=== PATIENT | female | born 1965 | race Caucasian/White ===

== ENCOUNTER → 2020-12-18 11:18 | Outpatient (BNVA) | payer BC, SELFPAY | PROVIDERS: PCP Internal Medicine; Visit Provider Internal Medicine Pulmonary Disease ==

== ENCOUNTER 2021-12-16 10:32 | Outpatient (REF) | payer BC, SELFPAY ==
--- NOTE | ~2021-12-16 | CT_ITS ---
EXAMINATION: CT CHEST WITHOUT CONTRAST CLINICAL INFORMATION: Pulmonary nodules COMPARISON: None TECHNIQUE: Multidetector volumetric CT imaging of the chest was done. Axial MIP volume rendering provided. Sagittal and coronal reformatted images were obtained. This CT examination was performed using dose optimization techniques as appropriate, variously including the following: *Automated exposure control *Adjustment of mA and/or kV according to patient size (this includes techniques or standardized protocols for targeted exams where dose is matched to indication/reason for exam; i.e. extremities or head) *Use of iterative reconstruction technique DLP: 197 mGy-cm FINDINGS: LUNGS: There are multiple small bilateral pulmonary nodules. Largest right pulmonary nodule is a heterogeneous or semisolid right middle lobe nodule ax image 214 series 5. Largest left pulmonary nodule is a heterogeneous or semisolid left lower lobe nodule axial image 168 series 5. MEDIASTINUM: The mediastinum is normal. PLEURA: There is no pleural effusion. No pleural mass or thickening. AXILLA: No lymphadenopathy. UPPER ABDOMEN: The gallbladder has been removed. OSSEOUS STRUCTURES: There are degenerative changes of the spine. CT/CT chest wo con IMPRESSION: Multiple small bilateral pulmonary nodules largest measuring 4 to 5 mm. Comparison with old outside exams recommended. Fleischner guidelines were followed.
== END 2021-12-16 10:33 | disposition home or self-care (01) ==
LOC: HO.CT 10:32
PROVIDERS: PCP Internal Medicine; Visit Provider Internal Medicine Pulmonary Disease
DX: R91.8 Other nonspecific abnormal finding of lung field (principal)
CPT/HCPCS: 71250

== ENCOUNTER → 2021-12-30 14:47 | Outpatient (BNVA) | payer BC, SELFPAY | PROVIDERS: PCP Internal Medicine; Visit Provider Internal Medicine Pulmonary Disease | DX: Z13.89 Encounter for screening for other disorder (principal) ==

== ENCOUNTER 2024-07-02 09:11 | Outpatient (REF) | payer OTHER, SELFPAY ==
[2024-07-02 14:40] LABS: Influenza A PCR NEGATIVE (Negative); Influenza B PCR NEGATIVE (Negative); Resp Syncy Virus RNA Qual PCR NEGATIVE (Negative); SARS COV2 PCR INHOUSE NEGATIVE (Negative)
== END 2024-07-02 09:12 | disposition home or self-care (01) ==
LOC: HO.LAB 09:11
PROVIDERS: Physician Assistant; PCP Internal Medicine
DX: J06.9 Acute upper respiratory infection, unspecified (principal); R05.9 Cough, unspecified; R06.2 Wheezing
CPT/HCPCS: 0241U; 99202

== ENCOUNTER 2024-07-02 09:11 | Outpatient (AMB) | payer OTHER, SELFPAY ==
[2024-07-02 09:34] VITALS: BP 132/86; PULSE 74; TEMP 36.7; O2SAT 98; BMI 41.8
--- NOTE | 2024-07-02 09:34 | AM.OFFWIN_ITS ---
Intake Vital Signs 07/02/24 09:34 Height 5 ft 6 in Weight 259 lb BMI 41.8 BP 132/86 Blood Pressure Location Lt brachial Position Sitting Pulse 74 Pulse Source Pulse Oximeter Temp 98.1 F Temp Source Oral Pulse Oximetry (%) 98 Oxygen Delivery Method Room Air Intake Visit Reasons: EP Cough, wheezing Intake Note: pt c/o cough and wheezing. Started 2 days ago Patient Tobacco Use Status: Never used Tobacco Allergies amoxicillin Allergy (Unknown, Verified 07/02/24 09:40) Unknown doxycycline Allergy (Unknown, Verified 07/02/24 09:40) Unknown clarithromycin [From Biaxin] Allergy (Verified 07/02/24 09:40) Unknown Do you need a note to return to daycare/school/sports/work: No HPI HPI Comments History of Present Illness Details Patient is a 59-year-old female complaining of 2 days of a dry cough and wheezing. She states that she can hear a squeaking noise when she breathes, she is not quite sure where it is coming from. She also states she has some shortness of breath but she is not sure if it is worse than her baseline shortness of breath. She states she feels short of breath at baseline because she is overweight. She denies any fevers, ear pain, sinus pain, headaches or chest pain. 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 She states she had an ablation and she has been fine for the last year and has not been into AFib but she states she got COVID last year and that is what started the AFib. She states she does take an allergy pill daily. She has not tried taking any decongestants yet because she is afraid is going to affect her blood pressure. [facility] Social History (Updated 12/18/20 @ 11:23 by Jennifer Hoff MA) Patient Tobacco Use Status: Never used Tobacco Review of Systems Const All systems reviewed & are unremarkable except as noted in HPI and below Physical Exam Vital Signs: Last Vital Signs Temp 98.1 F 07/02/24 09:34 Pulse 74 07/02/24 09:34 BP 132/86 07/02/24 09:34 Pulse Ox 98 07/02/24 09:34 Oxygen Delivery Method Room Air 07/02/24 09:34 BMI result Body Mass Index 41.8 Const General: cooperative, healthy appearing, comfortable and no acute distress Orientation/consciousness: patient oriented x3 Limitations: no limitations HEENT Head: Yes normal to inspection Ears: hearing grossly normal bilaterally, external ears normal and TM's normal bilaterally General nose exam: Normal external nose present, Normal nares present and No nasal discharge present Face and sinus: Yes normal facial exam and Yes sinuses nontender Mouth: Normal oral and palatal mucosa present and moist mucous membranes Throat: Yes tonsils normal, Yes uvula midline and Yes posterior oropharynx abnormal (Erythema) Eyes General: appearance normal, both eyes and all related structures Neck Neck: Yes normal visual inspection Resp Effort & Inspection: normal respiratory effort, able to speak in complete sentences, Actively coughing, no respiratory distress, not tachypneic, no tripod positioning and no use of accessory muscles Auscultation: clear to auscultation bilaterally Cardio Rate: regular rate Rhythm: regular rhythm Heart sounds: normal S1 and S2 Skin General skin exam: no rashes or lesions noted Neuro General: patient oriented x3 Extrem General: Yes normal to inspection and Yes no clubbing, cyanosis or edema Assessment & Plan Assessment & Plan (1) URI (upper respiratory infection): Code(s): J06.9 - Acute upper respiratory infection, unspecified Qualifiers: URI type: unspecified URI Qualified Code(s): J06.9 - Acute upper respiratory infection, unspecified Plan: Vital signs are stable, patient is well-appearing, physical exam was unremarkable besides some erythema in her posterior oropharynx. We did send a flu COVID and RSV test, recommended oidq-sjl-sodslft medications for symptomatic management. Recommended she check with the pharmacist to find a decongestant that will not affect her blood pressure negatively. Plan See above Coding Level of Care Code New Pt Level 3 (86568) Diagnoses Upper respiratory tract infection, unspecified type J06.9 URI type: unspecified URI
== END 2024-07-02 10:21 | disposition home or self-care (01) ==
PROVIDERS: PCP Internal Medicine; Visit Provider Physician Assistant
DX: J06.9 Acute upper respiratory infection, unspecified (principal)

== ENCOUNTER 2024-07-13 09:48 | Outpatient (AMB) | payer OTHER, SELFPAY ==
[2024-07-13 11:25] VITALS: BP 126/90; PULSE 68; TEMP 36.6; O2SAT 96; BMI 42.0
--- NOTE | 2024-07-13 11:25 | MHC.OFFWIV ---
Intake Vital Signs 07/13/24 11:25 Height 5 ft 6 in Weight 260 lb BMI 42.0 BP 126/90 H Blood Pressure Location Lt brachial Position Sitting Pulse 68 Pulse Source Pulse Oximeter Temp 97.8 F Temp Source Oral Pulse Oximetry (%) 96 Oxygen Delivery Method Room Air Intake Visit Reasons: EP Cough, wheezing Intake Note: Pt is here today c/o cough and wheezing Patient Tobacco Use Status: Never used Tobacco Allergies amoxicillin Allergy (Unknown, Verified 07/13/24 11:26) Unknown doxycycline Allergy (Unknown, Verified 07/13/24 11:26) Unknown clarithromycin [From Biaxin] Allergy (Verified 07/13/24 11:26) Unknown HPI EP Cough, wheezing HPI Details Patient is a 59-year-old female with history of atrial fibrillation, hypertension, pulmonary nodules and mild obstructive sleep apnea who comes to the walk-in clinic complaining of persistent cough that sometimes is becoming coughing fits at night, nonproductive in nature, and she hears audible wheezing only when she is supine. 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 She came to the walk-in about a week ago when symptoms began and tested negative for known viruses. She does not have any chest pressure or shortness of breath, fever or chills, malaise or myalgias, nausea vomiting or diarrhea, weakness or dizziness, headache, or other significant associated symptoms. [facility] Social History Patient Tobacco Use Status: Never used Tobacco Review of Systems Const All systems reviewed & are unremarkable except as noted in HPI and below Physical Exam Vital Signs: Last Vital Signs Temp 97.8 F 07/13/24 11:25 Pulse 68 07/13/24 11:25 BP 126/90 H 07/13/24 11:25 Pulse Ox 96 07/13/24 11:25 Oxygen Delivery Method Room Air 07/13/24 11:25 BMI result Body Mass Index 42.0 Const General: cooperative, healthy appearing, comfortable, no acute distress, alert, awake, Physically active and well groomed; No anxious, diaphoretic, ill appearing, intoxicated appearing, poor hygiene or tired appearing Orientation/consciousness: oriented to person Limitations: no limitations HEENT Head: Yes normal to inspection, Yes normocephalic and Yes atraumatic Ears: hearing grossly normal bilaterally, external ears normal, TM's normal bilaterally and EAC's normal General nose exam: Normal external nose present, Normal nares present, Normal nasal mucous membranes and turbinates present, Normal septum present and No nasal discharge present Face and sinus: Yes normal facial exam, Yes sinuses nontender and Yes face symmetric Mouth: Normal oral and palatal mucosa present, lip normal and tongue normal Throat: Yes posterior oropharynx normal, No peritonsillar mass, No postnasal drainage, No uvular edema and No cobblestoning Eyes General: appearance normal, both eyes and all related structures Neck Neck: Yes normal visual inspection, Yes no lymphadenopathy, Yes trachea midline, Yes supple and No anterior neck swelling Resp Effort & Inspection: normal respiratory effort, able to speak in complete sentences, no audible wheezes, no grunting, not labored, no nasal flaring, no retractions and symmetric chest movement Auscultation: clear to auscultation bilaterally, no crackles, no rales, no rhonchi, no wheezes, lung sounds not diminished and No rub present Cardio Rate: regular rate Rhythm: regular rhythm Skin Other: Good color, warm and dry Neuro General: oriented to person Psych Appearance: grossly normal Mental Status: mental status grossly normal Speech and movement: Normal speech and movement present Affect: normal affect Attitude: cooperative Thought process: Normal thought process present Insight: Good insight present (Psych) Judgement: Good judgement present (Psych) Results Reviewed Results Reviewed: Plain film x-rays show no obvious acute disease per my read, although she does have pulmonary nodules which are known to her. Pending radiologist read to confirm Assessment & Plan Assessment & Plan (1) URI (upper respiratory infection): Code(s): J06.9 - Acute upper respiratory infection, unspecified Qualifiers: URI type: unspecified URI Qualified Code(s): J06.9 - Acute upper respiratory infection, unspecified Plan Patient is a 59-year-old female comes to the walk-in clinic a week after being treated here for similar symptoms, and reports that she hears wheezing in her ears when she lies supine, and worries that it might be pertussis. She does not have any chest pressure or shortness of breath, however she does report persistent coughing fits at night, that are nonproductive in nature. We discussed how her exam is unremarkable except for an occasional cough and being mildly hypertensive, and she has no wheezing on exam, with only a mild occasional cough. Chest x-ray was done today and is consistent with prior exams, no acute findings on my read. Pending radiologist read to confirm. I reassured her that it is likely that this is upper airway involvement as it is only audible to her while lying supine, in that it might be related to her mild obstructive sleep apnea. We discussed that she should use an extra pillow or 2 while sleeping to keep her elevated. Due to her history, I think she should trial benzonatate capsules before considering anything that would increase her blood pressure such as an oral steroid. I did order labs to evaluate her white blood cell count also, and this is pending. She is very worried about possibly having pertussis, although her exam currently does not support this, with no typical cough. I did offer to order labs to test this. She is allergic to 1st and second-line treatment for pertussis however, and even to penicillins and doxycycline, so we discussed that she might have to trial Levaquin if she were to develop a lower respiratory infection. She should monitor symptoms and they persist or worsen. She knows to go to the emergency department with worrisome symptoms. I did discuss that she should consider doing a repeat sleep study when symptoms are resolved, as she reports that she had a prior study done when she was diagnosed with atrial fibrillation, and apparently she was told that she had mild sleep apnea at the time, which did not need to be treated. She reports that she does not have excessive daytime sleepiness or fatigue while driving. She was reminded not to drive if she does experience any of this. Orders: Orders Complete Blood Count Auto Diff 07/13/24 R05.9 - Cough, unspecified XR chest 2V 07/13/24 R05.9 - Cough, unspecified B.pertussisB.parapertussis PCR 07/13/24 R05.9 - Cough, unspecified Medications: New benzonatate 100 mg PO BID-TID PRN 30 caps 0RF cough Coding Level of Care Code Est Pt Level 4 (32087) Diagnoses Upper respiratory tract infection, unspecified type J06.9 URI type: unspecified URI
== END 2024-07-13 14:11 | disposition home or self-care (01) ==
PROVIDERS: PCP Internal Medicine; Visit Provider Physician Assistant Medical
DX: J06.9 Acute upper respiratory infection, unspecified (principal)

== ENCOUNTER → 2024-07-13 09:48 | Outpatient (BNVA) | payer OTHER, SELFPAY | PROVIDERS: PCP Internal Medicine ==

== ENCOUNTER 2024-07-13 11:56 | Outpatient (REF) | payer OTHER, SELFPAY ==
--- NOTE | ~2024-07-13 | XR_ITS ---
EXAMINATION: XR CHEST CLINICAL INFORMATION: Cough. COMPARISON: CT chest 12/16/2021. TECHNIQUE: 2 views of the chest were obtained. FINDINGS: No focal consolidation, pleural effusion or pneumothorax. Normal appearance of the cardiomediastinal silhouette. Subcentimeter pulmonary nodules are better visualized on prior CT chest, too small to characterize by radiograph. No acute osseous findings. Visualized upper abdomen is within normal limits. XR/XR chest 2V IMPRESSION: 1. No acute cardiopulmonary findings. 2. Subcentimeter pulmonary nodules are better visualized on prior CT chest, too small to characterize by radiograph. Electronically signed by: Kylee Schafer MD 07/13/2024 03:23 PM EDT
[2024-07-13 15:06] LABS: MANUAL DIFF FLAG NO
[2024-07-13 15:09] LABS: Basophils Percent Auto 0.6 % (0-2); Eosinophils Absolute Auto 0.1 X10*3/uL (0.0-0.4); Eosinophils Percent Auto 1.4 % (0-4); Hematocrit 42.1 % (37.0-47.0); Hemoglobin 14.3 g/dl (12.0-16.0); Imm Gran Abs Auto 0.03 X10*3/uL (0.00-0.03); Imm Gran Pct Auto 0.4 % (0.0-0.4); Lymphocytes Absolute Auto 1.3 X10*3/uL (1.2-4.9); Lymphocytes Percent Auto 18.7 % (20-40); Mean Corpuscular Hemoglobin 32.1 pg (27.0-33.0); Mean Corpuscular Volume 94.6 fL (80.0-98.0); Monocytes Absolute Auto 0.3 X10*3/uL (0.1-1.2); Monocytes Percent Auto 4.6 % (2-11); Neutrophils Absolute Auto 5.3 x10*3/uL (2.0-8.3); Neutrophils Percent Auto 74.3 % (45-73); Platelet Count 285 X10*3/uL (160-400); Red Blood Count 4.45 X10*6/uL (4.20-5.50); Red Cell Distribution Width 13.8 % (11.0-16.0); White Blood Count 7.1 X10*3/uL (4.8-10.8)
== END 2024-07-13 11:57 | disposition home or self-care (01) ==
LOC: HO.HMGCX 11:56
PROVIDERS: Visit Provider Physician Assistant Medical
DX: R05.9 Cough, unspecified (principal)
CPT/HCPCS: 36415; 71046; 85025; 99212

== ENCOUNTER 2024-09-20 09:09 | Outpatient (AMB) | payer OTHER, SELFPAY ==
--- NOTE | 2024-09-20 09:24 | AM.OFFWIN_ITS ---
Intake Vital Signs 09/20/24 09:28 Height 5 ft 6 in Weight 262 lb BMI 42.3 BP 130/82 Blood Pressure Location Lt brachial Position Sitting Pulse 82 Pulse Source Pulse Oximeter Pulse Oximetry (%) 98 Oxygen Delivery Method Room Air Intake Visit Reasons: EP-chest pain, cough Intake Note: Patient here for rib pain, cough and occasional chest tightness when taking deep breathes that has been present for a few days. Patient Tobacco Use Status: Never used Tobacco Allergies amoxicillin Allergy (Unknown, Verified 09/20/24 09:32) Unknown doxycycline Allergy (Unknown, Verified 09/20/24 09:32) Unknown clarithromycin [From Biaxin] Allergy (Verified 09/20/24 09:32) Unknown Do you need a note to return to daycare/school/sports/work: No HPI HPI Comments History of Present Illness Details - The patient is a 59-year-old female pr esenting with follow-up concerns after recent hospitalization due to atrial fibrillation. - The atrial fibrillation episode was se vivienne enough to consider admission; however, the condition was stabilized and controlled with medication, leading to discharge within 24 hours. - Current symptoms include a sensation o f chest tightness described as if someone is squeezing it, located centrally around the sternum and radiating to the back. She had these symptoms since prior to admission to [facility] on 09/05/24 and had negative troponins, normal echocardiagram as well as normal BNP, TSH, CBC and chem panel - A persistent cough has been present fo r a couple of weeks, with no productive sputum, fevers, shortness of breath, or wheezing. No other upper respiratory symptoms. - The chest tightness does not exhibit s harp pains and is more reproducible with movement, suggesting costochondritis. - There is a history of ribcage cartilag e issues, tempering the suspicion of osteochondritis. - No recent smoking or similar irritants are reported as contributing factors to respiratory symptoms. Physical Exam General: Cooperative, healthy appearing, comfortable and no acute distress Orientation/consciousness: Patient oriented x3 Limitations: No limitations Head: Normal to inspection Ears: Hearing grossly normal bilaterally, external ears normal Nose: Normal external nose present Throat: Yes tonsils normal, Yes uvula midline. Posterior oropharynx normal Eyes: Appearance normal, both eyes and all related structures Neck: Normal visual inspection Respiratory: Clear to auscultation bilaterally. Normal respiratory effort, able to speak in complete sentences, no respiratory distress, not tachypneic, no tripod positioning and no use of accessory muscles Cardiovascular: Regular rate and rhythm. Normal S1 and S2 Skin: No rashes or lesions noted Neuro: Patient oriented x3 Extremities: Normal to inspection and Yes no clubbing, cyanosis or edema [facility] Social History Patient Tobacco Use Status: Never used Tobacco Review of Systems Const All systems reviewed & are unremarkable except as noted in HPI and below Physical Exam Vital Signs: Last Vital Signs Pulse 82 09/20/24 09:28 BP 130/82 09/20/24 09:28 Pulse Ox 98 09/20/24 09:28 Oxygen Delivery Method Room Air 09/20/24 09:28 BMI result Body Mass Index 42.3 Assessment & Plan Assessment & Plan (1) Cough: Code(s): R05.9 - Cough, unspecified Qualifiers: Cough type: subacute Qualified Code(s): R05.2 - Subacute cough Plan: Difficult to determine cause of cough and chest tightness, costochondritis vs GERD vs evolving pulmonary nodules. - Costochondritis: Recommend non-steroidal anti-inflammatory drugs NSAIDs for symptomatic relief. - Gastroesophageal Reflux Disease GERD: Initiate a trial of itkq-daf-qufyssg om eprazole for one week to address potential silent reflux contributing to cough. Monitor for symptom resolution. - Cough: will get CXR today. - Ensure appropriate follow-up with the new primary care provider and back filler operator for ongoing management of chronic conditions after transition in health insurance. Recommended she obtain the visit note from her Cards appt next week and bring it to this office so Dr Johnson may review and move her new pt appt up sooner, if appropriate. Otherwise, she will attend her new pt appt in December with Dr Johnson. Patient was informed and verbally consented to the use of an ambient scribe for clinic note documentation during this visit Orders: Orders XR chest 2V Today R05.9 - Cough, unspecified Coding Level of Care Code Est Pt Level 4 (93577) Diagnoses Subacute cough R05.2 Cough type: subacute
[2024-09-20 09:28] VITALS: BP 130/82; PULSE 82; O2SAT 98; BMI 42.3
--- OUTSIDE RECORDS SUMMARY | 2024-09-25 06:49 | XMS_ITS | Patient Health Record ---
[facility] Address [address] [place] [address] Care Team Providers Care Green Hide Inspector Name Role Phone Elly VANEGAS, Santana Primary Care Provider Rubi Colin Unavailable [phone] Allergies Allergen (clinical drug ingredient) Drug/Non Drug Allergy documented on EMR Reaction Allergy Type Onset Date Status amoxicillin Amoxicillin Unknown Drug Allergy Act lino Biaxin nausea Drug Allergy Active erythromycin Erythromycin nausea Drug Allergy A ctive doxycycline Doxycycline Unknown Drug Allergy Act lino Adhesive rash Allergy Active Reason For Referral No Information Medications Medication SIG (Take, Route, Frequency, Duration) Notes Start Date End Date Status Eliquis 5 MG 1 tablet Orally Twic e a day Not-Taking Norvasc Not-Taking ZyrTEC Allergy 10 MG 1 tablet Orally Onc e a day Active Evening [place] Oil 1000 MG as directed Orally Active Viorele 0.15-0.02/0.01 MG (05/03) 1 tablet Orally Once a day Not-Taking Entresto 49-51 MG 1 tablet Orally Twic e a day Active Feldene 20 MG 1 capsule with food Orally Once a day for 30 day(s) 07/19/2011 Not-Taking Digoxin 125 MCG 1 tablet Orally Not-Taking Metoprolol Succinate ER 50 MG 1 tablet Orally Once a day Not-Taking Multivitamin Active Vitamin C Active Biotin 5000 MCG 1 capsule Orally Onc e a day Active Work Note . . . Due to painful foot condition patient to be off of work until 01/03/18 12/20/2017 Not-Taking Vitamin D3 50 MCG (1999 UT) 1 capsule Orally Once a day Active Physical Therapy 3-4x per week for 3- 4 weeks 06/12/2017 Not-Taking vitamin Not-Taking Aleve Not-Taking Metoprolol Succinate ER 200 MG 1 tablet Orally Once a day Active Gabapentin 300 MG 1 capsule before bedtime Orally Once a day for 30 day(s) 12/20/2017 Not-Taking Vitamin D Not-Taking Baby Aspirin Not-Madi ing Walking Boot/Pneumatic As directed Wear Daily for Until further notice 12/20/2017 Not-Taking Carvedilol 25 MG 1 tablet with food Orally Twice a day Active Betamethasone Dipropionate Aug Not-Taking Amiodarone HCl Activ e Physical Therapy . . . 2-3x/week for 3- 4 weeks 01/02/2018 Not-Taking Work Note . . . Out of work unti l 01/30/18 01/09/2018 Not-Taking amLODIPine Besylate 10 MG 1 tablet Orall y Once a day Active Tylenol daily Not-Taking Metoprolol Succinate ER 100 MG Orally Once a day Not-Taking Social History Tobacco Use: Social History Observation Description Date Details (start date - stop date) Former Smoker NA - NA Tobacco Use/Smoking Question Answer Notes Are you a: former smoker Additional Findings: Tobacco Non-User Current no n-smoker Alcohol Screen Question Answer Notes Did you have a drink contain ing alcohol in the past year? Yes How often did you have a dri nk containing alcohol in the past year? Monthly or less (1 point) Points 1 Interpretation Negative Tobacco use other than smoking: Question Answer Notes Are you an other tobacco user? No Vital Signs Height 5ft6in in 04/05/2024 Weight 255 lbs 04/05/2024 BMI 41.15 kg/m2 04/05/2024 Encounters Encounter Location Date Provider Diagnosis [facility] [address] 10/11/2023 Rubi Perica Plantar fasciitis of right foot M72.2 ; Pain of right heel M79.671 and Calcaneal spur of right foot M77.31 [facility] [address] 04/05/2024 Rubi Perica Plantar fasciitis of right foot M72.2 ; Pain of right heel M79.671 and Calcaneal spur of right foot M77.31 Assessments Encounter Date Diagnosis (ICD Code) Assessment Notes Treatment Notes Treatment Clinical Notes Section Notes 10/11/2023 Pain of right heel (ICD-10 - M79.671) 10/11/2023 Plantar fasciitis of right foot (ICD-10 - M72.2) 04/05/2024 Pain of right heel (ICD-10 - M79.671) 04/05/2024 Plantar fasciitis of right foot (ICD-10 - M72.2) 04/05/2024 Calcaneal spur of right foot (ICD-10 - M77.31) 10/11/2023 Calcaneal spur of right foot (ICD-10 - M77.31) Plan Of Treatment Pending Test Test Name Order Date X ray : Foot, left 2V 06/12/2017 X ray : Foot, right 2V 07/19/2011 X ray : Foot, left 3V 05/23/2018 X ray : Foot, left 3V 06/13/2018 X ray : Foot, right 3V 04/24/2023 X ray : Foot, right 3V 01/12/2012 [id number] Destruction, -14 03/25/2015 [id number] Destruction, -04/29/2015 [id number] Destruction, -05/25/2015 [id number] TENDON SHEATH/LIGAMENT 0 01/29/2018 Insurance Providers Payer Name Payer Address Payer Phone Subscriber Number Group Number Insured Name Patient Relationship to Insured Coverage Start Date Coverage End Date [facility] [employer] [address] [place] [address] [id number] Jermaine Garg Spouse - patient is the spouse of the insured Medical (General) History Medical History History ICD Code sinus conditions keloids hypertension headaches/migraines gall bladder problems chicken pox back, hip, knee pain measles psoriasis/eczema A fib Surgical History Surgery Date(Month/Year) cholecystectomy 1996 tubal ligation foot surgery-topaz wisdom teeth extraction 1984 Hospitalization History Reason Date(Month/Year) MM cardiac ablation 09/07/2023
--- OUTSIDE RECORDS SUMMARY | 2024-09-25 06:49 | XMS_ITS | Continuity of Care Document ---
Author Organization [facility] ter Address [address] [place] [id number]- Care Team Providers Care Senior Oracle Pl Sql Developer Name Role Phone Not on Staff, PCP Primary Care Physician Unavail able [place] [facility] [place]): [place] - 09/05/[address] [address]- Discharge Disposition: A-D/C Home Attending Physician: Kei Locke MD Admitting Physician: Umang Mack MD Referring Physician: Not on Staff, Referring MD Encounter Type: Disch Obv Allergies, Adverse Reactions, Alerts Substance Criticality Severity Reaction Reaction Severity Status doxycycline unknown Active amoxicillin unknown Active penicillins unknown Active Biaxin hives Active Levaquin vomiting, diarr hea, upset stomach Active Medications biotin 5000 mcg oral capsule 0 Refills, Maintenance, 12/28/21 5:57:00 AM EDT, Partial fill upon patient request if the prescription is for a schedule II opioid drug. Start Date: 12/28/21 Status: Ordered Repeat number: 1 D3 By Mouth, Daily, 0 Refills, Maintenance, 01/18/23 4:10:00 AM EDT, Partial fill upon patient request if the prescription is for a schedule II opioid drug. Start Date: 01/18/23 Status: Ordered Repeat number: 1 Entresto 97 mg-103 mg oral tablet 1 tablet, By Mouth, 2 times a day, # 60 tablet, 0 Refills, Maintenance, 09/05/24 10:42:00 AM EST, Tablet, Partial fill upon patient request if the prescription is for a schedule II opioid drug. Start Date: 09/05/24 Status: Ordered Quantity: 60.0 Unit: tablet Repeat number: 1 Multaq 400 mg oral tablet 1 tablet = 400 mg, By Mouth, 2 times a day, # 60 tablet, 1 Refills, Maintenance, 09/05/24 11:26:00 AM EST, Tablet, [id number], Partial fill upon patient request if the prescription is for a schedule II opioid drug., 168, cm, 07/21/23 21:11:00 EDT, Height, 108, kg, 07/21/23 21:11:00 EDT, DryWeight Start Date: 09/05/24 Status: Ordered Quantity: 60.0 Unit: tablet Repeat number: 2 spironolactone 25 mg oral tablet 25 mg, 1, tablet, By Mouth, Daily, # 30 tablet, Refills 0, Maintenance, 09/05/24 10:43:00 AM EST, Partial fill upon patient request if the prescription is for a schedule II opioid drug. Start Date: 09/05/24 Status: Ordered Quantity: 30.0 Unit: tablet Repeat number: 1 ZyrTEC 10 mg oral tablet 1 tablet = 10 mg, By Mouth, Daily, 0 Refills, Maintenance, 02/11/16 9:26:42 AM EDT Start Date: 02/11/16 Status: Ordered Repeat number: 1 Problem List Condition Confirmation Course Effective Dates Status Health St atus Informant Obese class II Confirmed Active Results Radiology Reports * Exam Date Time Procedure Performing Provider Status 09/05/24 2:48 AM Chest Portable Khadijah Isabel (Verified) Notes: (Chest Portable) Reason For Exam: Shortness of Breath RESULT: Chest Portable Examination: Portable chest performed on 09/05/2024. History: Palpitations. Findings: A frontal view of the chest is compared to a prior study dated 08/07/2023. The cardiac and mediastinal silhouettes are within normal limits. The lungs are clear. The osseous and soft tissue structures are unremarkable. IMPRESSION: There is no acute cardiopulmonary disease. WSN: [id number] Ordering Physician: Hollie Rico Dictated By: Malina Kerr MD Dictated Date/Time: 09/05/24 7:45 am Reviewed By: Malina Kerr MD Signed By: Malina Kerr MD Signed Date/Time: 09/05/24 7:45 am Transcribed By: ETHAN Transcribed Date/Time: 09/05/24 7:44 am Vital Signs Most recent to oldest [Reference Range]: 1 2 3 Oxygen Saturation [94-100 %] 100 % (09/05/24 7:54 AM) 100 % (09/05/24 6:07 AM) 100 % (09/05/24 5:15 AM) Pulse Rate [55-90 bpm] 72 bpm (09/05/24 7:54 AM) 101 bpm *H* (09/05/24 6:07 AM) 104 bpm *H* (09/05/24 5:15 AM) Blood Pressure [90-138/55-84 mm Hg] 137/87mm Hg (09/05/24 7:54 AM) 132/92mm Hg (09/05/24 6:07 AM) 103/67mm Hg (09/05/24 5:15 AM) Respiratory Rate [16-30 br/min] 20 br/min (09/05/24 7:54 AM) 19 br/min (09/05/24 6:07 AM) 16 br/min (09/05/24 5:15 AM) Temperature [96.8-100.4 DegF] 97.4 DegF (09/05/24 1:18 AM) Mode of Delivery (Oxygen) Room air (09/05/24 7:54 AM) Room air (09/05/24 6:07 AM) Room air (09/05/24 5:15 AM) Blood pressure sites Arm, left (09/05/24 1:18 AM) Arm, left (09/05/24 1:16 AM) Social History Social History Type Response Smoking Status Never (less than 100 in lifetime) entered on: 12/28/21 Sex Sex Representation Female (finding) Admission evaluation note * Yahir VANEGAS, Uchechukwu: PERFORM, MODIFY, MODIFY Event Display: Admission Note Authored Date: Patient: ??YONIS GARG ? Age:??59 Years?Sex:??Female?:??1965?? History of Present Illness Yonis Garg is a 59-year-old female??with limited PMH on CIS but per non- general medicine documentation from 2016 which I confirmed with her today, she has a past medical history of hypertension,obesity, sleep apnea-not on CPAP[teletype or varitype keyboard operator reportedly told her she didn't need it], allergic rhinitis, depression, eczema, rosacea, lumbar disc degenerative disease??and patient reported hx of Afib s/p ablation in 2022.?? She presented to ED following sudden onset palpitations and was found to be in A-fib with RVR. ?? HPI: Admitted in ED where she reported: Sudden onset palpitations while in bed watching TV at about 10-11pm last night. ??This was reportedly associated with??mild??lightheadedness??and significant fatigue??that lasted until her ED presentation.?Notably, her apple watch told her that her HR was in the 160s. Reportedly, has not experienced palpitations since her ablation??with [facility]ology in 2022 at [facility]. Reports symptoms resolved with??the administration of diltiazem in ED and she is back to her baseline health now. ?? Relevant positives:??Had 32 ounces of decaf green tea at 10am yesterday??and decaf kath glasgow at 7:30pm??approximately yesterday. Over the course of the day yesterday,??she had 35oz of water[outside of her decaf teas]. This is her usual baseline fluid intake.? Relevant negatives: She denied having any chest pain, dizziness,??SOB, fever, chills, nausea,??vomiting,??headache, arm or jaw pain, cough,??sputum production,??constipation or diarrhea in the last week,??during her episode yesterday or at time of my review.??Denied any intake of alcohol,??fizzy or energy drinks yesterday. ?? quality assurance monitor final in ED at time of my review: sinus in the 70s. ?? Investigations thus far: Was initially hypotensive with systolics at 81 on ED arrival.?? Was also tachycardic to the 140s inthe very early hours of the morning.?? Now improved with last recorded blood pressure of 127/87 andheart rate of 72. Afebrile since ED arrival and saturating in the high 90s to 100 on RA. ?? CBC is benign.?? Mild metabolic acidosis with a bicarb of 16 and anion gap of 18.?? Creatinine is abit of baseline with a value of 1.14 [creatinine baseline is around 0.9-1.0].?? BNP is within normal limits and troponin is 14.?? TSH: 5.06 a normal free T4 of 0.92. Chest x-ray: Nil acute. ?? EKG on arrival: A-fib with RVR at a rate of 131 bpm. ?? Interventions thus far: Received a dose of diltiazem 120 mg in ED. Review of Systems Constitutional: No fever, chills or rigors?? Cardiac: Positive as in HPI above. No Chest pain, No??subjective leg swelling,??orthopnea or PND Respiratory: no shortness of breath Gastrointestinal: No diarrhea or constipation, no nausea or abdominal pain?? Genitourinary: No Urinary frequency, urgency or dysuria?? Musculoskeletal: No muscle or bone pain?? Neurological: No headache, blurred vision, tingling or numbness or any weakness?? Extremities: no weakness, swelling or pain?? Skin: Chronic rash from eczema??the bilateral shins.??no itching, bumps, hair and/or nail changes, de/pigmentation?? Objective ? Vital Signs?? Temperature: 97.4 DegF (09/05/24 01:18:00) Pulse Rate: 72 bpm (09/05/24 07:54:00) Respiratory Rate: 20 br/min (09/05/24 07:54:00) Systolic Blood Pressure: 137 mm Hg (09/05/24 07:54:00) Diastolic Blood Pressure:??87 mm Hg??High (09/05/24 07:54:00) Blood pressure sites: Arm, left (09/05/24 01:18:00) Mean Arterial Pressure: 64 mm Hg (09/05/24 01:18:00) Pulse Pressure: 50 mm Hg (09/05/24 07:54:00) Oxygen Saturation: 100 % (09/05/24 07:54:00) Mode of Delivery (Oxygen): Room air (09/05/24 07:54:00) Early Warning Score: 2 (09/05/24 07:55:44) ? Pain Scores?? No qualifying data available. ? Physical Exam Respiratory: Good air entry bilaterally, no wheeze, no crackles. Cardiac: HS1+2 [regular]??with no added sounds. Strong cardiac impulse.??No JVD. Extremities: No pedal edema bilaterally. Overall volume status: Appears euvolemic. Gastrointestinal: Abdomen is non-distended, soft, and nontender. ??No guarding, rigidity or reboundtenderness.??Bowel sounds present. Skin: Faded eczema rash noted in bilateral shins.?? No other lesions. Neuro: Alert and orientated x3. Moves all extremities spontaneously. No significant neuro deficit. ??No asterixis. Psych: Normal affect. No exam signs of anxiety. MSK: No cuts or bruises. Assessment/Plan Diagnoses Atrial fibrillation with RVR ??(I48.91) Hx of essential hypertension ??(Z86.79) Hypotension ??(I95.9) ?? Assessment:??Yonis Garg is a 59-year-old female??with limited PMH on CIS but per non- general medicine documentation from 2016 which I confirmed with her today, she has a past medical history of hypertension, obesity, sleep apnea-not on CPAP[teletype or varitype keyboard operator reportedly told her she didn't need it], allergic rhinitis, depression, eczema, rosacea, lumbar disc degenerative disease??and patient reported hx of Afib s/p ablation in 2022.??She presented to ED following sudden onset palpitations and was found to be in A-fib with RVR. ?? Atrial fibrillation with RVR (I48.91) ?Associated with??Hx of essential hypertension (Z86.79),??Hypotension (I95.9) ? Presented with sudden onset palpitations??and mild??headedness. EKG on arrival: A-fib with RVR at a rate of 131 bpm. Was back in sinus rhythm on ED case monitor at time of my review. Patient hypertensive with systolics at 81. Resolved with diltiazem. TSH: 5.06 a normal free T4 of 0.92. BNP is within normal limits and troponin is 14. She reported having done a recent echo with [facility]. Pre admission home regimen: Carvedilol 25 twice daily, Entresto 97/103 twice daily, spironolactone 25 daily. Plan: [facility]??cardiology consulted, appreciate recs. PCP FU of TFTs and chronic disease management. ?? Corazon Sinclair MD Internal Medicine PGY1 Pager: [phone] ?? Patient seen and management discussed with attending physician,??Dr Locke. ?? Histories Allergies Allergies ?(Active and Proposed Allergies Only) doxycycline? (Severity: Unknown severity, Onset: Unknown) ?Reactions: unknown Levaquin? (Severity: Unknown severity, Onset: Unknown) ?Reactions: vomiting, diarrhea, upset stomach penicillins? (Severity: Unknown severity, Onset: Unknown) ?Reactions: unknown amoxicillin? (Severity: Unknown severity, Onset: Unknown) ?Reactions: unknown Biaxin? (Severity: Unknown severity, Onset: Unknown) ?Reactions: hives ? Past Medical History/Problem List Active Problems(1) Obese class II ? Past Surgical History No surgery history documented. ? Social History Alcohol Details:??Use: Current. ??Frequency: 1-2 times per month. Substance Abuse Details:??Use: Never. Tobacco Details:??Use: Never (less than 100 in lifetime). Details:??Former smoker, Other: as teenager ocassionally. ? Family History No Family History documented. ? Medications Home Medications Cetirizine (ZyrTEC 10 mg oral tablet)?1?tab(s)?10?Milligram?By Mouth?Daily Cholecalciferol (D3)?By Mouth?Daily dronedarone (Multaq 400 mg oral tablet)?1?tab(s)?400?Milligram?By Mouth?2 times aday sacubitril-valsartan (Entresto 97 mg-103 mg oral tablet)?1?tab(s)?By Mouth?2 times a day Spironolactone (spironolactone 25 mg oral tablet)?25?Milligram?1?tablet?By Mouth?Daily ? Inpatient Medications Medications (11) Active SCHEDULED: (3) NaCl 0.9% Flush 3ml (NaCL 0.9% Flush) ??3 mL, IV Push, Every 8 hours Sacubitril-Valsartan 97 mg-103 mg Tablet (Entresto 97 mg-103 mg oral tablet) ??1 tablet, By Mouth, 2 times a day Spironolactone 25 mg Tablet (spironolactone 25 mg oral tablet) ??25 mg, By Mouth, Daily CONTINUOUS: (0) PRN: (8) Acetaminophen 325 mg Tablet (Acetaminophen Tablet) ??650 mg, By Mouth, Every 4 hours Dextromethorphan-Guaifenesin 20 mg-200 mg/10 mL Liqu UD (Robitussin DM Liquid) ??10 mL, By Mouth, Every 4 hours Docusate Sodium 100 mg Capsule (Docusate Sodium Capsule) ??100 mg 1 capsule, By Mouth, 2 times a day Melatonin 3 mg Tablet (Melatonin Tablet) ??3 mg, By Mouth, Daily at bedtime NaCl 0.9% Flush 3ml (NaCL 0.9% Flush) ??3 mL, IV Push, Every 8 hours Polyethylene Glycol 17 Gm Powder (MiraLax Powder) ??17 Gm 1 pack/packet, By Mouth, Daily Senna Tablet ??8.6 mg 1 tablet, By Mouth, 2 times a day Simethicone 80 mg Chewable Tablet (Simethicone Tablet) ??80 mg, Chew, 3 times a day ? Results Recent Labs BLOOD COUNT & DIFF WBC 7.5 k/mm3 ()?? 09/05/2024 01:44 RBC 4.68 m/mm3 ()?? 09/05/2024 01:44 Hgb 14.7 Gm/dL ()?? 09/05/2024 01:44 Hct 44.3 % ()?? 09/05/2024 01:44 MCV 94.7 femtoliters ()?? 09/05/2024 01:44 MCH 31.4 pg ()?? 09/05/2024 01:44 MCHC 33.2 Gm/dL ()?? 09/05/2024 01:44 Platelet Count 300 k/mm3 ()?? 09/05/2024 01:44 RDW-SD 48.2 femtoliters (High)?? 09/05/2024 01:44 MPV 10.6 femtoliters ()?? 09/05/2024 01:44 Nucleated RBC (Automated) 0.0 #/100 WBC'S ()?? 09/05/2024 01:44 Abs. NRBC 0.0 k/mm3 ()?? 09/05/2024 01:44 Abs. Neut 4.5 k/mm3 ()?? 09/05/2024 01:44 Abs. Lymph 2.1 k/mm3 ()?? 09/05/2024 01:44 Abs. Marin 0.7 k/mm3 ()?? 09/05/2024 01:44 Abs. Eo 0.2 k/mm3 ()?? 09/05/2024 01:44 Abs. Baso 0.0 k/mm3 ()?? 09/05/2024 01:44 Neut % 59.8 % ()?? 09/05/2024 01:44 Lymph % 28.3 % ()?? 09/05/2024 01:44 Marin % 8.8 % ()?? 09/05/2024 01:44 Eos % 2.4 % ()?? 09/05/2024 01:44 Baso % 0.4 % ()?? 09/05/2024 01:44 Imm Gran 0.3 % ()?? 09/05/2024 01:44 Abs. Imm Gran 0.0 k/mm3 ()?? 09/05/2024 01:44 ?? CARDIAC Nt-Probnp 93 pg/mL ()?? 09/05/2024 01:44 High Sensitivity Troponin (HSTnT) 14 ng/L (High)?? 09/05/2024 04:55 ?? CHEM GENERAL Sodium 141 mmol/L ()?? 09/05/2024 01:44 Potassium HEMOLYZED mmol/L ()?? 09/05/2024 01:44 Chloride 107 mmol/L ()?? 09/05/2024 01:44 Bicarbonate Level 16 mmol/L (Low)?? 09/05/2024 01:44 Anion Gap 18 (High)?? 09/05/2024 01:44 Glucose Level 122 mg/dL (High)?? 09/05/2024 01:44 Glucose, POC 106 mg/dL (High)?? 09/05/2024 01:25 BUN 16 mg/dL ()?? 09/05/2024 01:44 Creatinine-Blood 1.14 mg/dL (High)?? 09/05/2024 01:44 Estimated GFR Creatinine 55 ML/MIN/1.73 M2 ()?? 09/05/2024 01:44 Calcium 9.8 mg/dL ()?? 09/05/2024 01:44 Magnesium 2.0 mg/dL ()?? 09/05/2024 01:44 ?? ENDOCRINE/TUMOR MARKER TSH 5.06 uIU/mL (High)?? 09/05/2024 01:44 Free T4 0.92 ng/dL ()?? 09/05/2024 01:44 ?? HEME OTHER Hold Blue Top SPECIMEN DISCARDED AFTER 4 HOURS. ()?? 09/05/2024 01:44 ?? VIROLOGY COVID-19 by RT-PCR NEGATIVE ()?? 09/05/2024 01:44 ? EKG study * Event Display: ECG 12-Lead Authored Date: Please click on pdf link to open report * Event Display: ECG 12-Lead Authored Date: Ventricular Rate: 131 BPM QRS Duration: 100 ms Q-T Interval: 290 ms QTC Calculation(Bazett): 428 ms R [place]: 39 degrees T [place]: -36 degrees Atrial fibrillation with rapid ventricular response [place]: Temo Broderick Consult note * Arcelia Vega MD: PERFORM Event Display: Consultation Note Authored Date: Patient: ??YONIS GARG ? Age:??59 Years?Sex:??Female?:??1965?? History of Present Illness/Interval History 59-year-old female with past medical history significant for atrial fibrillation status post ablation by Dr. 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 We were consulted toevaluate this patient for A-fib with RVR. ?? As I see her today, she is converted back to normal sinus rhythm.?? Her recent echocardiogram at our office on 08/09/2024 indicated left ventricular ejection fraction 55 to 60%, mildly dilated left atrium, normal right ventricular size and function, no significant valvular abnormality.?? Ascending aorta is 4.2 cm. ?? I talked with Dr. Fox as patient sees him for atrial fibrillation status post ablation.?? We discussed today regarding antiarrhythmic management for paroxysmal atrial fibrillation at this time.??So we decided to start her on Multaq 400 mg p.o. twice daily and arrange outpatient [facility] with Dr. Fox. ? Review of system: ? Constitutional:?? No appetite Loss, chills, dizziness, fever, night Sweats Eyes:?? Denies blurred vision, discharge, eye irritation, spots in vision, vision loss Head and Neck:?? Denies any headache, neck pain Ears, Nose, Mouth, Throat: No issues Cardiovascular:?? Denies chest pain/pressure, claudication, irregular heart beat, orthopnea, palpitations, syncope Respiratory:?? Denies cough, hemoptysis, SOB, sputum production, wheezing Gastrointestinal:?? Denies any abdominal distention, pain, black stools, diarrhea, dysphagia, vomiting Genitourinary:?? Denies dysuria, flank pain Musculoskeletal:?? Denies any joint pain or swelling other than mention in HPI Integumentary:?? Denie any skin rash or ulcer, pruritus Neurological:?? Denies any abnormal gait or focal weakness, headache, numbness, seizures, slurred speech Psychiatric:?? Denies any delusions, emotional problems, homicidalideation, suicidal ideation Hematologic:?? Denies any bleeding tendency, hemorrhage ?? Physical Exam: ?? Appearance:?? No Acute Distress, Alert Head Exam:?? Normocephalic and Atraumatic Eyes:?? Mild Palor, Sclera Anicteric, PERRL, EOMI Neck:?? Supple, Non-tender, No carotid bruit, thyromegaly or lymphadenopathy Pulmonary:?? No Accessory Muscle Use, clear to auscultate bilaterally Cardiovascular: JVD/Rhythm/Heart Sound/Added sound???S1 and S2 regular rate and rhythm, no murmur, no gallop or rub Abdominal Inspection:?? Normal, Soft, Non-tender, Bowel Sounds Present, No Hepatosplenomegaly Rectal Exam:?? Deferred Extremity: Peripheral Pulses are palpable and symmetrical, no leg edema Musculoskeletal: No obvious joint pain, swelling or deformity Skin:?? Skin Color Normal, No rash or visible ulcer on limited examination Hematological: No lymphadenopathy or mass Psychiatry: anxiety +, no delusion Physical Exam Vitals & Measurements T:??97.4?F?? HR:??72??(Peripheral)?? RR:??20?? BP:??137/87?? SpO2:??100%?? Assessment/Plan Atrial fibrillation with RVR Hx of essential hypertension Hypotension Orders: apixaban, 5 mg, Tablet, By Mouth, 2 times a day, Routine, 09/05/24 13:27:00 EST ? 59-year-old female with past medical history significant for atrial fibrillation status post ablation by Dr. 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 We were consulted toevaluate this patient for A-fib with RVR. ?? The patient is currently in sinus rhythm.?? The recent echocardiogram indicated recovery of the heart function. [id number] Score 3 considering hypertension, female and history of cardiomyopathy. ?? Issues: 1.?? Paroxysmal atrial fibrillation with rapid ventricular rate, history of ablation in the past 2.?? Hypertension 3.?? 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 Recommendation: 1.?? Discontinue Coreg and start Multaq 400 mg p.o. twice daily 2.?? [id number] Score is 3 considering hypertension, being female and history of cardiomyopathy, will start Eliquis 5 mg p.o. twice daily 3.?? Follow-up with Dr. Fox at [facility] in 3 to 4 weeks. 4.?? Continue GDMT???Entresto spironolactone for heart failure with reduced ejection fraction. ?? Thank you for referring this patient to our service. Allergies Biaxin??(hives) Levaquin??(vomiting, diarrhea, upset stomach) amoxicillin??(unknown) doxycycline??(unknown) penicillins??(unknown) Home Medications Biotin Cetirizine: 10 mg = 1 tablet, By Mouth, Daily Cholecalciferol: By Mouth, Daily dronedarone: 400 mg = 1 tablet, By Mouth, 2 times a day sacubitril-valsartan: 1 tablet, By Mouth, 2 times a day Spironolactone: 25 mg = 1 tablet, By Mouth, Daily Hospital Medications Medications (12) Active SCHEDULED: (4) Apixaban 5 mg Tablet (Apixaban Tablet) ??5 mg, By Mouth, 2 times a day NaCl 0.9% Flush 3ml (NaCL 0.9% Flush) ??3 mL, IV Push, Every 8 hours Sacubitril-Valsartan 97 mg-103 mg Tablet (Entresto 97 mg-103 mg oral tablet) ??1 tablet, By Mouth, 2 times a day Spironolactone 25 mg Tablet (spironolactone 25 mg oral tablet) ??25 mg, By Mouth, Daily CONTINUOUS: (0) PRN: (8) Acetaminophen 325 mg Tablet (Acetaminophen Tablet) ??650 mg, By Mouth, Every 4 hours Dextromethorphan-Guaifenesin 20 mg-200 mg/10 mL Liqu UD (Robitussin DM Liquid) ??10 mL, By Mouth, Every 4 hours Docusate Sodium 100 mg Capsule (Docusate Sodium Capsule) ??100 mg 1 capsule, By Mouth, 2 times a day Melatonin 3 mg Tablet (Melatonin Tablet) ??3 mg, By Mouth, Daily at bedtime NaCl 0.9% Flush 3ml (NaCL 0.9% Flush) ??3 mL, IV Push, Every 8 hours Polyethylene Glycol 17 Gm Powder (MiraLax Powder) ??17 Gm 1 pack/packet, By Mouth, Daily Senna Tablet ??8.6 mg 1 tablet, By Mouth, 2 times a day Simethicone 80 mg Chewable Tablet (Simethicone Tablet) ??80 mg, Chew, 3 times a day Lab Results Cardiology Labs WBC: 7.5 k/mm3 (09/05/24) RBC: 4.68 m/mm3 (09/05/24) Hgb: 14.7 Gm/dL (09/05/24) Hct: 44.3 % (09/05/24) MCV: 94.7 femtoliters (09/05/24) MCH: 31.4 pg (09/05/24) MCHC: 33.2 Gm/dL (09/05/24) Platelet Count: 300 k/mm3 (09/05/24) RDW-SD:??48.2 femtoliters??High (09/05/24) Nucleated RBC (Automated): 0 #/100 WBC'S (09/05/24) Abs. Neut: 4.5 k/mm3 (09/05/24) Abs. Lymph: 2.1 k/mm3 (09/05/24) Abs. Marin: 0.7 k/mm3 (09/05/24) Abs. Eo: 0.2 k/mm3 (09/05/24) Abs. Baso: 0 k/mm3 (09/05/24) Neut %: 59.8 % (09/05/24) Marin %: 8.8 % (09/05/24) Eos %: 2.4 % (09/05/24) Baso %: 0.4 % (09/05/24) Imm Gran: 0.3 % (09/05/24) Abs. Imm Gran: 0 k/mm3 (09/05/24) Sodium: 141 mmol/L (09/05/24) Potassium: HEMOLYZED (09/05/24) Chloride: 107 mmol/L (09/05/24) Bicarbonate Level:??16 mmol/L??Low (09/05/24) Glucose Level:??122 mg/dL??High (09/05/24) BUN: 16 mg/dL (09/05/24) Creatinine-Blood:??1.14 mg/dL??High (09/05/24) Calcium: 9.8 mg/dL (09/05/24) Protein, Total: 7.4 Gm/dL (10/04/23) Albumin: 3.8 Gm/dL (10/04/23) Alkaline Phosphatase:??105 units/L??High (10/04/23) AST (SGOT):??33 units/L??High (10/04/23) ALT (SGPT): 31 units/L (10/04/23) Bilirubin, Total: 0.3 mg/dL (10/04/23) Nt-Probnp: 93 pg/mL (09/05/24) TSH:??5.06 uIU/mL??High (09/05/24) Free T4: 0.92 ng/dL (09/05/24) Diagnostic Impression MRI MRI Cardiac W+W/O Contrast ?? 10:49:49 IMPRESSION: 1. Moderately diminished global LV function, ejection fraction 31%. This may represent a slight underestimate due to evidence of some heart rate variability/arrhythmia on the cine sequences. 2. Mild thickening of the interventricular septum 13 mm with otherwise normal to top normal wall thickness. 3. No late gadolinium enhancement abnormality in the myocardium to suggest infiltrative disease, infarct, or myocarditis. 4. Mildly diminished global RV function, RV ejection fraction 32%. Similarly, this may represent a slight underestimate. 5. Biatrial enlargement. ? I have personally reviewed the images and I agree with this report. WSN: [id number] ? Ordering Physician: Betsey Rey ?? Signed By: Long Mcwilliams MD ECG ECG 12-Lead * Preliminary * ?? 01:13:53 Please click on pdf link to open report ?? ECG 12-Lead * Preliminary * ?? 01:13:53 Ventricular Rate: 131 BPM QRS Duration: 100 ms Q-T Interval: 290 ms QTC Calculation(Bazett): 428 ms R [place]: 39 degrees T [place]: -36 degrees Atrial fibrillation with rapid ventricular response ?? [place]: , Problem List/Past Medical History Ongoing Obese class II Procedure/Surgical History No qualifying data available. Patient Education Titles WebMD Ignite Patient Education - Understanding Atrial Fibrillation (AFib)?? [employer] Patient Education - Dronedarone?? Follow-Up Appointments Added Follow Up ?Time Frame ?Comments Prescriptions has been sent to your pharmacy?Please call cardiology office immediately if any issues in getting new medicatiosn filled Please follow-up with your primary care doctor within 1 to 2 weeks?for the follow upmildly elevated TSHBMP Bhavin Fox?2 to 3 weeks PCP Not on Staff Social History Alcohol Use: Current. Frequency: 1-2 times per month. Substance Abuse Use: Never. Tobacco Use: Never (less than 100 in lifetime). Family History No family history recorded. Note * Kei Locke MD: PERFORM Event Display: Discharge/Transfer Note Hospital Authored Date: [id number] Patient: ??YONIS GARG ? Age:??59 Years?Sex:??Female?:??1965?? Patient Information Discharge Location: [facility] Primary Care Physician: Not on Staff, PCP Admit Date/Time: 09/05/2024 01:08 Discharge Disposition Discharge Disposition: ?? Discharge Diagnosis Palpitations ([id number]) Atrial fibrillation with RVR (I48.91) _ Discharge Medications Cetirizine (ZyrTEC 10 mg oral tablet)?1?tab(s)?10?Milligram?By Mouth?Daily Cholecalciferol (D3)?By Mouth?Daily dronedarone (Multaq 400 mg oral tablet)?1?tab(s)?400?Milligram?By Mouth?2 times aday sacubitril-valsartan (Entresto 97 mg-103 mg oral tablet)?1?tab(s)?By Mouth?2 times a day Spironolactone (spironolactone 25 mg oral tablet)?25?Milligram?1?tablet?By Mouth?Daily ? Medications Started Multaq Medications Discontinued coreg Doses Changed none Allergies Allergies ?(Active and Proposed Allergies Only) doxycycline? (Severity: Unknown severity, Onset: Unknown) ?Reactions: unknown Levaquin? (Severity: Unknown severity, Onset: Unknown) ?Reactions: vomiting, diarrhea, upset stomach penicillins? (Severity: Unknown severity, Onset: Unknown) ?Reactions: unknown amoxicillin? (Severity: Unknown severity, Onset: Unknown) ?Reactions: unknown Biaxin? (Severity: Unknown severity, Onset: Unknown) ?Reactions: hives ? PCP Follow-Up/Heads-Up elevated TSH BMP/BP Hospital Course 59-year-old female??with limited PMH of A fib, CHF, HTN, OSAm allergic rhinitis, depression, eczema, rosacea, lumbar disc degenerative disease?? presented to ED following sudden onset palpitations and was found to be in A-fib with RVR. ?? Atrial fibrillation with RVR (I48.91) ?Associated with??Hx of essential hypertension (Z86.79),??Hypotension (I95.9) ? Presented with sudden onset palpitations??and mild??headedness. EKG on arrival: A-fib with RVR at a rate of 131 bpm. Was back in sinus rhythm Patient initially hypotensive Resolved with diltiazem. TSH: 5.06 a normal free T4 of 0.92. BNP is within normal limits and troponin is 14. She reported having done a recent echo with [facility]. Pre admission home regimen: Carvedilol 25 twice daily, Entresto 97/103 twice daily, spironolactone 25 daily. seen by cardiology who suggested as pt back to NSR and VSS--patient can be discharged home with recommendation to discontinue carvedilol and start patient on??Multaq.?? Patient was advised??about cardiology recommendation and was advised to call cardiology office immediately??if any problem feelingof??with prescription of multaq--pt agreed PCP f/u for BP/BMP check, and also for mildly elevated TSH with normal FT4? Now feels fine with no complaint. Having stable vitals. CTA BL, S1, S2 no GMR.Abd SOft, NT, BS+ve, AAO3. no pedal edema RN at bed side when recs were d/w pt ?? Objective . Physical Exam Pending Results No Pending Results Patient Education Titles [employer] Patient Education - Understanding Atrial Fibrillation (AFib)?? [employer] Patient Education - Dronedarone?? Follow-Up Appointments Added Follow Up ?Time Frame ?Comments Prescriptions has been sent to your pharmacy?Please call cardiology office immediately if any issues in getting new medicatiosn filled Please follow-up with your primary care doctor within 1 to 2 weeks?for the follow upmildly elevated TSHBMP Bhavin Fox?2 to 3 weeks PCP Not on Staff Post Discharge Care Discharge ?09/05/24 11:27:00 EST ?Order Comment:?? Discharge Prescriptions ?ePrescribed, 09/05/24 11:27:00 EST ?Order Comment:?? Home Health Face to Face ^HomeHealthFTF 25??minutes spent on discharge * Kei Locke MD: PERFORM, SIGN, VERIFY Event Display: Patient Education Handout Authored Date: [id number] * Kei Locke MD: PERFORM Event Display: Patient Education Leaflets Authored Date: [id number] Understanding Atrial Fibrillation (AFib) ?? 60739 Understanding Atrial Fibrillation (AFib) Atrial fibrillation (AFib) is the most common type of arrhythmia. An arrhythmia is any problem withthe speed or pattern of the heartbeat.??AFib causes fast, chaotic electrical signals in the atria. This makes it hard for the heart to work as it should. It affects how much blood your heart can pumpout to the body. AFib may occur once in a while and go away on its own. This is called paroxysmal. Or it may continue for longer periods. This is called persistent. AFib can lead to serious problems, such as stroke. Your healthcare provider will need to watch and manage your condition. What happens during atrial fibrillation??? The heart has an electrical system. This sends signals to control the heartbeat. As the signals move through the heart, they tell the heart???s upper chambers (atria) and lower chambers (ventricles) when to squeeze (contract) and relax. This lets blood move through the heart and out to the body andlungs. With AFib, the atria get abnormal signals. This causes them to contract in a fast and irregular way. They are out of sync with the ventricles. The atria have a harder time moving blood into the ventricles. Blood may then pool in the atria. This increases the risk for blood clots and stroke. The ventricles may contract too quickly and irregularly. They may not pump blood to the body and lungs as well as they should. This can weaken the heart muscle over time. This can lead to heart failure. Heart failure means the heart muscle can???t pump blood well. ?? What causes atrial fibrillation? AFib is more common in older adults. It has many possible causes: ??? Older age ??? Coronary artery disease ??? Heart valve disease ??? Heart attack ??? Heart surgery ??? High blood pressure ??? Thyroid disease ??? Diabetes ??? Lung disease ??? Sleep apnea ??? Heavy alcohol use In some cases of AFib, healthcare providers don't know the cause. ?? What are the symptoms of atrial fibrillation? AFib may not cause symptoms. If symptoms do occur, they may include: ??? A fast, pounding, irregular heartbeat ??? Shortness of breath ??? Tiredness ??? Dizziness or fainting ??? Chest pain ?? How is atrial fibrillation treated? Treatments for AFib can include any of the below. ??? Medicines. You may be prescribed: o Heart rate medicines to help slow down the heartbeat o Heart rhythm medicines to help the heart beat more regularly o Blood thinners or anti- clotting medicines to help reduce the risk for blood clots and stroke ??? Left atrial appendage closure. Your healthcare provider may advise this to prevent stroke. Youmay need it if you are at high risk for stroke but have problems taking blood-thinner (anticoagulant) medicines. This is a procedure done through a catheter in the groin.??A device is placed in the part of the heart. This is where most clots form. This area is called the left atrial appendage (MIKE). It's a pouch-like structure in the muscle wall of the left atrium. The device closes off the MIKE. This prevents clots moving from the heart to the brain and causing a stroke. ??? Electrical cardioversion. Your healthcare provider uses special pads or paddles to send 1 or more brief electrical shocks to the heart. This can help reset the heartbeat to normal. ??? Ablation. Long, thin tubes (catheters) are threaded through a blood vessel to the heart. In the heart, the catheters send out hot or cold energy to the places that cause the abnormal signals. This destroys the problem tissue or cells.This improves the chances that your heart will stay in normal rhythm without using medicines. If your heart rate and rhythm can???t be controlled, you may need an AV node ablation and a pacemaker. These will help control the heart rate and regularity of the heartbeat. ??? Surgery. Your healthcare provider may use a method to create scar tissue in the parts of the heart causing the abnormal signals. The scar tissue disrupts the abnormal signals. This may stop AFib from occurring. Most often, theleft atrial appendage is closed off as well. ??? Hybrid surgical-catheter ablation for AFib. This is used for people with AFib that continues or is hard to treat. It combines surgery with a catheter ablation. First, the surgeon makes small cuts (incisions) between the ribs in the chest or in the abdomen near the sternum. The surgeon puts a scope through the incisions. This is done to get to the ba ckside and other areas of the heart. Energy is sent to the surface of the atria. This disrupts the abnormal electrical signals. Then a catheter is put into a vein in the groin. The catheter is guidedinto the heart. Using the catheter, radiofrequency ablation is done. This destroys any other tissueinside the heart that is causing the AFib. It's also done to assess the success of the surgery. This hybrid treatment may work better to block the abnormal electrical signals. It may be a more permanent fix for persistent AFib. ?? What are possible complications of atrial fibrillation? Complications can include: ??? Blood clots ??? Stroke ??? Dementia ??? Heart failure ?? When should I call my healthcare provider? Call your healthcare provider right away if you have any of these: ??? Symptoms that don???t get better with treatment, or get worse ??? New symptoms ?? Last Reviewed Date: 2021 ?? 6211-2081 [employer]. All rights reserved. This information is not intended as a substitute for professional medical care. Always follow your healthcare professional's instructions. ?? * Kei Locke MD: PERFORM Event Display: Patient Education Leaflets Authored Date: Dronedarone ?? [id number] Dronedarone Brand Name(s): Giselle? IMPORTANT WARNING: You should not take dronedarone if you have severe heart failure. Dronedarone may increase the riskof in people who have severe heart failure. Tell your doctor if you have heart failure that is severe enough to cause shortness of breath while you are at rest, after a small amount of exercise, or after any physical activity. Also tell your doctor if you have been hospitalized for heart failure during the past month even if you are feeling better. Your doctor will not prescribe dronedaronefor you. You should not take dronedarone if you have atrial fibrillation (a heart rhythm disorder that may cause the heartbeat to be fast and irregular) that will not or cannot be converted back to a normal heart rhythm. Dronedarone may increase the risk of , stroke, and the need to be hospitalized in people with permanent atrial fibrillation. Your doctor will check your heart rhythm at least every 3 months while you are taking dronedarone. Call your doctor immediately if your heartbeat becomes fast or irregular while you are taking dronedarone. Your doctor or pharmacist will give you the match maker's patient information sheet (Medication Guide) when you begin treatment with dronedarone and each time you refill your prescription. Read the information carefully and ask your doctor or pharmacist if you have any questions. You can also visit the Food and Drug Administration (FDA) website (https://www.fda.gov/Drugs/DrugSafety/jqa518002.htm) or the match maker's website to obtain the Medication Guide. WHY is this medicine prescribed? Dronedarone is used to treat people who currently have normal heart rhythm, but have had atrial fibrillation in the past. Dronedarone decreases the risk that people who have this condition will need to be hospitalized to treat atrial fibrillation. Dronedarone is in a class of medications called antiarrhythmics. It works by helping the heart to beat normally. HOW should this medicine be used? Dronedarone comes as a tablet to take by mouth. It is usually taken twice a day, with the morning meal and the evening meal. Take dronedarone at around the same times every day. Follow the directionson your prescription label carefully, and ask your doctor or pharmacist to explain any part you do not understand. Take dronedarone exactly as directed. Do not take more or less of it or take it more often than prescribed by your doctor. Your doctor may prescribe certain medications to decrease the risk of stroke while you are taking dronedarone. Take this medication exactly as directed during your treatment. Dronedarone will help control your heartbeat only as long as you continue to take it. Continue to take dronedarone even if you feel well and have felt well for a long time. Do not stop taking dronedarone without talking to your doctor. Are there OTHER USES for this medicine? This medication may be prescribed for other uses; ask your doctor or pharmacist for more information. What SPECIAL PRECAUTIONS should I follow? Before taking dronedarone, ??? tell your doctor and pharmacist if you are allergic to dronedarone, any other medications, or any of the ingredients in dronedarone tablets. Ask your pharmacist or check the Medication Guide for a list of the ingredients. ??? some medications should not be taken with dronedarone. Other medications may cause dosing changes or extra monitoring when taken with dronedarone. Make sure you have discussed any medications you are currently taking or plan to take before starting dronedarone with your doctor and pharmacist. Before starting, stopping, or changing any medications while taking dronedarone, please get the advice of your doctor or pharmacist. ??? the following herbal product may interact with dronedarone: Auberry's wort. Be sure to let your doctor and pharmacist know that you are taking this medication before you start taking dronedarone. Do not start this medication while takingdronedarone without discussing with your healthcare provider. ??? tell your doctor if you have any other heart problems such as a fast or slow heartbeat, a long QT interval (a heart problem that may c ause irregular heartbeat, fainting, or sudden ), liver disease, or if you have had liver or lung problems that developed after taking amiodarone (Pacerone). Your doctor may tell you not to take dronedarone. ??? tell your doctor if you have or have ever had any other medical conditions. ??? tell your doctor if you are or plan to become . You must use effective control during your treatment with dronedarone. Talk to your doctor about control methods that will work for you. If you become while taking dronedarone, call your doctor immediately. Dronedarone may harm the fetus. ??? you should not breast-feed during your treatment with dronedarone. ??? talk to your doctor about the risks and benefits of taking dronedarone if you are 65 years of age or older. Some older adults should not take dronedarone because it is not as safe or effective as other medications that can be used to treat the same condition. What SPECIAL DIETARY instructions should I follow? Do not eat grapefruit or drink grapefruit juice while taking this medication. Unless your doctor tells you otherwise, continue your normal diet. What should I do IF I FORGET to take a dose? Skip the missed dose and continue your regular dosing schedule. Do not try to make up for a missed dose or take a double dose to make up for a missed one. What SIDE EFFECTS can this medicine cause? Dronedarone may cause side effects. Tell your doctor if any of these symptoms are severe or do not go away: ??? diarrhea ??? heartburn ??? weakness ??? rash ??? redness Some side effects can be serious. If you experience any of these symptoms, or those listed in the IMPORTANT WARNING section, stop taking dronedarone and call your doctor immediately or get emergency medical treatment: ??? shortness of breath ??? difficulty swallowing or breathing ??? wheezing ??? chest tightness ???dry cough ??? coughing up frothy mucus ??? difficulty sleeping due to breathing problems ??? need to prop yourself up with extra pillows in order to breathe at night ??? weight gain (of 5 or more pounds) in a short period of time ??? swelling of the eyes, face, lips, throat, hands, feet or legs ???slowed heartbeat ??? fainting ??? fever ??? flu-like symptoms ??? yellowing of the skin or eyes ???itching ??? unusual bruising or bleeding ??? nausea ??? vomiting ??? loss of appetite ??? pain in the upper right part of the stomach ??? tiredness or lack of energy ??? unusual darkening of the urine ??? light colored stools ??? sudden severe headache ??? sudden complete or partial loss of vision ??? weakness or numbness of an arm or leg ??? difficulty thinking clearly, remembering, or learning new things Dronedarone may cause other side effects. Call your doctor if you have any unusual problems while taking this medication. If you experience a serious side effect, you or your doctor may send a report to the Food and Drug Administration's (FDA) MedWatch Adverse Event Reporting program online (https://www.fda.gov/Safety/MedWatch) or by phone ( ). What should I know about STORAGE and DISPOSAL of this medication? Keep this medication in the container it came in, tightly closed, and out of reach of children. Store it at room temperature and away from excess heat and moisture (not in the bathroom). It is important to keep all medication out of sight and reach of children as many containers (such as weekly pill minders and those for eye drops, creams, patches, and inhalers) are not child-resistant and young children can open them easily. To protect young children from poisoning, always lock safety caps and immediately place the medication in a safe location ??? one that is up and away and out of their sight and reach. https://www.upandaway.org Unneeded medications should be disposed of in special ways to ensure that pets, children, and otherpeople cannot consume them. However, you should not flush this medication down the toilet. Instead,the best way to dispose of your medication is through a medicine take-back program. Talk to your pharmacist or contact your local garbage/recycling department to learn about take-back programs in your community. See the FDA's Safe Disposal of Medicines website (https://goo.gl/c4Rm4p) for more information if you do not have access to a take-back program. What should I do in case of OVERDOSE? In case of overdose, call the poison control helpline at . Information is also available online at https://www.poisonhelp.org/help. If the victim has collapsed, had a seizure, has trouble breathing, or can't be awakened, immediately call emergency services at 911. What OTHER INFORMATION should I know? Keep all appointments with your doctor and the laboratory. Your doctor may order certain lab tests to check your body's response to dronedarone. Do not let anyone else take your medication. Ask your pharmacist any questions you have about refilling your prescription. It is important for you to keep a written list of all of the prescription and nonprescription (wkxv-rse-qiihrbb) medicines you are taking, as well as any products such as vitamins, minerals, or otherdietary supplements. You should bring this list with you each time you visit a doctor or if you areadmitted to a hospital. It is also important information to carry with you in case of emergencies. This report on medications is for your information only, and is not considered individual patient advice. Because of the changing nature of drug information, please consult your physician or pharmacist about specific clinical use. The [place] [employer] represents that the information provided hereunder was formulated with a reasonable standard of care, and in conformity with professional standards in the field. The [employer] makes no representations or warranties, express or implied, including, but not limited to, any implied warranty of merchantability and/or fitness for a particular purpose, with respect to such information and specifically disclaims all such warranties. Users are advised that decisions regarding drug therapy are complex medical decisions requiring the independent, informed decision of an appropriate health career advisor, and the information is provided for informational purposes only. The entire monograph for a drug should be reviewed for a thorough understanding of the drug's actions, uses and side effects. The [employer] does not endorse or recommend the use of any drug.The information is not a substitute for medical care. AHFS?? Patient Medication Information???. ?? Copyright, 2023. The [employer]??, [address], [address], [place], [place]. All Rights Reserved. Duplication for commercial use must be authorized by [facility]. Selected Revisions: May 30, 2018. AHFS?? Patient Medication Information???. ?? Copyright, 2023 ?? Patient Care team information Care Team Personnel Name: Not on Staff, PCP Position: [facility] Physician (General Medicine) Member Role: PCP Care Team Related Persons Name: POORNIMAROSEMARIE Insurance Providers Guarantor name: YONIS STEWARTSAUMYA Health Plan Information #: 1 Payer: [employer] Member Number: [id number] Policy Number: NA Group Number: [id number] Health Plan Information #: 2 Payer: [facility] [employer] Member Number: [id number] Policy Number: NA Group Number: [id number]
--- OUTSIDE RECORDS SUMMARY | 2024-09-25 06:49 | XMS_ITS ---
Author Organization [facility] Address [address] [place] [id number] Care Team Providers Care Eye Care Professional Name Role Phone Elly VANEGAS, Santana Primary Care Provider Rubi Colin Unavailable [phone] Aleman Encounters Encounter Location Date Provider Diagnosis [address] [address] 09/01/2023 Rubi Cantor Plan Of Treatment No Information Progress Notes * Mary GARGOB:1965 (59 yo F)Acc No.[id number]:09/01/2023 Progress Note Patient:Joselin MONTES Provider:?Rubi Cantor DPM :1965???Age:58 Y???Sex:Female D ate:09/01/2023 Address:[address] [place], [place] [id number] Pcp:Santana Sanabria MD Subjective: * Chief Complaints: * ???1. Dr Aleman. * Medical History:? Objective: * Vitals:? Assessment: Plan: * Treatment: * Images: * The named appointment provid er may or may not be the originator of this progress note, and it is not deemed complete until electronically signed by the appointment provider. Sign off status: Pending * Provider:?Rubi Cantor DPM Date:? Generated for Printi ng/Faxing/eTransmitting on:?09/25/2024 06:49 AM EST
--- OUTSIDE RECORDS SUMMARY | 2024-09-25 06:49 | XMS_ITS ---
[facility] Address [address] [place] [address] Care Team Providers Care Respiratory Therapy Technician Name Role Phone Santana Sanabria MD Primary Care Provider Rubi Colin Unavailable [phone] Allergies Allergen (clinical drug ingredient) Drug/Non Drug Allergy documented on EMR Reaction Allergy Type Onset Date Status amoxicillin Amoxicillin Unknown Drug Allergy Act lino Biaxin nausea Drug Allergy Active erythromycin Erythromycin nausea Drug Allergy A ctive doxycycline Doxycycline Unknown Drug Allergy Act lino Adhesive rash Allergy Active REASON FOR VISIT Pcp-10/07, Heel pain Medications Medication SIG (Take, Route, Frequency, Duration) Notes Start Date End Date Status Norvasc Not-Taking Viorele 0.15-0.02/0.01 MG (05/03) 1 tablet Orally Once a day Not-Taking Feldene 20 MG 1 capsule with food Orally Once a day for 30 day(s) 07/19/2011 Not-Taking Work Note . . . Due to painful foot condition patient to be off of work until 01/03/18 12/20/2017 Not-Taking Physical Therapy 3-4x per week for 3- 4 weeks 06/12/2017 Not-Taking Betamethasone Dipropionate Aug Not-Taking Physical Therapy . . . 2-3x/week for 3- 4 weeks 01/02/2018 Not-Taking Work Note . . . Out of work unti l 01/30/18 01/09/2018 Not-Taking vitamin Not-Taking Aleve Not-Taking Gabapentin 300 MG 1 capsule before bedtime Orally Once a day for 30 day(s) 12/20/2017 Not-Taking Vitamin D Not-Taking Baby Aspirin Not-Madi ing Walking Boot/Pneumatic As directed Wear Daily for Until further notice 12/20/2017 Not-Taking Tylenol daily Not-Taking Digoxin 125 MCG 1 tablet Orally Not-Taking Metoprolol Succinate ER 50 MG 1 tablet Orally Once a day Not-Taking Vitamin C Active amLODIPine Besylate 10 MG 1 tablet Orall y Once a day Active Metoprolol Succinate ER 100 MG Orally Once a day Not-Taking Eliquis 5 MG 1 tablet Orally Twic e a day Not-Taking ZyrTEC Allergy 10 MG 1 tablet Orally Onc e a day Active Evening [place] Oil 1000 MG as directed Orally Active Entresto 49-51 MG 1 tablet Orally Twic e a day Active Multivitamin Active Carvedilol 25 MG 1 tablet with food Orally Twice a day Active Amiodarone HCl Activ e Metoprolol Succinate ER 200 MG 1 tablet Orally Once a day Active Biotin 5000 MCG 1 capsule Orally Onc e a day Active Vitamin D3 50 MCG (2000 UT) 1 capsule Orally Once a day Active Social History Tobacco Use: Social History Observation [...] 04/05/2024 Encounters Encounter Location Date Provider Diagnosis [facility] [address] [place] [address] 04/05/2024 Rubi Cantor Plantar fasciitis of right foot M72.2 ; Pain of right heel M79.671 and Calcaneal spur of right foot M77.31 Assessments Encounter Date Diagnosis (ICD Code) Assessment Notes Treatment Notes Treatment Clinical Notes Section Notes 04/05/2024 Plantar fasciitis of right foot (ICD-10 - M72.2) 04/05/2024 Pain of right heel (ICD-10 - M79.671) 04/05/2024 Calcaneal spur of right foot (ICD-10 - M77.31) Plan Of Treatment Next Appt Details Follow Up: prn, Reason: Procedure Notes * Category Sub-Category Detail Notes Injection Tendon Sheath or Fascia 35008, J 0702 Injection - #3 Right Plantar Fascia w/ mixture of Celestone Soluspan 3mg and 1cc 1 percent Xylocaine Plain anes. utilizing aseptic technique. The patient tolerated the procedure well. A dry sterile dressing was applied. Post injection instructions were dispensed, verbally discussed, and confirmed understood by the patient. I explained that a steroid and local anesthetic injections are administered to relieve pain and inflammation and thereby meant to improve function. I explained the possible complications including but not limited to signs/symptoms of steroid flare, infection, bruising, atrophy, discoloration of skin, change/deviation in toe position, and that additional injections may be necessary, Patient relates post-procedural pain assessment improved at ( 0-1) out of 10 Progress Notes * Mary GARGOB:1965 (58 yo F)Acc No.[id number]:04/05/2024 Progress Note Patient:?Forest Joselin Provider:?Rubi Cantor DPM :1965???Age:58 Y???Sex:Female D ate:04/05/2024 Address:[address] [place], [place] [id number] Pcp:Santana Sanabria MD Subjective: * Chief Complaints: * ???Pcp-10/07Heel pain * HPI: ???Heel pain:?Nature:?sharp pain , tenderness , throbbing.?Location:?Proximal plantar aspect of Heel, RIGHT.?Duration:?several weeks.?Onset/Cause:?gradual.?Course:?recurrent.?Aggrevated:?standing, walking, walking first thing in the morning/after rest.?Treatments:?rest , custom orthoses , change in shoes , stretching , AFO-nightsplint, costisone injection x 2.? * ROS:?General/Constitutional:?Nausea?denies, denies, denies, denies, denies.?Vomiting?denies, denies, denies, denies, denies.?Hunger Thirst?denies, denies, denies, denies, denies.?Loss appetite?denies, denies, denies, denies, denies.?Chills?denies, denies, denies, denies, denies.?Fatigue?denies, denies, denies, denies, denies.?Fever?denies, denies, denies, denies, denies.?Night Sweats?denies, denies, denies, denies, denies.?Unexplained weight loss?denies, denies, denies, denies, denies.?Unexplained weight gain?denies, denies, denies.?Ophthalmologic:?Blurred vision?denies, denies.?Red eye?denies, denies.?HEENTM:?Dentures?denies, denies, denies, denies, denies.?Dizziness?denies, denies, denies, denies, denies.?Glasses/contacts?admits, denies, admits, admits, admits.?Retinopathy?denies, denies, denies, denies, denies.?Blurred/double vision?denies, denies, denies, denies, denies.?TMJ?denies, denies, denies, denies, denies.?Discharge/drainage?denies, denies, denies, denies, denies.?Implants?denies, denies, denies, denies, denies.?Sore throat?denies, denies, denies.?Dental implants denies, denies, denies.?Hard of hearing ?denies, denies, denies, denies, denies.?Difficulty chewing/swallowing/speaking?denies, denies, denies, denies, denies.?Nose bleeds?denies, denies, denies, denies, denies.?Sore mouth?denies, denies, denies, denies, denies.?Swollen glands?denies, denies.?Respiratory:?On Oxygen?denies, denies, denies, denies, denies.?Pneumonia/pleurisy?denies, denies, denies, denies, denies.?Bronchitis?denies, denies, denies, denies, denies.?Emphysema?denies, denies, denies, denies, denies.?Coughing?denies, denies, denies, denies, denies.?Cough blood?denies, denies, denies, denies, denies.?Shortness of breath?denies, denies, admits, admits, admits.?Wheezing?denies, denies, denies, denies, denies.?Cardiovascular:?Pacemaker?denies, denies, denies, denies, denies.?MVP?denies, denies, denies, denies, denies.?WPW?denies, denies, denies, denies, denies.?CHF?denies, denies, denies, denies, denies.?Heart attack?denies, denies, denies, denies, denies.?Septal defect?denies, denies, denies, denies, denies.?Rapid beat?denies, denies, denies, denies, denies.?Chest pain ?denies, denies, denies, denies, denies.?Atrial Fib.?denies, denies, admits, admits, admits.?Murmur/Palpitations?denies, denies, denies, denies, denies.?Gastrointestinal:?Hemorrhoids?denies, denies, admits, admits, admits.?Stomach/Abdominal pain?denies, denies, denies, denies, denies.?Dark blood stool?denies, denies, denies, denies, denies.?Irritable bowel ?denies, denies, denies, denies, denies. Constipation?denies, denies, denies, denies, denies.?Diarrhea?denies, denies, denies, denies, denies.?Vomiting?denies, denies.?Hematology:?Swelling?denies, denies, denies, denies, denies.?Clots?denies, denies, denies.?Varicose Veins?denies, denies, denies.?Bruising?denies, denies, denies, denies, denies.?Bleeding problem?denies, denies, denies, denies, denies.?Genitourinary:?Blood urine?denies, denies, denies, denies, denies.?Frequent/Painfu/urination/bladder control?denies, denies, denies, denies, denies.?Kidney stones?denies, denies, denies, denies, denies.?Infection (UTI)?denies, denies, denies, denies, denies.?Nephropathy?denies, denies, denies, denies, denies.?sex trans dis (STD)?denies, denies, denies.?Prostate?denies, denies, denies.?Musculoskeletal:?Hammertoes?denies, denies, denies, denies, denies.?Bunions?denies, denies, denies, denies, denies.?Scoliosis/kyphosis?denies, denies.?Back Pain?admits, admits, admits.?Muscle Cramps/ Resting?denies, denies, denies. Muscle cramps / walking?denies, denies, denies, denies, denies.?Generalized aches and pains?denies, denies, admits, admits, admits.?Weakness?denies, denies, denies, denies, denies.?Integ.:?Mena?denies, denies, denies, denies, denies.?Scars?denies, denies, admits, admits, admits.?Corns/calluses?denies, denies, denies, denies, denies.?Ingrown nails?denies, denies, denies, denies, denies.?Painful nails?denies, denies, denies, denies, denies.?Open Sores?denies, denies, denies.?Rashes?denies, denies, denies, denies, denies.?Neurologic:?Difficulty sleeping?denies, denies, denies, denies, denies.?Bipolar?denies, denies.?Brain disorder?denies, denies, denies, denies, denies.?Numbness?denies, denies, denies.?Balance trouble?denies, denies, denies, denies, denies.?Confusion?denies, denies, denies, denies, denies.?Fainting/blackouts?denies, denies, denies, denies, denies.?Headache?denies, denies.?Tingling?denies, denies, denies.?Tremors?denies, denies, denies, denies, denies.? * Medical History:? * Surgical History:?cholecyste ctomy 1997tubal ligation foot surgery-topaz wisdom teeth extraction 1984 * Hospitalization/Major Diagno stic Procedure:?[facility] cardiac ablation 09/07/2023 * Family History:?Mother: dece ased, foot problems, diagnosed with Family history of arthritis, Other malignant neoplasm of unspecified site.?Father: , foot problems, poor circulation, diagnosed with Diabetic - NIDDM, Unspecified essential hypertension, Unspecified heart disease.?Paternal Grand Mother: stroke.?Maternal Grand Mother: stroke.?Siblings: diabetes, diagnosed with Unspecified essential hypertension, Unspecified cerebral artery occlusion with cerebral infarction, Other malignant neoplasm of unspecified site.? * Social History:?Tobacco Use:?Tobacco Use/Smoking?Are you a:?former smoker ?Additional Findings: Tobacco Non-User?Current non-smoker ?Tobacco use other than smoking?Are you an other tobacco user??No ???Drugs/Alcohol:?Drugs?Have you used drugs other than those for medical reasons in the past 12 months??No ?Alcohol Screen?Did you have a drink containing alcohol in the past year??Yes ?How often did you have a drink containing alcohol in the past year??Monthly or less (1 point) ?Points?1 ?Interpretation?Negative ???Miscellaneous:?Caffeine: yes, Decaf Tea, Chocolate. ?Children: yes, 1. ?no Exercise. ?Marital status: . 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 * Medications:?TakingCarvedilo l 25 MG Tablet 1 tablet with food Orally Twice a dayAmiodarone HCl Metoprolol Succinate ER 200 MG Tablet Extended Release 24 Hour 1 tablet Orally Once a dayBiotin 5000 MCG Capsule 1 capsule Orally Once a dayVitamin D3 50 MCG (1999) Capsule 1 capsule Orally Once a dayEvening [place] Oil 1000 MG Capsule as directed Orally Entresto 49-51 MG Tablet 1 tablet Orally Twice a dayZyrTEC Allergy 10 MG Tablet 1 tablet Orally Once a dayMultivitamin Vitamin C amLODIPine Besylate 10 MG Tablet 1 tablet Orally Once a dayTaking Carvedilol 25 MG Tablet 1 tablet with food Orally Twice a dayTaking Amiodarone HCl Taking Metoprolol Succinate ER 200 MG Tablet Extended Release 24 Hour 1 tablet Orally Once a dayTaking Biotin 5000 MCG Capsule 1 capsule Orally Once a dayTaking Vitamin D3 50 MCG (1999) Capsule 1 capsule Orally Once a dayTaking Evening [place] Oil 1000 MG Capsule as directed Orally Taking Entresto 49-51 MG Tablet 1 tablet Orally Twice a dayTaking ZyrTEC Allergy 10 MG Tablet 1 tablet Orally Once a dayTaking Multivitamin Taking Vitamin C Taking amLODIPine Besylate 10 MG Tablet 1 tablet Orally Once a dayNot-Taking/PRNEliquis 5 MG Tablet 1 tablet Orally Twice a dayDigoxin 125 MCG Tablet 1 tablet Orally Metoprolol Succinate ER 50 MG Tablet Extended Release 24 Hour 1 tablet Orally Once a dayMetoprolol Succinate ER 100 MG Tablet Extended Release 24 Hour Orally Once a dayTylenol , Notes: dailyBaby Aspirin Walking Boot/Pneumatic As directed Wear DailyGabapentin 300 MG Capsule 1 capsule before bedtime Orally Once a dayVitamin D Physical Therapy . . . . 2-3x/weekWork Note . . . . Out of work until 01/30/18Betamethasone Dipropionate Aug vitamin Aleve Work Note . . . . Due to painful foot condition patient to be off of work until 01/03/18Physical Therapy 3-4x per week for 3-4 weeks Viorele 0.15-0.02/0.01 MG (05/03) Tablet 1 tablet Orally Once a dayFeldene 20 MG Capsule 1 capsule with food Orally Once a dayNorvasc Medication List reviewed and reconciled with the patientNot-Taking/PRN Eliquis 5 MG Tablet 1 tablet Orally Twice a dayNot-Taking/PRN Digoxin 125 MCG Tablet 1 tablet Orally Not-Taking/PRN Metoprolol Succinate ER 50 MG Tablet Extended Release 24 Hour 1 tablet Orally Once a dayNot-Taking/PRN Metoprolol Succinate ER 100 MG Tablet Extended Release 24 Hour Orally Once a dayNot-Taking/PRN Tylenol , Notes: dailyNot- Taking/PRN Baby Aspirin Not-Taking/PRN Walking Boot/Pneumatic As directed Wear DailyNot-Taking/PRN Gabapentin 300 MG Capsule 1 capsule before bedtime Orally Once a dayNot-Taking/PRN Vitamin D Not-Taking/PRN Physical Therapy . . . . 2-3x/weekNot-Taking/PRN Work Note . . . . Out of work until 01/30/18Not- Taking/PRN Betamethasone Dipropionate Aug Not-Taking/PRN vitamin Not-Taking/PRN Aleve Not-Taking/PRN Work Note . . . . Due to painful foot condition patient to be off of work until 01/03/18Not-Taking/PRN Physical Therapy 3-4x per week for 3-4 weeks Not-Taking/PRN Viorele 0.15-0.02/0.01 MG (21/5) Tablet 1 tablet Orally Once a dayNot-Taking/PRN Feldene 20 MG Capsule 1 capsule with food Orally Once a dayNot-Taking/PRN Norvasc Medication List reviewed and reconciled with the patient * Allergies:?Amoxicillin: Karan rgyErythromycin: nausea - AllergyBiaxin: nausea - AllergyDoxycyclineAdhesive: rashyes[Allergies Verified] Objective: * Vitals:?Ht: 5ft6in, Wt:255, BMI:41.15, Shoe size: 10, Ht-cm: 167.64 cm, Wt-k.67 kg. * Examination: ???General Examination: ?GENERAL APPEARANCE:?Reveals a pleasant, alert, well-nourished, well- developed, well hydrated individual, who demonstrates proper attention to hygiene/body habitus, and is in no acute distress, Pt serves as own?historian for office visit today.?ORIENTED:?person, place, and time.?Neurological: ?SENSORY:?Neurological exam reveals intact sensorium, pain sensation normal, vibration sensation intact, pinprick sensation is normal in the lower extremities, Pt denies, anesthesia, burning, paresthesia, tingling, B/L.?TINEL'S COMPRESSION:?Negative tarsal tunnel, aliyah pedis, and medial calcaneal nerves.?DEEP TENDON REFLEXES:?Achilles, 2/4, B/L.?Vascular: ?DP PULSES:?3/4, B/L.?PT PULSES:?3/4, B/L.?CAPILLARY FILL TIME:?immediate, all digits, B/L.?SKIN TEMPERTURE GRADIENT OF THE LOWER EXTERMITIES:?warm to cool, proximal to distal, B/L.?HAIR GROWTH/TEXTURE/ELASTICITY/TURGOR:?normal, B/L.?PIGMENTATION:?normal, B/L.?EDEMA:?absent, B/L.?Dermatologic: ?SKIN FINDINGS:?Skin exam reveals normal texture, elasticity, and turgor. There are no masses. The interspaces are clear.?Orthopedic: ?MUSCLE STRENGTH:?5/5 all groups in a symmetrical fashion , B/L.?FOOT MORPHOLOGY:? Pes Planus structure, Decreased Ankle joint dorsiflexion ROM, knee extended.?Heel Pain: ?INSPECTION:? Pain on Palpation to Plantar Fascia med. and central bands, intrinsic musc., infracalcaneal bursa, and med calc tubercle , RIGHT foot, No pain: posterior/superior heel, achilles bursa/tendon, sinus tarsi, peroneals, or with lateral heel compression; no limited STJ ROM, calor, or ecchymosis.? Assessment: * Assessment: 1.?Pain of right heel - M79. 671?2.?Plantar fasciitis of right foot - M72.2 (Primary), Acute problem, Complicated w/ Multiple Tx Options(4)?3.?Calcaneal spur of right foot - M77.31? Plan: * Treatment: * Procedures:?Injection:?Tendon Sheath or Fascia?81098, J0702 Injection - #3 Right Plantar Fascia w/ mixture of Celestone Soluspan 3mg and 1cc 1 percent Xylocaine Plain anes. utilizing aseptic technique. The patient tolerated the procedure well. A dry sterile dressing was applied. Post injection instructions were dispensed, verbally discussed, and confirmed understood by the patient. I explained that a steroid and local anesthetic injections are administered to relieve pain and inflammation and thereby meant to improve function. I explained the possible complications including but not limited to signs/symptoms of steroid flare, infection, bruising, atrophy, discoloration of skin, change/deviation in toe position, and that additional injections may be necessary, Patient relates post-procedural pain assessment improved at ( 0-1) out of 10 .? * Procedure Codes:?49429 INJ T ENDON SHEATH/LIGAMENT, Modifiers: XS J0702 INJ BETAMETHSN ACTAT&SOD PHOSPH-3MG * Preventive Medicine:? ??Counseling:?Discussion:?-13: Office or other outpatient visit for the evaluation and management of an established patient, which required a medically appropriate history and/or examination and LOW level of DECISION MAKING for: 1 STABLE ACUTE UNCOMPLICATED PROBLEM, 2 OR MORE MINOR PROBLEMS, OR 1 STABLE CHRONIC PROBLEM, THAT POSE(S) A LOW RISK FOR MORBIDITY/MORTALITY. The visit on the day of the encounter encompassed interpreting the data and educating the patient as to the nature of their condition, treatment options available according to their individual PMH, meds, allergies, and overall health/living conditions, as well as any potential risks or complications that may occur from a failure to adhere to, and participate in, the recommended course of therapy. The discussion included a complete verbal, and/or written explanation of the examination results, any x-rays taken, the proposed diagnosis, and outline of the treatment plan. A schedule for future care needs was also explained. The patient verbalized an understanding of the instructions at this time and agreed to be an active participant in their treatment. If the patient should think of any questions or concerns after the visit, I have encouraged the patient to call the office.?Heel pain:?Discussed other tx options for the patients condition, Given recent successful results to treatment, the patient wishes to continue with the present plan for their condition.? * Follow Up:?prn * Images: * Sign off status: Completed true * Provider:?Rubi Cantor DPM Date:? Generated for Reid marina/Jimy/Miky on:?09/25/2024 06:48 AM EST History and Physical Notes * HPI (History of Present Illness) Category Sub-Category Detail Notes Category Not es Heel pain Duration: several weeks Nature: sharp pain , tendern ess , throbbing Location: Proximal plantar asp ect of Heel, RIGHT Onset/Cause: gradual Aggravated: standing, walking, w alking first thing in the morning/after rest Course: recurrent Treatments: rest , custom orthos es , change in shoes , stretching , AFO- nightsplint, costisone injection x 2 Examination Category Sub-Category Detail Notes Category Not es Neurological SENSORY: Neurological exa m reveals intact sensorium, pain sensation normal, vibration sensation intact, pinprick sensation is normal in the lower extremities, Pt denies, anesthesia, burning, paresthesia, tingling, B/L TINEL'S COMPRESSION: Negative tarsal inocencio margot, aliyah pedis, and medial calcaneal nerves DEEP TENDON REFLEXES: Achilles, 2/4, B/L Dermatologic SKIN FINDINGS: Skin exam reveal s normal texture, elasticity, and turgor. There are no masses. The interspaces are clear Orthopedic FOOT MORPHOLOGY: Pes Planus stru cture, Decreased Ankle joint dorsiflexion ROM, knee extended MUSCLE STRENGTH: 5/5 all groups in a symmetrical fashion , B/L General Examination GENERAL APPEARANCE: Reveals a pleasant, alert, well- nourished, well-developed, well hydrated individual, who demonstrates proper attention to hygiene/body habitus, and is in no acute distress, Pt serves as own historian for office visit today ORIENTED: person, place, and t char Vascular DP PULSES(B): 3/4, B/L PT PULSES(B): 3/4, B/L CAPILLARY FILL TIME: immediate, all digi ts, B/L TEMPERTURE GRADIENT(C): warm to cool, pr oximal to distal, B/L TROPHIC CONDITION-TEXTURE/ELASTICITY/TURGOR/HAIR GROWTH(B): normal, B/L EDEMA(C): absent, B/L PIGMENTATION: normal, B/L Heel Pain INSPECTION: Pain on Palpatio n to Plantar Fascia med. and central bands, intrinsic musc., infracalcaneal bursa, and med calc tubercle , RIGHT foot, No pain: posterior/superior heel, achilles bursa/tendon, sinus tarsi, peroneals, or with lateral heel compression; no limited STJ ROM, calor, or ecchymosis
--- OUTSIDE RECORDS SUMMARY | 2024-09-25 06:49 | XMS_ITS ---
[facility] Address [address] [place] [address] Care Team Providers Care [place] Name Role Phone Santana Sanabria MD Primary Care Provider Rubi Colin Unavailable [phone] Allergies Allergen (clinical drug ingredient) Drug/Non Drug Allergy documented on EMR Reaction Allergy Type Onset Date Status amoxicillin Amoxicillin Unknown Drug Allergy Act lino Biaxin nausea Drug Allergy Active erythromycin Erythromycin nausea Drug Allergy A ctive doxycycline Doxycycline Unknown Drug Allergy Act lino Adhesive rash Allergy Active REASON FOR VISIT Heel pain Medications Medication SIG (Take, Route, Frequency, Duration) Notes Start Date End Date Status Feldene 20 MG 1 capsule with food Orally Once a day for 30 day(s) 07/19/2011 Not-Taking Norvasc Not-Taking Physical Therapy 3-4x per week for 3- 4 weeks 06/12/2017 Not-Taking Viorele 0.15-0.02/0.01 MG (05/03) 1 tablet Orally Once a day Not-Taking Amiodarone HCl Activ e Work Note . . . Out of work unti l 01/30/18 01/09/2018 Not-Taking Aleve Not-Taking Work Note . . . Due to painful foot condition patient to be off of work until 01/03/18 12/20/2017 Not-Taking Betamethasone Dipropionate Aug Not-Taking vitamin Not-Taking Baby Aspirin Not-Madi ing Walking Boot/Pneumatic As directed Wear Daily for Until further notice 12/20/2017 Not-Taking Physical Therapy . . . 2-3x/week for 3- 4 weeks 01/02/2018 Not-Taking Gabapentin 300 MG 1 capsule before bedtime Orally Once a day for 30 day(s) 12/20/2017 Not-Taking Vitamin D Not-Taking Tylenol daily Not-Taking Metoprolol Succinate ER 100 MG Orally Once a day Not-Taking amLODIPine Besylate 10 MG 1 tablet Orall y Once a day Not-Taking Vitamin C Active Metoprolol Succinate ER 50 MG 1 tablet Orally Once a day Not-Taking Evening [place] Oil 1000 MG as directed Orally Active ZyrTEC Allergy 10 MG 1 tablet Orally Onc e a day Active Multivitamin Active Entresto 49-51 MG 1 tablet Orally Twic e a day Active Eliquis 5 MG 1 tablet Orally Twic e a day Active Biotin 5000 MCG 1 capsule Orally Onc e a day Active Vitamin D3 50 MCG (1999 [place]) 1 capsule Orally Once a day Active Digoxin 125 MCG 1 tablet Orally Not-Taking Metoprolol Succinate ER 200 MG 1 tablet Orally Once a day Active Social History [...] other tobacco user? No Vital Signs Height 5ft 6in in 10/11/2023 Weight 228 lbs 10/11/2023 BMI 36.80 kg/m2 10/11/2023 Encounters Encounter Location Date Provider Diagnosis [facility] [address] [place] [address] 10/11/2023 Rubi Cantor Plantar fasciitis of right foot M72.2 ; Pain of right heel M79.671 and Calcaneal spur of right foot M77.31 Assessments Encounter Date Diagnosis (ICD Code) Assessment Notes Treatment Notes Treatment Clinical Notes Section Notes 10/11/2023 Plantar fasciitis of right foot (ICD-10 - M72.2) 10/11/2023 Pain of right heel (ICD-10 - M79.671) 10/11/2023 Calcaneal spur of right foot (ICD-10 - M77.31) Plan Of Treatment Next Appt Details Follow Up: prn, Reason: Progress Notes * Mary GARGOB:1965 (58 yo F)Acc No.[id number]:10/11/2023 Progress Note Patient:Joselin Godinez Provider:?Rubi Cantor DPM :1965???Age:58 Y???Sex:Female D ate:10/11/2023 Address:[address] [place], [place] [id number] Pcp:Santana Sanabria MD Subjective: * Chief Complaints: * ???Heel pain * HPI: ???Heel pain:?Nature:?sharp pain , tenderness , throbbing.?Location:?Proximal plantar aspect of Heel, RIGHT.?Duration:?several months.?Onset/Cause:?gradual.?Course:?unresolved.?Aggrevated:?standing, walking, walking first thing in the morning/after rest.?Treatments:?rest , custom orthoses , change in shoes , stretching , AFO-nightsplint, costisone injection x 2.? * ROS:?General/Constitutional:?Nausea?denies, denies, denies.?Vomiting?denies, denies, denies.?Hunger Thirst?denies, denies, denies.?Loss appetite?denies, denies, denies.?Chills?denies, denies, denies.?Fatigue?denies, denies, denies.?Fever?denies, denies, denies.?Night Sweats?denies, denies, denies.?Unexplained weight loss?denies, denies, denies.?Unexplained weight gain?denies, denies, denies.?HEENTM:?Dentures?denies, denies, denies.?Dizziness?denies, denies, denies.?Glasses/contacts?admits, admits, admits.?Retinopathy?denies, denies, denies.?Blurred/double vision?denies, denies, denies.?TMJ?denies, denies, denies.?Discharge/drainage?denies, denies, denies.?Implants?denies, denies, denies.?Sore throat?denies, denies, denies.?Dental implants?denies, denies, denies.?Hard of hearing ?denies, denies, denies.?Difficulty chewing/swallowing/speaking denies, denies, denies.?Nose bleeds?denies, denies, denies.?Sore mouth?denies, denies, denies.?Respiratory:?On Oxygen?denies, denies, denies.?Pneumonia/pleurisy?denies, denies, denies.?Bronchitis?denies, denies, denies.?Emphysema?denies, denies, denies.?Coughing?denies, denies, denies.?Cough blood?denies, denies, denies.?Shortness of breath?admits, admits, admits.?Wheezing?denies, denies, denies.?Cardiovascular:?Pacemaker?denies, denies, denies.?MVP?denies, denies, denies.?WPW?denies, denies, denies.?CHF?denies, denies, denies.?Heart attack?denies, denies, denies.?Septal defect?denies, denies, denies.?Rapid beat denies, denies, denies.?Chest pain ?denies, denies, denies.?Atrial Fib.?admits, admits, admits.?Murmur/Palpitations?denies, denies, denies.?Gastrointestinal:?Hemorrhoids?admits, admits, admits.?Stomach/Abdominal pain?denies, denies, denies.?Dark blood stool?denies, denies, denies.?Irritable bowel ?denies, denies, denies.?Constipation?denies, denies, denies.?Diarrhea?denies, denies, denies.?Hematology:?Swelling?denies, denies, denies.?Clots?denies, denies, denies.?Varicose Veins?denies, denies, denies.?Bruising?denies, denies, denies.?Bleeding problem?denies, denies, denies.?Genitourinary:?Blood urine?denies, denies, denies.?Frequent/Painfu/urination/bladder control?denies, denies, denies.?Kidney stones?denies, denies, denies.?Infection (UTI)?denies, denies, denies.?Nephropathy?denies, denies, denies. sex trans dis (STD)?denies, denies, denies.?Prostate?denies, denies, denies.?Musculoskeletal:?Hammertoes?denies, denies, denies.?Bunions?denies, denies, denies.?Back Pain?admits, admits, admits.?Muscle Cramps/ Resting?denies, denies, denies.?Muscle cramps / walking?denies, denies, denies.?Generalized aches and pains?admits, admits, admits.?Weakness?denies, denies, denies.?Integ.:?Mena?denies, denies, denies.?Scars?admits, admits, admits.?Corns/calluses?denies, denies, denies.?Ingrown nails?denies, denies, denies.?Painful nails?denies, denies, denies.?Open Sores?denies, denies, denies.?Rashes?denies, denies, denies.?Neurologic:?Difficulty sleeping?denies, denies, denies.?Brain disorder?denies, denies, denies.?Numbness?denies, denies, denies.?Balance trouble?denies, denies, denies.?Confusion?denies, denies, denies.?Fainting/blackouts?denies, denies, denies.?Tingling?denies, denies, denies.?Tremors?denies, denies, denies.? * Medical History:? * Surgical [...] 1. ?no Exercise. ?Marital status: . ?Occupation: [employer]. * Medications:?TakingAmiodaron e HCl Metoprolol Succinate ER 200 MG Tablet Extended Release 24 Hour 1 tablet Orally Once a dayBiotin 5000 MCG Capsule 1 capsule Orally Once a dayVitamin D3 50 MCG (1999) Capsule 1 capsule Orally Once a dayEvening [place] Oil 1000 MG Capsule as directed Orally Entresto 49-51 MG Tablet 1 tablet Orally Twice a dayEliquis 5 MG Tablet 1 tablet Orally Twice a dayZyrTEC Allergy 10 MG Tablet 1 tablet Orally Once a dayMultivitamin Vitamin C Taking Amiodarone HCl Taking Metoprolol Succinate ER 200 MG Tablet Extended Release 24 Hour 1 tablet Orally Once a dayTaking Biotin 5000 MCG Capsule 1 capsule Orally Once a dayTaking Vitamin D3 50 MCG (1999) Capsule 1 capsule Orally Once a dayTaking Evening [place] Oil 1000 MG Capsule as directed Orally Taking Entresto 49-51 MG Tablet 1 tablet Orally Twice a dayTaking Eliquis 5 MG Tablet 1 tablet Orally Twice a dayTaking ZyrTEC Allergy 10 MG Tablet 1 tablet Orally Once a dayTaking Multivitamin Taking Vitamin C Not-Taking/PRNDigoxin 125 MCG Tablet 1 tablet Orally Metoprolol Succinate ER 50 MG Tablet Extended Release 24 Hour 1 tablet Orally Once a dayMetoprolol Succinate ER 100 MG Tablet Extended Release 24 Hour Orally Once a dayamLODIPine Besylate 10 MG Tablet 1 tablet Orally Once a dayTylenol , Notes: dailyBaby [...] List reviewed and reconciled with the patientNot-Taking/PRN Digoxin 125 MCG Tablet 1 tablet Orally Not-Taking/PRN Metoprolol Succinate ER 50 MG Tablet Extended Release 24 Hour 1 tablet Orally Once a dayNot-Taking/PRN Metoprolol Succinate ER 100 MG Tablet Extended Release 24 Hour Orally Once a dayNot-Taking/PRN amLODIPine Besylate 10 MG Tablet 1 tablet Orally Once a dayNot-Taking/PRN Tylenol , Notes: [...] for 3-4 weeks Not-Taking/PRN Viorele 0.15-0.02/0.01 MG (05/03) Tablet 1 tablet Orally Once a dayNot-Taking/PRN Feldene 20 MG Capsule 1 capsule with food Orally Once a dayNot-Taking/PRN Norvasc Medication List reviewed and reconciled with the patient * Allergies:?Amoxicillin: Karan rgyErythromycin: nausea - AllergyBiaxin: nausea - AllergyDoxycyclineAdhesive: rashyes[Allergies Verified] Objective: * Vitals:?Ht: 5ft 6in, Wt: 228 , BMI:36.80, Shoe size: 10. * Examination: ???General Examination: ?GENERAL APPEARANCE:?Reveals a [...] all groups in a symmetrical fashion , B/L.?GAIT ABNORMALITY:?antalgic.?FOOT MORPHOLOGY:? Pes Planus structure, Decreased Ankle joint [...] foot - M77.31? Plan: * Treatment: * Procedure Codes:? * Preventive Medicine:? ??Counseling:?Discussion:?-13: Office or other [...] continue with the present plan for their condition.?Orthotic Dispensing:?The patient presents today for fitting and dispensing of orthotics. The inserts were checked against the prescription and found to be accurate. They were properly fitted to the patient's feet in both weight-bearing and non-weight bearing attitudes. The patient was instructed to gradually increase the amount of time they are wearing the orthoses, starting with one hour the first day and thereon progressively increasing the amount of time used until they are comfortable to be worn all day and with all activities. They were asked to call the office if any signs of skin irritation were noted including redness, blistering or callous formation. The patient verbally indicated a full understanding of all the above information, Handout reviewed and dispensed, The patient signed confirmation form indicating receipt of DME device.? * Follow Up:?prn * Images: * Sign off status: Completed true * Provider:Romulo Cantor DPM Date:? Generated for Reid marina/Jimy/Miky on:?09/25/2024 06:49 AM EST History and Physical Notes * HPI (History of Present Illness) Category Sub-Category Detail Notes Category Not es Heel pain Duration: several months Nature: sharp pain , tendern ess , throbbing Location: Proximal plantar asp ect of Heel, RIGHT Onset/Cause: gradual Aggravated: standing, walking, w alking first thing in the morning/after rest Course: unresolved Treatments: rest , custom orthos es , [...] no masses. The interspaces are clear Orthopedic GAIT ABNORMALITY: antalgic FOOT MORPHOLOGY: Pes Planus structure , Decreased Ankle joint dorsiflexion ROM, knee extended [...]
== END 2024-09-20 10:31 | disposition home or self-care (01) ==
PROVIDERS: PCP Internal Medicine; Visit Provider Physician Assistant
DX: R05.2 Subacute cough (principal)

== ENCOUNTER 2024-09-20 09:09 | Outpatient (REF) | payer OTHER, SELFPAY ==
--- NOTE | ~2024-09-20 | XR_ITS ---
EXAMINATION: XR CHEST CLINICAL INFORMATION: R05.9 - Cough, unspecified COMPARISON: CXR on 07/13/24 TECHNIQUE: 2 views of the chest were obtained. FINDINGS: No significant abnormality is noted involving the heart, lungs, mediastinum, bony thorax or soft tissues. XR/XR chest 2V IMPRESSION: Unremarkable examination. Electronically signed by: Lexie Sanchez MD 09/20/2024 10:34 AM [facility]
== END 2024-09-20 09:10 | disposition home or self-care (01) ==
LOC: HO.HMGCX 09:09
PROVIDERS: PCP Internal Medicine; Visit Provider Physician Assistant
DX: R05.2 Subacute cough (principal)
CPT/HCPCS: 71046; 99212

== ENCOUNTER 2024-10-31 10:02 | Outpatient (REF) | payer OTHER, SELFPAY ==
[2024-10-31 13:52] LABS: Influenza A PCR NEGATIVE (Negative); Influenza B PCR NEGATIVE (Negative); Resp Syncy Virus RNA Qual PCR NEGATIVE (Negative); SARS COV2 PCR INHOUSE NEGATIVE (Negative)
== END 2024-10-31 10:03 | disposition home or self-care (01) ==
LOC: HO.LAB 10:02
PROVIDERS: Nurse Practitioner Family; PCP Internal Medicine
DX: J06.9 Acute upper respiratory infection, unspecified (principal); R09.89 Other specified symptoms and signs involving the circulatory and respiratory systems
CPT/HCPCS: 0241U; 99212

== ENCOUNTER 2024-10-31 10:02 | Outpatient (AMB) | payer OTHER, SELFPAY ==
--- NOTE | 2024-10-31 11:19 | AM.OFFWIN_ITS ---
Intake Vital Signs 10/31/24 11:23 Weight 265 lb BP 130/90 H Blood Pressure Location Lt brachial Position Sitting Pulse 76 Pulse Source Pulse Oximeter Temp 98.0 F Temp Source Oral Pulse Oximetry (%) 95 Oxygen Delivery Method Room Air Intake Visit Reasons: EP-?sinus infection Intake Note: Patient here for face/sinus pressure, tinkle in throat which started yesterday. Patient Tobacco Use Status: Never used Tobacco Allergies amoxicillin Allergy (Unknown, Verified 10/31/24 11:24) Unknown doxycycline Allergy (Unknown, Verified 10/31/24 11:24) Unknown clarithromycin [From Biaxin] Allergy (Verified 10/31/24 11:24) Unknown Do you need a note to return to daycare/school/sports/work: No HPI HPI Comments History of Present Illness Details 59 y/o female patient who presents to [facility] walk [facility] with c/o Sinus pressure since yesterday. PFS Social History Patient Tobacco Use Status: Never used Tobacco Review of Systems Const All systems reviewed & are unremarkable except as noted in HPI and below Physical Exam Vital Signs: Last Vital Signs Temp 98.0 F 10/31/24 11:23 Pulse 76 10/31/24 11:23 BP 130/90 H 10/31/24 11:23 Pulse Ox 95 10/31/24 11:23 Oxygen Delivery Method Room Air 10/31/24 11:23 Const General: cooperative and no acute distress Nutritional Appearance: obese Orientation/consciousness: patient oriented x3 Resp Effort & Inspection: normal respiratory effort and able to speak in complete sentences Auscultation: clear to auscultation bilaterally, no crackles, no rales, no rhonchi and no wheezes Cardio Heart sounds: S1 normal heart sound present and S2 normal heart sound present Neuro General: patient oriented x3, gait normal and moves all extremities Psych Speech and movement: Normal speech and movement present Assessment & Plan Assessment & Plan (1) URI (upper respiratory infection): Code(s): J06.9 - Acute upper respiratory infection, unspecified Qualifiers: URI type: unspecified URI Qualified Code(s): J06.9 - Acute upper respiratory infection, unspecified Plan: Rest and hydrate well OTC sinus remedies Orders: Orders SARS-CoV2/FLU/RSV Today J06.9 - Acute upper respiratory infection, unspecified, R09.89 - Other specified symptoms and signs involving the circulatory and respiratory systems Coding Level of Care Code Est Pt Level 3 (26595) Diagnoses Upper respiratory tract infection, unspecified type J06.9 URI type: unspecified URI Time Spent (min) 15
[2024-10-31 11:23] VITALS: BP 130/90; PULSE 76; TEMP 36.7; O2SAT 95
== END 2024-10-31 13:11 | disposition home or self-care (01) ==
PROVIDERS: PCP Internal Medicine; Visit Provider Nurse Practitioner Family
DX: J06.9 Acute upper respiratory infection, unspecified (principal)

== ENCOUNTER 2024-12-19 13:05 | Outpatient (AMB) | payer OTHER, SELFPAY ==
--- NOTE | 2024-12-19 13:07 | AM.OFFWIN_ITS ---
Intake Vital Signs 12/19/24 13:08 Height 5 ft 6 in Weight 265 lb BMI 42.8 BP 140/90 H Blood Pressure Location Lt brachial Position Sitting Pulse 82 Pulse Source Pulse Oximeter Temp 98.0 F Temp Source Oral Pulse Oximetry (%) 97 Oxygen Delivery Method Room Air Intake Visit Reasons: EP BP High 167/100, not feeling right Patient Tobacco Use Status: Never used Tobacco Allergies amoxicillin Allergy (Unknown, Verified 12/19/24 13:08) Unknown doxycycline Allergy (Unknown, Verified 12/19/24 13:08) Unknown clarithromycin [From Biaxin] Allergy (Verified 12/19/24 13:08) Unknown Do you need a note to return to daycare/school/sports/work: No HPI HPI Comments History of Present Illness Details - The patient is a 59-year-old female he re with her presenting with follow-up concerns after recent hospitalization (Sep 2024, see notes from [facility]) due to atrial fibrillation with rvr, started on Multaq 400 twice daily. - records show patient has a history of paroxysmal AFib, which likely led to her heart failure with a reduced ejection fraction as low as 31% but most recently her echo shows a recovery of LVEF to 55-60%, she is on Entresto and spironolactone. She had a cardiac MRI in July of 2023 which did not reveal any evidence of infiltrative disease. She had a PET stress test which not did not reveal any evidence of ischemia or coronary artery calcification. She sees [facility]. - The patient reports a history of both high and low blood pressure (likely with the afib with rvr) in the past. - she has a diagnosis of hypertension an d has been taking her hypertension medications as prescribed. She tells me her potassium was too high so they cut her spironolactone to a half a 25 mg tablet recently. - she tells me she does feel short of br eath with exertion. She has never smoked however she was raised and a household with to smokers. She did have a CT chest which showed some stable nodules, she is due for follow-up CT scan this month, the recommendation was 36 month follow-up. - No recent smoking or similar irritants are reported as contributing factors to respiratory symptoms. - The patient is awaiting consultation w ith a new primary care physician and salesperson [employer] due to a change in insurance coverage. - she tells me she has random episodes t hat come and go with no intervention where she feels not right , she is unable to describe it further. She denies headaches beyond her baseline headaches, she denies dizziness, chest pain, nausea, episodes of sweating, left arm pain, neck pain, or upper abdominal pain that radiates to her back. 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 She does have a watch that tells her when she goes into AFib but she is not sure how to check her heart rate manually. General: Cooperative, healthy appearing, comfortable and no acute distress Orientation/consciousness: Patient oriented x3 Limitations: No limitations Head: Normal to inspection Ears: Hearing grossly normal bilaterally Nose: Normal external nose present Face and sinus: Normal facial exam Eyes: Appearance normal, both eyes and all related structures Neck: Normal visual inspection Respiratory: Normal respiratory effort, able to speak in complete sentences, Actively coughing, no respiratory distress, not tachypneic, no tripod positioning and no use of accessory muscles Cardiovascular: Regular rate and rhythm. Normal S1 and S2 Skin: No rashes or lesions noted Neuro: Patient oriented x3 Extremities: Normal to inspection and Yes no clubbing, cyanosis or edema [facility] Social History Patient Tobacco Use Status: Never used Tobacco Review of Systems Const All systems reviewed & are unremarkable except as noted in HPI and below Physical Exam Vital Signs: Last Vital Signs Temp 98.0 F 12/19/24 13:08 Pulse 82 12/19/24 13:08 BP 140/90 H 12/19/24 13:08 Pulse Ox 97 12/19/24 13:08 Oxygen Delivery Method Room Air 12/19/24 13:08 BMI result Body Mass Index 42.8 Assessment & Plan Assessment & Plan (1) Hypertension: Code(s): I10 - Essential (primary) hypertension Qualifiers: Hypertension type: primary hypertension Qualified Code(s): I10 - Essential (primary) hypertension Plan: VSS, pt well appearing, HR regular, patient properly taking all of her medications for hypertension and atrial fibrillation. I recommended that when she has these episodes of ?not feeling right? that she check her heart rate and make sure that it is regular and I taught her how to do so manually. Also she should check her blood pressure during these episodes. And then document this on a log. She should also check her blood pressure every morning 2 hours after taking her HTN meds and keep a log. She can bring this log to her salesperson [employer] furnish[employer] appointment and her PCP appointment. She has a PCP appointment on January 13 to establish care with Dr. Johnson. She has a follow up salesperson [employer] appointment in January. Recommended if her symptoms increase or she has consistently elevated blood pressures that she tried to see her salesperson men[employer] furnishings sooner. Gave her red flag warning signs and when to go to the emergency department or call 911. Episodes of sweating with nausea, chest pain, left arm pain, arm numbness or tingling, chest pain or upper abdominal pain that radiates to her back, shortness of breath or dizziness or headaches. Ensure appropriate follow-up with the new primary care provider and salesperson [employer] for ongoing management of chronic conditions after transition in health insurance. Patient was informed and verbally consented to the use of an ambient scribe for clinic note documentation during this visit (2) Paroxysmal A-fib: Code(s): I48.0 - Paroxysmal atrial fibrillation Plan: as above Coding Level of Care Code New Pt Level 4 (97109) Diagnoses Primary hypertension I10 Hypertension type: primary hypertension Paroxysmal A-fib I48.0
[2024-12-19 13:08] VITALS: BP 140/90; PULSE 82; TEMP 36.7; O2SAT 97; BMI 42.8
--- OUTSIDE RECORDS SUMMARY | 2024-12-19 15:52 | XMS_ITS | Patient Health Record ---
Author Organization [facility] Address [address] [place] [address] Care Team Providers Care Director Of Midwifery/Staff Midwife Name Role Phone Elly VANEGAS, Santana Primary Care Provider Rubi Colin Unavailable [phone] Allergies Allergen (clinical drug ingredient) Drug/Non Drug [...] Orally Onc e a day Active Evening [place] Oil 1000 MG as directed Orally Active [...] 04/05/2024 Encounters Encounter Location Date Provider Diagnosis [facility] [place] [address] [place] [address] 04/05/2024 Rubi Cantor Plantar fasciitis of right foot M72.2 ; Pain of right heel M79.671 and Calcaneal spur of right foot M77.31 Assessments Encounter Date Diagnosis (ICD Code) Assessment Notes Treatment Notes Treatment Clinical Notes Section Notes 04/05/2024 Pain of right heel (ICD-10 - [...] X ray : Foot, right 3V 01/12/2012 [id number] Destruction, 10-2903/25/2015 [id number] Destruction, 10-2904/29/2015 [id number] Destruction, 10-2905/25/2015 [id number] TENDON SHEATH/LIGAMENT 0 01/29/2018 Insurance Providers Payer Name Payer Address Payer Phone Subscriber Number Group Number Insured Name Patient Relationship to Insured Coverage Start Date Coverage End Date [facility] All Others [address] [place] [address] [phone] [id number] Jermaine Garg Spouse - patient is [...]
--- OUTSIDE RECORDS SUMMARY | 2024-12-19 15:52 | XMS_ITS | Clinical Summary ---
Author Organization [facility] Address [address] [place] [address] Phone Care Team Providers Care Pot Pusher Name Role Phone Santana Sanabria DO Primary Care Provider [phone] Allergies Active Allergy Reactions Criticality Noted Date Comments Adhesive Tape-Silicones 10/18/2023 Other Reaction(s): Rash/Dermatitis Amoxicillin Itching 04/03/2018 Clarithromycin Nausea And Vomiting 04/03/2018 Doxycycline Nausea And Vomiting 04/03/2018 Levofloxacin Nausea And Vomiting 02/19/2019 Penicillins Itching 02/19/2019 Medications cetirizine (ZyrTEC) 10 mg capsule Take 1 Capsule by mouth daily. Active cholecalciferol (VITAMIN D-3) 50 mcg (2,000 unit) capsule Take by mouth daily. Active sacubitriL-vals krystal (Entresto) 97-103 mg per tablet TAKE 1 TABLET BY MOUTH TWICE DAILY 05/10/2024 Active spironolactone (ALDACTONE) 25 mg tablet Take 0.5 tablets (12.5 mg total) by mouth 1 (one) time each day. 12/05/2024 Active B complex-vitamin C-folic acid (ARAM-MADDIE) 1-60-300 mg-mg-mcg tablet Take 5,000 tablets by mouth 1 (one) time each day with breakfast. Active omeprazole OTC (PriLOSEC OTC) 20 mg EC tablet Take 1 tablet (20 mg total) by mouth 1 (one) time each day. Do not crush, chew, or split. Active dronedarone (Multaq) 400 mg tablet Take 1 tablet (400 mg total) by mouth 2 (two) times a day. 180 tablet 2 10/02/2024 Active apixaban (ELIQUIS) 5 mg tablet Take 1 tablet (5 mg total) by mouth 2 (two) times a day. 180 tablet 2 10/02/2024 Active Active Problems Problem Noted Date Diagnosed Date HFrEF (heart failure with reduced ejection fract ion) 02/06/2023 Assessment & Plan (10/02/2024 8:59 AM EST): Patient has history of HFrEF with an EF as low as 31% in the past. This improved once that she establish normal sinus rhythm and her most recent echocardiogram showed a recovery of her LVEF to 55 to 60%. She remains on appropriate GDMT with Entresto and spironolactone. Carvedilol was recently discontinued when she started Multaq. Patient did have a cardiac MRI completed 07/2023 which did not reveal any evidence of infiltrative disease. She previously had a PET stress test which did not reveal any evidence of ischemia or coronary artery calcification. It was suspected that her HFrEF was secondary to tachycardia from the atrial fibrillation and once sinus rhythm was reestablished her condition improved. If BP remains elevated we may add back carvedilol. Atrial fibrillation 01/20/2023 Overview (10/02/2024): Assessment & Plan (10/02/2024 9:00 AM EST): Patient has history of paroxysmal atrial fibrillation which became persistent. She underwent cardioversion which was successful for some period of time but then unfortunately she reverted back to atrial fibrillation. She subsequently was placed on amiodarone and then underwent cryoballoon ablation of the pulmonary veins 08/2023 which was successful in treating her atrial fibrillation. Amiodarone was then eventually stopped. Anticoagulation was stopped. Unfortunately she was recently seen in the emergency room with recurrent palpitations and found to have atrial fibrillation with RVR. She did convert back to normal sinus rhythm and was ultimately started on Multaq 400 mg twice daily. Her carvedilol was discontinued. She will be started back on Eliquis for anticoagulation [id number] VASc score of 3 representing a 3.2% risk for thromboembolism. She will continue her regimen of Multaq 400 mg twice daily. Eliquis 5 mg twice daily will be reintroduced to mitigate her stroke risk. A follow up with Dr. Fox will be arranged in approximately 3 months to reassess her treatment plan. She has been advised to discontinue all vitamin supplements, except for vitamin D3 and biotin, due to their potential interference with Multaq. If she experiences a recurrence of symptoms, she is to contact the office immediately. 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 We will continue to monitor this. 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 Overview (09/10/2024): 12/2015 DDD (degenerative disc disease), lumbar 02/20/20 19 Depression 02/19/2019 Nummular eczematous dermatitis 02/19/2019 Pulmonary nodules 02/19/2019 Rosacea 02/19/2019 Tubular adenoma of colon 02/19/2019 Overview (09/10/2024): Dr Adam 05/2018, repeat 1 year 05/2019 Snoring 04/19/2018 Overview (09/10/2024): 04/12/2018 Home Sleep Study did not reveal sleep apnea. HTN (hypertension) 04/03/2018 Assessment & Plan (10/02/2024 9:01 AM EST): Her blood pressure was elevated at 144/102 mmHg during the visit. She has been advised to monitor her blood pressure at home, specifically 2 hours post- medication, to ensure it remains within the normal range. If her blood pressure readings remain high, a low dose of carvedilol may be reintroduced. Morbid obesity with BMI of 40.0-44.9, adult 03/16 Resolved Problems Problem Noted Date Diagnosed Date Resolved Date SOB (shortness of breath) 04/13/2023 Overview (09/10/2024): Last Assessment & Plan: Patient continues to report shortness of breath with more than usual activity such as climbing stairs. She does not exercise and she has increased exercise because of developing shortness of breath with activity. She became quite tearful to the office visit today due to her family history of coronary artery disease. Her father in his 90s from an [place]. We will arrange for a stress echocardiogram to evaluate her hemodynamic response to exercise and to assess for any evidence of ischemia. We discussed that her symptoms could be related to deconditioning which may improve with regular exercise. Nonetheless we will complete the stress echocardiogram to assess for any cardiac rhythm abnormalities with exercise and or ischemic etiology to her symptoms. Encounters Date Type Department Care Team Description 12/18/[address] [facility] [address] [facility] [address] [place] [address] Betsey Rey NP Letter for School/Work (DOT Physical ) 12/09/[address] [facility] [address] [facility] [address] [place] [address] Betsey Rey NP Medication (Eliquis ) 12/05/2024 Telephone [facility] Cardiology [facility] [address] [place] [phone] Janna Mueller, staff counselor Results 11/29/[address] [facility] [address] [facility] [address] [place] [address] Betsey Rey NP rountine blood work 10/02/2024 8:10 AM EST Office Visit [facility] [address] [place] [address] Betsey Rey, JOSE Atrial fibrillation, unspecified type (CMS/HCC) (Primary Dx); HFrEF (heart failure with reduced ejection fraction) (CMS/HCC); Ascending aorta dilation (CMS/HCC); Primary hypertension from Last 3 Months Surgical History Surgery Date Site/Laterality Comments COLONOSCOPY 05/2018 PROCEDURE: HISTORICAL COLONOSCOPY; COMMENT: Dr Adam, tubular adenoma, repeat one year SECTION PROCEDURE: HISTORICAL DELIVERY TUBAL LIGATION PROCEDURE: HISTORICAL TUBAL LIGATION CHOLECYSTECTOMY PROCEDURE: HISTORICAL CHOLECYSTECTOMY Medical History Medical History Date Comments Abnormal ultrasound of ovary 02/19/2019 DX: Abnormal ultrasound of ovary; COMMENT: Advised to see CYTOTECHNOLOGIST SUPERVISOR, no further information in transferred notes Allergic rhinitis 02/19/2019 DX:Allergic rh initis Ascending aorta dilation (CMS/HCC) 02/19/2019 DX:Ascending aorta dilation (HCC); COMMENT: Chronic 3.9 cm aneurysmal dilation of ascending thoracic aorta, stable on CTA 12/10/2018 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 DX:Be nign neoplasm of sternum; COMMENT: 12/2015 DDD (degenerative disc disea se), lumbar 02/19/2019 DX:DDD (degenerative disc di sease), lumbar Depression 02/19/2019 DX:Depression HTN (hypertension) 04/03/2018 DX:HTN (hyper tension) Morbid obesity with BMI of 4 0.0-44.9, adult (CMS/HCC) 04/03/2018 DX:Morbid obesity with BMI o f 40.0-44.9, adult ([facility]) Nummular eczematous dermatitis 02/19/2019 D X:Nummular eczematous dermatitis Pulmonary nodules 02/19/2019 DX:Pulmonary n odules Rosacea 02/19/2019 DX:Rosacea Snoring 04/19/2018 DX:Snoring; COMM ENT: 04/12/2018 Home Sleep Study did not reveal sleep apnea. Tubular adenoma of colon 02/19/2019 DX:Tubu lar adenoma of colon; COMMENT: Dr Adam 05/2018, repeat 1 year 05/2019 Family History Medical History Relation Name Comments CABG Father Coronary artery disease Father Diabetes Father Hypertension Father COPD Mother Hypertension Mother Lung cancer Mother Other: atrial fibrillation Mother Relation Name Status Comments Father Mother Social History Tobacco Use Types Packs/Day Years Used Date Smoking Tobacco: Never Smokeless Tobacco: Never Alcohol Use Standard Drinks/Week Comments Yes 0 (1 standard drink = 0.6 oz pur e alcohol) Comments Unknown Sex and Gender Information Value Date Recorded Sex Assigned at Not on file Legal Sex Female 10:06 PM EST Gender Identity Not on file Sexual Orientation Not on file Obstetrics History Last Filed Vital Signs Vital Sign Reading Time Taken Comments Blood Pressure 144/102 10/02/2024 8:00 AM EST Pulse 95 10/02/2024 8:00 AM EST Temperature - - Respiratory Rate - - Oxygen Saturation 94% 10/02/2024 8:00 AM EST Inhaled Oxygen Concentration - - Weight 119 kg (263 lb) 10/02/2024 8:00 AM EST Height 167.6 cm (5' 6 ) 10/02/2024 8:00 AM EST Body Mass Index 42.45 10/02/2024 8:00 AM EST Plan of Treatment Upcoming Encounters Date Type Department Care Team (Late st Contact Info) Description 01/21/2025 2:30 PM EDT Office Visit [facility] [address] [facility] [address] [place] [address] Bhavin Fox MD [address] [place] [address] Health Maintenance Due Date Last Done Comments Breast Cancer Screening 1965 DTaP,Tdap,and Td Vaccines (1 - Tdap) 1982 Cervical Cancer Screening: Pap Smear 1984 Pneumococcal Vaccine: 50+ Years (1 of 1 - PCV) 2013 Zoster Vaccines (1 of 2) 2013 Cholesterol Screening (Lipid Panel) 09/17/2022 Colorectal Cancer Screening: Colonoscopy 09/17/2022 05/16/2018 Depression Screening 09/17/2022 HIV Screening 09/17/2022 Hepatitis C Screening 09/17/2022 Social Influencers of Health Screening 09/17/2022 RSV Immunization Patients 60+ Years Old (1 - Risk 60-74 years 1-dose series) 2023 COVID-19 Vaccine ( season) 2024 08/01/2022, 10/23/2021, 01/31/2021, Additional history exists Influenza Vaccine (#1) 2024 07/19/2022 Hypertension/CHF/CAD Annual BMP Blood Test 12/16/2025 12/16/2024, 12/04/2024 HIB Vaccines Aged Out No longer eligi ble based on patient's age to complete this topic HPV Vaccines Aged Out No longer eligi ble based on patient's age to complete this topic Hepatitis A Vaccines Aged Out No long er eligible based on patient's age to complete this topic Hepatitis B Vaccines Aged Out No long er eligible based on patient's age to complete this topic IPV Vaccines Aged Out No longer eligi ble based on patient's age to complete this topic MMR Vaccines Aged Out No longer eligi ble based on patient's age to complete this topic Meningococcal ACWY Vaccine Aged Out N o longer eligible based on patient's age to complete this topic Meningococcal B Vacine Aged Out No lo nger eligible based on patient's age to complete this topic Pneumococcal Vaccine: Pediatrics (0 to 5 Years) and At-Risk Patients (6 to 64 Years) Aged Out No longer eligible based on patient's age to complete this topic RSV Immunization Patients Under 20 months Aged Out No longer eligible based on patient's age to complete this topic Varicella Vaccines Aged Out No longer eligible based on patient's age to complete this topic Procedures Procedure Name Priority Date/Time Associated Diagnosis Comments BASIC METABOLIC PANEL Routine 12/16/2024 9:51 AM EST Elevated serum creatinine BASIC METABOLIC PANEL Routine 12/04/2024 9:58 AM EST HFrEF (heart failure with reduced ejection fraction) (CMS/HCC) ECG 12-LEAD Routine 10/02/2024 9:02 AM EST Atrial fibrillation, unspecified type (CMS/HCC) HM COLONOSCOPY Routine 05/16/2018 from Last 3 Months or Most Recently Relevant to Health Maintenance Results * (ABNORMAL) Basic metabolic panel (12/16/2024 9:51 AM EST) Only the most recent of2 resultswithin the time period is included. Glucose 90 70 - 99 mg/dL [facility] Blood Urea Nitrogen (BUN) 17 8 - 27 mg/dL [facility] Creatinine 1.33(H) 0.57 - 1.00 mg/dL [facility] 1 eGFR 46(L) >59 mL/min/1.7 3 [facility] 1 BUN/Creatinine Ratio 13 12 - 28 [facility] 1 Sodium 142 134 - 144 mmol/L [facility] 1 Potassium 4.2 3.5 - 5.2 mmol/L [facility] 1 Chloride 107(H) 96 - 106 mmol/L [facility] 1 Carbon Dioxide 20 20 - 29 mmol/L [facility] 1 Calcium 9.5 8.7 - 10.3 mg/dL [facility] 1 Blood Venous blood specimen / Unknown 12/16/2024 9:51 AM EST 12/16/2024 Narrative [facility] 1 - 12/17/2024 1:06 AM EST Performed at: ??01 - [facility] ??[id number] Water Taxi Driver: Bhakti House MD, Phone: ??[phone] us Betsey Rey NP LAB BLOOD ORDERABLES Final R esult [facility] * ECG 12 lead (10/02/2024 9:02 AM EST) Ventricular Rate ECG 86 BPM GEMUSE Atrial Rate 86 BPM GEMUSE P-R Interval 202 ms GEMUSE QRS Duration 100 ms GEMUSE Q-T Interval 406 ms GEMUSE QTc 485 ms GEMUSE P Wave [place] 29 degrees GEMUSE R [place] 70 degrees GEMUSE T [place] -14 degrees GEMUSE ECG Interpretation Normal sinus rhythm Nonspecific T wave abnormality Abnormal ECG When compared with ECG of ??05/12/23: T wave abnormality now noted in the inferior leads Confirmed by BLAYNE BARBOSA ([id number]) on 10/02/2024 9:46:38 AM GEMUSE 10/02/2024 8:18 AM EST 10/02/2024 9:46 AM EST Betsey Rey SIGNS AND DISPLAYS SALESPERSON ECG ORDERABLES Edited Resul t - Final GEMUSE * Colonoscopy (05/16/2018) Colonoscopy No Interpretation , Abstracted Anatomical Region Laterality Modality Other us Historical Provider MD HEALTH MAINTENANCE Final Result from Last 3 Months or Most Recently Relevant to Health Maintenance Insurance [place] [address] PLAN Care Teams Pot Pusher Relationship Specialty Start Date End Date Santana Sanabria DO [address] [place] [phone] PCP - General Internal Medicine 06/28/14
--- OUTSIDE RECORDS SUMMARY | 2024-12-19 15:52 | XMS_ITS | Encounter Summary ---
Author Organization [facility] Address [address] [place] [address] Care Team Providers Care Tank Stave Assembler Name Role Phone Santana Sanabria DO Primary Care Provider Reason for Visit * Reason Onset Date Comments Lab Results 12/05/2024 Encounter Details Date Type Department Care Team (Late st Contact Info) Description 12/05/2024 Telephone [facility] [address] [facility] [address] [place] [phone] Janna Mueller RN Lab Results Social History Tobacco Use Types Packs/Day Years Used Date Smoking Tobacco: Never Smokeless Tobacco: Never Alcohol Use Standard Drinks/Week Comments Yes 0 (1 standard drink = 0.6 oz pur e alcohol) Comments Unknown Sex and Gender Information Value Date Recorded Sex Assigned at Not on file Legal Sex Female 10:06 PM EST Gender Identity Not on file Sexual Orientation Not on file documented as of this encounter Progress Notes * Janna Mueller RN - 12/05/2024 3:25 PM EST Spoke to Joselin. She is aware to take reduced dose of Spironolactone 12.5 mg daily and repeat labs next week. BMP order placed to [facility] per pt preference. * N'Nataly Mock - 12/05/2024 3:13 PM EST Patient is returning the nurse call. She can be reached at [phone] * Janna Mueller RN - 12/05/2024 2:55 PM EST I left a detailed message on pt's personal voicemail informing her of the below message from Randi Rey. I asked her to call back to confirm she got the message and confirm her lab of choice for repeat blood work. I will follow up tomorrow morning. * Janna Mueller RN - 12/05/2024 2:52 PM EST ----- Message from Matt Rey NP sent at 12/05/2024 7:33 AM EST ----- Please have patient reduce spironolactone to 12.5mg daily and repeat lab in one week. documented in this encounter Plan of Treatment Upcoming Encounters Date Type Department Care Team (Late st Contact Info) Description 01/21/2025 2:30 PM EDT Office Visit [facility] [address] [facility] [address] [place] [address] Bhavin Fox MD [address] [facility] [address] [place] [address] documented as of this encounter Procedures Procedure Name Priority Date/Time Associated Diagnosis Comments BASIC METABOLIC PANEL Routine 12/16/2024 9:51 AM EST Elevated serum creatinine documented in this encounter Results * (ABNORMAL) Basic metabolic panel (12/16/2024 9:51 AM EST) Glucose 90 70 - 99 mg/dL [facility] [...] 1:06 AM EST Performed at: ??01 - [facility] [address] ??[id number] Photo Lab Technician: Bhakti House MD, Phone: ??[phone] us Betsey Rey ELECTRICAL INTEGRATOR LAB BLOOD ORDERABLES Final R esult [facility] 1 documented in this encounter Visit Diagnoses Diagnosis Elevated serum creatinine- Primary Other nonspecific findings on examination of blood documented in this encounter Care Teams Tank Stave Assembler Relationship Specialty Start Date End Date Santana Sanabria DO [address] [place] [phone] PCP - General Internal Medicine 06/28/14 documented as of this encounter
--- OUTSIDE RECORDS SUMMARY | 2024-12-19 15:52 | XMS_ITS | Encounter Summary ---
Author Organization [facility] Address [address] [place] [address] Care Team Providers Care Chair Finisher Name Role Phone Santana Sanabria DO Primary Care Provider [phone] Reason for Visit * Reason Onset Date Comments Medication 12/09/2024 Eliquis Encounter Details Date Type Department Care Team ([facility] Contact Info) Description 12/09/2024 Telephone [facility] [address] [place] [address] Betsey Rey NP [address] [place] [address] [address] [place] [address] Medication (Eliquis ) Social History Tobacco Use Types Packs/Day Years [...] Progress Notes * Janna Mueller RN - 12/09/2024 10:58 AM EST I spoke to Joselin. She missed yesterday morning's dose of Eliquis. She took yesterday evening's dose and this morning's as well. Pt advised to continue Eliquis as prescribed and be extra careful not tomiss additional doses. Educated on stroke s/s so she is aware. Pt voiced understanding. * Janna Mueller RN - 12/09/2024 10:40 AM EST I left a message on machine for call back. * Terra Mora - 12/09/2024 10:06 AM EST The patient called she missed a dose of her Eliquis. She would like to know if this will be an issue or if there is anything she needs to do. Please call her back at [phone]. documented in this encounter Plan of Treatment Upcoming Encounters Date Type Department Care Team (Late st Contact Info) Description 01/21/2025 2:30 PM EDT Office Visit [facility] - [facility] [address] [facility] [address] [place] [address] Bhavin Fox MD [address] [facility] [address] [place] [address] documented as of this encounter Visit Diagnoses Not on filedocumented in this encounter Care Teams Chair Finisher Relationship Specialty Start Date End Date Santana Sanabria DO [address] [place] [phone] PCP - General Internal Medicine 06/28/14 documented as of this encounter
--- OUTSIDE RECORDS SUMMARY | 2024-12-19 15:52 | XMS_ITS ---
Author Organization [facility] Address [address] [place] [address] Care Team Providers Care Car Cooper Name Role Phone Santana Sanabria MD Primary Care Provider Rubi Colin Unavailable [phone] Allergies Allergen (clinical drug ingredient) Drug/Non Drug [...] tablet Orally Once a day Not-Taking Evening Eugene Oil 1000 MG as directed Orally Active [...] 10/11/2023 Encounters Encounter Location Date Provider Diagnosis [facility] [place] [address] [place] [address] 10/11/2023 Rubi Cantor Plantar fasciitis of right [...] Notes * Mary GARGOB:1965 (58 yo F)Acc No.[id number]:10/11/2023 Progress Note Patient:Joselin Godinez Provider:?Rubi Cantor DPM :1965???Age:58 Y???Sex:Female D ate:10/11/2023 Address:[address] [place], [place] [phone] Pcp:Santana Sanabria MD Subjective: * Chief Complaints: [...] 1. ?no Exercise. ?Marital status: . 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 * Medications:?TakingAmiodaron e HCl Metoprolol Succinate ER 200 MG Tablet Extended Release 24 Hour 1 tablet Orally Once a dayBiotin 5000 MCG Capsule 1 capsule Orally Once a dayVitamin D3 50 MCG (1999) Capsule 1 capsule Orally Once a dayEvening Eugene Oil 1000 MG Capsule as directed Orally [...] 1 capsule Orally Once a dayTaking Evening Eugene Oil 1000 MG Capsule as directed Orally [...] Cantor DPM Date:? Generated for Reid marina/Jimy/Miky on:?12/19/2024 03:52 PM EST History and Physical Notes * HPI [...] person, place, and t char Vascular DP PULSES (B): 3/4, B/L PT PULSES (B): 3/4, B/L CAPILLARY FILL TIME: immediate, all digi ts, B/L TEMPERTURE GRADIENT (C): warm to cool, p roximal to distal, B/L TROPHIC CONDITION-TEXTURE/ELASTICITY/TURGOR/HAIR GROWTH (B): normal, B/L EDEMA (C): absent, B/L PIGMENTATION: normal, B/L Heel Pain INSPECTION: Pain on Palpatio n to Plantar Fascia med. and central bands, intrinsic musc., infracalcaneal bursa, and med calc tubercle , RIGHT foot, No pain: posterior/superior heel, achilles bursa/tendon, sinus tarsi, peroneals, or with lateral heel compression; no limited STJ ROM, calor, or ecchymosis
--- OUTSIDE RECORDS SUMMARY | 2024-12-19 15:52 | XMS_ITS ---
Author Organization [facility] Address [address] [place] [phone] Care Team Providers Care State Auditor Name Role Phone Elly VANEGAS, Santana Primary Care Provider Rubi Colin Unavailable [phone] Aleman Encounters Encounter Location Date Provider Diagnosis [address] [address] 09/01/2023 Rubi Cantor Plan Of Treatment No Information Progress Notes * Mary GARGOB:1965 (59 yo F)Acc No.[id number]:09/01/2023 Progress Note Patient:Joselin MONTES Provider:?Rubi Cantor DPM :1965???Age:58 Y???Sex:Female D ate:09/01/2023 Address:[address] [place], [place] [phone] Pcp:Santana Sanabria MD Subjective: * Chief Complaints: [...] Cantor DPM Date:? Generated for Printi ng/Faxing/eTransmitting on:?12/19/2024 03:51 PM EST
--- OUTSIDE RECORDS SUMMARY | 2024-12-19 15:52 | XMS_ITS | Clinical Summary ---
Author Organization [employer] Address [address] [facility] [address] [place] [address] Care Team Providers Care Shellfish Weigher Name Role Phone Unavailable Primary Care Provider Unavailabl e Encounters Date Type Department Care Team Description 11/13/2024 Telephone [facility] [address] [place] [address] Brian Phillips MD from Last 3 Months Social History Tobacco Use Types Packs/Day Years Used Date Smoking Tobacco: Never Assessed Comments Unknown Sex and Gender Information Value Date Recorded Sex Assigned at Female 05/09/2024 10:32 AM EDT Legal Sex Female 10:32 AM EDT Gender Identity Female 05/09/2024 10:32 AM EDT Sexual Orientation Not on file Plan of Treatment Health Maintenance Due Date Last Done Comments CT Colonography 1963 Colonoscopy 1963 Colorectal Cancer Screening 1963 Depression Screening 1963 FIT DNA/Cologuard 1963 FIT 1963 FOBT 1963 HIV Screening 1963 Lipid Panel 1963 SDOH Screening 1963 Sigmoidoscopy 1963 Alcohol/Substance Use Screening 1975 Tobacco Screening 1975 Hepatitis C Screening 1981 DTaP/Tdap/Td Vaccines (1 - Tdap) 1982 Pap Smear 1984 Cervical Cancer Screening 1993 HPV/Cotest 1993 Mammogram 2003 Pneumococcal Vaccine: 50+ Ye ars (1 of 1 - PCV) 2013 Zoster Vaccines (1 of 2) 2013 RSV Patients and Pa tients Aged 60 years or older (1 - Risk 60-74 years 1-dose series) 2023 COVID-19 Vaccine ( - 2023-2 5 season) 2024 Influenza Vaccine (#1) 2024 HIB Vaccines Aged Out No longer eligi [...] patient's age to complete this topic Meningococcal Vaccine Aged Out No dion charlee eligible based on patient's age to complete this topic RSV under 20 months Aged Out No longe r eligible based on patient's age to complete this topic Rotavirus Vaccines Aged Out No longer eligible based on patient's age to complete this topic Insurance [facility]
--- OUTSIDE RECORDS SUMMARY | 2024-12-19 15:52 | XMS_ITS ---
[facility] Address [address] [place] [address] Care Team Providers Care Agile Java Developer Name Role Phone Santana Sanabria MD Primary Care Provider Rubi Colin Unavailable [phone] Allergies Allergen (clinical drug ingredient) Drug/Non Drug [...] Orally Onc e a day Active Evening Chandler Oil 1000 MG as directed Orally Active [...] 04/05/2024 Encounters Encounter Location Date Provider Diagnosis [facility] [place] [address] [place] [address] 04/05/2024 Rubi Cantor Plantar fasciitis of right [...] Detail Notes Injection Tendon Sheath or Fascia 02887, J 0702 Injection - #3 Right Plantar [...] Notes * Mary GARGOB:1965 (58 yo F)Acc No.[id number]:04/05/2024 Progress Note Patient:?Forest Joselin Provider:?Rubi Cantor DPM :1965???Age:58 Y???Sex:Female D ate:04/05/2024 Address:[address] [place], [place] [id number] Pcp:Santana Sanabria MD Subjective: * Chief Complaints: [...] 1. ?no Exercise. ?Marital status: . 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 * Medications:?TakingCarvedilo l 25 MG Tablet 1 tablet with food Orally Twice a dayAmiodarone HCl Metoprolol Succinate ER 200 MG Tablet Extended Release 24 Hour 1 tablet Orally Once a dayBiotin 5000 MCG Capsule 1 capsule Orally Once a dayVitamin D3 50 MCG (1999) Capsule 1 capsule Orally Once a dayEvening Chandler Oil 1000 MG Capsule as directed Orally [...] 1 capsule Orally Once a dayTaking Evening Chandler Oil 1000 MG Capsule as directed Orally [...] Plan: * Treatment: * Procedures:?Injection:?Tendon Sheath or Fascia?38372, J0702 Injection - #3 Right Plantar Fascia [...] 0-1) out of 10 .? * Procedure Codes:?34718 INJ T ENDON SHEATH/LIGAMENT, Modifiers: XS J0702 [...] DPM Date:? Generated for Reid marina/Jimy/Miky on:?12/19/2024 03:51 PM EST History and Physical Notes * [...]
--- OUTSIDE RECORDS SUMMARY | 2024-12-19 15:52 | XMS_ITS | Encounter Summary ---
Author Organization [facility] Address [address] [place] [address] Care Team Providers Care Account Retention Representative Name Role Phone Santana Sanabria DO Primary Care Provider [phone] Reason for Visit * Reason Onset Date Comments Letter for School/Work 12/18/2024 DOT Physi rajan Encounter Details Date Type Department Care Team ([facility] Contact Info) Description 12/18/2024 Telephone [facility] [address] [place] [phone] Betsey Rey NP [address] [place] [address] [address] [place], [place] [phone] Letter for School/Work (DOT Physical ) Social History Tobacco Use Types Packs/Day [...] as of this encounter Progress Notes * Terra Mora - 12/18/2024 10:19 AM EST The patient called, she had her DOT physical earlier today and they are requesting a letter from cardiology stating that it is ok for her to drive. Please call her back once the letter is completed. She can be reached at [phone]. documented in this encounter Plan of Treatment Upcoming Encounters Date Type Department Care Team (Late st Contact Info) Description 01/21/2025 2:30 PM EDT Office Visit [facility] - [address] [facility] [address] [place] [address] Bhavin Fox MD [address] [place] [address] documented as of this encounter Visit Diagnoses Not on filedocumented in this encounter Care Teams Account Retention Representative Relationship Specialty Start Date End Date Santana Sanabria DO [address] [place] [phone] PCP - General Internal Medicine 06/28/14 documented as of this encounter
--- OUTSIDE RECORDS SUMMARY | 2024-12-19 15:52 | XMS_ITS | Encounter Summary ---
Author Organization [facility] Address [address] [place] [address] Care Team Providers Care Pit Manager Name Role Phone Santana Sanabria DO Primary Care Provider [phone] Reason for Visit * Reason Onset Date Comments rountine blood work 11/29/2024 Encounter Details Date Type Department Care Team ([facility] Contact Info) Description 11/29/2024 Telephone [facility] [address] [place] [address] Betsey Rey NP [address] [place] [address] [address] [place] [address] rountine blood work Social History Tobacco Use Types Packs/Day Years [...] as of this encounter Progress Notes * Betsey Rey NP - 12/05/2024 7:33 AM EST Please have patient reduce spironolactone to 12.5mg daily and repeat lab in one week. * Janna Mueller RN - 11/29/2024 1:10 PM EST Spoke to pt. BMP ordered to [facility] per pt preference * Betsey Rey NP - 11/29/2024 12:42 PM EST Ok to update BMP. Thanks, Betsey * Janna Mueller RN - 11/29/2024 9:31 AM EST Joselin was last seen in office 10/02/24. Pending a visit with Dr. Fox on 01/21/25. BMP drawn through [facility] on 06/15/24 showed a mildly elevated creatinine of 1.02. She takes Eliquis, Multaq, Entresto, and Spironolactone. Hospitalization at [facility] 08/2024. Pt questioned if we can order routine blood work? * Terra Mora - 11/29/2024 9:27 AM EST The patient called she currently does not have a primary care and will not be able to see her new one until May. She is asking if we would be able to order her routine blood work for her medications. Please call her back at [phone]. documented in this encounter Plan of Treatment Upcoming Encounters Date Type Department Care Team (Late st Contact Info) Description 01/21/2025 2:30 PM EDT Office Visit [facility] - [address] [place] [address] Bhavin Fox MD [address] [place] [address] documented as of this encounter Procedures Procedure Name Priority Date/Time Associated Diagnosis Comments BASIC METABOLIC PANEL Routine 12/04/2024 9:58 AM EST HFrEF (heart failure with reduced ejection fraction) ([facility]) documented in this encounter Results * (ABNORMAL) Basic metabolic panel (12/04/2024 9:58 AM EST) Glucose 91 70 - 99 mg/dL [facility] Blood Urea Nitrogen (BUN) 15 8 - 27 mg/dL [facility] Creatinine 1.33(H) 0.57 - 1.00 mg/dL [facility] 1 eGFR 46(L) >59 mL/min/1.7 3 [facility] 1 BUN/Creatinine Ratio 11(L) 12 - 28 [facility] 1 Sodium 141 134 - 144 mmol/L [facility] 1 Potassium 4.6 3.5 - 5.2 mmol/L [facility] 1 Chloride 106 96 - 106 mmol/L [facility] 1 Carbon Dioxide 18(L) 20 - 29 mmol/L [facility] 1 Calcium 9.7 8.7 - 10.3 mg/dL [facility] 1 Blood Venous blood specimen / Unknown 12/04/2024 9:58 AM EST 12/04/2024 Narrative [facility] 1 - 12/04/2024 11:06 PM EST Performed at: ??01 - [facility] [address] ??[id number] Remotely Piloted Vehicle Controller: Bhakti House MD, Phone: ??[phone] us Betsey Rey INTERNET RETAILER LAB BLOOD ORDERABLES Final R esult [facility] 1 documented in this encounter Visit Diagnoses Diagnosis HFrEF (heart failure with reduced ejection fraction) ([facility])- Primary documented in this encounter Care Teams Pit Manager Relationship Specialty Start Date End Date Santana Sanabria DO [address] [place] [phone] PCP - General Internal Medicine 06/28/14 documented as of this encounter
== END 2024-12-19 13:59 | disposition home or self-care (01) ==
PROVIDERS: PCP Internal Medicine; Visit Provider Physician Assistant
DX: I10 Essential (primary) hypertension (principal); I48.0 Paroxysmal atrial fibrillation

== ENCOUNTER → 2024-12-19 13:05 | Outpatient (BNVA) | payer OTHER, SELFPAY | PROVIDERS: PCP Internal Medicine; Visit Provider Physician Assistant | DX: I10 Essential (primary) hypertension (principal); I48.0 Paroxysmal atrial fibrillation | CPT/HCPCS: 99212 ==

== ENCOUNTER 2025-01-13 09:30 | Outpatient (AMB) | payer OTHER, SELFPAY ==
--- NOTE | 2025-01-13 09:59 | A.OFFPC_ITS ---
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 Intake Note: Pt is here today as a New Patient to est care/ PE Allergies amoxicillin Allergy (Unknown, Verified 01/13/25 10:24) Unknown doxycycline Allergy (Unknown, Verified 01/13/25 10:24) Unknown clarithromycin [From Biaxin] Allergy (Verified 01/13/25 10:24) Unknown Medication List - Last Reconciled 01/13/25 by Maty Johnson MD apixaban (Eliquis) mg PO B complex-vitamin C-folic acid 400 mcg tabs PO biotin mcg PO cetirizine (All Day Allergy (cetirizine)) 10 mg PO DAILY PRN dronedarone (Multaq) 400 mg PO BID omeprazole magnesium 20 mg PO DAILY sacubitril-valsartan 97-103 mg (Entresto) 1 tab PO BID spironolactone 12.5 mg PO DAILY Tobacco use date assessed: 01/13/25 Dental Screening Dental Screen Date: 01/13/25 Did you have a dental visit in the last 12 months?: Yes Did you have a dental problem in the last 6 months where you did not have access to dental care?: No Was dental information given to patient?: Patient has dentist 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 She has history of hypertension, paroxysmal atrial fibrillation currently on Eliquis for anticoagulation with a HFrEF-EF 45-50%. She had an echocardiogram done 04/2020 which showed normal left ventricular chamber size and systolic function with an LVEF of 65%. There was mild mitral regurgitation and trace to mild tricuspid regurgitation, and ascending aorta measuring at 4.1 cm. A repeat echocardiogram done 01/25/2023 showed normal LV chamber size, mild LVH, mildly reduced ventricular systolic function, mild global hypokinesis and LVEF of 45-50%, with moderate dilation of the left atrium and ascending aorta dilated at 4.2 cm. She was found to be in atrial fibrillation on Holter monitor. Underwent cardioversion at [facility] on 05/12/2023 with return to normal sinus rhythm. She had a cardiac PET stress test done 05/25/2023 which showed no areas of ischemia or infarction, no coronary artery calcification, LVEF calculated at 32% at rest and 41% with stress. She had a cardiac MRI done 08/11/2023 which showed moderately diminished global left ventricular function with an EF of 31% with mild thickening of the interventricular septum mildly diminished global right ventricular function with right ventricular ejection fraction at 32% and biatrial enlargement was noted. She was then placed on amiodarone and underwent successful cryo balloon ablation of the pulmonary veins 08/2023, and amiodarone was then stopped. 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 Latest echocardiogram completed 08/2024 showed normal LV chamber size, wall thickness and systolic function with an LVEF of 55-60%, normal right ventricular chamber size. She however was recently seen at the ER with recurrent palpitations found to be again in AFib with RVR for which did convert back to normal sinus rhythm, she was then started on Multaq 400 mg twice a day daily carvedilol was discontinued as started back on Eliquis for anticoagulation with a [id number] score of 3 0.2% visit for thromboembolism. She was then continued on Multaq 400 mg twice a day daily, Eliquis 5 mg twice daily and a follow-up was scheduled for her to see Dr. Fox to reassess treatment plan. She has been advised to discontinue all vitamin supplements except for vitamin-D 3 and Biotene, due to their potential interference with Multaq. For her history of heart failure with reduced ejection fraction as low as 31% in the past which improved after she went back to normal sinus rhythm with most recent echo showing LVEF to 55-60%. She was maintained on Entresto and spironolactone. It was suspected that her reduced ejection fraction was secondary to tachycardia from the AFib on sinus rhythm was reestablished her condition improved. It has been advised that if blood pressure remains elevated, may add back carvedilol.. She takes cetirizine as needed for environmental allergies. She currently takes omeprazole as needed for heartburn symptoms. She had a screening colonoscopy done 09/04/[address] Parish at [facility] with , due f sigmoid diverticulosis and internal hemorrhoids noted, and to have a repeat colonoscopy again done after 5 years due to history of colon polyps in the past. She has been having problems with losing weight, BMI now is at 43.3. Has tried several diets in the past and has tried exercising but not on a regular basis, unable to lose weight, interested in trying 1 of the weight loss medications available at present. [facility] Medical History (Updated 01/15/25 @ 00:38 by Maty Johnson MD) History of heart failure Morbid obesity Surgical History (Updated 01/15/25 @ 00:38 by Maty Johnson MD) S/P cryoablation of arrhythmia No pertinent past surgical history Social History Housing: House Patient Tobacco Use Status: Never used Tobacco e-Cigarette/Vaping Use: Never Used service: No Current occupational status: employed Cognitive needs: No Hearing needs: No Vision needs: Yes Questionnaire PHQ-9 Over the last 2 weeks, how often have you been bothered by any of the following problems? 1. Little interest or pleasure in doing things: not at all 2. Feeling down, depressed, or hopeless: not at all 3. Trouble falling or staying asleep, or sleeping too much: several days 4. Feeling tired or having little energy: several days 5. Poor appetite or overeating: not at all 6. Feeling bad about yourself - or that you are a failure or have let yourself or your family down: not at all 7. Trouble concentrating on things, such as reading the newspaper or watching television: not at all 8. Moving or speaking so slowly that other people could have noticed. Or the opposite - being so fidgety or restless that you have been moving around a lot more than usual: not at all 9. Thoughts that you would be better off or of hurting yourself in some way: not at all Total score: 2 Depression Screening Interpretation: Negative Depression Screening Done: Yes 21675 - PHQ-9 Billing: Yes Source: Developed by Drs. Misbah Arevalo, Patricia Becerra, Lalito Strickland and colleagues, with an educational feroz from [employer]. Thrive Questionnaire Date Thrive assessed: 01/13/25 I am a: Patient What is your living situation today?: I have a steady place to live Within the past 12 months, did the food you bought not last and you didn't have the money to get more?: I choose not to answer this question Within the past 12 months, did you worry whether your food would run out before you got money to buy more?: I choose not to answer this question Do you have trouble paying for medicines?: Yes Do you have trouble getting transportation to medical appointments?: No Do you have trouble paying your heating and electricity bill?: I choose not to answer this question Do you have trouble taking care of your child, family member or friend?: No Do you have trouble with day-to-day activities such as bathing, preparing meals, shopping, managing finances, etc.?: No Are you currently unemployed and looking for a job?: No Are you interested in more education?: No Please select the resources that you would like help with: Paying for medicine and Utilities Currently or been in a relationship where the following occur: No concerns reported THRIVE Score: 0 AUDIT C Alcohol Use Questionnaire (AUDIT-C) 1. How often do you have a drink containing alcohol?: Monthly or less 2. How many drinks containing alcohol do you have on a typical day when you are drinking?: 1 or 2 3. How often do you have six or more drinks on one occasion?: Never Total Score: 1 Score Reviewed/Action Taken: Yes DAVID-7 AMB Questionnaire DAVID-7 Date DAVID - 7 assessed: 01/13/25 Feeling nervous, anxious, or on edge: 0 = Not at all Not being able to stop or control worryin = Several days Worrying too much about different things: 1 = Several days Trouble relaxin = Not at all Being so restless that it is hard to sit still: 0 = Not at all Becoming easily annoyed or irritable: 0 = Not at all Feeling afraid as if something awful might happen: 1 = Several days Total DAVID-7 score (0-4 normal; 5-9 mild; 10-14 moderate; 15-21 severe): 3 Source: Developed by Drs. Misbah Arevalo, Patricia Becerra, Lalito Strickland and colleagues, with an educational feroz from [employer]. DAVID-7 Assessment Billing DAVID-7 Assessment Tool: DAVID-7 Assessment 10454 Review of Systems Const Denies daytime sleepiness, Denies excessive sweating, Denies fatigue, Denies fever(s), Denies lethargy, Denies night sweats, Denies snoring and Denies weight loss Eyes Details: Positive myopia, goes to [facility], up-to-date ENT Details: Dental prophylaxis every 6 months Denies nasal congestion, Denies post nasal drip and Denies sinus pain Card Denies chest pain, Denies pedal edema, Denies dyspnea and Denies orthopnea Resp Denies cough, Denies hemoptysis, Denies excessive phlegm production, Denies dyspnea, Denies snoring and Denies wheezing GI Reports no additional complaints Reports no additional complaints Musc Denies myalgias, Denies arthralgias and Denies joint swelling Skin/Breast Denies rash Neuro Reports no additional complaints Psych Denies abnormal sleep pattern and Denies anxiety Endo Denies excessive sweating, Denies fatigue and Denies heat intolerance Felix/Lymph Denies easy bruising Aller/Immun Denies seasonal rhinorrhea and Denies wheezing Physical exam (Primary Care) Vital Signs: Last Vital Signs Temp 97.8 F 01/13/25 10:15 Pulse 88 01/13/25 10:15 Resp 16 01/13/25 10:15 BP 136/92 H 01/13/25 10:15 Pulse Ox 96 01/13/25 10:15 Oxygen Delivery Method Room Air 01/13/25 10:15 BMI result Body Mass Index 43.3 Tobacco/Smoking Status: Tobacco use Status Tobacco use date assessed 01/13/25 01/13/25 10:20 Patient Tobacco Use Status Never used Tobacco 01/13/25 10:00 e-Cigarette/Vaping Use Never Used 01/13/25 10:20 PHQ-9: PHQ-9 Score PHQ-9: Total score 2 01/14/25 08:12 Depression Screening Interpretation: Negative Thrive Assessment: Date of Thrive Assessment Date Thrive assessed 01/13/25 01/13/25 10:20 Currently or been in a relationship where the following occur: No concerns reported Advance Care Planning discussion: Completed/Scanned Date of discussion: 01/13/25 Who was present: patient Forms completed: Health Care Proxy Time spent: 16-45 minutes Actual minutes spent: 2 Const General: no acute distress and alert Orientation/consciousness: patient oriented x3 HENMT Head: Yes normocephalic Ears: external ears normal, TM's normal bilaterally and EAC's normal General nose exam: Normal external nose present Face and sinus: Yes face symmetric Mouth: lip normal, tongue normal, oropharynx normal and moist mucous membranes Eyes General: appearance normal, both eyes and all related structures Eyelids: Yes eyelids normal Pupils: Equal, round and reactive pupils present EOM: EOMs intact bilaterally Neck Neck: Yes full ROM, Yes no lymphadenopathy and Yes supple Thyroid: Thyroid normal Chest Breast/axilla palpation: normal palpation of the breasts Resp Effort & Inspection: normal respiratory effort and able to speak in complete sentences Auscultation: clear to auscultation bilaterally Cardio Rate: regular rate Rhythm: regular rhythm Heart sounds: S1 normal heart sound present and S2 normal heart sound present GI Palpation (GI): Soft to palpation, nontender, no guarding and no masses Auscultation: normal bowel sounds General: Yes no CVA tenderness Back/Spine/Pelvis Back: no CVA tenderness and No back tenderness Skin General skin exam: no rashes or lesions noted Neuro General: patient oriented x3, gait normal, moves all extremities, Normal light touch and pain sensation, no focal motor deficits and CN's II-XI intact bilaterally Cranial nerves: Yes Equal, round and reactive pupils present Cognition (Neuro): normal cognition Gait exam (Neuro): Normal gait present Motor exam (neuro): 5/5 motor strength present throughout Extrem General: Yes normal to inspection, Yes full ROM, Yes no joint enlargement, Yes no pedal edema and Yes normal gait Psych Appearance: grossly normal and well kempt Mental Status: mental status grossly normal Speech and movement: Normal speech and movement present Affect: normal affect Attitude: cooperative Thought process: Normal thought process present Thought content: Normal thought content present Coding Level of Care Code New Pt Prev Care 40-64y(86296) Diagnoses Paroxysmal A-fib I48.0 Advanced directives, counseling/discussion Z71.89 Annual visit for general adult medical examination with abnormal findings Z00.01 Morbid obesity E66.01 History of heart failure Z86.79 Pulmonary nodules R91.8 Additional Codes DAVID-7 Assessment Billing - DAVID-7 Assessment Tool: DAVID-7 Assessment 58593 ([id number]) PHQ-9 - 30746 - PHQ-9 Billing: Yes ([id number]) Vital Signs *Quality* - Advance Care Planning discussion: Completed/Scanned ([id number]) Vital Signs *Quality* - Time spent: 16-45 minutes ([id number]) Assessment & Plan Assessment & Plan (1) Paroxysmal A-fib: Code(s): I48.0 - Paroxysmal atrial fibrillation Category: Medical Plan: Followed by cardiology, sees Dr. Fox, on chronic anticoagulation with Eliquis 5 mg twice a day and Multaq 400 mg b.i.d. (2) Advanced directives, counseling/discussion: Code(s): Z71.89 - Other specified counseling Plan: Initiated the conversation about Advanced Directives. Advanced Directives help patients prepare for current and future decisions about their medical treatment and place of care. Discussed with patient that it is a process where a patients current condition and prognosis are reviewed, their wishes for information regarding their illness are elicited, and likely medical dilemmas are presented and options discussed. Healthcare proxy form completed today. The form can be amended as needed, reviewed yearly and make changes as needed (3) Annual visit for general adult medical examination with abnormal findings: Code(s): Z00.01 - Encounter for general adult medical examination with abnormal findings Plan: Will check appropriate labs. Recommended dental visit every 6 months and regular eye exams, at least every 2 years. Take adequate calcium in diet and vi tamin-D 3 at 2000 IU per cap once a day, in addition to weight-bearing exercises to help maintain good muscle tone and weight control. Instructed to do self- breast exam, and recommended to get yearly mammogram, starting at age 40. Immunization information provided: Yearly flu vaccine, shingles vaccine starting at age 50, at age 65 to start getting Prevnar 13 followed 1 year later by Pneumovax 23. Colonoscopy (4) Morbid obesity: Code(s): E66.01 - Morbid (severe) obesity due to excess calories Category: Medical Plan: Has tried unsuccessfully losing weight 3 and several diet plans, but has not been exercising regularly. Interested in trying to see if can take GLP 1 agonist to help with weight loss. Patient advised to call her insurance and find out if any of these medicines her covered under her plan and to let me know. (5) History of heart failure: Code(s): Z86.79 - Personal history of other diseases of the circulatory system Category: Medical Plan: Currently on Entresto and spironolactone, last echocardiogram showed normal LV ejection fraction (6) Pulmonary nodules: Code(s): R91.8 - Other nonspecific abnormal finding of lung field Category: Medical Plan: Seen by Dr. Whitman in 2021, who was following patient and found to have stable bilateral pulmonary nodules under 5 mm on a follow-up of approximately 36 months. No further imaging follow-up is required at that time. Orders: Orders Alanine Aminotransferase Today E66.01 - Morbid (severe) obesity due to excess calories, I10 - Essential (primary) hypertension, I48.0 - Paroxysmal atrial fibrillation, Z78.0 - Asymptomatic menopausal state, Z86.79 - Personal history of other diseases of the circulatory system Aspartate Amino Transferase Today E66.01 - Morbid (severe) obesity due to excess calories, I10 - Essential (primary) hypertension, I48.0 - Paroxysmal atrial fibrillation, Z78.0 - Asymptomatic menopausal state, Z86.79 - Personal history of other diseases of the circulatory system Basic Metabolic Panel Fasting Today E66.01 - Morbid (severe) obesity due to excess calories, I10 - Essential (primary) hypertension, I48.0 - Paroxysmal atrial fibrillation, Z78.0 - Asymptomatic menopausal state, Z86.79 - Personal history of other diseases of the circulatory system Lipid Panel Today E66.01 - Morbid (severe) obesity due to excess calories, I10 - Essential (primary) hypertension, I48.0 - Paroxysmal atrial fibrillation, Z78.0 - Asymptomatic menopausal state, Z86.79 - Personal history of other diseases of the circulatory system Vitamin D 25-OH Total Today E66.01 - Morbid (severe) obesity due to excess calories, I10 - Essential (primary) hypertension, I48.0 - Paroxysmal atrial fibrillation, Z78.0 - Asymptomatic menopausal state, Z86.79 - Personal history of other diseases of the circulatory system Complete Blood Count Auto Diff Today E66.01 - Morbid (severe) obesity due to excess calories, I10 - Essential (primary) hypertension, I48.0 - Paroxysmal atrial fibrillation, Z78.0 - Asymptomatic menopausal state, Z86.79 - Personal history of other diseases of the circulatory system Vitamin B12 and Folate Today E66.01 - Morbid (severe) obesity due to excess calories, I10 - Essential (primary) hypertension, I48.0 - Paroxysmal atrial fibrillation, Z78.0 - Asymptomatic menopausal state, Z86.79 - Personal history of other diseases of the circulatory system TSH reflex Free T4 Today E66.01 - Morbid (severe) obesity due to excess calories, I10 - Essential (primary) hypertension, I48.0 - Paroxysmal atrial fibrillation, Z78.0 - Asymptomatic menopausal state, Z86.79 - Personal history of other diseases of the circulatory system Referrals Pulmonology Referral R91.8 - Other nonspecific abnormal finding of lung field
[2025-01-13 10:15] VITALS: BP 136/92; PULSE 88; RESP 16; TEMP 36.6; O2SAT 96; BMI 43.3
== END 2025-01-13 11:09 | disposition home or self-care (01) ==
LOC: HO.HMCC 09:31
PROVIDERS: PCP Internal Medicine; Visit Provider Internal Medicine
DX: Z00.00 Encounter for general adult medical examination without abnormal findings (principal); I48.0 Paroxysmal atrial fibrillation; E66.01 Morbid (severe) obesity due to excess calories; Z68.41 Body mass index [BMI] 40.0-44.9, adult; Z71.89 Other specified counseling; Z86.79 Personal history of other diseases of the circulatory system; R91.8 Other nonspecific abnormal finding of lung field

== ENCOUNTER → 2025-01-13 09:30 | Outpatient (BNVA) | payer OTHER, SELFPAY | PROVIDERS: PCP Internal Medicine; Visit Provider Internal Medicine | DX: Z00.01 Encounter for general adult medical examination with abnormal findings (principal); I10 Essential (primary) hypertension; I48.0 Paroxysmal atrial fibrillation; E66.01 Morbid (severe) obesity due to excess calories; R91.8 Other nonspecific abnormal finding of lung field; Z79.01 Long term (current) use of anticoagulants; Z71.89 Other specified counseling; Z86.79 Personal history of other diseases of the circulatory system; Z68.41 Body mass index [BMI] 40.0-44.9, adult | CPT/HCPCS: 96127; 99386 ==

== ENCOUNTER 2025-01-18 09:41 | Outpatient (REF) | payer OTHER, SELFPAY ==
--- OUTSIDE RECORDS SUMMARY | 2025-01-18 09:44 | XMS_ITS | Encounter Summary ---
Author Organization [facility] Address [address] [place] [address] Care Team Providers Care Can Doffer Name Role Phone Santana Sanabria MD Primary Care Provider Adam Geiger MD Unavailable Unavailable Betsey Rey MEDICAL TRANSCRIPTION SUPERVISOR Unavailable [phone] Bhavin Fox MD Unavailable [phone] Christina Vargas MEDICAL TRANSCRIPTION SUPERVISOR Unavailable [phone] Reason for Visit * Reason Onset Date Comments Medication 07/21/2023 Side effects Encounter Details Date Type Department Care Team Description 07/21/2023 Telephone Cardio PVC POC [address] [facility] [address] [place] [address] Bhavin Fox MD [address] [place] [address] [id number] Medication (Side effects ) Social History Tobacco Use Types Packs/Day Years Used Date Smoking Tobacco: Never Smokeless Tobacco: Never Alcohol Use Standard Drinks/Week Comments Yes 0 (1 standard drink = 0.6 oz pur e alcohol) Occ Sex Assigned at Date Recorded Not on file Job Start Date Occupation Industry Not on file Not on file Not on file COVID-19 Exposure Response Date Recorded In the last 10 days, have yo u been in contact with someone who was confirmed or suspected to have Coronavirus/COVID-19? No / Unsure 07/17/2023 8:30 AM EDT documented as of this encounter Miscellaneous Notes * Telephone Encounter - Ingrid Capone RN - 07/24/2023 9:56 AM EDT Called pt back this AM. Made aware of Josemanuel Duffy recommendations. Is aware to change dose to 200mg daily. Is aware this will take longer to load but will be effective eventually. Is aware Amiodarone isvery unlikely cause her chest pain- twinges. * Telephone Encounter - Ingrid Capone RN - 07/24/2023 9:36 AM EDT Called pt this AM. States she had gone to [facility] ER on 07/21/23, records scanned into [employer] for review. Was having some increased chest discomfort. States she feels better now. Thinks she could be developing a cold and chest congestion. HR yest was 75-90. BP yest was 130/80-90s. Has been still taking reduced dose of Amio 100mg (1/2 tab) BID as advised per Niles Burns on 07/21, see below. * Telephone Encounter - Ingrid Capone RN - 07/21/2023 1:18 PM EDT Called pt back this PM. Made aware of recommendations per Niles Burns. Is aware to call 911 for CP lasting longer than 15 min and/or elevated HR that is sustained at a higher rate and not fluctuating. Made aware per recommendation could try a reduction in Amiodarone 1/2 tab BID (100mg BID) over the weekend to see if this helps with possible side effects of medication. Is aware I will be forwarding the task to Dr. Fox and Josemanuel Duffy and she should f/u on Monday to let us know how she is doing on the reduced dose. Is thankful for the call back. * Telephone Encounter - Shona Burns NP - 07/21/2023 12:19 PM EDT I have appreciated the documentation on the patient. First and foremost if she thinks she is havingany chest pain she needs to seek emergency attention. As well if she thinks her heart rates are significantly elevated. She could be experiencing some side effects of amiodarone. Realizing amiodaronetakes a prolonged period of time to reach therapeutic levels, but if intolerant, she could try to reduce the amiodarone to 1/2 tablet twice daily and see if she tolerates it better. She should touch base with Dr. Fox on Monday for additional corrections counselor. Hopefully with some time she will tolerate the amiodarone better which you can also share with her for reassurance. * Telephone Encounter - Ingrid Capone RN - 07/21/2023 10:17 AM EDT Called pt this AM. Just had a OV on 07/[address] Fox. Had elevated BP and HR in 100s/AFIB. Wason amiodarone to improve chances of maintaining sinus rhythm. Is going to have an ablation at some point. Started taking Amio 200mg BID on 07/18. States she has been having joint pain, fatigue, slightly winded with activity,and has a dull ache/twinge intermittently in the area of her left breast between her shoulder and nipple area. States the dull ache/twinge in her left breast she has had before in the past when she is in AFIB. Episodes last about 10-15 seconds. Has been taking all her other meds listed in med module with no missed doses. 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 Is not able to send tracing at this time. Does not have subhash on her watch. HR has been 75-102. She is not sure if her rate increases with activity. Currently she has allergies and has nasal congestion. I will call back in 1/2 hour to get BP. States she has been up walking around before the phone call. BP update: 162/91 HR 51. * Telephone Encounter - Myra Pearl - 07/21/2023 9:48 AM EDT Joselin was started on Amiodarone by Dr. Fox on 07/17/2023 . She wakes up in the middle of the night , all her joints ache and a twinge on the left side of her breast in the shoulder area KarenM documented in this encounter Plan of Treatment Not on file documented as of this encounter Visit Diagnoses Not on filedocumented in this encounter Care Teams Can Doffer Relationship Specialty Start Date End Date Santana Sanabria MD PCP - General Internal Medicine 02/23/18 Adam Keller MD Specialist Cardiovascular Disease 04/25/23 10/17/23 Betsey Rey NP Nurse Practitioner Cardiology 04/25/23 Bhavin Fox MD Specialist Cardiology 06/01/23 Christina Vargas NP [address] [place] [phone] Cardiology 09/02/23 documented as of this encounter
--- OUTSIDE RECORDS SUMMARY | 2025-01-18 09:44 | XMS_ITS | Encounter Summary ---
Author Organization [facility] [facility] Address [address] [place] [address] Care Team Providers Care Asbestos Coverer Name Role Phone Santana Sanabria MD Primary Care Provider Adam Geiger MD Unavailable Unavailable Betsey Rey NP Unavailable [phone] Bhavin Fox MD Unavailable [phone] Christina Vargas NP Unavailable [phone] Encounter Details Date Type Department Care Team Description 05/15/2023 SCAN Medical Records [address] [place] [id number] Florentin eRn Social History Tobacco Use Types Packs/Day Years [...] Recorded In the last 10 days, have camelia castillo been in contact with someone who was confirmed or suspected to have Coronavirus/COVID-19? No / Unsure 05/04/2023 7:10 AM EDT documented as of this encounter Plan of Treatment Not on file documented as of this encounter Visit Diagnoses Not on filedocumented in this encounter Care Teams Asbestos Coverer Relationship Specialty Start Date End Date Santana Sanabria MD PCP - General Internal Medicine 02/23/18 Adam Keller MD Specialist Cardiovascular Disease 04/25/23 10/17/23 Betsey Rey NP Nurse Practitioner Cardiology 04/25/23 Bhavin Fox MD Specialist Cardiology 06/01/23 Christina Vargas NP [address] [place] [phone] Cardiology 09/02/23 documented as of this encounter
--- OUTSIDE RECORDS SUMMARY | 2025-01-18 09:44 | XMS_ITS | Encounter Summary ---
Author Organization [facility] Address [address] [place] [address] Care Team Providers Care Route Rider Name Role Phone Santana Sanabria MD Primary Care Provider Adam Geiger MD Unavailable Unavailable Betsey Rey MEAT PACKER Unavailable [phone] Bhavin Fox MD Unavailable [phone] Christina Vargas MEAT PACKER Unavailable [phone] Encounter Details Date Type Department Care Team Description 05/04/2023 Telephone Cardio PVCA Diag Testing 101 [address] [facility] [address] [place] [address] Jen Quintanilla PA-C [address] [place] [address] [phone] Social History Tobacco Use Types Packs/Day Years [...] encounter Miscellaneous Notes * Telephone Encounter - Jen Quintanilla PA-C - 05/04/2023 3:59 PM EDT Spoke to Dr. Keller. Since she has been in what appears to be in persistent afib this could be a tachymyopathy since January and has not missed any doses of Eliquis (I just confirmed with patient on phone) we will attempt cardioversion and then PET stress after attempt at hoahaoism of NSR to ruleout ischemia. Patient is agreeable to both. Orders placed. * Telephone Encounter - Jen Quintanilla PA-C - 05/04/2023 7:54 AM EDT Stress echo canceled today. Patient presenting in atrial fibrillation with heart rates 100s to 130sat rest. Her metoprolol succinate was recently increased after Holter monitor showing A-fib with elevated heart rates, to 150 mg daily. Her last dose was yesterday morning which she normally takes mid-morning and was planning on taking it after the test this morning. I have increased her metoprololsuccinate to 200 mg daily. I will discuss with her care team further recommendations at this point.? PET stress (cardiomyopathy, RESENDIZ). She tells me she is leaving for a trip to [place] next month. documented in this encounter Plan of Treatment Scheduled Orders Name Type Priority Associated Diagnoses Orde r Schedule NM CARDIOVERSION ELECTIVE ARRHYTHMIA EXTERNAL Cardiology Routine Persistent atrial fibrillation (HCC) Ordered: 05/04/2023 documented as of this encounter Visit Diagnoses Diagnosis Paroxysmal atrial fibrillation (HCC)- Primary Atrial fibrillation Persistent atrial fibrillation (HCC) Atrial fibrillation HFrEF (heart failure with reduced ejection fraction) (HCC) Dyspnea on exertion Other dyspnea and respiratory abnormality documented in this encounter Care Teams Route Rider Relationship Specialty Start Date End Date Santana Sanabria MD PCP - General Internal Medicine 02/23/18 Adam Keller MD Specialist Cardiovascular Disease 04/25/23 10/17/23 Betsey Rey NP Nurse Practitioner Cardiology 04/25/23 Bhavin Fox MD Specialist Cardiology 06/01/23 Christina Vargas NP [address] [phone] Cardiology 09/02/23 documented as of this encounter
--- OUTSIDE RECORDS SUMMARY | 2025-01-18 09:44 | XMS_ITS | Encounter Summary ---
Author Organization [facility] Address [address] [place] [address] Care Team Providers Care Patient Relations Director Name Role Phone Santana Sanabria MD Primary Care Provider Adam Geiger MD Unavailable Unavailable Betsey Rey WELDER HELPER Unavailable [phone] Bhavin Fox MD Unavailable [phone] Christina Vargas WELDER HELPER Unavailable [phone] Reason for Visit * Reason Onset Date Comments Holter Monitor 03/27/2023 Return of monito r Encounter Details Date Type Department Care Team Description 03/27/2023 Telephone Cardio [facility] [address] [place] [phone] Adam Keller MD Holter Monitor (Return of monitor) Social History Tobacco Use Types Packs/Day Years [...] In the last 10 days, have yo anna been in contact with someone who was confirmed or suspected to have Coronavirus/COVID-19? No / Unsure 03/24/2023 9:09 AM EDT documented as of this encounter Miscellaneous Notes * Telephone Encounter - Suri Campa - 03/27/2023 2:37 PM EDT Patient called to inform that she needed to be at a mandatory meeting today and wasn't going to be able to return the Holter monitor before 5:00 PM today as scheduled. She will be returning it tomorrow. documented in this encounter Plan of Treatment Not on file documented as of this encounter Visit Diagnoses Not on filedocumented in this encounter Care Teams Patient Relations Director Relationship Specialty Start Date End Date Santana Sanabria MD PCP - General Internal Medicine 02/23/18 Adam Keller MD Specialist Cardiovascular Disease 04/25/23 10/17/23 Betsey Rey NP Nurse Practitioner Cardiology 04/25/23 Bhavin Fox MD Specialist Cardiology 06/01/23 Christina Vargas NP [address] [phone] Cardiology 09/02/23 documented as of this encounter
--- OUTSIDE RECORDS SUMMARY | 2025-01-18 09:44 | XMS_ITS | Encounter Summary ---
Author Organization [facility] Address [address] [place] [address] Care Team Providers Care Paper Rewinder Name Role Phone Santana Sanabria MD Primary Care Provider Adam Geiger MD Unavailable Unavailable Betsey Rey PRICING ANALYST Unavailable [phone] Bhavin Fox MD Unavailable Christina Vargas PRICING ANALYST Unavailable [phone] Encounter Details Date Type Department Care Team Description 05/15/2023 SCAN Medical Records [address] [place] [address] Florentin Ren Social History Tobacco Use Types Packs/Day Years [...] In the last 10 days, have camelia u been in contact with someone who was confirmed or suspected to have Coronavirus/COVID-19? No / Unsure 05/04/2023 7:10 AM EDT documented as of this encounter Plan of Treatment Not on file documented as of this encounter Procedures Procedure Name Priority Date/Time Associated Diagnosis Comments OUTSIDE PLAIN FILM Routine 05/15/2023 documented in this encounter Results * OUTSIDE PLAIN FILM (05/15/2023) Provider Abstract RADIOLOGY documented in this encounter Visit Diagnoses Not on filedocumented in this encounter Care Teams Paper Rewinder Relationship Specialty Start Date End Date Santana Sanabria MD PCP - General Internal Medicine 02/23/18 Adam Keller MD Specialist Cardiovascular Disease 04/25/23 10/17/23 Betsey Rey NP Nurse Practitioner Cardiology 04/25/23 Bhavin Fox MD Specialist Cardiology 06/01/23 Christina Vargas NP [address] [place] [phone] Cardiology 09/02/23 documented as of this encounter
--- OUTSIDE RECORDS SUMMARY | 2025-01-18 09:44 | XMS_ITS | Encounter Summary ---
Author Organization [employer] [facility] Address [address] [place] [address] Care Team Providers Care Cleaner Carpet And Upholstery Name Role Phone Santana Sanabria MD Primary Care Provider Adam Geiger MD Unavailable Unavailable Betsey Rey CAMPAIGN ASSOCIATE Unavailable [phone] Bhavin Fox MD Unavailable [phone] Christina Vargas CAMPAIGN ASSOCIATE Unavailable [phone] Encounter Details Date Type Department Care Team Description 05/25/2023 SCAN Cardio [facility] [address] [place] [phone] Adam Keller MD Social History Tobacco Use Types Packs/Day Years [...] Name Priority Date/Time Associated Diagnosis Comments OUTSIDE PET Routine 05/25/2023 documented in this encounter Results * OUTSIDE PET (05/25/2023) Provider Default RADIOLOGY documented in this encounter Visit Diagnoses Not on filedocumented in this encounter Care Teams Cleaner Carpet And Upholstery Relationship Specialty Start Date End Date Santana Sanabria MD PCP - General Internal Medicine 02/23/18 Adam Keller MD Specialist Cardiovascular Disease 04/25/23 10/17/23 Betsey Rey NP Nurse Practitioner Cardiology 04/25/23 Bhavin Fox MD Specialist Cardiology 06/01/23 Christina Vargas NP [address] [phone] Cardiology 09/02/23 documented as of this encounter
--- OUTSIDE RECORDS SUMMARY | 2025-01-18 09:44 | XMS_ITS | Clinical Summary ---
Author Organization [employer] Address [address] [facility] [address] [place] [address] Care Team Providers Care Asset Protection Associate Name Role Phone Unavailable Primary Care Provider Unavailabl e Encounters Date Type Department Care Team Description 11/13/2024 Telephone [facility] [address] [place] [address] Brian Phillips MD from Last 3 Months [...] patient's age to complete this topic Insurance [facility]
--- OUTSIDE RECORDS SUMMARY | 2025-01-18 09:44 | XMS_ITS | Encounter Summary ---
Author Organization [employer] [facility] Address [address] [place] [address] Care Team Providers Care Vice President Underwriting Name Role Phone Santana Sanabria MD Primary Care Provider Adam Geiger MD Unavailable Unavailable Betsey Rey COTTRELL BLOWER Unavailable [phone] Bhavin Fox MD Unavailable Christina Vargas COTTRELL BLOWER Unavailable [phone] Reason for Visit * Reason Onset Date Comments hospital follow up 05/08/2023 Encounter Details Date Type Department Care Team Description 05/08/2023 Telephone Cardio [facility] [address] [place] [address] Adam Keller MD hospital follow up Social History Tobacco Use Types Packs/Day Years [...] encounter Miscellaneous Notes * Telephone Encounter - Minerva Armijo - 05/08/2023 8:42 AM EDT Patient calling in states she was admitted to [facility] on 05/08/23 for A-FIB and trouble regulating BP. Patient was discharged and will need a hospital follow up. documented in this encounter Plan of Treatment Not on file documented as of this encounter Visit Diagnoses Not on filedocumented in this encounter Care Teams Vice President Underwriting Relationship Specialty Start Date End Date Santana Sanabria MD PCP - General Internal Medicine 02/23/18 Adam Keller MD Specialist Cardiovascular Disease 04/25/23 10/17/23 Betsey Rey NP Nurse Practitioner Cardiology 04/25/23 Bhavin Fox MD Specialist Cardiology 06/01/23 Christina Vargas NP [address] [phone] Cardiology 09/02/23 documented as of this encounter
--- OUTSIDE RECORDS SUMMARY | 2025-01-18 09:44 | XMS_ITS ---
Author Organization [facility] Address [address] [place] [address] Care Team Providers Care Stove Mounter Name Role Phone Santana Sanabria MD Primary Care Provider Rubi Colin Unavailable [phone] Allergies Allergen (clinical drug ingredient) Drug/Non Drug [...] Orally Onc e a day Active Evening [place] Oil 1000 MG as directed Orally Active [...] 04/05/2024 Encounters Encounter Location Date Provider Diagnosis [facility] [address] [place] [address] 04/05/2024 Rbui Cantor Plantar fasciitis of right foot M72.2 [...] Detail Notes Injection Tendon Sheath or Fascia 07293, J 0702 Injection - #3 Right Plantar [...] Notes * Mary GARGOB:1965 (58 yo F)Acc No.[id number]:04/05/2024 Progress Note Patient:?Forest Joselin Provider:?Rubi Cantor DPM :1965???Age:58 Y???Sex:Female D ate:04/05/2024 Address:[address] [place], [place] [id number] Pcp:Santana Sanabria MD Subjective: * Chief Complaints: [...] 1. ?no Exercise. ?Marital status: . 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 * Medications:?TakingCarvedilo l 25 MG Tablet 1 tablet with food Orally Twice a dayAmiodarone HCl Metoprolol Succinate ER 200 MG Tablet Extended Release 24 Hour 1 tablet Orally Once a dayBiotin 5000 MCG Capsule 1 capsule Orally Once a dayVitamin D3 50 MCG (1999) Capsule 1 capsule Orally Once a dayEvening [place] Oil 1000 MG Capsule as directed Orally [...] 1 capsule Orally Once a dayTaking Evening [place] Oil 1000 MG Capsule as directed Orally [...] Plan: * Treatment: * Procedures:?Injection:?Tendon Sheath or Fascia?26167, J0702 Injection - #3 Right Plantar Fascia [...] 0-1) out of 10 .? * Procedure Codes:?72783 INJ T ENDON SHEATH/LIGAMENT, Modifiers: XS J0702 [...] Cantor DPM Date:? Generated for Reid marina/Jimy/Miky on:?01/18/2025 09:44 AM EDT History and Physical Notes * HPI (History [...]
--- OUTSIDE RECORDS SUMMARY | 2025-01-18 09:44 | XMS_ITS | Encounter Summary ---
Author Organization [facility] Address [address] [place] [address] Care Team Providers Care Campground Caretaker Name Role Phone Santana Sanabria MD Primary Care Provider Adam Geiger MD Unavailable Unavailable Betsey Rey CLINICAL LABORATORY SCIENCE PROFESSOR Unavailable Bhavin Fox MD Unavailable [phone] Christina Vargas CLINICAL LABORATORY SCIENCE PROFESSOR Unavailable [phone] Reason for Visit * Reason Onset Date Comments Hospital Procedure 05/09/2023 Cardioversion 05.12.23 Encounter Details Date Type Department Care Team Description 05/09/2023 Telephone Cardio PVC POC 154 300 [facility] [address] [place] [address] Jen Quintanilla PA-C [address] [place], [place] [phone] Hospital Procedure (Cardioversion 05.12.23) Social History Tobacco Use Types Packs/Day Years [...] encounter Miscellaneous Notes * Telephone Encounter - Byron Corado C.M.A. - 05/09/2023 1:31 PM EDT Spoke with patient about procedure. Scheduled on 05.12.[address] Hogan at [facility] at 1:30pm Arrival time 12:30pm Medication instructions are to: continue all medications You can take all other medications with some water These instructions are given verbal and written and understood Patient aware of importance of NOT missing any anticoagulation for 4 weeks. Patient aware if they do NOT follow these instructions or show up to procedure they will have to berescheduled to next available which could take up to 6 to 10 weeks. Patient will have to be fasting from midnight night before procedure. Patient made aware that they will need to make arrangements for someone to drive to and from the hospital for the procedure Patient is to report to [facility] to the 3rd floor Patient agreed to all inst and date, time and location above via phone while booking procedure. Booking confirmation is [id number] via phone by Krystal documented in this encounter Plan of Treatment Not on file documented as of this encounter Visit Diagnoses Not on filedocumented in this encounter Care Teams Campground Caretaker Relationship Specialty Start Date End Date Santana Sanabria MD PCP - General Internal Medicine 02/23/18 Adam Keller MD Specialist Cardiovascular Disease 04/25/23 10/17/23 Betsey Rey NP Nurse Practitioner Cardiology 04/25/23 Bhavin Fox MD Specialist Cardiology 06/01/23 Christina Vargas NP [address] [phone] Cardiology 09/02/23 documented as of this encounter
--- OUTSIDE RECORDS SUMMARY | 2025-01-18 09:44 | XMS_ITS | Encounter Summary ---
Author Organization [facility] Address [address] [place] [address] Care Team Providers Care Trommel Tender Name Role Phone Santana Sanabria MD Primary Care Provider Adam Geiger MD Unavailable Unavailable Betsey Rey NUTRITION INTERNSHIP Unavailable [phone] Bhavin Fox MD Unavailable [phone] Christina Vargas NUTRITION INTERNSHIP Unavailable [phone] Encounter Details Date Type Department Care Team Description 06/08/2023 SCAN Medical Records [address] [place] [address] [facility] Social History Tobacco Use Types Packs/Day Years [...] suspected to have Coronavirus/COVID-19? No / Unsure 06/01/2023 8:03 AM EDT documented as of this encounter Plan of Treatment Not on file documented as of this encounter Procedures Procedure Name Priority Date/Time Associated Diagnosis Comments OUTSIDE LAB Routine 06/08/2023 documented in this encounter Results * OUTSIDE LAB (06/08/2023) Provider Abstract LAB documented in this encounter Visit Diagnoses Not on filedocumented in this encounter Care Teams Trommel Tender Relationship Specialty Start Date End Date Santana Sanabria MD PCP - General Internal Medicine 02/23/18 Adam Keller MD Specialist Cardiovascular Disease 04/25/23 10/17/23 Betsey Rey NP Nurse Practitioner Cardiology 04/25/23 Bhavin Fox MD Specialist Cardiology 06/01/23 Christina Vargas NP [address] [place] [phone] Cardiology 09/02/23 documented as of this encounter
--- OUTSIDE RECORDS SUMMARY | 2025-01-18 09:44 | XMS_ITS | Encounter Summary ---
Author Organization [employer] [facility] Address [address] [place] [address] Care Team Providers Care Sales Service Executive Name Role Phone Santana Sanabria MD Primary Care Provider Adam Geiger MD Unavailable Unavailable Betsey Rey LINOTYPIST Unavailable Bhavin Fox MD Unavailable Christina Vargas LINOTYPIST Unavailable [phone] Encounter Details Date Type Department Care Team Description 05/12/2023 Hospital Cardio [facility] [address] [place] [address] [address] [place] [phone] Mohamud Hogan MD [address] [place] [address] [place], [place] [phone] Social History Tobacco Use Types Packs/Day Years [...] Name Priority Date/Time Associated Diagnosis Comments OUTSIDE EKG Routine 05/12/2023 documented in this encounter Results * OUTSIDE EKG (05/12/2023) Provider Abstract CARDIOLOGY documented in this encounter Visit Diagnoses Not on filedocumented in this encounter Care Teams Sales Service Executive Relationship Specialty Start Date End Date Santana Sanabria MD PCP - General Internal Medicine 02/23/18 Adam Keller MD Specialist Cardiovascular Disease 04/25/23 10/17/23 Betsey Rey NP Nurse Practitioner Cardiology 04/25/23 Bhavin Fox MD Specialist Cardiology 06/01/23 Christina Vargas NP [address] [place] [phone] Cardiology 09/02/23 documented as of this encounter
--- OUTSIDE RECORDS SUMMARY | 2025-01-18 09:44 | XMS_ITS | Encounter Summary ---
Author Organization [facility] Address [address] [place] [address] Care Team Providers Care Education Professional Name Role Phone Santana Sanabria MD Primary Care Provider Adam Geiger MD Unavailable Unavailable Betsey Rey SOFTWARE SUPPORT ENGINEER Unavailable [phone] Bhavin Fox MD Unavailable [phone] Christina Vargas SOFTWARE SUPPORT ENGINEER Unavailable [phone] Encounter Details Date Type Department Care Team Description 06/26/2023 SCAN Medical Records [address] [place] [address] Abstract, Provider Social History Tobacco Use Types Packs/Day Years [...] Date/Time Associated Diagnosis Comments OUTSIDE LAB Routine 06/26/2023 documented in this encounter Results * OUTSIDE LAB (06/26/2023) Provider Default LAB documented in this encounter Visit Diagnoses Not on filedocumented in this encounter Care Teams Education Professional Relationship Specialty Start Date End Date Santana Sanabria MD PCP - General Internal Medicine 02/23/18 Adam Keller MD Specialist Cardiovascular Disease 04/25/23 10/17/23 Betsey Rey NP Nurse Practitioner Cardiology 04/25/23 Bhavin Fox MD Specialist Cardiology 06/01/23 Christina Vargas NP [address] [place] [phone] Cardiology 09/02/23 documented as of this encounter
--- OUTSIDE RECORDS SUMMARY | 2025-01-18 09:44 | XMS_ITS | Encounter Summary ---
Author Organization [facility] Address [address] [place] [address] Care Team Providers Care Biology Adjunct Instructor Name Role Phone Santana Sanabria MD Primary Care Provider Betsey Claire NP Unavailable Bhavin Fox MD Unavailable [phone] Christina Vargas NP Unavailable [phone] Reason for Visit * Reason Onset Date Comments Medication 06/20/2024 Encounter Details Date Type Department Care Team Description 06/20/2024 Telephone Cardio [facility] [address] [place] [address] Christina Vargas NP [address] [place] [address] Medication Social History Tobacco Use Types Packs/Day Years Used Date Smoking Tobacco: Never Smokeless Tobacco: Never Alcohol Use Standard Drinks/Week Comments Yes 0 (1 standard drink = 0.6 oz pur e alcohol) Occ Sex Assigned at Date Recorded Not on file Job Start Date Occupation Industry Not on file Not on file Not on file documented as of this encounter Miscellaneous Notes * Telephone Encounter - Ingrid Capone RN - 06/20/2024 11:22 AM EDT Please see below. Called pt this am. States her weight has been slowly creeping up over several weeks. Current weight is 258. Denies BERENICE, worsening SOB, PND, abd distention, cough, dizziness, CP. States she baseline has RESENDIZ but contributes this to her being overweight and it has not worsened recently. Na+ she is keeping her intake as close to 2,000mg as possible, does read food labels and does make informed decisions based on salt content of foods. Has been drinking mostly green tea and water - 80oz/day. U/O is good, no changes noted. Has been taking all meds as listed in med module including Aldactone 25mg daily. States she does not know if this matters, if you are able to temporarily prescribe weight loss med,she had her gallbladder out 28 years ago. * Telephone Encounter - Candice Solano M.A. - 06/20/2024 10:46 AM EDT Patient is calling in regards to medication Wegovy. She states that she discussed with Christina Vargas about her weight and that Christina recommended that she speak to her PCP about possibly being prescribed a weight loss injection. Patients insurance has changed to [facility] on 05/16/24 and she had to find a new PCP and will not be able to be seen for her first appointment until December 2024. She is concerned because she has gained 5 lbs, her current weight is 258 lbs. She is asking if Christina would be ableto prescribe a weight loss injection. documented in this encounter Plan of Treatment Not on file documented as of this encounter Visit Diagnoses Not on filedocumented in this encounter Care Teams Biology Adjunct Instructor Relationship Specialty Start Date End Date Santana Sanabria MD PCP - General Internal Medicine 02/23/18 Betsey Rey NP Nurse Practitioner Cardiology 04/25/23 Bhavin Fox MD Specialist Cardiology 06/01/23 Christina Vargas NP [address] [phone] Cardiology 09/02/23 documented as of this encounter
--- OUTSIDE RECORDS SUMMARY | 2025-01-18 09:45 | XMS_ITS | Encounter Summary ---
Author Organization [facility] Address [address] [place] [address] Care Team Providers Care Video Game Producer Name Role Phone Santana Sanabria MD Primary Care Provider Betsey Claire BLADE GRINDER Unavailable [phone] Bhavin Fox MD Unavailable [phone] Christina Vargas NP Unavailable [phone] Encounter Details Date Type Department Care Team Description 06/18/2024 Orders Only Cardio [facility] [address] [place] [id number] Default, Provider Social History Tobacco Use Types Packs/Day Years Used Date Smoking Tobacco: Never Smokeless Tobacco: Never Alcohol Use Standard Drinks/Week Comments Yes 0 (1 standard drink = 0.6 oz pur e alcohol) Occ Sex Assigned at Date Recorded Not on file Job Start Date Occupation Industry Not on file Not on file Not on file documented as of this encounter Plan of Treatment Not on file documented as of this encounter Procedures Procedure Name Priority Date/Time Associated Diagnosis Comments OUTSIDE LAB Routine 06/15/2024 documented in this encounter Results * OUTSIDE LAB (06/15/2024) Provider Default LAB documented in this encounter Visit Diagnoses Not on filedocumented in this encounter Care Teams Video Game Producer Relationship Specialty Start Date End Date Santana Sanabria MD PCP - General Internal Medicine 02/23/18 Betsey Rey NP Nurse Practitioner Cardiology 04/25/23 Bhavin Fox MD Specialist Cardiology 06/01/23 Christina Vargas NP [address] [address] Cardiology 09/02/23 documented as of this encounter
--- OUTSIDE RECORDS SUMMARY | 2025-01-18 09:45 | XMS_ITS | Encounter Summary ---
Author Organization [facility] Address [address] [place] [address] Care Team Providers Care Transliterator Name Role Phone Santana Sanabria MD Primary Care Provider Adam Geiger MD Unavailable Unavailable Betsey Rey PACK MULE WORKER Unavailable [phone] Bhavin Fox MD Unavailable [phone] Christina Vargas PACK MULE WORKER Unavailable [phone] Encounter Details Date Type Department Care Team Description 07/21/2023 Hospital Medical Records [address] [place] [address] Social History Tobacco Use Types Packs/Day Years [...] Date/Time Associated Diagnosis Comments OUTSIDE EKG Routine 07/22/2023 documented in this encounter Results * OUTSIDE EKG (07/22/2023) Provider Default CARDIOLOGY documented in this encounter Visit Diagnoses Not on filedocumented in this encounter Care Teams Transliterator Relationship Specialty Start Date End Date Santana Sanabria MD PCP - General Internal Medicine 02/23/18 Adam Keller MD Specialist Cardiovascular Disease 04/25/23 10/17/23 Betsey Rey NP Nurse Practitioner Cardiology 04/25/23 Bhavin Fox MD Specialist Cardiology 06/01/23 Christina Vargas NP [address] [address] Cardiology 09/02/23 documented as of this encounter
--- OUTSIDE RECORDS SUMMARY | 2025-01-18 09:45 | XMS_ITS | Encounter Summary ---
Author Organization [facility] Address [address] [place] [address] Care Team Providers Care Windows Application Administrator Name Role Phone Santana Sanabria MD Primary Care Provider Betsey Claire NP Unavailable [phone] Bhavin Fox MD Unavailable Christina Vargas NP Unavailable [phone] Encounter Details Date Type Department Care Team Description 10/30/2023 Telephone Cardio [facility] [address] [place] [id number] Jack Miller NP [address] [place] [id number] Social History Tobacco Use Types Packs/Day Years [...] encounter Miscellaneous Notes * Telephone Encounter - Sandra Montiel - 10/31/2023 2:54 PM EST Patient called the office and appointment was booked. * Telephone Encounter - Jack Miller NP - 10/30/2023 4:32 PM EST Patient contacted configuration management advisor service. Blood pressurs have been in 170s and 160s systolically. Overall she feels well, but had been having occasionally bubbling sensation in her chest and headaches. Instructed patient to restart Amlodipine 5mg daily. Heart rates still low so presumably still in SR given when in AF had difficult to control HRs. Instructed to go to ER with worsening symptoms. Scheduling - please set up triage appointment. LISSET Vasquez. documented in this encounter Plan of Treatment Not on file documented as of this encounter Visit Diagnoses Diagnosis Primary hypertension- Primary Unspecified essential hypertension documented in this encounter Care Teams Windows Application Administrator Relationship Specialty Start Date End Date Santana Sanabria MD PCP - General Internal Medicine 02/23/18 Betsey Rey NP Nurse Practitioner Cardiology 04/25/23 Bhavin Fox MD Specialist Cardiology 06/01/23 Christina Vargas NP [address] [place] [address] Cardiology 09/02/23 documented as of this encounter
--- OUTSIDE RECORDS SUMMARY | 2025-01-18 09:45 | XMS_ITS | Encounter Summary ---
Author Organization [facility] Address [address] [place] [address] Care Team Providers Care Marine Structural Designer Name Role Phone Santana Sanabria MD Primary Care Provider Betsey Claire NP Unavailable [phone] Bhavin Fox MD Unavailable [phone] Christina Vargas NP Unavailable [phone] Encounter Details Date Type Department Care Team Description 11/07/2023 Telephone Cardio PVCA Diag Testing [address] [facility] [address] [place] [address] Christina Vargas NP [address] [place] [address] Social History Tobacco Use Types Packs/Day Years [...] encounter Miscellaneous Notes * Telephone Encounter - Christina Vargas NP - 11/07/2023 5:03 PM EST Spoke with Joselin, she has done a remarkable job addressing the amount of sodium in her diet, she is currently taking 100 metoprolol succinate and 25 of carvedilol twice a day, systolics have been primarily in the 140s and 150s, over the 80s, so some improvement. She will continue the metoprolol succinate to the end of this week, and then we will plan for discontinuation and she will increase the carvedilol to 37-1/2 mg twice daily. Continue amlodipine at 5 mg for now. She has noted some mild peripheral edema, we could either titrate or she might benefit from introduction of diuretic. Will be interesting to see how she does with continued attention to exercise and diet. She was commended for her significant effort. documented in this encounter Plan of Treatment Not on file documented as of this encounter Visit Diagnoses Not on filedocumented in this encounter Care Teams Marine Structural Designer Relationship Specialty Start Date End Date Santana Sanabria MD PCP - General Internal Medicine 02/23/18 Betsey Rey NP Nurse Practitioner Cardiology 04/25/23 Bhavin Fox MD Specialist Cardiology 06/01/23 Christina Vargas NP [address] [address] Cardiology 09/02/23 documented as of this encounter
--- OUTSIDE RECORDS SUMMARY | 2025-01-18 09:45 | XMS_ITS | Encounter Summary ---
Author Organization [facility] Address [address] [place] [address] Care Team Providers Care Injection Specialist Name Role Phone Santana Sanabria MD Primary Care Provider Adam Geiger MD Unavailable Unavailable Betsey Rey NP Unavailable [phone] Bhavin Fox MD Unavailable [phone] Christina Vargas NP Unavailable [phone] Encounter Details Date Type Department Care Team Description 10/04/2023 [facility] Medical Records [address] [place] [address] Abstract, Provider Social History Tobacco Use Types [...] Date/Time Associated Diagnosis Comments OUTSIDE LAB Routine 10/04/2023 documented in this encounter Results * OUTSIDE LAB (10/04/2023) Provider Default LAB documented in this encounter Visit Diagnoses Not on filedocumented in this encounter Care Teams Injection Specialist Relationship Specialty Start Date End Date Santana Sanabria MD PCP - General Internal Medicine 02/23/18 Adam Keller MD Specialist Cardiovascular Disease 04/25/23 10/17/23 Betsey Rey NP Nurse Practitioner Cardiology 04/25/23 Bhavin Fox MD Specialist Cardiology 06/01/23 Christina Vargas NP [address] [address] Cardiology 09/02/23 documented as of this encounter
--- OUTSIDE RECORDS SUMMARY | 2025-01-18 09:45 | XMS_ITS ---
Author Organization [facility] Address [address] [place] [address] Care Team Providers Care Teacher Vocal Name Role Phone Santana Sanabria MD Primary Care Provider Rubi Colin Unavailable [phone] Allergies Allergen (clinical drug ingredient) Drug/Non Drug [...] tablet Orally Once a day Not-Taking Evening Saunemin Oil 1000 MG as directed Orally Active [...] 10/11/2023 Encounters Encounter Location Date Provider Diagnosis [facility] [place] [address] [place] [address] 10/11/2023 Rubi Cantor Plantar fasciitis of right [...] Notes * Mary GARGOB:1965 (58 yo F)Acc No.[id number]:10/11/2023 Progress Note Patient:Joselin Godinez Provider:?Rubi Cantor DPM :1965???Age:58 Y???Sex:Female D ate:10/11/2023 Address:[address] [place], [place] [id number] Pcp:Santana Sanabria MD Subjective: * Chief Complaints: [...] 1. ?no Exercise. ?Marital status: . ?Occupation: [employer]. * Medications:?TakingAmiodaron e HCl Metoprolol Succinate ER 200 MG Tablet Extended Release 24 Hour 1 tablet Orally Once a dayBiotin 5000 MCG Capsule 1 capsule Orally Once a dayVitamin D3 50 MCG (1999) Capsule 1 capsule Orally Once a dayEvening Saunemin Oil 1000 MG Capsule as directed Orally [...] 1 capsule Orally Once a dayTaking Evening Saunemin Oil 1000 MG Capsule as directed Orally [...] DPM Date:? Generated for Reid marina/Jimy/Miky on:?01/18/2025 09:45 AM EDT History and Physical Notes * [...]
--- OUTSIDE RECORDS SUMMARY | 2025-01-18 09:45 | XMS_ITS | Encounter Summary ---
Author Organization [facility] Address [address] [place] [address] Care Team Providers Care Software Reverse Engineer Name Role Phone Santana Sanabria MD Primary Care Provider Adam Geiger MD Unavailable Unavailable Betsey Rey FILTERER Unavailable [phone] Bhavin Fox MD Unavailable [phone] Christina Vargas FILTERER Unavailable [phone] Encounter Details Date Type Department Care Team Description 07/22/2023 SCAN Medical Records [address] [place] [address] Abstract, Provider Social History Tobacco Use Types [...] Date/Time Associated Diagnosis Comments OUTSIDE LAB Routine 07/22/2023 documented in this encounter Results * OUTSIDE LAB (07/22/2023) Provider Default LAB documented in this encounter Visit Diagnoses Not on filedocumented in this encounter Care Teams Software Reverse Engineer Relationship Specialty Start Date End Date Santana Sanabria MD PCP - General Internal Medicine 02/23/18 Adam Keller MD Specialist Cardiovascular Disease 04/25/23 10/17/23 Betsey Rey NP Nurse Practitioner Cardiology 04/25/23 Bhavin Fox MD Specialist Cardiology 06/01/23 Christina Vargas NP [address] [place] [address] Cardiology 09/02/23 documented as of this encounter
--- OUTSIDE RECORDS SUMMARY | 2025-01-18 09:45 | XMS_ITS | Patient Health Record ---
Author Organization [facility] Address [address] [place] [address] Care Team Providers Care Change Agent Name Role Phone Elly VANEGAS, Santana Primary Care Provider Rubi Colin Unavailable [phone] Allergies Allergen (clinical drug ingredient) Drug/Non Drug [...] Orally Onc e a day Active Evening Val[place]e Oil 1000 MG as directed Orally Active [...] 04/05/2024 Encounters Encounter Location Date Provider Diagnosis [facility] [address] [place] [address] 04/05/2024 Rubi Cantor Plantar fasciitis of right [...] X ray : Foot, right 3V 01/12/2012 [id number]-Choi Destruction, 10-2903/25/2015 13354-Frad Destruction, 10-2904/29/2015 84740-Aycy Destruction, 10-2905/25/2015 [id number]-MYN TENDON SHEATH/LIGAMENT 0 01/29/2018 Insurance Providers Payer Name Payer Address Payer Phone Subscriber Number Group Number Insured Name Patient Relationship to Insured Coverage Start Date Coverage End Date [facility] [address] [place] [address] [phone] [id number] Jermaine Garg Spouse - patient is [...]
--- OUTSIDE RECORDS SUMMARY | 2025-01-18 09:45 | XMS_ITS | Clinical Summary ---
Author Organization [facility] Address [address] [place] [address] Care Team Providers Care Operations Research Engineer Name Role Phone Santana Sanabria MD Primary Care Provider Betsey Claire HEALTH SCIENCES MANAGER Unavailable [phone] Bhavin Fox MD Unavailable [phone] Christina Vargas NP Unavailable [phone] Allergies Active Allergy Reactions Severity Noted Date Comments Amoxicillin Itching/Pruritus 04/03/2018 Clarithromycin Nausea and Vomiting 04/03/2018 Doxycycline Nausea and Vomiting 04/03/2018 Levofloxacin Nausea and Vomiting 02/19/2019 Penicillins Itching/Pruritus 02/19/2019 Tape Rash/Dermatitis 10/18/2023 Medications Medication Sig Dispensed Refills Start Date End Date Status Multiple Vitamins-Minerals (MULTIVITAMIN OR) Take by mouth daily. 0 Active Cetirizine HCl 10 MG Cap Take 1 Capsule by mouth daily. 0 Active Cholecalciferol (VITAMIN D3) 2000 UNITS Cap Take by mouth daily. 0 Active Ascorbic Acid (VITAMIN C) 1000 MG tablet Take 2 Tablets by mouth daily. 0 Active Biotin 1000 MCG Tab Take 1 Tablet by mouth daily. 0 Active spironolactone (ALDACTONE) 25 MG tablet Take 1 Tablet by mouth daily. 90 Tablet 3 04/17/2024 Active carvedilol (COREG) 25 MG tablet TAKE 1 AND 1/2 TABLETS BY MOUTH TWICE DAILY WITH MEALS 270 Tablet 3 05/10/2024 Active Entresto 97-103 MG Tab TAKE 1 TABLET BY MOUTH TWICE DAILY 180 Tablet 3 05/10/2024 Active Active Problems Problem Noted Date History of cardiac radiofrequency ablati on 10/05/2023 Overview: Done on 09/06/2023 at [facility] w JPM indications:Symptomatic drug refractory fibrillation History of cardioversion 05/29/2023 Overview: Done on 05/12/2023 at [facility] w AOP indications:Atrial Fibrillation SOB (shortness of breath) 04/13/2023 Last Assessment & Plan: Patient continues to report shortness of breath with more than usual activity such as climbing stairs. She does not exercise and she has increased exercise because of developing shortness of breath with activity. She became quite tearful to the office visit today due to her family history of coronary artery disease. Her father in his 90s from an [place]. We will arrange for a stress echocardiogram to evaluate her hemodynamic response to exercise and to assess for any evidence of ischemia. We discussed that her symptoms could be related to deconditioning which may improve with regular exercise. Nonetheless we will complete the stress echocardiogram to assess for any cardiac rhythm abnormalities with exercise and or ischemic etiology to her symptoms. HFrEF (heart failure with reduced ejecti on fraction) 02/06/2023 Last Assessment & Plan: Patient has HFrEF with an EF of 45 to 50% on most recent echocardiogram. Previously she had an LVEF of 65%. She denies any clinical symptoms of heart failure she appears euvolemic on physical examination. Previously PET stress test did not reveal any evidence of ischemia. There is no coronary artery calcification. She had a cardiac MRI completed 07/2023 which did not reveal any evidence of infiltrative disease. She has been doing well on Entresto and carvedilol. Today I will further optimize her medical therapies by starting her on spironolactone and discontinuing the amlodipine. I suspect that her worsening cardiac function was secondary to tachycardia from the atrial fibrillation. I am optimistic that this will improve over the coming months since she is now in a normal sinus rhythm. Will plan to update an echocardiogram in about 6 months. She will let me know if she develops any symptoms. Patient advised to seek emergency medical attention by calling 911 if they were to develop severe dyspnea, chest pain that did not resolve with rest or nitroglycerin, or if they were to faint. I've asked the patient to call if they develop worsening symptoms of heart failure such as increased shortness of breath, new or worsening cough, increased swelling in the legs or ankles, or weight gain of more than 2 pounds in one day or 4 pounds in one week. Atrial fibrillation 01/20/2023 Last Assessment & Plan: Patient has history of paroxysmal atrial fibrillation which became persistent. She underwent cardioversion which was successful for some period of time but then unfortunately she reverted back to atrial fibrillation. She subsequently was placed on amiodarone and then underwent cryoballoon ablation of the pulmonary veins 08/2023 which was successful in treating her atrial fibrillation. Amiodarone was then eventually stopped. Anticoagulation was stopped. Presently she is doing well and denies any recurrence of her atrial fibrillation. She monitors her heart rate with her Apple Watch. She continues to make efforts towards weight loss which has been encouraged. 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 We will continue to monitor this. 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 HTN (hypertension) 04/03/2018 Last Assessment & Plan: Patient's blood pressure is acceptable with a reading today of 130/78. Will continue to monitor this. Morbid obesity with BMI of 40.0-44.9, ad ult 04/03/2018 Last Assessment & Plan: Patient is overweight. Approaches towards weight loss are discussed, including burning more calories than one takes in by portion control and regular exercise with an emphasis on duration rather than intensity . Resolved Problems Problem Noted Date Resolved Date Palpitation 07/13/2023 04/17/2024 Hypercoagulability due to atrial fibrillation 04/17/2024 Last Assessment & Plan: Patient's [id number] score is 2 representing a 2.2% risk of thromboembolism. She is on Eliquis 5 mg twice daily. She denies any bleeding or excessive bruising. We will keep her on anticoagulation as prescribed. Family History Medical History Relation Name Comments CABG Father CAD Father Diabetes Father Hypertension Father COPD Mother Cancer of the Lung Mother Hypertension Mother atrial fibrillation Mother Relation Name Status Comments Father Mother Social History Tobacco Use Types Packs/Day Years Used Date Smoking Tobacco: Never Smokeless Tobacco: Never Tobacco Cessation:Counseling Given: Not Answered Alcohol Use Standard Drinks/Week Comments Yes 0 (1 standard drink = 0.6 oz pur e alcohol) Occ Sex Assigned at Date Recorded Not on file Job Start Date Occupation Industry Not on file Not on file Not on file Last Filed Vital Signs Vital Sign Reading Time Taken Comments Blood Pressure 110/80 08/09/2024 2:04 PM EDT Pulse 70 04/17/2024 11:07 AM EDT Temperature - - Respiratory Rate 16 12/19/2018 9:47 AM EST Oxygen Saturation 94% 04/17/2024 11:07 AM EDT Inhaled Oxygen Concentration - - Weight 118.8 kg (262 lb) 08/09/2024 2:04 PM EDT Height 167.6 cm (5' 6 ) 08/09/2024 2:04 PM EDT Body Mass Index 42.29 08/09/2024 2:04 PM EDT Plan of Treatment Health Maintenance Due Date Last Done Comments Covid-19 Vaccine (#1) 1965 HEPATITIS C SCREENING 1981 DTAP/TDAP/TD (1 - Tdap) 1982 CHOLESTEROL SCREENING 1983 CERVICAL CANCER SCREENING 1984 BASELINE HEALTH EXAM 40-64 2003 MAMMOGRAM 2003 SHINGLES VACCINE (1 of 2) 2013 COLON CANCER SCREENING 05/16/2019 8 (External Completion) BMI CHECK/ADVISE 10/16/2024 INFLUENZA (Season Ended) 2025 PNEUMOCOCCAL VACCINE FOR HIG H RISK PATIENTS (#1) 2028 Care Teams Operations Research Engineer Relationship Specialty Start Date End Date Santana Sanabria MD PCP - General Internal Medicine 02/23/18 Betsey Rey NP Nurse Practitioner Cardiology 04/25/23 Bhavin Fox MD Specialist Cardiology 06/01/23 Christina Vargas NP [address] [address] Cardiology 09/02/23
--- OUTSIDE RECORDS SUMMARY | 2025-01-18 09:45 | XMS_ITS | Encounter Summary ---
Author Organization [facility] Address [address] [place] [address] Care Team Providers Care Auto Service Dispatcher Name Role Phone Santana Sanabria MD Primary Care Provider Adam Geiger MD Unavailable Unavailable Betsey Rey ELECTRICIAN SHIP Unavailable [phone] Bhavin Fox MD Unavailable [phone] Christina Vargas NP Unavailable [phone] Encounter Details Date Type Department Care Team Description 08/07/2023 Hospital Medical Records [address] [place] [address] Social History Tobacco Use Types Packs/Day Years [...] Date/Time Associated Diagnosis Comments OUTSIDE EKG Routine 08/07/2023 OUTSIDE PLAIN FILM Routine 08/07/2023 OUTSIDE LAB Routine 08/07/2023 documented in this encounter Results * OUTSIDE PLAIN FILM (08/07/2023) Provider Default RADIOLOGY * OUTSIDE LAB (08/07/2023) Provider Default LAB * OUTSIDE EKG (08/07/2023) Provider Default CARDIOLOGY documented in this encounter Visit Diagnoses Not on filedocumented in this encounter Care Teams Auto Service Dispatcher Relationship Specialty Start Date End Date Santana Sanabria MD PCP - General Internal Medicine 02/23/18 Adam Keller MD Specialist Cardiovascular Disease 04/25/23 10/17/23 Betsey Rey NP Nurse Practitioner Cardiology 04/25/23 Bhavin Fox MD Specialist Cardiology 06/01/23 Christina Vargas NP [address] [address] Cardiology 09/02/23 documented as of this encounter
--- OUTSIDE RECORDS SUMMARY | 2025-01-18 09:45 | XMS_ITS ---
Author Organization [facility] Address [address] [place] [address] Care Team Providers Care Lard Renderer Name Role Phone Elly VANEGAS, Santana Primary Care Provider Rubi Colin Unavailable [phone] Aleman Encounters Encounter Location Date Provider Diagnosis [address] [address] 09/01/2023 Rubi Cantor Plan Of Treatment No Information Progress Notes * Mary GARGOB:1965 (59 yo F)Acc No.[id number]:09/01/2023 Progress Note Patient:Joselin MONTES Provider:?Rubi Cantor DPM :1965???Age:58 Y???Sex:Female D ate:09/01/2023 Address:[address] [place], [place] [address] Pcp:Santana Sanabria MD Subjective: * Chief Complaints: [...] Cantor DPM Date:? Generated for Printi ng/Faxing/eTransmitting on:?01/18/2025 09:45 AM EDT
--- OUTSIDE RECORDS SUMMARY | 2025-01-18 09:45 | XMS_ITS | Encounter Summary ---
Author Organization [facility] Address [address] [place] [address] Care Team Providers Care Steel Rigger Name Role Phone Santana Sanabria MD Primary Care Provider Betsey Calire HUMAN PERFORMANCE TECHNOLOGIST Unavailable [phone] Bhavin Fox MD Unavailable [phone] Christina Vargas NP Unavailable Encounter Details Date Type Department Care Team Description 04/10/2024 SCAN Medical Records [address] [place] [address] Aurelia Bowers PA Social History Tobacco Use Types Packs/Day Years [...] Date/Time Associated Diagnosis Comments OUTSIDE LAB Routine 04/10/2024 OUTSIDE LAB Routine 04/10/2024 documented in this encounter Results * OUTSIDE LAB (04/10/2024) Provider Default LAB * OUTSIDE LAB (04/10/2024) Provider Default LAB documented in this encounter Visit Diagnoses Not on filedocumented in this encounter Care Teams Steel Rigger Relationship Specialty Start Date End Date Santana Sanabria MD PCP - General Internal Medicine 02/23/18 Betsey Rey NP Nurse Practitioner Cardiology 04/25/23 Bhavin Fox MD Specialist Cardiology 06/01/23 Christina Vargas NP [address] [phone] Cardiology 09/02/23 documented as of this encounter
--- OUTSIDE RECORDS SUMMARY | 2025-01-18 09:45 | XMS_ITS | Encounter Summary ---
Author Organization [facility] Address [address] [place] [address] Care Team Providers Care Jockey Agent Name Role Phone Santana Sanabria MD Primary Care Provider Adam Geiger MD Unavailable Unavailable Betsey Rey NP Unavailable [phone] Bhavin Fox MD Unavailable [phone] Christina Vargas NP Unavailable [phone] Encounter Details Date Type Department Care Team Description 09/01/2023 SCAN Medical Records [address] [place] [id number] [place] [address] Social History Tobacco Use Types Packs/Day Years [...] suspected to have Coronavirus/COVID-19? No / Unsure 09/01/2023 2:41 PM EST documented as of this encounter Plan of Treatment Not on file documented as of this encounter Visit Diagnoses Not on filedocumented in this encounter Care Teams Jockey Agent Relationship Specialty Start Date End Date Santana Sanabria MD PCP - General Internal Medicine 02/23/18 Adam Keller MD Specialist Cardiovascular Disease 04/25/23 10/17/23 Betsey Rey NP Nurse Practitioner Cardiology 04/25/23 Bhavin Fox MD Specialist Cardiology 06/01/23 Christina Vargas NP [address] [place] [phone] Cardiology 09/02/23 documented as of this encounter
--- OUTSIDE RECORDS SUMMARY | 2025-01-18 09:45 | XMS_ITS | Encounter Summary ---
Author Organization [facility] Address [address] [place] [address] Care Team Providers Care Manager Green Name Role Phone Santana Sanabria MD Primary Care Provider Adam Geiger MD Unavailable Unavailable Betsey Rey NP Unavailable [phone] Bhavin Fox MD Unavailable [phone] Christina Vargas NP Unavailable [phone] Encounter Details Date Type Department Care Team Description 09/06/2023 Hospital Medical Records [address] [place], [place] [id number] [place] [address] Social History Tobacco Use Types Packs/Day Years [...] on filedocumented in this encounter Care Teams Manager Green Relationship Specialty Start Date End Date Santana Sanabria MD PCP - General Internal Medicine 02/23/18 Adam Keller MD Specialist Cardiovascular Disease 04/25/23 10/17/23 Betsey Rey NP Nurse Practitioner Cardiology 04/25/23 Bhavin Fox MD Specialist Cardiology 06/01/23 Christina Vargas NP [address] [place] [phone] Cardiology 09/02/23 documented as of this encounter
--- OUTSIDE RECORDS SUMMARY | 2025-01-18 09:45 | XMS_ITS | Encounter Summary ---
Author Organization [facility] Address [address] [place] [address] Care Team Providers Care Silk Top Hat Body Maker Name Role Phone Santana Sanabria MD Primary Care Provider Adam Geiger MD Unavailable Unavailable Betsey Rey PIANO STRINGER Unavailable [phone] Bhavin Fox MD Unavailable [phone] Christina Vargas PIANO STRINGER Unavailable [phone] Encounter Details Date Type Department Care Team Description 08/11/2023 SCAN Medical Records [address] [place] [address] Abstract, Provider Social History Tobacco Use Types [...] Name Priority Date/Time Associated Diagnosis Comments OUTSIDE MRI/MRA Routine 08/11/2023 documented in this encounter Results * OUTSIDE MRI/MRA (08/11/2023) Provider Default RADIOLOGY documented in this encounter Visit Diagnoses Not on filedocumented in this encounter Care Teams Silk Top Hat Body Maker Relationship Specialty Start Date End Date Santana Sanabria MD PCP - General Internal Medicine 02/23/18 Adam Keller MD Specialist Cardiovascular Disease 04/25/23 10/17/23 Betsey Rey NP Nurse Practitioner Cardiology 04/25/23 Bhavin Fox MD Specialist Cardiology 06/01/23 Christina Vargas NP [address] [place] [phone] Cardiology 09/02/23 documented as of this encounter
--- OUTSIDE RECORDS SUMMARY | 2025-01-18 09:45 | XMS_ITS | Encounter Summary ---
Author Organization [facility] Address [address] [place] [address] Care Team Providers Care Pepper Cutter Name Role Phone Santana Sanabria MD Primary Care Provider Adam Geiger MD Unavailable Unavailable Betsey Rey FINDING FASTENER Unavailable [phone] Bhavin Fox MD Unavailable [phone] Christina Vargas FINDING FASTENER Unavailable [phone] Encounter Details Date Type Department Care Team Description 02/22/2023 SCAN Medical Records [address] [place] [address] Abstract, Provider Social History Tobacco Use Types [...] suspected to have Coronavirus/COVID-19? No / Unsure 02/06/2023 11:22 AM EDT documented as of this encounter Plan of Treatment Not on file documented as of this encounter Procedures Procedure Name Priority Date/Time Associated Diagnosis Comments OUTSIDE LAB Routine 02/22/2023 documented in this encounter Results * OUTSIDE LAB (02/22/2023) Provider Abstract LAB documented in this encounter Visit Diagnoses Not on filedocumented in this encounter Care Teams Pepper Cutter Relationship Specialty Start Date End Date Santana Sanabria MD PCP - General Internal Medicine 02/23/18 Adam Keller MD Specialist Cardiovascular Disease 04/25/23 10/17/23 Betsey Rey NP Nurse Practitioner Cardiology 04/25/23 Bhavin Fox MD Specialist Cardiology 06/01/23 Christina Vargas NP [address] [place] [phone] Cardiology 09/02/23 documented as of this encounter
--- OUTSIDE RECORDS SUMMARY | 2025-01-18 09:45 | XMS_ITS | Encounter Summary ---
Author Organization [facility] Address [address] [place] [address] Care Team Providers Care Apple Peeler Operator Name Role Phone Santana Sanabria MD Primary Care Provider Adam Geiger MD Unavailable Unavailable Betsey Rey CERTIFIED RESIDENTIAL MEDICATION AIDE Unavailable [phone] Bhavin Fox MD Unavailable Christina Vargas CERTIFIED RESIDENTIAL MEDICATION AIDE Unavailable [phone] Encounter Details Date Type Department Care Team Description 12/28/2021 Hospital Medical Records [address] [place] [address] Social History Tobacco Use Types Packs/Day Years [...] Date/Time Associated Diagnosis Comments OUTSIDE EKG Routine 12/28/2021 OUTSIDE PLAIN FILM Routine 12/28/2021 documented in this encounter Results * OUTSIDE PLAIN FILM (12/28/2021) Provider Abstract RADIOLOGY * OUTSIDE EKG (12/28/2021) Provider Abstract CARDIOLOGY documented in this encounter Visit Diagnoses Not on filedocumented in this encounter Care Teams Apple Peeler Operator Relationship Specialty Start Date End Date Santana Sanabria MD PCP - General Internal Medicine 02/23/18 Adam Keller MD Specialist Cardiovascular Disease 04/25/23 10/17/23 Betsey Rey NP Nurse Practitioner Cardiology 04/25/23 Bhavin Fox MD Specialist Cardiology 06/01/23 Christina Vargas NP [address] [place] [phone] Cardiology 09/02/23 documented as of this encounter
--- OUTSIDE RECORDS SUMMARY | 2025-01-18 09:45 | XMS_ITS | Clinical Summary ---
Author Organization [facility] Address [address] [place] [address] Phone Care Team Providers Care Soft Work Wrapper Examiner Name Role Phone Santana Sanabria DO Primary Care Provider [phone] Allergies Active Allergy Reactions Criticality Noted Date [...] be started back on Eliquis for anticoagulation [id number]- VASc score of 3 representing a 3.2% [...] ovary 02/19/2019 Overview (09/10/2024): Advised to see INSTRUMENT ADJUSTER, no further information in transferred notes Allergic [...] Her father in his 90s from an DC. We will arrange for a stress echocardiogram [...] Type Department Care Team Description 12/18/2024 Telephone [facility] [address] [place] [address] [place] [address] Betsey Rey NP Letter for School/Work (DOT Physical ) 12/09/2024 Telephone [facility] [address] [place] [address] Betsey Rey NP Medication (Eliquis ) 12/05/2024 Telephone [facility] Cardiology [facility] [address] [place] [phone] Janna Mueller, pairing machine operator Results 11/29/2024 Telephone [facility] [address] [place] [address] Betsey Rey NP rountine blood work from Last 3 Months Surgical History Surgery Date Site/Laterality Comments COLONOSCOPY 05/2018 PROCEDURE: HISTORICAL COLONOSCOPY; COMMENT: Dr Adam, tubular adenoma, repeat one year SECTION PROCEDURE: HISTORICAL DELIVERY TUBAL LIGATION PROCEDURE: HISTORICAL TUBAL LIGATION CHOLECYSTECTOMY PROCEDURE: HISTORICAL CHOLECYSTECTOMY Medical History Medical History Date Comments Abnormal ultrasound of ovary 02/19/2019 DX: Abnormal ultrasound of ovary; COMMENT: Advised to see INSTRUMENT ADJUSTER, no further information in transferred notes Allergic [...] BMI o f 40.0-44.9, adult ([facility]) Nummular eczematous dermatitis 02/19/2019 D X:Nummular [...] Description 01/21/2025 2:30 PM EDT Office Visit [facility] [address] [facility] [address] [place] [address] Bhavin Fox MD [address] [place] [address] Health Maintenance Due Date Last Done Comments [...] Influencers of Health Screening 09/17/2022 RSV Immunization Adult Patients (1 - Risk 60-74 years 1-dose series) 2023 COVID-19 Vaccine ( season) 2024 08/01/2022, 10/23/2021, 01/31/2021, Additional history exists Influenza Vaccine (Season Ended) 2025 07/19/2022 Hypertension/CHF/CAD Annual BMP Blood Test 12/16/2025 [...] HFrEF (heart failure with reduced ejection fraction) ([facility]) HM COLONOSCOPY Routine 05/16/2018 from Last 3 [...] AM EST Performed at: ??01 - [facility] [address] ??[id number] Software Development Intern: Bhakti House MD, Phone: ??[phone] us Betsey Rey EAR MOLD LABORATORY TECHNICIAN LAB BLOOD ORDERABLES Final R esult [facility] 1 * Colonoscopy (05/16/2018) HM Colonoscopy No Interpretation , Abstracted Anatomical Region Laterality Modality Other us Historical Provider HEALTH MAINTENANCE Final Result from Last 3 Months or Most Recently Relevant to Health Maintenance [place] [address] [place] [address] PLAN Care Teams Soft Work Wrapper Examiner Relationship Specialty Start Date End Date Santana Sanabria DO [address] [place] [phone] PCP - General Internal Medicine 06/28/14
--- OUTSIDE RECORDS SUMMARY | 2025-01-18 09:45 | XMS_ITS | Encounter Summary ---
Author [facility] Address [address] [place] [address] Care Team Providers Care Supervisor Pigment Making Name Role Phone Santana Sanabria MD Primary Care Provider Betsey Claire NP Unavailable [phone] Bhavin Fox MD Unavailable [phone] Christina Vargas NP Unavailable [phone] Reason for Visit * Reason Onset Date Comments Holter Monitor 02/13/2024 Monitor Roct Enrollment 02/13/2024 Enrolling munir ibrahim for 14 day ROCT Encounter Details Date Type Department Care Team Description 02/13/2024 Telephone Cardio PVC POC [address] [facility] [address] [place] [address] Christina Vargas NP [address] [place] [address] Holter Monitor (Monitor ); Roct Enrollment (Enrolling patient for 14 day ROCT) Social History Tobacco Use Types Packs/Day Years [...] encounter Miscellaneous Notes * Telephone Encounter - Yris Becerra RN - 02/16/2024 8:23 AM EDT I called patient and left a message on voice mail with update from yesterday 4;53pm task response. I stated no need to call back unless she has questions. I stated just wanted to update her. * Telephone Encounter - Yris Becerra RN - 02/15/2024 4:43 PM EDT See string. Still awaiting ROCT booking/approval. I rescheduled 02/21/24. Appt with SLrescheduled to 03/19/24 7:40am * Telephone Encounter - Yris Becerra RN - 02/15/2024 2:55 PM EDT Called patient to update her that I am waiting to hear back from ROCT group/referrals and eligibility. I am trying to reschedule her 02/21/24 appt with SL to after 14 day ROCT. Patient req I c/b after 4:30pm when she is home. I will c/b. * Telephone Encounter - Yris Becerra RN - 02/15/2024 2:10 PM EDT Please see below . Any news on 14 day ROCT? Thanks for your help. * Telephone Encounter - Tonie Mahmood - 02/15/2024 9:21 AM EDT Christina Vargas NP ordered 14 day ROCT for patient on 10/18/23 to be done in the month of January 2024 with f/u after ROCT in February of 2024. Patient had OV appointment on 11/23/23 with Christina Vargas NP. The OV note restated plan for patient to have the monitor in January 2024 with f/u to be done in February after the patient had completed the 14 day monitoring period. Prior Authorization Department: Please process PA for 14 day ROCT ordered on 10/18/2023. As Triage requested below please update patient with status of PA. Thank you. * Telephone Encounter - Yris Becerra RN - 02/15/2024 9:03 AM EDT Spoke with patient. She has not heard back about her 14 day ROCT that was ordered in January Please advise if this has been ordered. Per SL appt with SL needs to be rescheduled to after 14 day monitor.Please advise any updates. Patient wants a c/b today . Home # may leave message on machine and may speak with spouse as well. Please attach [facility] triage to response as well as I told patient I would also follow up on this. Thank you. SL appt 02/20 needs to be rescheduled to after ROCT. * Telephone Encounter - Yris Becerra RN - 02/14/2024 2:53 PM EDT Is there any update as to when patient will be getting her ROCT? Please respond back to [facility] triage so we can reschedule her 02/20/appt with SL to a later date after hrr ROCT is completed. Thank you! * Telephone Encounter - Christina Vargas NP - 02/14/2024 2:50 PM EDT Please reschedule appointment until after monitoring period has been completed * Telephone Encounter - Minerva Armijo - 02/14/2024 2:22 PM EDT Patient calling for an update. I did speak to the eligibility department, who stated they will reach out to the patient for an update on her ROCT monitor. Patient is requesting a call from Christina Vargas to discuss her upcoming appointment on 02/21/24. She's unsure if this should be kept or not. Please advise. * Telephone Encounter - Myra Dae - 02/13/2024 10:12 AM EDT Joselin called to ask about the Plan for 14-day ROCT that was spoken about in November 2023 . She has not heard anything yet Myram documented in this encounter Plan of Treatment Not on file documented as of this encounter Visit Diagnoses Not on filedocumented in this encounter Care Teams Supervisor Pigment Making Relationship Specialty Start Date End Date Santana Sanabria MD PCP - General Internal Medicine 02/23/18 Betsey Rey NP Nurse Practitioner Cardiology 04/25/23 Bhavin Fox MD Specialist Cardiology 06/01/23 Christina Vargas NP [address] [place] [phone] Cardiology 09/02/23 documented as of this encounter
--- OUTSIDE RECORDS SUMMARY | 2025-01-18 09:45 | XMS_ITS | Encounter Summary ---
Author Organization [facility] Address [address] [place] [address] Care Team Providers Care Machine Set Up Operator Paper Goods Name Role Phone Santana Sanabria MD Primary Care Provider Adam Geiger MD Unavailable Unavailable Betsey Rey ONION TIER Unavailable [phone] Bhavin Fox MD Unavailable [phone] Christina Vargas ONION TIER Unavailable [phone] Encounter Details Date Type Department Care Team Description 08/14/2023 SCAN Medical Records [address] [place] [address] Abstract, Provider Social History Tobacco Use Types [...] Date/Time Associated Diagnosis Comments OUTSIDE LAB Routine 08/14/2023 documented in this encounter Results * OUTSIDE LAB (08/14/2023) Provider Default LAB documented in this encounter Visit Diagnoses Not on filedocumented in this encounter Care Teams Machine Set Up Operator Paper Goods Relationship Specialty Start Date End Date Santana Sanabria MD PCP - General Internal Medicine 02/23/18 Adam Keller MD Specialist Cardiovascular Disease 04/25/23 10/17/23 Betsey Rey NP Nurse Practitioner Cardiology 04/25/23 Bhavin Fox MD Specialist Cardiology 06/01/23 Christina Vargas NP [address] [place] [phone] Cardiology 09/02/23 documented as of this encounter
--- OUTSIDE RECORDS SUMMARY | 2025-01-18 09:45 | XMS_ITS | Encounter Summary ---
[facility] Address [address] [place] [address] Care Team Providers Care Requirements Manager Name Role Phone Santana Sanabria MD Primary Care Provider Betsey Claire CARE PROVIDER Unavailable [phone] Bhavin Fox MD Unavailable [phone] Christina Vargas NP Unavailable [phone] Encounter Details Date Type Department Care Team Description 10/30/2023 SCAN Medical Records [address] [place] [address] Abstract, Provider Social History Tobacco Use Types [...] Date/Time Associated Diagnosis Comments OUTSIDE EKG Routine 10/30/2023 documented in this encounter Results * OUTSIDE EKG (10/30/2023) Provider Default CARDIOLOGY documented in this encounter Visit Diagnoses Not on filedocumented in this encounter Care Teams Requirements Manager Relationship Specialty Start Date End Date Santana Sanabria MD PCP - General Internal Medicine 02/23/18 Betsey Rey NP Nurse Practitioner Cardiology 04/25/23 Bhavin Fox MD Specialist Cardiology 06/01/23 Christina Vargas NP [address] [address] Cardiology 09/02/23 documented as of this encounter
--- OUTSIDE RECORDS SUMMARY | 2025-01-18 09:45 | XMS_ITS | Encounter Summary ---
Author Organization [facility] Address [address] [place] [address] Care Team Providers Care Stock Chaser Name Role Phone Santana Sanabria MD Primary Care Provider Adam Geiger MD Unavailable Unavailable Betsey Rey HAM CURER Unavailable [phone] Bhavin Fox MD Unavailable [phone] Christina Vargas HAM CURER Unavailable [phone] Encounter Details Date Type Department Care Team Description 09/04/2023 SCAN Medical Records [address] [place] [address] Abstract, Provider Social History Tobacco Use Types [...] Name Priority Date/Time Associated Diagnosis Comments OUTSIDE CT Routine 09/04/2023 documented in this encounter Results * OUTSIDE CT (09/04/2023) Provider Default RADIOLOGY documented in this encounter Visit Diagnoses Not on filedocumented in this encounter Care Teams Stock Chaser Relationship Specialty Start Date End Date Santana Sanabria MD PCP - General Internal Medicine 02/23/18 Adam Keller MD Specialist Cardiovascular Disease 04/25/23 10/17/23 Betsey Rey NP Nurse Practitioner Cardiology 04/25/23 Bhavin Fox MD Specialist Cardiology 06/01/23 Christina Vargas NP [address] [phone] Cardiology 09/02/23 documented as of this encounter
--- OUTSIDE RECORDS SUMMARY | 2025-01-18 09:45 | XMS_ITS | Encounter Summary ---
Author Organization [facility] Address [address] [place] [address] Care Team Providers Care Sustainability Engineer Name Role Phone Santana Sanabria MD Primary Care Provider Adam Geiger MD Unavailable Unavailable Betsey Rey NP Unavailable [phone] Bhavin Fox MD Unavailable [phone] Christina Vargas NP Unavailable [phone] Encounter Details Date Type Department Care Team Description 04/28/2020 SCAN Medical Records [address] [place] [id number] Adam Keller MD Social History Tobacco Use Types Packs/Day Years Used Date Smoking Tobacco: Never Smokeless Tobacco: Never Sex Assigned at Date Recorded Not on file Job Start Date Occupation Industry Not on file Not on file Not on file documented as of this encounter Plan of Treatment Not on file documented as of this encounter Procedures Procedure Name Priority Date/Time Associated Diagnosis Comments OUTSIDE ECHO Routine 04/28/2020 documented in this encounter Results * OUTSIDE ECHO (04/28/2020) Provider Default CARDIOLOGY documented in this encounter Visit Diagnoses Not on filedocumented in this encounter Care Teams Sustainability Engineer Relationship Specialty Start Date End Date Santana Sanabria MD PCP - General Internal Medicine 02/23/18 Adam Keller MD Specialist Cardiovascular Disease 04/25/23 10/17/23 Betsey Rey NP Nurse Practitioner Cardiology 04/25/23 Bhavin Fox MD Specialist Cardiology 06/01/23 Christina Vargas NP [address] [phone] Cardiology 09/02/23 documented as of this encounter
[2025-01-18 11:42] LABS: MANUAL DIFF FLAG NO
[2025-01-18 12:05] LABS: Basophils Percent Auto 0.8 % (0-2); Eosinophils Absolute Auto 0.1 X10*3/uL (0.0-0.4); Eosinophils Percent Auto 2.4 % (0-4); Hematocrit 40.8 % (37.0-47.0); Imm Gran Abs Auto 0.01 X10*3/uL (0.00-0.03); Imm Gran Pct Auto 0.2 % (0.0-0.4); Lymphocytes Absolute Auto 1.3 X10*3/uL (1.2-4.9); Lymphocytes Percent Auto 26.3 % (20-40); Mean Corpuscular HGB Conc 34.3 g/dl (31.0-35.0); Mean Corpuscular Hemoglobin 31.5 pg (27.0-33.0); Mean Corpuscular Volume 91.7 fL (80.0-98.0); Mean Platelet Volume 10.4 fL (9.4-12.3); Monocytes Absolute Auto 0.4 X10*3/uL (0.1-1.2); Monocytes Percent Auto 8.5 % (2-11); Neutrophils Absolute Auto 3.1 x10*3/uL (2.0-8.3); Neutrophils Percent Auto 61.8 % (45-73); Platelet Count 340 X10*3/uL (160-400); Red Blood Count 4.45 X10*6/uL (4.20-5.50); Red Cell Distribution Width 13.1 % (11.0-16.0)
[2025-01-18 12:22] LABS: Alanine Aminotransferase 16 U/L (0-31); Anion Gap 11 (12-20); Aspartate Amino Transferase 28 U/L (5-31); Blood Urea Nitrogen 16 mg/dL (9-16); Calcium 9.1 mg/dL (8.4-10.2); Carbon Dioxide 22 mmol/L (22-29); Chloride 112 mmol/L (96-108); Cholesterol 170 mg/dL (<200); Estimated Glomerular Filt Rate 44; Glucose Fasting 95 mg/dL (60-99); HDL Cholesterol 46 mg/dL (>40); LDL Cholesterol Calculated 108 mg/dL (<100); Sodium 141 mmol/L (135-145); Triglycerides 83 mg/dL (<150)
[2025-01-18 12:24] LABS: TSH reflex Free T4 1.46 uIU/mL (0.32-4.0); Vitamin D 25-OH Total 69.3 ng/mL (>30)
[2025-01-18 12:54] LABS: Folate 7.8 ng/mL (> or = 4.0); Vitamin B12 710 pg/mL (200-900)
== END 2025-01-18 09:42 | disposition home or self-care (01) ==
LOC: HO.HMGCLDS 09:41
PROVIDERS: PCP Internal Medicine; Visit Provider Internal Medicine
DX: E66.01 Morbid (severe) obesity due to excess calories (principal); I48.0 Paroxysmal atrial fibrillation; I10 Essential (primary) hypertension; Z78.0 Asymptomatic menopausal state; Z86.79 Personal history of other diseases of the circulatory system
CPT/HCPCS: 36415; 80048; 80061; 82306; 82607; 82746; 84443; 84450; 84460; 85025

== ENCOUNTER → 2025-02-25 10:20 | Outpatient (BNVA) | payer OTHER, SELFPAY | PROVIDERS: PCP Internal Medicine; Visit Provider Internal Medicine ==

== ENCOUNTER 2025-03-04 13:46 | Outpatient (REF) | payer OTHER, SELFPAY ==
[2025-03-04 15:13] LABS: MANUAL DIFF FLAG NO
[2025-03-04 15:51] LABS: Basophils Percent Auto 0.5 % (0-2); Eosinophils Absolute Auto 0.1 X10*3/uL (0.0-0.4); Hematocrit 43.7 % (37.0-47.0); Hemoglobin 14.5 g/dl (12.0-16.0); Imm Gran Abs Auto 0.01 X10*3/uL (0.00-0.03); Imm Gran Pct Auto 0.2 % (0.0-0.4); Lymphocytes Absolute Auto 1.5 X10*3/uL (1.2-4.9); Lymphocytes Percent Auto 26.9 % (20-40); Mean Corpuscular HGB Conc 33.2 g/dl (31.0-35.0); Mean Corpuscular Volume 93.4 fL (80.0-98.0); Mean Platelet Volume 10.2 fL (9.4-12.3); Monocytes Absolute Auto 0.3 X10*3/uL (0.1-1.2); Neutrophils Absolute Auto 3.6 x10*3/uL (2.0-8.3); Neutrophils Percent Auto 64.4 % (45-73); Platelet Count 283 X10*3/uL (160-400); Red Blood Count 4.68 X10*6/uL (4.20-5.50); Red Cell Distribution Width 13.4 % (11.0-16.0); White Blood Count 5.5 X10*3/uL (4.8-10.8)
--- OUTSIDE RECORDS SUMMARY | 2025-03-04 16:08 | XMS_ITS | Encounter Summary ---
Author Organization [facility] Address [address] [place] [address] Care Team Providers Care Sales And Marketing Analyst Name Role Phone Santana Sanabria MD Primary Care Provider Adam Geiger MD Unavailable Unavailable Betsey Rey TELECOMMUNICATION TOWER TECHNICIAN Unavailable [phone] Bhavin Fox MD Unavailable [phone] Christina Vargas TELECOMMUNICATION TOWER TECHNICIAN Unavailable [phone] Reason for Visit * Reason Onset Date Comments Prior Authorization 06/01/2023 Cardiac [place]- [id number] Encounter Details Date Type Department Care Team Description 06/01/2023 Telephone [facility] [address] [place] [address] Daniel Mclean MD [address] [facility] [address] [place], [place] [phone] Prior Authorization (Cardiac MRI-[id number]) Social History Tobacco Use Types Packs/Day Years [...] encounter Miscellaneous Notes * Telephone Encounter - Chyna Luna - 06/01/2023 9:12 AM EDT Per Myra Alvarez at [facility] [place] is required for the MRI. documented in this encounter Plan of Treatment Not on file documented as of this encounter Visit Diagnoses Not on filedocumented in this encounter Care Teams Sales And Marketing Analyst Relationship Specialty Start Date End Date Santana Sanabria MD PCP - General Internal Medicine 02/23/18 Adam Keller MD Specialist Cardiovascular Disease 04/25/23 10/17/23 Betsey Rey NP Nurse Practitioner Cardiology 04/25/23 Bhavin Fox MD Specialist Cardiology 06/01/23 Christina Vargas NP [address] [place] [phone] Cardiology 09/02/23 documented as of this encounter
--- OUTSIDE RECORDS SUMMARY | 2025-03-04 16:08 | XMS_ITS | Encounter Summary ---
Author Organization [facility] Address [address] [place] [address] Care Team Providers Care Rand Tacker Name Role Phone Santana Sanabria MD Primary Care Provider Betsey Claire NP Unavailable [phone] Bhavin Fox MD Unavailable [phone] Chrsitina Vargas NP Unavailable [phone] Encounter Details Date Type Department Care Team Description 11/07/2023 Telephone Cardio [facility] Diag Testing 101 [address] [facility] [address] [place] [address] Christina Vargas NP [address] [place] [address] Social History Tobacco Use Types [...] on filedocumented in this encounter Care Teams Rand Tacker Relationship Specialty Start Date End Date Santana Sanabria MD PCP - General Internal Medicine 02/23/18 Betsey Rey NP Nurse Practitioner Cardiology 04/25/23 Bhavin Fox MD Specialist Cardiology 06/01/23 Christina Vargas NP [address] [address] Cardiology 09/02/23 documented as of this encounter
--- OUTSIDE RECORDS SUMMARY | 2025-03-04 16:08 | XMS_ITS | Encounter Summary ---
Author Organization [facility] Address [address] [place] [address] Care Team Providers Care Jack Setter Name Role Phone Santana Sanabria MD Primary Care Provider Adam Geiger MD Unavailable Unavailable Betsey Rey NATURAL FABRICATOR Unavailable [phone] Bhavin Fox MD Unavailable [phone] Christina Vargas NATURAL FABRICATOR Unavailable [phone] Reason for Visit * Reason Onset Date Comments hospital follow up 05/08/2023 Encounter Details Date Type Department Care Team Description 05/08/2023 Telephone [facility] [address] [place] [address] Adam Keller MD hospital follow [...] calling in states she was admitted to [facility] on 05/08/23 for A-FIB and trouble regulating BP. Patient was discharged and will need a hospital follow up. documented in this encounter Plan of Treatment Not on file documented as of this encounter Visit Diagnoses Not on filedocumented in this encounter Care Teams Jack Setter Relationship Specialty Start Date End Date Santana Sanabria MD PCP - General Internal Medicine 02/23/18 Adam Keller MD Specialist Cardiovascular Disease 04/25/23 10/17/23 Betsey Rey NP Nurse Practitioner Cardiology 04/25/23 Bhavin Fox MD Specialist Cardiology 06/01/23 Christina Vargas NP [address] [address] Cardiology 09/02/23 documented as of this encounter
--- OUTSIDE RECORDS SUMMARY | 2025-03-04 16:08 | XMS_ITS | Encounter Summary ---
Author Organization [facility] Address [address] [place] [address] Care Team Providers Care Food And Nutrition Services Supervisor Name Role Phone Santana Sanabria MD Primary Care Provider Adam Geiger MD Unavailable Unavailable Betsey Rey UNDERGROUND PRODUCTION FOREPERSON Unavailable Bhavin Fox MD Unavailable [phone] Christina Vargas UNDERGROUND PRODUCTION FOREPERSON Unavailable [phone] Encounter Details Date Type Department Care Team Description 08/14/2023 SCAN Medical Records [address] [place] [address] Abstract, Provider Social History Tobacco Use Types [...] on filedocumented in this encounter Care Teams Food And Nutrition Services Supervisor Relationship Specialty Start Date End Date Santana Sanabria MD PCP - General Internal Medicine 02/23/18 Adam Keller MD Specialist Cardiovascular Disease 04/25/23 10/17/23 Betsey Rey NP Nurse Practitioner Cardiology 04/25/23 Bhavin Fox MD Specialist Cardiology 06/01/23 Christina Vargas NP [address] [place] [phone] Cardiology 09/02/23 documented as of this encounter
--- OUTSIDE RECORDS SUMMARY | 2025-03-04 16:08 | XMS_ITS | Encounter Summary ---
Author Organization [facility] Address [address] [place] [address] Care Team Providers Care Mold Checker Name Role Phone Santana Sanabria MD Primary Care Provider Adam Geiger MD Unavailable Unavailable Betsey Rey NP Unavailable [phone] Bhavin Fox MD Unavailable [phone] Christina Vargas NP Unavailable [phone] Encounter Details Date Type Department Care Team Description 04/28/2020 SCAN Medical Records [address] [place] [address] Adam Keller MD Social History Tobacco Use [...] on filedocumented in this encounter Care Teams Mold Checker Relationship Specialty Start Date End Date Santana Sanabria MD PCP - General Internal Medicine 02/23/18 Adam Keller MD Specialist Cardiovascular Disease 04/25/23 10/17/23 Betsey Rey NP Nurse Practitioner Cardiology 04/25/23 Bhavin Fox MD Specialist Cardiology 06/01/23 Christina Vargas NP [address] [address] Cardiology 09/02/23 documented as of this encounter
--- OUTSIDE RECORDS SUMMARY | 2025-03-04 16:08 | XMS_ITS | Encounter Summary ---
Author Organization [facility] Address [address] [place] [address] Care Team Providers Care Senior Underwriter Name Role Phone Santana Sanabria MD Primary Care Provider Betsey Claire RN CARE TRANSITION Unavailable Bhavin Fox MD Unavailable [phone] Christina Vargas NP Unavailable [phone] Encounter Details Date Type Department Care Team Description 03/23/2024 Telephone Cardio PVCA Diag Testing 101 300 [facility] [address] [place] [phone] Jen Quintanilla PA-C [address] [place] [address] [phone] Social History Tobacco Use Types Packs/Day Years [...] on filedocumented in this encounter Care Teams Senior Underwriter Relationship Specialty Start Date End Date Santana Sanabria MD PCP - General Internal Medicine 02/23/18 Betsey Rey NP Nurse Practitioner Cardiology 04/25/23 Bhavin Fox MD Specialist Cardiology 06/01/23 Christina Vargas NP [address] [address] Cardiology 09/02/23 documented as of this encounter
--- OUTSIDE RECORDS SUMMARY | 2025-03-04 16:08 | XMS_ITS | Encounter Summary ---
Author Organization [facility] Address [address] [place] [address] Care Team Providers Care Plant Maintenance Engineer Name Role Phone Santana Sanabria MD Primary Care Provider Adam Geiger MD Unavailable Unavailable Betsey Rey NP Unavailable [phone] Bhavin Fox MD Unavailable [phone] Christina Vargas NP Unavailable [phone] Encounter Details Date Type Department Care Team Description 04/05/2018 Release of Information Medical Records [address] [place] [address] Abstract, Provider Social History Tobacco Use Types [...] on filedocumented in this encounter Care Teams Plant Maintenance Engineer Relationship Specialty Start Date End Date Santana Sanabria MD PCP - General Internal Medicine 02/23/18 Adam Keller MD Specialist Cardiovascular Disease 04/25/23 10/17/23 Betsey Rey NP Nurse Practitioner Cardiology 04/25/23 Bhavin Fox MD Specialist Cardiology 06/01/23 Christina Vargas NP [address] [address] Cardiology 09/02/23 documented as of this encounter
--- OUTSIDE RECORDS SUMMARY | 2025-03-04 16:08 | XMS_ITS | Encounter Summary ---
Author Organization [facility] Address [address] [place] [address] Care Team Providers Care Senior Boiler Operator Name Role Phone Santana Sanabria MD Primary Care Provider Adam Geiger MD Unavailable Unavailable Betsey Rey CORN PICKER Unavailable [phone] Bhavin Fox MD Unavailable [phone] Christina Vargas CORN PICKER Unavailable [phone] Encounter Details Date Type Department Care Team Description 08/09/2023 SCAN Medical Records [address] [place] [address] Abstract, Provider Social History Tobacco Use Types [...] filedocumented in this encounter Care Teams Senior Boiler Operator Relationship Specialty Start Date End Date Santana Sanabria MD PCP - General Internal Medicine 02/23/18 Adam Keller MD Specialist Cardiovascular Disease 04/25/23 10/17/23 Betsey Rey NP Nurse Practitioner Cardiology 04/25/23 Bhavin Fox MD Specialist Cardiology 06/01/23 Christina Vargas NP [address] [place] [phone] Cardiology 09/02/23 documented as of this encounter
--- OUTSIDE RECORDS SUMMARY | 2025-03-04 16:08 | XMS_ITS | Encounter Summary ---
Author Organization [facility] Address [address] [place] [address] Care Team Providers Care School Speech Language Pathologist Name Role Phone Santana Sanabria MD Primary Care Provider Adam Geiger MD Unavailable Unavailable Betsey Rey NP Unavailable [phone] Bhavin Fox MD Unavailable [phone] Christina Vargas NP Unavailable [phone] Encounter Details Date Type Department Care Team Description 10/04/2023 SCAN Medical Records [address] [place] [address] Abstract, Provider Social History Tobacco Use Types [...] on filedocumented in this encounter Care Teams School Speech Language Pathologist Relationship Specialty Start Date End Date Santana Sanabria MD PCP - General Internal Medicine 02/23/18 Adam Keller MD Specialist Cardiovascular Disease 04/25/23 10/17/23 Betsey Rey NP Nurse Practitioner Cardiology 04/25/23 Bhavin Fox MD Specialist Cardiology 06/01/23 Christina Vargas NP [address] [place] [phone] Cardiology 09/02/23 documented as of this encounter
--- OUTSIDE RECORDS SUMMARY | 2025-03-04 16:08 | XMS_ITS | Encounter Summary ---
Author Organization [employer] [facility] Address [address] [place] [address] Care Team Providers Care Manual Writer Name Role Phone Santana Sanabria MD Primary Care Provider Adam Geiger MD Unavailable Unavailable Betsey Rey DEFENCE INTELLIGENCE ANALYST Unavailable [phone] Bhavin Fox MD Unavailable [phone] Christina Vargas DEFENCE INTELLIGENCE ANALYST Unavailable [phone] Encounter Details Date Type Department Care Team Description 05/12/2023 Hospital [facility]io [facility] [address] [place] [address] [address] [place] [phone] Mohamud Hogan MD [address] [place] [address] [place], [place] [phone] Social History Tobacco Use Types Packs/Day Years [...] on filedocumented in this encounter Care Teams Manual Writer Relationship Specialty Start Date End Date Santana Sanabria MD PCP - General Internal Medicine 02/23/18 Adam Keller MD Specialist Cardiovascular Disease 04/25/23 10/17/23 Betsey Rey NP Nurse Practitioner Cardiology 04/25/23 Bhavin Fox MD Specialist Cardiology 06/01/23 Christina Vargas NP [address] [place] [phone] Cardiology 09/02/23 documented as of this encounter
--- OUTSIDE RECORDS SUMMARY | 2025-03-04 16:08 | XMS_ITS | Encounter Summary ---
Author Organization [facility] Address [address] [place] [address] Care Team Providers Care Aeronautical Design Engineer Name Role Phone Santana Sanabria MD Primary Care Provider Betsey Claire NP Unavailable Bhavin Fox MD Unavailable Christina Vargas NP Unavailable [phone] Encounter Details Date Type Department Care Team Description 10/30/2023 Telephone Cardio [facility] [address] [place] [address] Jack Miller NP [address] [place] [address] [phone] Social History Tobacco Use Types Packs/Day Years [...] - 10/30/2023 4:32 PM EST Patient contacted coroner service. Blood pressurs have been in 170s [...] hypertension documented in this encounter Care Teams Aeronautical Design Engineer Relationship Specialty Start Date End Date Santana Sanabria MD PCP - General Internal Medicine 02/23/18 Betsey Rey NP Nurse Practitioner Cardiology 04/25/23 Bhavin Fox MD Specialist Cardiology 06/01/23 Christina Vargas NP [address] [place] [phone] Cardiology 09/02/23 documented as of this encounter
--- OUTSIDE RECORDS SUMMARY | 2025-03-04 16:08 | XMS_ITS | Encounter Summary ---
Author Organization [facility] Address [address] [place] [address] Care Team Providers Care Treasury Director Name Role Phone Santana Sanabria MD Primary Care Provider Betsey Claire TOOL DISPATCHER Unavailable [phone] Bhavin Fox MD Unavailable [phone] Christina Vargas NP Unavailable [phone] Encounter Details Date Type Department Care Team Description 04/10/2024 SCAN Medical Records [address] [place] [address] Aurelia Bowers PA Social History Tobacco Use [...] on filedocumented in this encounter Care Teams Treasury Director Relationship Specialty Start Date End Date Santana Sanabria MD PCP - General Internal Medicine 02/23/18 Betsey Rey NP Nurse Practitioner Cardiology 04/25/23 Bhavin Fox MD Specialist Cardiology 06/01/23 Christina Vargas NP [address] [address] Cardiology 09/02/23 documented as of this encounter
--- OUTSIDE RECORDS SUMMARY | 2025-03-04 16:08 | XMS_ITS | Encounter Summary ---
Author Organization [facility] Address [address] [place] [address] Care Team Providers Care Roof Bolter Name Role Phone Santana Sanabria MD Primary Care Provider Adam Geiger MD Unavailable Unavailable Betsey Rey NP Unavailable [phone] Bhavin Fox MD Unavailable [phone] Christina Vargas NP Unavailable [phone] Encounter Details Date Type Department Care Team Description 05/12/2023 Hospital Medical Records [address] [place], [place] [id number] [place] [address] Social History Tobacco Use Types Packs/Day Years [...] on filedocumented in this encounter Care Teams Roof Bolter Relationship Specialty Start Date End Date Santana Sanabria MD PCP - General Internal Medicine 02/23/18 Adam Keller MD Specialist Cardiovascular Disease 04/25/23 10/17/23 Betsey Rey NP Nurse Practitioner Cardiology 04/25/23 Bhavin Fox MD Specialist Cardiology 06/01/23 Christina Vargas NP [address] [place] [phone] Cardiology 09/02/23 documented as of this encounter
--- OUTSIDE RECORDS SUMMARY | 2025-03-04 16:08 | XMS_ITS | Encounter Summary ---
Author Organization [facility] Address [address] [place] [address] Care Team Providers Care Ad Terminal Makeup Operator Name Role Phone Santana Sanabria MD Primary Care Provider Adam Geiger MD Unavailable Unavailable Betsey Rey FARO DEALER Unavailable [phone] Bhavin Fox MD Unavailable [phone] Christina Vargas FARO DEALER Unavailable [phone] Encounter Details Date Type Department Care Team Description 06/08/2023 SCAN Medical Records [address] [place] [address] [facility] Social History Tobacco Use Types Packs/Day Years [...] on filedocumented in this encounter Care Teams Ad Terminal Makeup Operator Relationship Specialty Start Date End Date Santana Sanabria MD PCP - General Internal Medicine 02/23/18 Adam Keller MD Specialist Cardiovascular Disease 04/25/23 10/17/23 Betsey Rey NP Nurse Practitioner Cardiology 04/25/23 Bhavin Fox MD Specialist Cardiology 06/01/23 Christina Vargas NP [address] [place] [phone] Cardiology 09/02/23 documented as of this encounter
--- OUTSIDE RECORDS SUMMARY | 2025-03-04 16:08 | XMS_ITS | Encounter Summary ---
Author Organization [facility] Address [address] [place] [address] Care Team Providers Care Mattress Weaver Name Role Phone Santana Sanabria MD Primary Care Provider Adam Geiger MD Unavailable Unavailable Betsey Rey BALLOON ARTIST Unavailable [phone] Bhavin Fox MD Unavailable [phone] Christina Vargas BALLOON ARTIST Unavailable [phone] Encounter Details Date Type Department Care Team Description 12/28/2021 Hospital Medical Records [address] [place] [address] Social History Tobacco Use Types Packs/Day Years [...] on filedocumented in this encounter Care Teams Mattress Weaver Relationship Specialty Start Date End Date Santana Sanabria MD PCP - General Internal Medicine 02/23/18 Adam Keller MD Specialist Cardiovascular Disease 04/25/23 10/17/23 Betsey Rey NP Nurse Practitioner Cardiology 04/25/23 Bhavin Fox MD Specialist Cardiology 06/01/23 Christina Vargas NP [address] [place] [phone] Cardiology 09/02/23 documented as of this encounter
--- OUTSIDE RECORDS SUMMARY | 2025-03-04 16:08 | XMS_ITS | Encounter Summary ---
Author Organization [facility] Address [address] [place] [address] Care Team Providers Care Combination Operator Name Role Phone Santana Sanabria MD Primary Care Provider Adam Geiger MD Unavailable Unavailable Betsey Rey SENIOR IT SECURITY ANALYST Unavailable [phone] Bhavin Fox MD Unavailable [phone] Christina Vargas SENIOR IT SECURITY ANALYST Unavailable [phone] Reason for Visit * Reason Onset Date Comments Atrial Fibrillation 03/03/2023 Encounter Details Date Type Department Care Team Description 03/03/2023 Telephone Cardio PVC [facility] [address] [place] [address] Adam Keller MD Atrial Fibrillation Social History Tobacco Use Types Packs/Day Years [...] encounter Miscellaneous Notes * Telephone Encounter - Suyapa Mendez R.N. - 03/03/2023 3:09 PM EDT Pt called back this afternoon. Relayed message from Dr Keller. Again confirmed with pt that she has been taking both metoprolol and eliquis as prescribed and has not missed any doses. Pt stated understanding concerning Holter monitor. Can we please help her get scheduled to receive monitor equipment? Once testing is complete, would it be possible to let scheduling know so we can have pt be seen earlier than her upcoming appt on 04/13/2023. Thank you! * Telephone Encounter - Adam Keller MD - 03/03/2023 2:37 PM EDT She needs to check her blood pressure and heart rate more routinely so we can see if this is the issue. Please confirm when she was started on the metoprolol or if those doses were changed as this could be part of her issue. She may be having a beta-michael effect. She should have a 24-hour Holter monitor done as well. She should have a follow-up appointment with myself as I have not seen her forseveral years so we can determine what neck steps need to be done including whether we need to do acardioversion. She should have her Holter monitor done first. I have ordered this. Please verify that she is taking her Eliquis twice daily. * Telephone Encounter - Suyapa Mendez R.N. - 03/03/2023 12:05 PM EDT Pt called this morning. Pt states she has been experiencing shortness of breath and fatigue with exertion for the past couple of weeks. Pt mainly feels the SOB when climbing her home stairs of 12-13 steps. Pt also has been experiencing random intermittent chest pressure with fluttering- but does not occur with SOB. She denies any lightheadedness and dizziness. Also pt states she has had a cough/dry throat since COVID dx in 11/2022. Pt has not been taking her BP at home recently, but has stated with f/u visits she was told it has been better than usual. She did measure BP and HR during conversation (after climbing stairs): 147/101 and 46 respectively. Pt has been taking all medications as prescribed. * Telephone Encounter - Fahad Brizuela - 03/03/2023 11:50 AM EDT Patient is calling stating since she has been diagnosed with atrial fibrillation she is experiencing being very tired, super winded, weird sensation in chest, when taking deep breathe. Please call. documented in this encounter Plan of Treatment Not on file documented as of this encounter Results * CT XTRNL ECG & 48 HR RECORD SCAN STOR W/R&I (03/29/2023) Adam Keller MD CARDIOLOGY [facility] documented in this encounter Visit Diagnoses Diagnosis Paroxysmal atrial fibrillation (HCC)- Primary Atrial fibrillation documented in this encounter Care Teams Combination Operator Relationship Specialty Start Date End Date Santana Sanabria MD PCP - General Internal Medicine 02/23/18 Adam Keller MD Specialist Cardiovascular Disease 04/25/23 10/17/23 Betsey Rey NP Nurse Practitioner Cardiology 04/25/23 Bhavni Fox MD Specialist Cardiology 06/01/23 Christina Vargas NP [address] [phone] Cardiology 09/02/23 documented as of this encounter
--- OUTSIDE RECORDS SUMMARY | 2025-03-04 16:08 | XMS_ITS | Encounter Summary ---
[facility] Address [address] [place] [address] Care Team Providers Care Seater Grinder Name Role Phone Santana Sanabria MD Primary Care Provider Betsey Claire NP Unavailable [phone] Bhavin Fox MD Unavailable [phone] Christina Vargas NP Unavailable Encounter Details Date Type Department Care Team Description 06/15/2024 SCAN Medical Records [address] [place] [address] Abstract, Provider Social History Tobacco Use Types [...] on filedocumented in this encounter Care Teams Seater Grinder Relationship Specialty Start Date End Date Santana Sanabria MD PCP - General Internal Medicine 02/23/18 Betsey Rey NP Nurse Practitioner Cardiology 04/25/23 Bhavin Fox MD Specialist Cardiology 06/01/23 Christina Vargas NP [address] [place] [phone] Cardiology 09/02/23 documented as of this encounter
--- OUTSIDE RECORDS SUMMARY | 2025-03-04 16:08 | XMS_ITS | Encounter Summary ---
[facility] Address [address] [place] [address] Care Team Providers Care Scale Expert Name Role Phone Santana Sanabria MD Primary Care Provider Adam Geiger MD Unavailable Unavailable Betsey Rey INTERIOR DECORATOR PAINTING Unavailable [phone] Bhavin Fox MD Unavailable [phone] Christina Vargas INTERIOR DECORATOR PAINTING Unavailable [phone] Encounter Details Date Type Department Care Team Description 05/04/2023 Telephone Cardio [facility] Diag Testing [address] [facility] [address] [place] [address] Jen Quintanilla PA-C [address] [place] [address] [phone] Social History Tobacco Use Types Packs/Day Years [...] and then PET stress after attempt at nondenominational of NSR to ruleout ischemia. Patient is [...] she is leaving for a trip to [place] next month. documented in this encounter Plan of Treatment Scheduled Orders Name Type Priority Associated Diagnoses Orde r Schedule [place] CARDIOVERSION ELECTIVE ARRHYTHMIA EXTERNAL Cardiology Routine Persistent atrial fibrillation (HCC) Ordered: 05/04/2023 documented as of this encounter Visit Diagnoses Diagnosis Paroxysmal atrial fibrillation (HCC)- Primary Atrial fibrillation Persistent atrial fibrillation (HCC) Atrial fibrillation HFrEF (heart failure with reduced ejection fraction) (HCC) Dyspnea on exertion Other dyspnea and respiratory abnormality documented in this encounter Care Teams Scale Expert Relationship Specialty Start Date End Date Santana Sanabria MD PCP - General Internal Medicine 02/23/18 Adam Keller MD Specialist Cardiovascular Disease 04/25/23 10/17/23 Betsey Rey NP Nurse Practitioner Cardiology 04/25/23 Bhavin Fox MD Specialist Cardiology 06/01/23 Christina Vargas NP [address] [phone] Cardiology 09/02/23 documented as of this encounter
--- OUTSIDE RECORDS SUMMARY | 2025-03-04 16:08 | XMS_ITS | Clinical Summary ---
[facility] Address [address] [place] [address] Care Team Providers Care Acoustical Tile Drill Press Operator Name Role Phone Santana Sanabria MD Primary Care Provider Betsey Claire WOOD BOATBUILDER APPRENTICE Unavailable [phone] Bhavin Fox MD Unavailable [phone] Christina Vargas NP Unavailable [phone] Allergies Active Allergy Reactions Severity Noted Date [...] on 10/05/2023 Overview: Done on 09/06/2023 at [facility] w JPM indications:Symptomatic drug refractory fibrillation History of cardioversion 05/29/2023 Overview: Done on 05/12/2023 at [facility] w AOP indications:Atrial Fibrillation SOB (shortness of [...] Her father in his 90s from an [place]. We will arrange for a stress echocardiogram [...] by CT 02/19/2019 Overview: Advised to see UPHOLSTERY MECHANIC, no further information in transferred notes Benign [...] fibrillation 04/17/2024 Last Assessment & Plan: Patient's [id number] score is 2 representing a 2.2% risk [...] H RISK PATIENTS (#1) 2028 Care Teams Acoustical Tile Drill Press Operator Relationship Specialty Start Date End Date Santana Sanabria MD PCP - General Internal Medicine 02/23/18 Betsey Rey NP Nurse Practitioner Cardiology 04/25/23 Bhavin Fox MD Specialist Cardiology 06/01/23 Christina Vargas NP [address] [phone] Cardiology 09/02/23
--- OUTSIDE RECORDS SUMMARY | 2025-03-04 16:08 | XMS_ITS | Encounter Summary ---
[facility] Address [address] [place] [address] Care Team Providers Care Web Editor Name Role Phone Santana Sanabria MD Primary Care Provider Adam Geiger MD Unavailable Unavailable Betsey Rey NP Unavailable [phone] Bhavin Fox MD Unavailable [phone] Christina Vargas NP Unavailable [phone] Encounter Details Date Type Department Care Team Description 12/24/2019 Release of Information Medical Records [address] [place] [address] Abstract, Provider Social History Tobacco Use Types [...] on filedocumented in this encounter Care Teams Web Editor Relationship Specialty Start Date End Date Santana Sanabria MD PCP - General Internal Medicine 02/23/18 Adam Keller MD Specialist Cardiovascular Disease 04/25/23 10/17/23 Betsey Rey NP Nurse Practitioner Cardiology 04/25/23 Bhavin Fox MD Specialist Cardiology 06/01/23 Christina Vargas NP [address] [phone] Cardiology 09/02/23 documented as of this encounter
--- OUTSIDE RECORDS SUMMARY | 2025-03-04 16:08 | XMS_ITS | Encounter Summary ---
Author Organization [facility] Address [address] [place] [address] Care Team Providers Care Semiconductor Wafers Tester Name Role Phone Santana Sanabria MD Primary Care Provider Adam Geiger MD Unavailable Unavailable Betsey Rey NP Unavailable [phone] Bhavin Fox MD Unavailable [phone] Christina Vargas NP Unavailable [phone] Encounter Details Date Type Department Care Team Description 04/19/2018 Orders Only Medical Records [address] [place] [address] Armani Whitman MD Social History Tobacco Use Types Packs/Day Years Used Date Smoking Tobacco: Never Smokeless Tobacco: Never Sex Assigned at Date Recorded Not on file Job Start Date Occupation Industry Not on file Not on file Not on file documented as of this encounter Plan of Treatment Not on file documented as of this encounter Procedures Procedure Name Priority Date/Time Associated Diagnosis Comments OUTSIDE SLEEP STUDY Routine 04/12/2018 documented in this encounter Results * OUTSIDE SLEEP STUDY (04/12/2018) Armani Whitman MD PULMONOLOGY documented in this encounter Visit Diagnoses Not on filedocumented in this encounter Care Teams Semiconductor Wafers Tester Relationship Specialty Start Date End Date Santana Sanabria MD PCP - General Internal Medicine 02/23/18 Adam Keller MD Specialist Cardiovascular Disease 04/25/23 10/17/23 Betsey Rey NP Nurse Practitioner Cardiology 04/25/23 Bhavin Fox MD Specialist Cardiology 06/01/23 Christina Vargas NP [address] [place] [phone] Cardiology 09/02/23 documented as of this encounter
--- OUTSIDE RECORDS SUMMARY | 2025-03-04 16:08 | XMS_ITS | Encounter Summary ---
Author Organization [facility] Address [address] [place] [address] Care Team Providers Care Sas Architect Name Role Phone Santana Sanabria MD Primary Care Provider Adam Geiger MD Unavailable Unavailable Betsey Rey NP Unavailable [phone] Bhavin Fox MD Unavailable [phone] Christina Vargas NP Unavailable [phone] Encounter Details Date Type Department Care Team Description 09/06/2023 Hospital Medical Records [address] [place], [place] [id number] [place] [address] Social History Tobacco Use Types Packs/Day Years [...] on filedocumented in this encounter Care Teams Sas Architect Relationship Specialty Start Date End Date Santana Sanabria MD PCP - General Internal Medicine 02/23/18 Adam Keller MD Specialist Cardiovascular Disease 04/25/23 10/17/23 Betsey Rey NP Nurse Practitioner Cardiology 04/25/23 Bhavin Fox MD Specialist Cardiology 06/01/23 Christina Vargas NP [address] [place] [phone] Cardiology 09/02/23 documented as of this encounter
--- OUTSIDE RECORDS SUMMARY | 2025-03-04 16:08 | XMS_ITS | Clinical Summary ---
Author Organization [employer] Address [address] [facility] [address] [place] [address] Care Team Providers Care Dry House Attendant Name Role Phone Unavailable Primary Care Provider [...] patient's age to complete this topic [place] [address] [place] [address]
--- OUTSIDE RECORDS SUMMARY | 2025-03-04 16:08 | XMS_ITS | Encounter Summary ---
Author Organization [facility] Address [address] [place] [address] Care Team Providers Care Paper Reclaiming Machine Operator Name Role Phone Santana Sanabria MD Primary Care Provider Adam Geiger MD Unavailable Unavailable Betsey Rey ELECTRIC MILKERS INSTALLER Unavailable [phone] Bhavin Fox MD Unavailable [phone] Christina Vargas ELECTRIC MILKERS INSTALLER Unavailable [phone] Reason for Visit * Reason Onset Date Comments Medication 07/21/2023 Side effects Encounter Details Date Type Department Care Team Description 07/21/2023 Telephone Cardio PVC POC [address] [facility] [address] [place] [address] Bhavin Fox MD [address] [place] [address] [phone] Medication (Side effects ) Social History Tobacco [...] this AM. States she had gone to [facility] on 07/21/23, records scanned into [email or web address] for review. Was having some increased chest [...] with Dr. Fox on Monday for additional skilled nursing facility counselor. Hopefully with some time she will [...] Apple watch but it is on the pop singer right now. Is not able to send [...] filedocumented in this encounter Care Teams Paper Reclaiming Machine Operator Relationship Specialty Start Date End Date Santana Sanabria MD PCP - General Internal Medicine 02/23/18 Adam Keller MD Specialist Cardiovascular Disease 04/25/23 10/17/23 Betsey Rey NP Nurse Practitioner Cardiology 04/25/23 Bhavin Fox MD Specialist Cardiology 06/01/23 Christina Vargas NP [address] [place] [phone] Cardiology 09/02/23 documented as of this encounter
--- OUTSIDE RECORDS SUMMARY | 2025-03-04 16:08 | XMS_ITS | Encounter Summary ---
Author Organization [employer] [facility] Address [address] [place] [address] Care Team Providers Care Processing Talc And Borate Supervisor Name Role Phone Santana Sanabria MD Primary Care Provider Adam Geiger MD Unavailable Unavailable Betsey Rey NP Unavailable [phone] Bhavin Fox MD Unavailable [phone] Christina Vargas NP Unavailable [phone] Encounter Details Date Type Department Care Team Description 09/08/2023 SCAN Medical Records [address] [place] [address] Abstract, Provider Social History Tobacco Use Types [...] on filedocumented in this encounter Care Teams Processing Talc And Borate Supervisor Relationship Specialty Start Date End Date Santana Sanabria MD PCP - General Internal Medicine 02/23/18 Adam Keller MD Specialist Cardiovascular Disease 04/25/23 10/17/23 Betsey Rey NP Nurse Practitioner Cardiology 04/25/23 Bhavin Fox MD Specialist Cardiology 06/01/23 Christina Vargas NP [address] [place] [phone] Cardiology 09/02/23 documented as of this encounter
--- OUTSIDE RECORDS SUMMARY | 2025-03-04 16:08 | XMS_ITS | Encounter Summary ---
Author Organization [email or web address] [facility] Address [address] [place] [address] Care Team Providers Care Chemical Plant Manager Name Role Phone Santana Sanabria MD Primary Care Provider Adam Geiger MD Unavailable Unavailable Betsey Rey MENDER KNIT GOODS Unavailable [phone] Bhavin Fox MD Unavailable [phone] Christina Vargas NP Unavailable [phone] Encounter Details Date Type Department Care Team Description 08/07/2023 Hospital Medical Records [address] [place] [address] Social History Tobacco Use Types Packs/Day Years [...] on filedocumented in this encounter Care Teams Chemical Plant Manager Relationship Specialty Start Date End Date Santana Sanabria MD PCP - General Internal Medicine 02/23/18 Adam Keller MD Specialist Cardiovascular Disease 04/25/23 10/17/23 Betsey Rey NP Nurse Practitioner Cardiology 04/25/23 Bhavin Fox MD Specialist Cardiology 06/01/23 Christina Vargas NP [address] [phone] Cardiology 09/02/23 documented as of this encounter
--- OUTSIDE RECORDS SUMMARY | 2025-03-04 16:08 | XMS_ITS | Encounter Summary ---
Author Organization [facility] Address [address] [place] [address] Care Team Providers Care Music Minister Name Role Phone Santana Sanabria MD Primary Care Provider Adam Geiger MD Unavailable Unavailable Betsey Rey FRUIT II FARMWORKER Unavailable [phone] Bhavin Fox MD Unavailable [phone] Christina Vargas FRUIT II FARMWORKER Unavailable [phone] Reason for Visit * Reason Onset Date Comments Testing 12/19/2018 cat scan of ches t CPT-09013 Encounter Details Date Type Department Care Team Description 12/19/2018 Telephone Pulmonology - [address] [place] [phone] Armani Whitman MD Testing (cat scan of chest CPT-11712) Social History Tobacco Use Types Packs/Day Years [...] BC No auth required 12/19/18 - 12/20/19 CPT-32610 Order faxed to [facility] scheduling Notiifaction letter sent to patient. documented in this encounter Plan of Treatment Not on file documented as of this encounter Visit Diagnoses Not on filedocumented in this encounter Care Teams Music Minister Relationship Specialty Start Date End Date Santana Sanabria MD PCP - General Internal Medicine 02/23/18 Adam Keller MD Specialist Cardiovascular Disease 04/25/23 10/17/23 Betsey Rey NP Nurse Practitioner Cardiology 04/25/23 Bhavin Fox MD Specialist Cardiology 06/01/23 Christina Vargas NP [address] [place] [phone] Cardiology 09/02/23 documented as of this encounter
--- OUTSIDE RECORDS SUMMARY | 2025-03-04 16:08 | XMS_ITS | Encounter Summary ---
Author Organization [employer] [facility] Address [address] [place] [address] Care Team Providers Care Press Operator Carbon Products Name Role Phone Santana Sanabria MD Primary Care Provider Adam Geiger MD Unavailable Unavailable Betsey Rey NP Unavailable [phone] Bhavin Fox MD Unavailable [phone] Christina Vargas NP Unavailable [phone] Encounter Details Date Type Department Care Team Description 10/04/2023 SCAN Medical Records [address] [place] [address] Abstract, Provider Social History Tobacco Use Types [...] on filedocumented in this encounter Care Teams Press Operator Carbon Products Relationship Specialty Start Date End Date Santana Sanabria MD PCP - General Internal Medicine 02/23/18 Adam Keller MD Specialist Cardiovascular Disease 04/25/23 10/17/23 Betsey Rey NP Nurse Practitioner Cardiology 04/25/23 Bhavin Fox MD Specialist Cardiology 06/01/23 Christina Vargas NP [address] [phone] Cardiology 09/02/23 documented as of this encounter
--- OUTSIDE RECORDS SUMMARY | 2025-03-04 16:08 | XMS_ITS | Encounter Summary ---
Author Organization [employer] [facility] Address [address] [place] [address] Care Team Providers Care Rotary Engine Assembler Name Role Phone Santana Sanabria MD Primary Care Provider Adam Geiger MD Unavailable Unavailable Betsey Rey BAND SAWYER Unavailable [phone] Bhavin Fox MD Unavailable [phone] Christina Vargas NP Unavailable [phone] Encounter Details Date Type Department Care Team Description 01/18/2023 Hospital Medical Records [address] [place] [address] Social History Tobacco Use Types Packs/Day Years [...] Associated Diagnosis Comments OUTSIDE PLAIN FILM Routine 01/18/2023 OUTSIDE LAB Routine 01/18/2023 documented in this encounter Results * OUTSIDE PLAIN FILM (01/18/2023) Provider Abstract RADIOLOGY * OUTSIDE LAB (01/18/2023) Provider Abstract LAB documented in this encounter Visit Diagnoses Not on filedocumented in this encounter Care Teams Rotary Engine Assembler Relationship Specialty Start Date End Date Santana Sanabria MD PCP - General Internal Medicine 02/23/18 Adam Keller MD Specialist Cardiovascular Disease 04/25/23 10/17/23 Betsey Rey NP Nurse Practitioner Cardiology 04/25/23 Bhavin Fox MD Specialist Cardiology 06/01/23 Christina Vargas NP [address] [phone] Cardiology 09/02/23 documented as of this encounter
--- OUTSIDE RECORDS SUMMARY | 2025-03-04 16:08 | XMS_ITS | Encounter Summary ---
Author Organization [facility] [facility] Address [address] [place] [address] Care Team Providers Care Upholstery Auto Trimmer Name Role Phone Santana Sanabria MD Primary Care Provider Adam Geiger MD Unavailable Unavailable Betsey Rey CONSTRUCTION PERSON Unavailable [phone] Bhavin Fox MD Unavailable [phone] Christina Vargas CONSTRUCTION PERSON Unavailable [phone] Encounter Details Date Type Department Care Team Description 07/21/2023 Hospital Medical Records [address] [place] [address] Social History Tobacco Use Types Packs/Day Years [...] on filedocumented in this encounter Care Teams Upholstery Auto Trimmer Relationship Specialty Start Date End Date Santana Sanabria MD PCP - General Internal Medicine 02/23/18 Adam Keller MD Specialist Cardiovascular Disease 04/25/23 10/17/23 Betsey Rey NP Nurse Practitioner Cardiology 04/25/23 Bhavin Fox MD Specialist Cardiology 06/01/23 Christina Vargas NP [address] [address] Cardiology 09/02/23 documented as of this encounter
--- OUTSIDE RECORDS SUMMARY | 2025-03-04 16:08 | XMS_ITS | Encounter Summary ---
Author Organization [facility] Address [address] [place] [address] Care Team Providers Care Radio Officer Name Role Phone Santana Sanabria MD Primary Care Provider Betsey Claire VOICE INSTRUCTOR Unavailable [phone] Bhavin Fox MD Unavailable [phone] Christina Vargas NP Unavailable [phone] Encounter Details Date Type Department Care Team Description 06/18/2024 Orders Only Cardio PVC [facility] [address] [place] [id number] Default, Provider Social History Tobacco Use Types [...] on filedocumented in this encounter Care Teams Radio Officer Relationship Specialty Start Date End Date Santana Sanabria MD PCP - General Internal Medicine 02/23/18 Betsey Rey NP Nurse Practitioner Cardiology 04/25/23 Bhavin Fox MD Specialist Cardiology 06/01/23 Christina Vargas NP [address] [address] Cardiology 09/02/23 documented as of this encounter
--- OUTSIDE RECORDS SUMMARY | 2025-03-04 16:08 | XMS_ITS | Encounter Summary ---
Author Organization [facility] Address [address] [place] [address] Care Team Providers Care Geologic Technician Name Role Phone Santana Sanabria MD Primary Care Provider Adam Geiger MD Unavailable Unavailable Betsey Rey TERADATA SOLUTION ARCHITECT Unavailable [phone] Bhavin Fox MD Unavailable [phone] Christina Vargas TERADATA SOLUTION ARCHITECT Unavailable [phone] Encounter Details Date Type Department Care Team Description 10/05/2023 SCAN Medical Records [address] [place] [address] Aurelia Bowers PA Social History Tobacco Use [...] Date/Time Associated Diagnosis Comments OUTSIDE LAB Routine 10/05/2023 OUTSIDE LAB Routine 10/05/2023 documented in this encounter Results * OUTSIDE LAB (10/05/2023) Provider Abstract LAB * OUTSIDE LAB (10/05/2023) Provider Abstract LAB documented in this encounter Visit Diagnoses Not on filedocumented in this encounter Care Teams Geologic Technician Relationship Specialty Start Date End Date Santana Sanabria MD PCP - General Internal Medicine 02/23/18 Adam Keller MD Specialist Cardiovascular Disease 04/25/23 10/17/23 Betsey Rey NP Nurse Practitioner Cardiology 04/25/23 Bhavin Fox MD Specialist Cardiology 06/01/23 Christina Vargas NP [address] [place] [address] Cardiology 09/02/23 documented as of this encounter
--- OUTSIDE RECORDS SUMMARY | 2025-03-04 16:08 | XMS_ITS | Clinical Summary ---
Author Organization [facility] [employer] Address [address] [facility] [place] [address] Phone Care Team Providers Care Theatre Manager Name Role Phone Maty Johnson MD Primary [...] (heart failure with re duced ejection fraction) (CMS/[facility] V24, CMS/[facility] V28) 02/06/2023 Assessment & Plan (10/02/2024 [...] add back carvedilol. Atrial fibrillation (CMS/HCC V24, CMS/[facility] V28) 0 01/20/2023 Overview (01/21/2025): Paroxysmal atrial fibrillation with an associated cardiomyopathy detected in 2019. She was on amiodarone briefly and ultimately had an ablation with cryoballoon ablation in August 2023. Recurrent atrial fibrillation in the fall 2023 with self termination and she was started on Multaq. Echo showed normalization of LVEF on Entresto and Multaq. Anticoagulated with Eliquis. [id number] score of 2 for age and female [...] stroke risk is fairly modest with her [id number] score of 2 but she prefers not [...] be started back on Eliquis for anticoagulation OBO2AM2- VASc score of 3 representing a 3.2% [...] ovary 02/19/2019 Overview (09/10/2024): Advised to see GAS METER READER, no further information in transferred notes Allergic [...] Her father in his 90s from an [place]. We will arrange for a stress echocardiogram [...] Type Department Care Team Description 01/24/2025 Telephone [facility] Cardiology [facility] [address] [facility] [address] [place] [address] Maty Johnson MD Medical Records 01/24/2025 Telephone [facility] [address] [facility] [address] [place] [address] Betsey Rey NP Medical Records 01/21/2025 1:00 PM EDT Office Visit [facility] [address] [place] [address] Bhavin Fox MD Atrial fibrillation, unspecified type (CMS/HCC V24, CMS/HCC V28) (Primary Dx); Ascending aorta dilation (CMS/HCC V24) 01/21/2025 Telephone [facility] [address] [place] [address] Bhavin Fox MD called pt to change time of her 01/21/[address] Fox 01/13/2025 Telephone [facility] [address] [facility] [address] [place] [address] Maty Johnson MD Medical Records 12/18/2024 Telephone [facility] Cardiology [facility] [address] [place] [address] Betsey Rey, JOSE Letter for School/Work (DOT Physical ) 12/09/2024 Telephone [facility] [address] [place] [address] Betsey Rey NP Medication (Eliquis ) 12/05/2024 Telephone [facility] [address] [place] [address] Janna Mueller RN Lab Results [...] ultrasound of ovary; COMMENT: Advised to see GAS METER READER, no further information in transferred notes Allergic [...] ms GEMUSE QTc 472 ms GEMUSE R [place] 33 degrees GEMUSE T [place] 20 degrees GEMUSE ECG Interpretation Normal sinus [...] metabolic panel (12/16/2024 9:51 AM EST) Pathologist [facility] Glucose 90 70 - 99 mg/dL [facility] [...] AM EST Performed at: ??01 - [facility] [address] ??[id number] Architecture Faculty Member: Bhakti House MD, Phone: ??[phone] us Betsey Rey GLASS PULVERIZER EQUIPMENT OPERATOR LAB BLOOD ORDERABLES Final R esult [facility] 1 * Hm Colonoscopy (05/16/2018) HM Colonoscopy No Interpretation , Abstracted Anatomical Region Laterality Modality Other us Historical Provider HEALTH MAINTENANCE Final Result from Last 3 Months or Most Recently Relevant to Health Maintenance Insurance [facility] Care Teams Theatre Manager Relationship Specialty Start Date End Date Maty Johnson MD [address] [place] [address] PCP - General Internal Medicine 01/21/25
--- OUTSIDE RECORDS SUMMARY | 2025-03-04 16:08 | XMS_ITS | Encounter Summary ---
Author Organization [employer] [facility] Address [address] [place] [address] Care Team Providers Care Sign Shop Supervisor Name Role Phone Santana Sanabria MD Primary Care Provider Adam Geiger MD Unavailable Unavailable Betsey Rey NP Unavailable [phone] Bhavin Fox MD Unavailable [phone] Christina Vargas NP Unavailable [phone] Encounter Details Date Type Department Care Team Description 05/15/2023 [facility] Cardio PVC Med [address] [facility] [address] [place] [phone] Social History Tobacco Use Types Packs/Day Years [...] on filedocumented in this encounter Care Teams Sign Shop Supervisor Relationship Specialty Start Date End Date Santana Sanabria MD PCP - General Internal Medicine 02/23/18 Adam Keller MD Specialist Cardiovascular Disease 04/25/23 10/17/23 Betsey Rey NP Nurse Practitioner Cardiology 04/25/23 Bhavin Fox MD Specialist Cardiology 06/01/23 Christina Vargas NP [address] [address] Cardiology 09/02/23 documented as of this encounter
--- OUTSIDE RECORDS SUMMARY | 2025-03-04 16:08 | XMS_ITS | Encounter Summary ---
Author Organization [facility] Address [address] [place] [address] Care Team Providers Care Dial Marker Name Role Phone Santana Sanabria MD Primary Care Provider Adam Geiger MD Unavailable Unavailable Betsey Rey HEAT AND FROST INSULATOR HELPER Unavailable [phone] Bhavin Fox MD Unavailable [phone] Christina Vargas HEAT AND FROST INSULATOR HELPER Unavailable [phone] Encounter Details Date Type Department Care Team Description 05/25/2023 SCAN Cardio P[facility] [address] [place] [phone] Adam Keller MD Social History Tobacco Use [...] on filedocumented in this encounter Care Teams Dial Marker Relationship Specialty Start Date End Date Santana Sanabria MD PCP - General Internal Medicine 02/23/18 Adam Keller MD Specialist Cardiovascular Disease 04/25/23 10/17/23 Betsey Rey NP Nurse Practitioner Cardiology 04/25/23 Bhavin Fox MD Specialist Cardiology 06/01/23 Christina Vargas NP [address] [address] Cardiology 09/02/23 documented as of this encounter
[2025-03-07 22:38] LABS: Class Alternaria alternata 0; Class Aspergillus fumigatus 0; Class Bermuda Grass 0; Class Birch 0; Class Cat Dander 0; Class Cladosporium herbarum 0; Class Cockroach 0; Class Common Ragweed 0; Class Cottonwood 0; Class Derm. pterony 0; Class Dermatophagoides farinae 0; Class Dog Dander 0; Class Elm 0; Class Maple Box Elder 0; Class Mountain Cedar 0; Class Mouse Urine Protein 0; Class Mugwort 0; Class Oak 0; Class Penicillium crysogenum 0; Class Rough Pigweed 0; Class Sheep Sorrel 0; Class Sycamore 0; Class Timothy Grass 0; Class Walnut Tree 0; Class White Ash 0; Class White Mulberry 0; D001 IgE D pteronyssinus <0.10 kU/L; D002 - IgE D farinae <0.10 kU/L; E001 - IgE Cat Dander <0.10 kU/L; E005 - IgE Dog Dander <0.10 kU/L; E072-IgE Mouse Urine <0.10 kU/L; G002 IgE Bermuda Grass <0.10 kU/L; G006 - IgE Timothy Grass <0.10 kU/L; I006-IgE Cockroach, German <0.10 kU/L; Immunoglobulin E 5 kU/L (<OR=114); M001 IgE Penicillium chrysogen <0.10 kU/L; M002 - IgE Cladosporium herbar <0.10 kU/L; M003 - IgE Aspergillus fumigat <0.10 kU/L; M006 - IgE Alternaria alternat <0.10 kU/L; T001 IgE Maple/Box Elder <0.10 kU/L; T003 IgE Common Silver Birch <0.10 kU/L; T006 - IgE Cedar, Mountain <0.10 kU/L; T007 - IgE Oak, White <0.10 kU/L; T008 IgE Elm, American <0.10 kU/L; T010 - IgE Walnut <0.10 kU/L; T011 - IgE Maple Leaf Sycamore <0.10 kU/L; T014 - IgE Cottonwood <0.10 kU/L; T015 - IgE Ash, White <0.10 kU/L; T070 - IgE White Mulberry <0.10 kU/L; W001 - IgE Ragweed, Short <0.10 kU/L; W006 - IgE Mugwort <0.10 kU/L; W014 IgE Pigweed, Common <0.10 kU/L; W018 IgE Sheep Sorrel <0.10 kU/L
== END 2025-03-04 13:47 | disposition home or self-care (01) ==
LOC: HO.LAB 13:46
PROVIDERS: PCP Internal Medicine; Visit Provider Internal Medicine Pulmonary Disease
DX: Z91.09 Other allergy status, other than to drugs and biological substances (principal); R91.8 Other nonspecific abnormal finding of lung field
CPT/HCPCS: 36415; 82785; 85025; 86003; 99202

== ENCOUNTER 2025-03-04 13:46 | Outpatient (AMB) | payer OTHER, SELFPAY ==
[2025-03-04 14:16] VITALS: BP 146/87; PULSE 79; O2SAT 97; BMI 42.0
--- NOTE | 2025-03-04 14:16 | A.OFFVIS_ITS ---
Vital Signs 03/04/25 14:16 Height 5 ft 6 in Weight 260 lb 2.327 oz BMI 42.0 BP 146/87 H Blood Pressure Location Rt brachial Position Sitting Pulse 79 Pulse Source Pulse Oximeter Pulse Oximetry (%) 97 Oxygen Delivery Method Room Air Intake Visit Reasons: Pulmonary nodules Allergies amoxicillin Allergy (Unknown, Verified 01/13/25 10:24) Unknown doxycycline Allergy (Unknown, Verified 01/13/25 10:24) Unknown clarithromycin [From Biaxin] Allergy (Verified 01/13/25 10:24) Unknown HPI HPI Pulmonary nodules: Details: 59-year-old lady, lifetime nonsmoker, previously seen for incidental finding of pulmonary nodules that were monitored and was stable for 36 months. Now patient comes complain of dyspnea on exertion. Of note she does have underlying AFib and increasing weight. Patient stated her symptoms do have seasonal variation, but no significant diurnal variation. [facility] Medical History (Updated 03/04/25 @ 15:48 by Armani Whitamn MD) History of heart failure Morbid obesity Surgical History (Updated 01/15/25 @ 00:38 by Maty Johnson MD) S/P cryoablation of arrhythmia No pertinent past surgical history Social History Housing: House Patient Tobacco Use Status: Never used Tobacco e-Cigarette/Vaping Use: Never Used service: No Current occupational status: employed Cognitive needs: No Hearing needs: No Vision needs: Yes Review of Systems Const Denies daytime sleepiness, Denies excessive sweating, Denies fatigue, Denies fever(s), Denies lethargy, Denies malaise, Denies night sweats, Denies snoring and Denies weight loss Eyes Denies blurry vision and Denies itchy eyes ENT Denies nasal congestion, Denies post nasal drip, Denies sinus pain, Denies sinus pressure and Denies other ( Thrush) Card Denies chest pain, Denies pedal edema, Denies dyspnea, Reports dyspnea on exertion, Denies orthopnea and Denies paroxysmal nocturnal dyspnea Resp Denies cough, Denies hemoptysis, Denies excessive phlegm production, Denies dyspnea, Reports dyspnea on exertion, Denies snoring and Denies wheezing GI Denies abdominal pain and Denies heartburn Musc Denies myalgias, Denies arthralgias and Denies joint swelling Skin/Breast Denies rash Neuro Denies memory loss and Denies seizure-like activity Psych Denies abnormal sleep pattern, Denies anxiety and Denies memory loss Endo Denies excessive sweating, Denies fatigue and Denies heat intolerance Felix/Lymph Denies easy bruising Aller/Immun Denies itchy eyes, Denies seasonal rhinorrhea and Denies wheezing Physical Exam Vital Signs: Last Vital Signs Pulse 79 03/04/25 14:16 BP 146/87 H 03/04/25 14:16 Pulse Ox 97 03/04/25 14:16 Oxygen Delivery Method Room Air 03/04/25 14:16 BMI result Body Mass Index 42.0 Const General: no acute distress and alert Nutritional Appearance: obese Orientation/consciousness: Other orientation findings ( oriented) HEENT Head: Yes atraumatic Eyes General: appearance normal, both eyes and all related structures Sclerae: sclerae normal EOM: EOMs intact bilaterally Neck Neck: Yes supple Lymphatic: no lymphadenopathy noted Resp Effort & Inspection: normal respiratory effort and no use of accessory muscles Auscultation: clear to auscultation bilaterally Cardio Rate: regular rate Rhythm: regular rhythm Heart sounds: no gallops, no murmurs and no rubs Skin General skin exam: other ( warm) Extrem General: No clubbing, No cyanosis and No edema Assessment & Plan Assessment & Plan (1) Environmental allergies: Code(s): Z91.09 - Other allergy status, other than to drugs and biological substances Category: Medical Plan: Will obtain IgE level, CBC with differential, and RAST panel for further evaluation. (2) Dyspnea on exertion: Code(s): R06.09 - Other forms of dyspnea Category: Medical Plan: Symptoms appear to have cardiac versus obesity/deconditioning etiologies. Will obtain pulmonary function tests to rule out pulmonary component. Orders: Orders PFT pulmonary function test Today R06.09 - Other forms of dyspnea Resp Allergy Profile Region I Today Z91.09 - Other allergy status, other than to drugs and biological substances Complete Blood Count Auto Diff Today Z91.09 - Other allergy status, other than to drugs and biological substances Coding Level of Care Code New Pt Level 4 (21960) Diagnoses Environmental allergies Z91.09 Dyspnea on exertion R06.09
--- OUTSIDE RECORDS SUMMARY | 2025-03-04 15:00 | XMS_ITS | Encounter Summary ---
Author Organization [facility] Address [address] [place] [address] Care Team Providers Care Manufacturing Engineer Supervisor Name Role Phone Santana Sanabria MD Primary Care Provider Adam Geiger MD Unavailable Unavailable Betsey Rey BIOMASS FACILITATOR Unavailable [phone] Bhavin Fox MD Unavailable [phone] Christina Vargas BIOMASS FACILITATOR Unavailable [phone] Encounter Details Date Type Department Care Team Description 07/22/2023 SCAN Medical Records [address] [place] [address] Abstract, Provider Social History Tobacco Use Types [...] on filedocumented in this encounter Care Teams Manufacturing Engineer Supervisor Relationship Specialty Start Date End Date Snatana Sanabria MD PCP - General Internal Medicine 02/23/18 Adam Keller MD Specialist Cardiovascular Disease 04/25/23 10/17/23 Betsey Rey NP Nurse Practitioner Cardiology 04/25/23 Bhavin Fox MD Specialist Cardiology 06/01/23 Christina Vargas NP [address] [place] [address] Cardiology 09/02/23 documented as of this encounter
--- OUTSIDE RECORDS SUMMARY | 2025-03-04 15:00 | XMS_ITS | Encounter Summary ---
Author Organization [facility] Address [address] [place] [address] Care Team Providers Care Veterinary Nurse Name Role Phone Santana Sanabria MD Primary Care Provider Adam Geiger MD Unavailable Unavailable Betsey Rey NP Unavailable [phone] Bhavin Fox MD Unavailable [phone] Christina Vargas NP Unavailable [phone] Encounter Details Date Type Department Care Team Description 01/18/2023 Telephone Cardio [facility] [address] [place] [address] Adam Keller MD Social History Tobacco Use [...] suspected to have Coronavirus/COVID-19? No / Unsure 01/20/2023 10:36 AM EDT documented as of this encounter Plan of Treatment Not on file documented as of this encounter Visit Diagnoses Not on filedocumented in this encounter Care Teams Veterinary Nurse Relationship Specialty Start Date End Date Santana Sanabria MD PCP - General Internal Medicine 02/23/18 Adam Keller MD Specialist Cardiovascular Disease 04/25/23 10/17/23 Betsey Rey NP Nurse Practitioner Cardiology 04/25/23 Bhavin Fox MD Specialist Cardiology 06/01/23 Christina Vargas NP [address] [place] [address] Cardiology 09/02/23 documented as of this encounter
--- OUTSIDE RECORDS SUMMARY | 2025-03-04 15:00 | XMS_ITS | Encounter Summary ---
Author Organization [facility] Address [address] [place] [address] Care Team Providers Care Application Developer Name Role Phone Santana Sanabria MD Primary Care Provider Betsey Claire NP Unavailable [phone] Bhavin Fox MD Unavailable [phone] Christina Vargas NP Unavailable [phone] Encounter Details Date Type Department Care Team Description 06/15/2024 SCAN Medical Records [address] [place] [address] Abstract, Provider Social History Tobacco Use Types [...] on filedocumented in this encounter Care Teams Application Developer Relationship Specialty Start Date End Date Santana Sanabria MD PCP - General Internal Medicine 02/23/18 Betsey Rey NP Nurse Practitioner Cardiology 04/25/23 Bhavin Fox MD Specialist Cardiology 06/01/23 Christina Vargas NP [address] [place] [address] Cardiology 09/02/23 documented as of this encounter
--- OUTSIDE RECORDS SUMMARY | 2025-03-04 15:00 | XMS_ITS | Encounter Summary ---
Author Organization [facility] Address [address] [place] [address] Care Team Providers Care Host Name Role Phone Santana Sanabria MD Primary Care Provider Adam Geiger MD Unavailable Unavailable Betsey Rey NP Unavailable [phone] Bhavin Fox MD Unavailable [phone] Christina Vargas NP Unavailable [phone] Encounter Details Date Type Department Care Team Description 04/28/2020 SCAN Medical Records [address] [place] [address] Adam Keller MD Social History Tobacco Use [...] on filedocumented in this encounter Care Teams Host Relationship Specialty Start Date End Date Santana Sanabria MD PCP - General Internal Medicine 02/23/18 Adam Keller MD Specialist Cardiovascular Disease 04/25/23 10/17/23 Betsey Rey NP Nurse Practitioner Cardiology 04/25/23 Bhavin Fox MD Specialist Cardiology 06/01/23 Christina Vargas NP [address] [address] Cardiology 09/02/23 documented as of this encounter
--- OUTSIDE RECORDS SUMMARY | 2025-03-04 15:00 | XMS_ITS | Encounter Summary ---
Author Organization [facility] Address [address] [place] [address] Care Team Providers Care Reuse Technician Name Role Phone Santana Sanabria MD Primary Care Provider Betsey Claire NP Unavailable [phone] Bhavin Fox MD Unavailable [phone] Christina Vargas NP Unavailable [phone] Encounter Details Date Type Department Care Team Description 11/07/2023 Telephone Cardio PVCA Diag Testing [address] [facility] [address] [place] [address] Christina Vargas NP [address] [place] [address] Social History Tobacco Use Types [...] on filedocumented in this encounter Care Teams Reuse Technician Relationship Specialty Start Date End Date Santana Sanabria MD PCP - General Internal Medicine 02/23/18 Betsey Rey NP Nurse Practitioner Cardiology 04/25/23 Bhavin Fox MD Specialist Cardiology 06/01/23 Christina Vargas NP [address] [address] Cardiology 09/02/23 documented as of this encounter
--- OUTSIDE RECORDS SUMMARY | 2025-03-04 15:00 | XMS_ITS | Patient Health Record ---
Author Organization [facility] Address [address] [place] [address] Care Team Providers Care Cartridge Assembler Name Role Phone Elly VANEGAS, Santana Primary Care Provider Rubi Colin Unavailable [phone] Allergies Allergen (clinical drug ingredient) Drug/Non Drug [...] Orally Onc e a day Active Evening [place] Oil 1000 MG as directed Orally Active [...] 01/03/18 12/20/2017 Not-Taking Vitamin D3 50 MCG (2000 UT) 1 [...] 04/05/2024 Encounters Encounter Location Date Provider Diagnosis [facility] [address] [place] [address] 04/05/2024 Rubi Cantor Plantar fasciitis of right [...] X ray : Foot, right 3V 01/12/2012 [id number] Destruction, 10-2905/25/2015 [id number] Destruction, 10-2903/25/2015 [id number] Destruction, 10-2904/29/[id number] TENDON SHEATH/LIGAMENT 0 01/29/2018 Insurance Providers Payer Name Payer Address Payer Phone Subscriber Number Group Number Insured Name Patient Relationship to Insured Coverage Start Date Coverage End Date [facility] Others [address] [place] [address] [id number] Jermaine Garg Spouse - patient is [...]
--- OUTSIDE RECORDS SUMMARY | 2025-03-04 15:00 | XMS_ITS | Encounter Summary ---
Author Organization [facility] Address [address] [place] [address] Care Team Providers Care Chief Service Observer Name Role Phone Santana Sanabria MD Primary Care Provider Adam Geiger MD Unavailable Unavailable Betsey Rey PUBLIC RELATIONS MANAGER Unavailable [phone] Bhavin Fox MD Unavailable [phone] Christina Vargas PUBLIC RELATIONS MANAGER Unavailable [phone] Encounter Details Date Type Department Care Team Description 05/25/2023 SCAN Cardio [facility] [address] [place] [phone] Adam Keller MD Social History Tobacco Use [...] on filedocumented in this encounter Care Teams Chief Service Observer Relationship Specialty Start Date End Date Santana Sanabria MD PCP - General Internal Medicine 02/23/18 Adam Keller MD Specialist Cardiovascular Disease 04/25/23 10/17/23 Betsey Rey NP Nurse Practitioner Cardiology 04/25/23 Bhavin Fox MD Specialist Cardiology 06/01/23 Christina Vargas NP [address] [address] Cardiology 09/02/23 documented as of this encounter
--- OUTSIDE RECORDS SUMMARY | 2025-03-04 15:00 | XMS_ITS | Encounter Summary ---
Author Organization [facility] Address [address] [place] [address] Care Team Providers Care Gizzard Peeler Name Role Phone Santana Sanabria MD Primary Care Provider Adam Geiger MD Unavailable Unavailable Betsey Rey CONTINUITY READER Unavailable [phone] Bhavin Fox MD Unavailable [phone] Christina Vargas CONTINUITY READER Unavailable [phone] Reason for Visit * Reason Onset Date Comments Testing 12/19/2018 cat scan of ches t [id number] Encounter Details Date Type Department Care Team Description 12/19/2018 Telephone Pulmonology - [address] [place] [phone] Armani Whitman MD Testing (cat scan of chest CPT-[id number]) Social History Tobacco Use Types Packs/Day Years Used Date Smoking Tobacco: Never Smokeless Tobacco: Never Sex Assigned at Date Recorded Not on file Job Start Date Occupation Industry Not on file Not on file Not on file documented as of this encounter Miscellaneous Notes * Telephone Encounter - Fara Anders M.A. - 12/26/2018 4:18 PM EDT Patient aware. * Telephone Encounter - Armani Whitman MD - 12/26/2018 3:[address] chest is required until December of 2019. * Telephone Encounter - Fara Anders M.A. - 12/24/2018 4:49 PM EDT Please advise. * Telephone Encounter - Rosa Barillas - 12/24/2018 4:24 PM EDT Patient calling because she receive the letter to do a ct scan but she already had one on November in the emergency room. Please call her to clarify. She states that Dr. Whitman told her that she didn't need another one. * Telephone Encounter - Elinor Storm - 12/19/2018 11:06 AM EST BC No auth required 12/19/18 - 12/20/19 CPT-[id number] Order faxed to [facility] Notiifaction letter sent to patient. documented in this encounter Plan of Treatment Not on file documented as of this encounter Visit Diagnoses Not on filedocumented in this encounter Care Teams Gizzard Peeler Relationship Specialty Start Date End Date Santana Sanabria MD PCP - General Internal Medicine 02/23/18 Adam Keller MD Specialist Cardiovascular Disease 04/25/23 10/17/23 Betsey Rey NP Nurse Practitioner Cardiology 04/25/23 Bhavin Fox MD Specialist Cardiology 06/01/23 Christina Vargas NP [address] [place] [address] Cardiology 09/02/23 documented as of this encounter
--- OUTSIDE RECORDS SUMMARY | 2025-03-04 15:00 | XMS_ITS | Encounter Summary ---
Author Organization [facility] Address [address] [place] [address] Care Team Providers Care Salesperson Driver Name Role Phone Santana Sanabria MD Primary Care Provider Adam Geiger MD Unavailable Unavailable Betsey Rey CABIN CREW Unavailable [phone] Bhavin Fox MD Unavailable [phone] Christina Vargas CABIN CREW Unavailable [phone] Encounter Details Date Type Department Care Team Description 05/08/2023 Hospital Cardio [facility] Med [address] [place] [phone] Social History Tobacco Use Types Packs/Day Years [...] Name Priority Date/Time Associated Diagnosis Comments OUTSIDE ULTRASOUND Routine 05/08/2023 OUTSIDE PLAIN FILM Routine 05/08/2023 documented in this encounter Results * OUTSIDE PLAIN FILM (05/08/2023) Provider Abstract RADIOLOGY * OUTSIDE ULTRASOUND (05/08/2023) Provider Abstract RADIOLOGY documented in this encounter Visit Diagnoses Not on filedocumented in this encounter Care Teams Salesperson Driver Relationship Specialty Start Date End Date Santana Sanabria MD PCP - General Internal Medicine 02/23/18 Adam Keller MD Specialist Cardiovascular Disease 04/25/23 10/17/23 Betsey Rey NP Nurse Practitioner Cardiology 04/25/23 Bhavin Fox MD Specialist Cardiology 06/01/23 Christina Vargas NP [address] [place] [address] Cardiology 09/02/23 documented as of this encounter
--- OUTSIDE RECORDS SUMMARY | 2025-03-04 15:00 | XMS_ITS | Encounter Summary ---
Author Organization [facility] Address [address] [place] [address] Care Team Providers Care Platen Press Operator Name Role Phone Santana Sanabria MD Primary Care Provider Adam Geiger MD Unavailable Unavailable Betsey Rey NP Unavailable [phone] Bhavin Fox MD Unavailable [phone] Christina Vargas NP Unavailable [phone] Encounter Details Date Type Department Care Team Description 05/15/2023 SCAN Medical Records [address] [place] [address] Florentin Ren Social History Tobacco Use Types [...] on filedocumented in this encounter Care Teams Platen Press Operator Relationship Specialty Start Date End Date Santana Sanabria MD PCP - General Internal Medicine 02/23/18 Adam Keller MD Specialist Cardiovascular Disease 04/25/23 10/17/23 Betsey Rey NP Nurse Practitioner Cardiology 04/25/23 Bhavin Fox MD Specialist Cardiology 06/01/23 Christina Vargas NP [address] [place] [phone] Cardiology 09/02/23 documented as of this encounter
--- OUTSIDE RECORDS SUMMARY | 2025-03-04 15:00 | XMS_ITS | Encounter Summary ---
Author Organization [facility] Address [address] [place] [address] Care Team Providers Care Nightclub Manager Name Role Phone Santana Sanabria MD Primary Care Provider Adam Geiger MD Unavailable Unavailable Betsey Rey NP Unavailable [phone] Bhavin Fox MD Unavailable [phone] Christina Vargas NP Unavailable [phone] Encounter Details Date Type Department Care Team Description 09/08/2023 SCAN Medical Records [address] [place] [id number] Abstract, Provider Social History Tobacco Use Types [...] on filedocumented in this encounter Care Teams Nightclub Manager Relationship Specialty Start Date End Date Santana Sanabria MD PCP - General Internal Medicine 02/23/18 Adam Keller MD Specialist Cardiovascular Disease 04/25/23 10/17/23 Betsey Rey NP Nurse Practitioner Cardiology 04/25/23 Bhavin Fox MD Specialist Cardiology 06/01/23 Christina Vargas NP [address] [place] [phone] Cardiology 09/02/23 documented as of this encounter
--- OUTSIDE RECORDS SUMMARY | 2025-03-04 15:00 | XMS_ITS | Encounter Summary ---
Author Organization [email or web address] [facility] Address [address] [place] [address] Care Team Providers Care Cad Specialist Name Role Phone Santana Sanabria MD Primary Care Provider Adam Geiger MD Unavailable Unavailable Betsey Rey MOP WORKER Unavailable [phone] Bhavin Fox MD Unavailable [phone] Christina Vargas MOP WORKER Unavailable [phone] Encounter Details Date Type Department Care Team Description 09/04/2023 SCAN Medical Records [address] [place] [address] Abstract, Provider Social History Tobacco Use Types [...] on filedocumented in this encounter Care Teams Cad Specialist Relationship Specialty Start Date End Date Santana Sanabria MD PCP - General Internal Medicine 02/23/18 Adam Keller MD Specialist Cardiovascular Disease 04/25/23 10/17/23 Betsey Rey NP Nurse Practitioner Cardiology 04/25/23 Bhavin Fox MD Specialist Cardiology 06/01/23 Christina Vargas NP [address] [address] Cardiology 09/02/23 documented as of this encounter
--- OUTSIDE RECORDS SUMMARY | 2025-03-04 15:00 | XMS_ITS | Encounter Summary ---
Author Organization [facility] Address [address] [place] [address] Care Team Providers Care Compo Conveyor Operator Name Role Phone Santana Sanabria MD Primary Care Provider Adam Geiger MD Unavailable Unavailable Betsey Rey NP Unavailable [phone] Bhavin Fox MD Unavailable [phone] Christina Vargas NP Unavailable [phone] Encounter Details Date Type Department Care Team Description 05/12/2023 Hospital Medical Records [address] [place], [place] [address] [place] [address] Social History Tobacco Use Types Packs/Day Years [...] on filedocumented in this encounter Care Teams Compo Conveyor Operator Relationship Specialty Start Date End Date Santana Sanabria MD PCP - General Internal Medicine 02/23/18 Adam Keller MD Specialist Cardiovascular Disease 04/25/23 10/17/23 Betsey Rey NP Nurse Practitioner Cardiology 04/25/23 Bhavin oFx MD Specialist Cardiology 06/01/23 Christina Vargas NP [address] [place] [phone] Cardiology 09/02/23 documented as of this encounter
--- OUTSIDE RECORDS SUMMARY | 2025-03-04 15:00 | XMS_ITS | Encounter Summary ---
Author Organization [facility] Address [address] [place] [address] Care Team Providers Care Metal Bumper Name Role Phone Santana Sanabria MD Primary Care Provider Adam Geiger MD Unavailable Unavailable Betsey Rey WEB MACHINE TENDER Unavailable [phone] Bhavin Fox MD Unavailable [phone] Christina Vargas WEB MACHINE TENDER Unavailable [phone] Encounter Details Date Type Department Care Team Description 08/14/2023 SCAN Medical Records [address] [place] [address] Abstract, Provider Social History Tobacco Use Types [...] on filedocumented in this encounter Care Teams Metal Bumper Relationship Specialty Start Date End Date Santana Sanabria MD PCP - General Internal Medicine 02/23/18 Adam Keller MD Specialist Cardiovascular Disease 04/25/23 10/17/23 Betsey Rey NP Nurse Practitioner Cardiology 04/25/23 Bhavin Fox MD Specialist Cardiology 06/01/23 Christina Vargas NP [address] [place] [phone] Cardiology 09/02/23 documented as of this encounter
--- OUTSIDE RECORDS SUMMARY | 2025-03-04 15:00 | XMS_ITS | Encounter Summary ---
Author Organization [facility] Address [address] [place] [address] Care Team Providers Care Kraft Digester Operator Name Role Phone Santana Sanabria MD Primary Care Provider Betsey Claire ORDER ENTRY ADMINISTRATOR Unavailable Bhavin Fox MD Unavailable [phone] Christina Vargas NP Unavailable [phone] Encounter Details Date Type Department Care Team Description 06/18/2024 Orders Only Cardio PVC [facility] [address] [place] [phone] Default, Provider Social History Tobacco Use Types [...] on filedocumented in this encounter Care Teams Kraft Digester Operator Relationship Specialty Start Date End Date Santana Sanabria MD PCP - General Internal Medicine 02/23/18 Betsey Rey NP Nurse Practitioner Cardiology 04/25/23 Bhavin Fox MD Specialist Cardiology 06/01/23 Christina Vargas NP [address] [address] Cardiology 09/02/23 documented as of this encounter
--- OUTSIDE RECORDS SUMMARY | 2025-03-04 15:00 | XMS_ITS | Encounter Summary ---
Author Organization [employer] [facility] Address [address] [place] [address] Care Team Providers Care Building Serviceman Name Role Phone Santana Sanabria MD Primary Care Provider Adam Geiger MD Unavailable Unavailable Betsey Rey PROMOTIONAL MARKETING AGENT Unavailable [phone] Bhavin Fox MD Unavailable [phone] Christina Vargas NP Unavailable [phone] Encounter Details Date Type Department Care Team Description 01/24/2023 SCAN Medical Records [address] [place] [address] Abstract, Provider Social History Tobacco Use Types [...] suspected to have Coronavirus/COVID-19? No / Unsure 01/25/2023 1:24 PM EDT documented as of this encounter Plan of Treatment Not on file documented as of this encounter Procedures Procedure Name Priority Date/Time Associated Diagnosis Comments OUTSIDE LAB Routine 01/24/2023 OUTSIDE LAB Routine 01/24/2023 documented in this encounter Results * OUTSIDE LAB (01/24/2023) Provider Abstract LAB * OUTSIDE LAB (01/24/2023) Provider Abstract LAB documented in this encounter Visit Diagnoses Not on filedocumented in this encounter Care Teams Building Serviceman Relationship Specialty Start Date End Date Santana Sanabria MD PCP - General Internal Medicine 02/23/18 Adam Keller MD Specialist Cardiovascular Disease 04/25/23 10/17/23 Betsey Rey NP Nurse Practitioner Cardiology 04/25/23 Bhavin Fox MD Specialist Cardiology 06/01/23 Christina Vargas NP [address] [address] Cardiology 09/02/23 documented as of this encounter
--- OUTSIDE RECORDS SUMMARY | 2025-03-04 15:00 | XMS_ITS | Encounter Summary ---
Author Organization [employer] [facility] Address [address] [place] [address] Care Team Providers Care Family Consumer Scientist Name Role Phone Santana Sanabria MD Primary Care Provider Adam Geiger MD Unavailable Unavailable Betsey Rey NP Unavailable [phone] Bhavin Fox MD Unavailable [phone] Christina Vargas NP Unavailable [phone] Encounter Details Date Type Department Care Team Description 10/04/2023 SCAN Medical Records [address] [place] [address] Abstract, Provider Social History Tobacco Use Types [...] on filedocumented in this encounter Care Teams Family Consumer Scientist Relationship Specialty Start Date End Date Santana Sanabria MD PCP - General Internal Medicine 02/23/18 Adam Keller MD Specialist Cardiovascular Disease 04/25/23 10/17/23 Betsey Rey NP Nurse Practitioner Cardiology 04/25/23 Bhavin Fox MD Specialist Cardiology 06/01/23 Christina Vargas NP [address] [address] Cardiology 09/02/23 documented as of this encounter
--- OUTSIDE RECORDS SUMMARY | 2025-03-04 15:00 | XMS_ITS | Encounter Summary ---
Author Organization [facility] Address [address] [place] [address] Care Team Providers Care Draw Bench Operator Helper Name Role Phone Santana Sanabria MD Primary Care Provider Adam Geiger MD Unavailable Unavailable Betsey Rey SENIOR SCIENTIST Unavailable [phone] Bhavin Fox MD Unavailable [phone] Christina Vargas SENIOR SCIENTIST Unavailable [phone] Encounter Details Date Type Department Care Team Description 05/04/2023 Telephone Cardio PVCA Diag Testing 101 300 [facility] [address] [place] [address] Jen Quintanilla PA-C [address] [place] [address] [phone] Social History Tobacco Use Types Packs/Day Years [...] and then PET stress after attempt at yazdanism of NSR to ruleout ischemia. Patient is [...] she is leaving for a trip to [place] next month. documented in this encounter Plan of Treatment Scheduled Orders Name Type Priority Associated Diagnoses Orde r Schedule CO CARDIOVERSION ELECTIVE ARRHYTHMIA EXTERNAL Cardiology Routine Persistent atrial fibrillation (HCC) Ordered: 05/04/2023 documented as of this encounter Visit Diagnoses Diagnosis Paroxysmal atrial fibrillation (HCC)- Primary Atrial fibrillation Persistent atrial fibrillation (HCC) Atrial fibrillation HFrEF (heart failure with reduced ejection fraction) (HCC) Dyspnea on exertion Other dyspnea and respiratory abnormality documented in this encounter Care Teams Draw Bench Operator Helper Relationship Specialty Start Date End Date Santana Sanabria MD PCP - General Internal Medicine 02/23/18 Adam Keller MD Specialist Cardiovascular Disease 04/25/23 10/17/23 Betsey Rey NP Nurse Practitioner Cardiology 04/25/23 Bhavin Fox MD Specialist Cardiology 06/01/23 Christina Vargas NP [address] [phone] Cardiology 09/02/23 documented as of this encounter
--- OUTSIDE RECORDS SUMMARY | 2025-03-04 15:00 | XMS_ITS | Encounter Summary ---
Author Organization [employer] [facility] Address [address] [place] [address] Care Team Providers Care Metal Cut Off Saw Operator Name Role Phone Santana Sanabria MD Primary Care Provider Adam Geiger MD Unavailable Unavailable Betsey Rey SENIOR INFORMATICA DEVELOPER Unavailable [phone] Bhavin Fox MD Unavailable [phone] Christina Vargas SENIOR INFORMATICA DEVELOPER Unavailable Encounter Details Date Type Department Care Team Description 07/21/2023 SCAN Medical Records [address] [place] [address] Abstract, Provider Social History Tobacco Use Types [...] Associated Diagnosis Comments OUTSIDE PLAIN FILM Routine 07/21/2023 documented in this encounter Results * OUTSIDE PLAIN FILM (07/21/2023) Provider Default RADIOLOGY documented in this encounter Visit Diagnoses Not on filedocumented in this encounter Care Teams Metal Cut Off Saw Operator Relationship Specialty Start Date End Date Santana Sanabria MD PCP - General Internal Medicine 02/23/18 Adam Keller MD Specialist Cardiovascular Disease 04/25/23 10/17/23 Betsey Rey NP Nurse Practitioner Cardiology 04/25/23 Bhavin Fox MD Specialist Cardiology 06/01/23 Christina Vargas NP [address] [place] [phone] Cardiology 09/02/23 documented as of this encounter
--- OUTSIDE RECORDS SUMMARY | 2025-03-04 15:00 | XMS_ITS | Encounter Summary ---
Author Organization [facility] Address [address] [place] [address] Care Team Providers Care Strip Feeder Name Role Phone Santana Sanabria MD Primary Care Provider Adam Geiger MD Unavailable Unavailable Betsey Rey AGRICULTURAL EXTENSION EDUCATOR Unavailable [phone] Bhavin Fox MD Unavailable [phone] Christina Vargas AGRICULTURAL EXTENSION EDUCATOR Unavailable Encounter Details Date Type Department Care Team Description 08/09/2023 SCAN Medical Records [address] [place] [address] Abstract, Provider Social History Tobacco Use Types [...] Date/Time Associated Diagnosis Comments OUTSIDE LAB Routine 08/09/2023 documented in this encounter Results * OUTSIDE LAB (08/09/2023) Provider Default LAB documented in this encounter Visit Diagnoses Not on filedocumented in this encounter Care Teams Strip Feeder Relationship Specialty Start Date End Date Santana Sanabria MD PCP - General Internal Medicine 02/23/18 Adam Keller MD Specialist Cardiovascular Disease 04/25/23 10/17/23 Betsey Rey NP Nurse Practitioner Cardiology 04/25/23 Bhavin Fox MD Specialist Cardiology 06/01/23 Christina Vargas NP [address] [place] [address] Cardiology 09/02/23 documented as of this encounter
--- OUTSIDE RECORDS SUMMARY | 2025-03-04 15:00 | XMS_ITS | Encounter Summary ---
Author Organization [employer] [facility] Address [address] [place] [address] Care Team Providers Care Manager Technical Support Name Role Phone Santana Sanabria MD Primary Care Provider Adam Geiger MD Unavailable Unavailable Betsey Rey NP Unavailable [phone] Bhavin Fox MD Unavailable [phone] Christina Vargas NP Unavailable [phone] Encounter Details Date Type Department Care Team Description 05/15/2023 [facility] Cardio PVC Med [address] [facility] [address] [place] [phone] Social History Tobacco Use Types Packs/Day Years [...] filedocumented in this encounter Care Teams Manager Technical Support Relationship Specialty Start Date End Date Santana Sanabria MD PCP - General Internal Medicine 02/23/18 Adam Keller MD Specialist Cardiovascular Disease 04/25/23 10/17/23 Betsey Rey NP Nurse Practitioner Cardiology 04/25/23 Bhavin Fox MD Specialist Cardiology 06/01/23 Christina Vargas NP [address] [address] Cardiology 09/02/23 documented as of this encounter
--- OUTSIDE RECORDS SUMMARY | 2025-03-04 15:00 | XMS_ITS | Encounter Summary ---
Author Organization [employer] [facility] Address [address] [place] [address] Care Team Providers Care Third Grade Teacher Name Role Phone Santana Sanabria MD Primary Care Provider Adam Geiger MD Unavailable Unavailable Betsey Rey NP Unavailable [phone] Bhavin Fox MD Unavailable [phone] Christina Vargas NP Unavailable [phone] Encounter Details Date Type Department Care Team Description 09/01/2023 SCAN Medical Records [address] [place] [id number] [place] [address] Social History Tobacco Use Types Packs/Day Years [...] on filedocumented in this encounter Care Teams Third Grade Teacher Relationship Specialty Start Date End Date Santana Sanabria MD PCP - General Internal Medicine 02/23/18 Adam Keller MD Specialist Cardiovascular Disease 04/25/23 10/17/23 Betsey Rey NP Nurse Practitioner Cardiology 04/25/23 Bhavin Fox MD Specialist Cardiology 06/01/23 Christina Vargas NP [address] [place] [phone] Cardiology 09/02/23 documented as of this encounter
--- OUTSIDE RECORDS SUMMARY | 2025-03-04 15:00 | XMS_ITS | Encounter Summary ---
Author Organization [facility] Address [address] [place] [address] Care Team Providers Care Coin Purse Framer Name Role Phone Santana Sanabria MD Primary Care Provider Betsey Claire NURSERY LABORER Unavailable [phone] Bhavin Fox MD Unavailable [phone] Christina Vargas NP Unavailable [phone] Encounter Details Date Type Department Care Team Description 03/23/2024 Telephone Cardio PVCA Diag Testing 101 300 [facility] [address] [place] [address] [phone] Jen Quintanilla PA-C [address] [place] [address] [phone] Social History Tobacco Use Types Packs/Day Years [...] Telephone Encounter - Jen Quintanilla PA-C - 03/23/2024 12:44 PM EDT Patient called with concerns that she missed her AM medications yesterday including Eliquis. I do not see that she has any planned procedures such as a cardioversion so reassurance was provided. Tells me she just completed a ROCT. She has a follow up appt with Christina this week- documented in this encounter Plan of Treatment Not on file documented as of this encounter Visit Diagnoses Not on filedocumented in this encounter Care Teams Coin Purse Framer Relationship Specialty Start Date End Date Santana Sanabria MD PCP - General Internal Medicine 02/23/18 Betsey Rey NP Nurse Practitioner Cardiology 04/25/23 Bhavin Fox MD Specialist Cardiology 06/01/23 Christina Vargas NP [address] [address] Cardiology 09/02/23 documented as of this encounter
--- OUTSIDE RECORDS SUMMARY | 2025-03-04 15:00 | XMS_ITS | Clinical Summary ---
Author Organization [employer] Address [address] [facility] [address] [place] [address] Care Team Providers Care Switch Repairer Name Role Phone Unavailable Primary Care Provider Unavailabl e Social History Tobacco Use Types Packs/Day Years [...] Panel 1965 SDOH Screening 1965 Sigmoidoscopy 1965 Disability Screening 1965 Alcohol/Substance Use Screening 1975 Tobacco Screening [...] age to complete this topic Meningococcal B Vaccine Aged Out No l onger eligible based on patient's age to complete this topic Meningococcal Vaccine Aged Out No dion charlee eligible based on patient's age to complete this topic RSV under 20 months Aged Out No longe r eligible based on patient's age to complete this topic Rotavirus Vaccines Aged Out No longer eligible based on patient's age to complete this topic [place] [address] [place] [address]
--- OUTSIDE RECORDS SUMMARY | 2025-03-04 15:00 | XMS_ITS | Encounter Summary ---
Author Organization [employer] [facility] Address [address] [place] [address] Care Team Providers Care Ripsaw Grader Name Role Phone Santana Sanabria MD Primary Care Provider Adam Geiger MD Unavailable Unavailable Betsey Rey SPORTS MARKETING SPECIALIST Unavailable [phone] Bhavin Fox MD Unavailable [phone] Christina Vargas SPORTS MARKETING SPECIALIST Unavailable [phone] Encounter Details Date Type Department Care Team Description 06/26/2023 SCAN Medical Records [address] [place] [address] Abstract, Provider Social History Tobacco Use Types [...] on filedocumented in this encounter Care Teams Ripsaw Grader Relationship Specialty Start Date End Date Santana Sanabria MD PCP - General Internal Medicine 02/23/18 Adam Keller MD Specialist Cardiovascular Disease 04/25/23 10/17/23 Betsey Rey NP Nurse Practitioner Cardiology 04/25/23 Bhavin Fox MD Specialist Cardiology 06/01/23 Christina Vargas NP [address] [place] [phone] Cardiology 09/02/23 documented as of this encounter
--- OUTSIDE RECORDS SUMMARY | 2025-03-04 15:00 | XMS_ITS | Encounter Summary ---
Author Organization [employer] [facility] Address [address] [place] [address] Care Team Providers Care Exercise Manager Name Role Phone Santana Sanabria MD Primary Care Provider Adam Geiger MD Unavailable Unavailable Betsey Rey INSPECTOR CRYSTAL Unavailable [phone] Bhavin Fox MD Unavailable Christina Vargas INSPECTOR CRYSTAL Unavailable [phone] Encounter Details Date Type Department Care Team Description 06/28/2023 Orders Only Cardio PVC MedDr [address] [facility] [address] [place] [address] Default, Provider Social History Tobacco Use Types [...] on filedocumented in this encounter Care Teams Exercise Manager Relationship Specialty Start Date End Date Santana Sanabria MD PCP - General Internal Medicine 02/23/18 Adam Keller MD Specialist Cardiovascular Disease 04/25/23 10/17/23 Betsey Rey NP Nurse Practitioner Cardiology 04/25/23 Bhavin Fox MD Specialist Cardiology 06/01/23 Christina Vargas NP [address] [place] [address] Cardiology 09/02/23 documented as of this encounter
--- OUTSIDE RECORDS SUMMARY | 2025-03-04 15:00 | XMS_ITS ---
Author Organization [facility] Address [address] [place] [address] Care Team Providers Care Metal Patternmaker Name Role Phone Santana Sanabria MD Primary Care Provider Rubi Colin Unavailable [phone] Allergies Allergen (clinical drug ingredient) Drug/Non Drug [...] Orally Onc e a day Active Evening Norman Oil 1000 MG as directed Orally Active [...] 04/05/2024 Encounters Encounter Location Date Provider Diagnosis [facility] [place] [address] [place] [address] 04/05/2024 Rubi Cantor Plantar fasciitis of right [...] Detail Notes Injection Tendon Sheath or Fascia 99204, J 0702 Injection - #3 Right Plantar [...] Notes * Mary GARGOB:1965 (58 yo F)Acc No.[id number]:04/05/2024 Progress Note Patient:?Forest Joselin Provider:?Rubi Cantor DPM :1965???Age:58 Y???Sex:Female D ate:04/05/2024 Address:[address] [place], [place] [address] Pcp:Santana Sanabria MD Subjective: * Chief Complaints: [...] 1. ?no Exercise. ?Marital status: . 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 * Medications:?TakingCarvedilo l 25 MG Tablet 1 tablet with food Orally Twice a dayAmiodarone HCl Metoprolol Succinate ER 200 MG Tablet Extended Release 24 Hour 1 tablet Orally Once a dayBiotin 5000 MCG Capsule 1 capsule Orally Once a dayVitamin D3 50 MCG (1999) Capsule 1 capsule Orally Once a dayEvening Norman Oil 1000 MG Capsule as directed Orally [...] 1 capsule Orally Once a dayTaking Evening Norman Oil 1000 MG Capsule as directed Orally [...] Plan: * Treatment: * Procedures:?Injection:?Tendon Sheath or Fascia?73151, J0702 Injection - #3 Right Plantar Fascia [...] 0-1) out of 10 .? * Procedure Codes:?11996 INJ T ENDON SHEATH/LIGAMENT, Modifiers: XS J0702 [...] Cantor DPM Date:? Generated for Reid marina/Jimy/Miky on:?03/04/2025 02:59 PM EDT History and Physical Notes * HPI [...]
--- OUTSIDE RECORDS SUMMARY | 2025-03-04 15:00 | XMS_ITS | Encounter Summary ---
Author Organization [employer] [facility] Address [address] [place] [address] Care Team Providers Care Bone Plant Supervisor Name Role Phone Santana Sanabria MD Primary Care Provider Betsey Claire AOC DIRECTOR COMBAT OPERATIONS OFFICER Unavailable [phone] Bhavin Fox MD Unavailable [phone] Christina Vargas NP Unavailable [phone] Encounter Details Date Type Department Care Team Description 04/10/2024 SCAN Medical Records [address] [place] [address] Aurelia Bowers PA Social History Tobacco Use [...] on filedocumented in this encounter Care Teams Bone Plant Supervisor Relationship Specialty Start Date End Date Santana Sanabria MD PCP - General Internal Medicine 02/23/18 Betsey Rey NP Nurse Practitioner Cardiology 04/25/23 Bhavin Fox MD Specialist Cardiology 06/01/23 Christina Vargas NP [address] [address] Cardiology 09/02/23 documented as of this encounter
--- OUTSIDE RECORDS SUMMARY | 2025-03-04 15:00 | XMS_ITS ---
Author Organization [facility] Address [address] [place] [address] Care Team Providers Care Garnishment Specialist Name Role Phone Santana Sanabria MD Primary Care Provider Rubi Colin Unavailable [phone] Allergies Allergen (clinical drug ingredient) Drug/Non Drug [...] tablet Orally Once a day Not-Taking Evening [place] Oil 1000 MG as directed Orally Active [...] 10/11/2023 Encounters Encounter Location Date Provider Diagnosis [facility] [place] [address] [place] [address] 10/11/2023 Rubi Cantor Plantar fasciitis of right [...] Notes * Mary GARGOB:1965 (58 yo F)Acc No.[id number]:10/11/2023 Progress Note Patient:Joselin Godinez Provider:?Rubi Cantor DPM :1965???Age:58 Y???Sex:Female D ate:10/11/2023 Address:[address] [place], [place] [address] Pcp:Santana Sanabria MD Subjective: * Chief Complaints: [...] 1. ?no Exercise. ?Marital status: . ?Occupation: [employer]. * Medications:?TakingAmiodaron e HCl Metoprolol Succinate ER 200 MG Tablet Extended Release 24 Hour 1 tablet Orally Once a dayBiotin 5000 MCG Capsule 1 capsule Orally Once a dayVitamin D3 50 MCG (1999) Capsule 1 capsule Orally Once a dayEvening [place] Oil 1000 MG Capsule as directed Orally [...] 1 capsule Orally Once a dayTaking Evening [place] Oil 1000 MG Capsule as directed Orally [...] DPM Date:? Generated for Reid marina/Jimy/Miky on:?03/04/2025 03:00 PM EDT History and Physical Notes * [...]
--- OUTSIDE RECORDS SUMMARY | 2025-03-04 15:00 | XMS_ITS | Encounter Summary ---
Author Organization [employer] [facility] Address [address] [place] [address] Care Team Providers Care Stallion Manager Name Role Phone Santana Sanabria MD Primary Care Provider Adam Geiger MD Unavailable Unavailable Betsey Rey SOLAR BUSINESS DEVELOPER Unavailable [phone] Bhavin Fox MD Unavailable [phone] Christina Vargas SOLAR BUSINESS DEVELOPER Unavailable [phone] Reason for Visit * Reason Onset Date Comments hospital follow up 05/08/2023 Encounter Details Date Type Department Care Team Description 05/08/2023 Telephone Cardio PVC [facility] [address] [place] [address] Adam Keller MD hospital follow [...] calling in states she was admitted to [facility] on 05/08/23 for A-FIB and trouble regulating BP. Patient was discharged and will need a hospital follow up. documented in this encounter Plan of Treatment Not on file documented as of this encounter Visit Diagnoses Not on filedocumented in this encounter Care Teams Stallion Manager Relationship Specialty Start Date End Date Santana Sanabria MD PCP - General Internal Medicine 02/23/18 Adam Keller MD Specialist Cardiovascular Disease 04/25/23 10/17/23 Betsey Rey NP Nurse Practitioner Cardiology 04/25/23 Bhavin Fox MD Specialist Cardiology 06/01/23 Christina Vargas NP [address] [address] Cardiology 09/02/23 documented as of this encounter
--- OUTSIDE RECORDS SUMMARY | 2025-03-04 15:00 | XMS_ITS | Encounter Summary ---
Author [facility] Address [address] [place] [address] Care Team Providers Care Ticket Sales Agent Name Role Phone Santana Sanabria MD Primary Care Provider Betsey Claire NP Unavailable Bhavin Fox MD Unavailable [phone] Christina Vargas NP Unavailable [phone] Encounter Details Date Type Department Care Team Description 10/30/2023 Telephone Cardio PVC [facility] [address] [facility] [address] [place] [address] Jack Miller NP [address] [place] [address] [phone] Social History Tobacco Use Types Packs/Day Years [...] - 10/30/2023 4:32 PM EST Patient contacted radio station operator service. Blood pressurs have been in 170s [...] hypertension documented in this encounter Care Teams Ticket Sales Agent Relationship Specialty Start Date End Date Santana Sanabria MD PCP - General Internal Medicine 02/23/18 Betsey Rey NP Nurse Practitioner Cardiology 04/25/23 Bhavin Fox MD Specialist Cardiology 06/01/23 Christina Vargas NP [address] [place] [address] Cardiology 09/02/23 documented as of this encounter
--- OUTSIDE RECORDS SUMMARY | 2025-03-04 15:01 | XMS_ITS | Clinical Summary ---
Author Organization [facility] [employer] Address [address] [place] [address] Phone Care Team Providers Care Supervisor Boiler Repair Name Role Phone Maty Johnson MD Primary Care Provider Allergies Active Allergy Reactions Criticality Noted Date Comments Adhesive Tape-Silicones 10/18/2023 Other Reaction(s): Rash/Dermatitis Amoxicillin Itching 04/03/2018 Clarithromycin Nausea And Vomiting 04/03/2018 Doxycycline Nausea And Vomiting 04/03/2018 Levofloxacin Nausea And Vomiting 02/19/2019 Penicillins Itching 02/19/2019 Medications cetirizine (ZyrTEC) 10 mg capsule Take 1 Capsule by mouth daily. Active cholecalcifero l (VITAMIN D-3) 50 mcg (2,000 unit) capsule Take by mouth daily. Active sacubitriL-radha sartan (Entresto) 97-103 mg per tablet TAKE 1 TABLET BY MOUTH TWICE DAILY 4 Active B complex-vitami n C-folic acid (ARAM-MADDIE) 1-60-300 mg-mg-mcg tablet Take 1 tablet by mouth 1 (one) time each day with breakfast. Active omeprazole OTC (PriLOSEC OTC) 20 mg EC tablet Take 1 tablet (20 mg total) by mouth 1 (one) time each day. Do not crush, chew, or split. Active dronedarone (Multaq) 400 mg tablet Take 1 tablet (400 mg total) by mouth 2 (two) times a day. 180 tablet 2 4 Active apixaban (ELIQUIS) 5 mg tablet Take 1 tablet (5 mg total) by mouth 2 (two) times a day. 180 tablet 2 4 Active semaglutide (WEGOVY SUBQ) Inject under the skin every 7 (seven) days. Active spironolactone (ALDACTONE) 25 mg tablet Take 0.5 tablets (12.5 mg total) by mouth 1 (one) time each day. 45 tablet 3 5 Active spironolactone (ALDACTONE) 25 mg tablet Take 0.5 tablets (12.5 mg total) by mouth 1 (one) time each day. 5 02/12/20 25 Discontinued Active Problems Problem Noted Date Diagnosed Date HFrEF (heart failure with re duced ejection fraction) (CMS/[facility] V24, CMS/[facility] V28) 02/06/2023 Assessment & Plan (10/02/2024 8:59 AM [...] we may add back carvedilol. Atrial fibrillation (CMS/HCC V24, CMS/[facility] V28) 0 01/20/2023 Overview (01/21/2025): Paroxysmal atrial fibrillation with an associated cardiomyopathy detected in 2019. She was on amiodarone briefly and ultimately had an ablation with cryoballoon ablation in August 2023. Recurrent atrial fibrillation in the fall 2023 with self termination and she was started on Multaq. Echo showed normalization of LVEF on Entresto and Multaq. Anticoagulated with Eliquis. [id number] score of 2 for age and female gender Assessment & Plan (01/21/2025 1:34 PM EDT): 59-year-old female with paroxysmal atrial fibrillation and a tachycardia induced cardiomyopathy. She is status post cryoballoon ablation in September 07 with an episode of atrial fibrillation 1 year later. I explained that this likely suggest a pulmonary vein has become active and we went through the options which include continued pharmacologic suppression with Multaq, repeat ablation or coming off of Multaq and seeing whether she has more recurrences. We also talked about the pros and cons of continued anticoagulation. Her overall stroke risk is fairly modest with her BPI5JP2-MTOm score of 2 but she prefers not to rock the boat and we will continue all of her current medicines while she focuses on maintaining a healthy diet and losing weight with the help of Wegovy. We will potentially trial off the medication if she is successful in losing a significant amount of weight. Assessment & Plan (10/02/2024 9:00 AM EST): [...] be started back on Eliquis for anticoagulation [id number] VASc score of 3 representing a 3.2% [...] ovary 02/19/2019 Overview (09/10/2024): Advised to see INLETTER, no further information in transferred notes Allergic rhinitis 02/19/2019 Ascending aorta dilation (CMS/HCC V24) 9 Overview (10/02/2024): Chronic 3.9 cm aneurysmal dilation of ascending thoracic aorta, stable on CTA 12/10/2018 Assessment & Plan (01/21/2025 1:35 PM EDT): Mildly dilated ascending aorta. Continue to follow conservatively. Treat blood pressure judiciously. She is not a smoker. Assessment & Plan (10/02/2024 8:28 AM EST): [...] be reintroduced. Morbid obesity with BMI of 4 0.0-44.9, adult (CMS/HCC V24, CMS/HCC V28) 04/03/2018 Resolved Problems Problem Noted Date Diagnosed Date [...] Her father in his 90s from an [place]. We will arrange for a stress echocardiogram [...] Encounters Date Type Department Care Team Description 01/24/2025 Telephone [facility] Cardiology [facility] [address] [place] [address] Maty Johnson MD Medical Records 01/24/2025 [address] [facility] [address] [place] [address] Betsey Rey NP Medical Records 01/21/2025 1:00 PM EDT Office Visit [facility] [address] [place] [address] Bhavin Fox MD Atrial fibrillation, unspecified type (CMS/HCC V24, CMS/HCC V28) (Primary Dx); Ascending aorta dilation (CMS/HCC V24) 01/21/2025 Telephone [facility] [address] [place] [address] Bhavin Fox MD called pt to change time of her 01/21/[address] Fox 01/13/2025 Telephone [facility] [address] [facility] [address] [place] [address] Maty Johnson MD Medical Records 12/18/2024 Telephone [facility] Cardiology [facility] [address] [place] [address] Betsey Rey, JOSE Letter for School/Work (DOT Physical ) 12/09/[address] [facility] [address] [place] [address] Betsey Rey NP Medication (Eliquis ) 12/05/2024 Telephone [facility] [address] [place] [address] Janna Mueller RN Lab Results from Last 3 Months Surgical History Surgery Date Site/Laterality Comments COLONOSCOPY 05/2018 PROCEDURE: HISTORICAL COLONOSCOPY; COMMENT: Dr Adam, tubular adenoma, repeat one year SECTION PROCEDURE: HISTORICAL DELIVERY TUBAL LIGATION PROCEDURE: HISTORICAL TUBAL LIGATION CHOLECYSTECTOMY PROCEDURE: HISTORICAL CHOLECYSTECTOMY Medical History Medical History Date Comments Abnormal ultrasound of ovary 02/19/2019 DX: Abnormal ultrasound of ovary; COMMENT: Advised to see INLETTER, no further information in transferred notes Allergic rhinitis 02/19/2019 DX:Allergic rh initis Ascending aorta dilation (CM S/HCC V24) 02/19/2019 DX:Ascending aorta dilation (HCC); COMMENT: Chronic 3.9 cm aneurysmal dilation of ascending thoracic aorta, stable on CTA 12/10/2018 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 DX:Be nign neoplasm of sternum; COMMENT: 12/2015 DDD (degenerative disc disea se), lumbar 02/19/2019 DX:DDD (degenerative disc di sease), lumbar Depression 02/19/2019 DX:Depression HTN (hypertension) 04/03/2018 DX:HTN (hyper tension) Morbid obesity with BMI of 4 0.0-44.9, adult (CMS/HCC V24, CMS/HCC V28) 04/03/2018 DX:Morbid obesity wit h BMI of 40.0-44.9, adult (HCC) Nummular eczematous dermatitis 02/19/2019 D X:Nummular eczematous [...] Sign Reading Time Taken Comments Blood Pressure 130/90 01/21/2025 12:47 PM EDT Pulse 76 01/21/2025 12:47 PM EDT Temperature - - Respiratory Rate - - Oxygen Saturation 96% 01/21/2025 12:47 PM EDT Inhaled Oxygen Concentration - - Weight 122 kg (269 lb) 01/21/2025 12:47 PM EDT Height 167.6 cm (5' 6 ) 01/21/2025 12:47 PM EDT Body Mass Index 43.42 01/21/2025 12:47 PM EDT Plan of Treatment Health Maintenance [...] 60-74 years 1-dose series) 2023 COVID-19 Vaccine (5 - 2024-25 season) 2024 08/01/2022, 10/23/2021, 01/31/2021, Additional history [...] Procedure Name Priority Date/Time Associated Diagnosis Comments ECG 12-LEAD Routine 01/21/2025 1:35 PM EDT Atrial fibrillation, unspecified type (CMS/HCC V24, CMS/HCC V28) BASIC METABOLIC PANEL Routine 12/16/2024 9:51 AM EST Elevated serum creatinine HM COLONOSCOPY Routine 05/16/2018 from Last 3 Months or Most Recently Relevant to Health Maintenance Results * ECG 12 lead (01/21/2025 1:35 PM EDT) Ventricular Rate ECG 76 BPM GEMUSE Atrial Rate 76 BPM GEMUSE QRS Duration 102 ms GEMUSE Q-T Interval 420 ms GEMUSE QTc 472 ms GEMUSE R Story 33 degrees GEMUSE T Story 20 degrees GEMUSE ECG Interpretation Normal sinus rhythm Normal ECG When compared with ECG of 02-OCT-2024 08:18, Nonspecific T wave abnormality has replaced inverted T waves in Inferior leads Confirmed by Jaden FOX JOHN ([id number]) on 01/27/2025 3:47:26 PM GEMUSE 01/21/2025 12:5 2 PM EDT 01/27/2025 3:47 PM EDT us Bhavin Fox MD ECG ORDERABLES Edited Result - Final GEMUSE * (ABNORMAL) Basic metabolic panel (12/16/2024 9:51 AM EST) Pathologist [facility] Glucose 90 70 - 99 mg/dL [facility] [...] AM EST Performed at: ??01 - [facility] [address] ??[id number] Curing Pickling Packer: Bhakti House MD, Phone: ??[phone] us Betsey Rey MARKETING PROFESSOR LAB BLOOD ORDERABLES Final R esult [facility] 1 * Hm Colonoscopy (05/16/2018) HM Colonoscopy No Interpretation , Abstracted Anatomical Region Laterality Modality Other us Historical Provider HEALTH MAINTENANCE Final Result from Last 3 Months or Most Recently Relevant to Health Maintenance Insurance [facility] Care Teams Supervisor Boiler Repair Relationship Specialty Start Date End Date Maty Johnson MD [address] [place] [address] PCP - General Internal Medicine 01/21/25
== END 2025-03-04 14:38 | disposition home or self-care (01) ==
LOC: HO.HPS 13:46
PROVIDERS: PCP Internal Medicine; Visit Provider Internal Medicine Pulmonary Disease
DX: Z91.09 Other allergy status, other than to drugs and biological substances (principal); R06.09 Other forms of dyspnea
CPT/HCPCS: 99204

== ENCOUNTER 2025-03-19 11:20 | Outpatient (REF) | payer OTHER, SELFPAY ==
--- NOTE | 2025-03-19 11:24 | PFT_ITS ---
Flows: FEV1: 108 % of predicted at 2.83 L FVC: 106 % of predicted at 3.55 L FEV1/FVC: 80 % Bronchodilator response: Absent Volumes: Total lung capacity: 92 % of predicted at 5.04 L Residual volume: 71 % of predicted at 1.34 L Slow vital capacity: 104 % of predicted at 3.69 L Expiratory reserve volume: 57 % of predicted at 0.51 L Diffusion capacity: Normal Impression: No obstructive or restrictive ventilatory defect. No bronchodilator response. Decreased expiratory reserve volume suggests extrathoracic restriction likely secondary to abdominal obesity. MTDD
[2025-03-19 12:03] VITALS: PULSE 79; O2SAT 97
--- OUTSIDE RECORDS SUMMARY | 2025-03-19 12:17 | XMS_ITS | Clinical Summary ---
Author Organization [employer] Address [address] [place] [address] [address] [place] [address] Care Team Providers Care Used Building Materials Yard Worker Name Role Phone Unavailable Primary Care Provider [...] - 2023-2 5 season) 2024 Influenza Vaccine (Season Ended) 2025 HIB Vaccines Aged Out No longer eligi [...] patient's age to complete this topic [place] [address] [address]
== END 2025-03-19 11:21 | disposition home or self-care (01) ==
LOC: HO.RESP 11:20
PROVIDERS: PCP Internal Medicine; Visit Provider Internal Medicine Pulmonary Disease
DX: R06.09 Other forms of dyspnea (principal)
CPT/HCPCS: 94010; 94640; 94727; 94729

== ENCOUNTER → 2025-03-19 11:24 | Outpatient (BNV) | payer OTHER, SELFPAY | PROVIDERS: PCP Internal Medicine; Visit Provider Internal Medicine Pulmonary Disease | DX: R06.00 Dyspnea, unspecified (principal) | CPT/HCPCS: 94060; 94727; 94729 ==

== ENCOUNTER 2025-03-25 08:34 | Outpatient (REF) | payer OTHER, SELFPAY ==
[2025-03-25 12:10] LABS: Influenza A PCR NEGATIVE (Negative); Influenza B PCR NEGATIVE (Negative); Resp Syncy Virus RNA Qual PCR NEGATIVE (Negative); SARS COV2 PCR INHOUSE NEGATIVE (Negative)
== END 2025-03-25 08:35 | disposition home or self-care (01) ==
LOC: HO.LAB 08:34
PROVIDERS: PCP Internal Medicine; Visit Provider Physician Assistant
DX: J01.10 Acute frontal sinusitis, unspecified (principal); R09.89 Other specified symptoms and signs involving the circulatory and respiratory systems
CPT/HCPCS: 0241U; 99212

== ENCOUNTER 2025-03-25 08:34 | Outpatient (AMB) | payer OTHER, SELFPAY ==
[2025-03-25 08:40] VITALS: BP 124/84; PULSE 68; TEMP 36.7; O2SAT 97
--- NOTE | 2025-03-25 08:40 | AM.OFFWIN_ITS ---
Intake Vital Signs 03/25/25 08:40 Weight 257 lb BP 124/84 Blood Pressure Location Rt brachial Position Sitting Pulse 68 Pulse Source Pulse Oximeter Temp 98.1 F Temp Source Oral Pulse Oximetry (%) 97 Oxygen Delivery Method Room Air Intake Visit Reasons: EP ?sinus infection Intake Note: Patient here for headache, sneezing, coughing and chest congestion that started off monday with a sore throat Patient Tobacco Use Status: Never used Tobacco Allergies amoxicillin Allergy (Unknown, Verified 03/25/25 08:41) Unknown doxycycline Allergy (Unknown, Verified 03/25/25 08:41) Unknown clarithromycin [From Biaxin] Allergy (Verified 03/25/25 08:41) Unknown Do you need a note to return to daycare/school/sports/work: Yes HPI HPI Comments History of Present Illness Details History - The patient is a 59-year-old female pr esenting with acute upper respiratory tract symptoms. - Symptoms include significant coughing, nasal congestion, ear pain, teeth pain, head congestion and sneezing, persisting for 4 days, worsening today when she woke up. - A prior exposure to albuterol on 03/19 r esulted in heightened symptom severity according to the patient, although this is atypical as the medication generally aids in alleviating breathing difficulties. - The patient experiences negative side effects from rnha-gle-[id number] cold/flu m edications including insomnia. - She describes sinus-related facial delmi n that is consistent with sinusitis, and bkvy-bel-xifmvma analgesics have provided no relief. - There is no evidence of fever, but the patient reports headache and a sense of malaise which keeps her from restful sleep. - Denies hx of asthma or COPD and had PF Ts on 03/19, following up with pulm later this week. Physical Exam General: Cooperative, healthy appearing, comfortable and no acute distress Orientation/consciousness: Patient oriented x3 Limitations: No limitations Head: Normal to inspection Ears: Hearing grossly normal bilaterally, external ears normal and TM's normal bilaterally Nose: Normal external nose present, Normal nares present and No nasal discharge present Face and sinus: Normal facial exam and frontal sinuses TTP Mouth: Normal oral and palatal mucosa present and moist mucous membranes Throat: Yes tonsils normal, Yes uvula midline. Posterior oropharynx erythema, no exudates Eyes: Appearance normal, both eyes and all related structures Neck: Normal visual inspection Respiratory: Clear to auscultation bilaterally. Normal respiratory effort, able to speak in complete sentences, Actively coughing, no respiratory distress, not tachypneic, no tripod positioning and no use of accessory muscles Cardiovascular: Regular rate and rhythm. Normal S1 and S2 Skin: No rashes or lesions noted Neuro: Patient oriented x3 Extremities: Normal to inspection and Yes no clubbing, cyanosis or edema [facility] Medical History (Updated 03/25/25 @ 09:06 by Elinor Foley PA-C) History of heart failure Morbid obesity Surgical History (Updated 01/15/25 @ 00:38 by Maty Johnson MD) S/P cryoablation of arrhythmia No pertinent past surgical history Social History Housing: House Patient Tobacco Use Status: Never used Tobacco e-Cigarette/Vaping Use: Never Used service: No Current occupational status: employed Cognitive needs: No Hearing needs: No Vision needs: Yes Review of Systems Const All systems reviewed & are unremarkable except as noted in HPI and below Physical Exam Vital Signs: Last Vital Signs Temp 98.1 F 03/25/25 08:40 Pulse 68 03/25/25 08:40 BP 124/84 03/25/25 08:40 Pulse Ox 93 03/25/25 08:40 Oxygen Delivery Method Room Air 03/25/25 08:40 Assessment & Plan Assessment & Plan (1) Sinusitis, acute: Code(s): J01.90 - Acute sinusitis, unspecified Qualifiers: Sinusitis location: frontal Recurrence: non-recurrent Qualified Code(s): J01.10 - Acute frontal sinusitis, unspecified Plan: VSS, pt well appearing and PE remarkable for frontal sinus tenderness. - Conducted testing for COVID-19, influenza, and RSV to identify potential viral pathogens. - Tessalon Perles prescribed to provide nocturnal cough relief. - Advised to use either Flonase or saline nasal rinse to decrease nasal congestion and alleviate sinus pressure, with specific instructions about safe Neti pot use. - If symptoms persist without improvement in 2-3 days, have sent Cefuroxime which pt should start (if viral testing is negative) while halting Omeprazole therapy during the course. - Await test results to confirm viral or bacterial etiology and direct treatment accordingly. Patient was informed and verbally consented to the use of an ambient scribe for clinic note documentation during this visit Orders: Orders SARS-CoV2/FLU/RSV Today R09.89 - Other specified symptoms and signs involving the circulatory and respiratory systems Medications: New cefuroxime axetil 500 mg PO Q12H 10 tabs 0RF benzonatate 200 mg PO BEDTIME PRN 10 caps 0RF cough Coding Level of Care Code Est Pt Level 3 (62619) Diagnoses Acute non-recurrent frontal sinusitis J01.10 Sinusitis location: frontal Recurrence: non-recurrent
== END 2025-03-25 09:08 | disposition home or self-care (01) ==
PROVIDERS: PCP Internal Medicine; Visit Provider Physician Assistant
DX: J01.10 Acute frontal sinusitis, unspecified (principal)

== ENCOUNTER 2025-03-28 13:51 | Outpatient (AMB) | payer OTHER, SELFPAY ==
[2025-03-28 13:57] VITALS: BP 142/94; PULSE 77; O2SAT 97; BMI 41.5
--- NOTE | 2025-03-28 13:57 | A.OFFVIS_ITS ---
Vital Signs 03/28/25 13:57 Height 5 ft 6 in Weight 257 lb BMI 41.5 BP 142/94 H Blood Pressure Location Rt brachial Position Sitting Pulse 77 Pulse Source Pulse Oximeter Pulse Oximetry (%) 97 Oxygen Delivery Method Room Air Intake Visit Reasons: Pulmonary nodules Allergies amoxicillin Allergy (Unknown, Verified 03/28/25 14:13) Unknown doxycycline Allergy (Unknown, Verified 03/28/25 14:13) Unknown clarithromycin [From Biaxin] Allergy (Verified 03/28/25 14:13) Unknown HPI HPI Pulmonary nodules: Details: 59-year-old lady, lifetime nonsmoker, previously seen for incidental finding of pulmonary nodules that were monitored and was stable for 36 months. Now patient comes complain of dyspnea on exertion. Of note she does have underlying AFib and increasing weight. Patient stated her symptoms do have seasonal variation, but no significant diurnal variation. After the last office visit patient had pulmonary function test that was essentially normal and her allergy workup has been also essentially normal. Patient did develop a viral upper respiratory infection from which she is recov ering. [facility] Medical History (Updated 03/25/25 @ 09:06 by Elinor Foley PA-C) History of heart failure Morbid obesity Surgical History (Updated 01/15/25 @ 00:38 by Maty Johnson MD) S/P cryoablation of arrhythmia No pertinent past surgical history Social History Housing: House Patient Tobacco Use Status: Never used Tobacco e-Cigarette/Vaping Use: Never Used service: No Current occupational status: employed Cognitive needs: No Hearing needs: No Vision needs: Yes Review of Systems Const Denies daytime sleepiness, Denies excessive sweating, Denies fatigue, Denies fever(s), Denies lethargy, Denies malaise, Denies night sweats, Denies snoring and Denies weight loss Eyes Denies blurry vision and Denies itchy eyes ENT Denies nasal congestion, Denies post nasal drip, Denies sinus pain, Denies sinus pressure and Denies other ( Thrush) Card Denies chest pain, Denies pedal edema, Denies dyspnea, Reports dyspnea on exertion, Denies orthopnea and Denies paroxysmal nocturnal dyspnea Resp Reports cough, Denies hemoptysis, Denies excessive phlegm production, Denies dyspnea, Reports dyspnea on exertion, Denies snoring and Denies wheezing GI Denies abdominal pain and Denies heartburn Musc Denies myalgias, Denies arthralgias and Denies joint swelling Skin/Breast Denies rash Neuro Denies memory loss and Denies seizure-like activity Psych Denies abnormal sleep pattern, Denies anxiety and Denies memory loss Endo Denies excessive sweating, Denies fatigue and Denies heat intolerance Felix/Lymph Denies easy bruising Aller/Immun Denies itchy eyes, Denies seasonal rhinorrhea and Denies wheezing Physical Exam Vital Signs: Last Vital Signs Pulse 77 03/28/25 13:57 BP 142/94 H 03/28/25 13:57 Pulse Ox 97 03/28/25 13:57 Oxygen Delivery Method Room Air 03/28/25 13:57 BMI result Body Mass Index 41.5 Const General: no acute distress and alert Nutritional Appearance: obese Orientation/consciousness: Other orientation findings ( oriented) HEENT Head: Yes atraumatic Eyes General: appearance normal, both eyes and all related structures Sclerae: sclerae normal EOM: EOMs intact bilaterally Neck Neck: Yes supple Lymphatic: no lymphadenopathy noted Resp Effort & Inspection: normal respiratory effort and no use of accessory muscles Auscultation: clear to auscultation bilaterally Cardio Rate: regular rate Rhythm: regular rhythm Heart sounds: no gallops, no murmurs and no rubs Skin General skin exam: other ( warm) Extrem General: No clubbing, No cyanosis and No edema Assessment & Plan Assessment & Plan (1) Environmental allergies: Code(s): Z91.09 - Other allergy status, other than to drugs and biological substances Category: Medical (2) Dyspnea on exertion: Code(s): R06.09 - Other forms of dyspnea Category: Medical Plan Results of pulmonary function testing and allergic workup reviewed, at this time there appears to be no pulmonary or allergy related component to her symptoms. Coding Level of Care Code Est Pt Level 4 (89053) Diagnoses Environmental allergies Z91.09 Dyspnea on exertion R06.09
--- OUTSIDE RECORDS SUMMARY | 2025-03-28 13:57 | XMS_ITS | Encounter Summary ---
Author Organization [facility] Address [address] [place] [address] Care Team Providers Care Director Social Welfare Name Role Phone Santana Sanabria MD Primary Care Provider Adam Geiger MD Unavailable Unavailable Betsey Rey CORPORATE QUALITY ENGINEER Unavailable [phone] Bhavin Fox MD Unavailable [phone] Christina Vargas CORPORATE QUALITY ENGINEER Unavailable [phone] Reason for Visit * Reason Onset Date Comments Hospital Procedure 05/09/2023 Cardioversion 05.12.23 Encounter Details Date Type Department Care Team Description 05/09/2023 Telephone Cardio PVC POC [address] [facility] [address] [place] [address] Jen Quintanilla PA-C [address] [place], [place] [id number] Hospital Procedure (Cardioversion 05.12.23) Social History Tobacco [...] encounter Miscellaneous Notes * Telephone Encounter - yBron Corado C.M.A. - 05/09/2023 1:31 PM EDT Spoke with patient about procedure. Scheduled on 05.12.[address] Hogan at [facility] at 1:30pm Arrival time 12:30pm Medication instructions [...] the procedure Patient is to report to [facility] to the 3rd floor Patient agreed to all inst and date, time and location above via phone while booking procedure. Booking confirmation is [id number] via phone by Krystal documented in this encounter Plan of Treatment Not on file documented as of this encounter Visit Diagnoses Not on filedocumented in this encounter Care Teams Director Social Welfare Relationship Specialty Start Date End Date Santana Sanabria MD PCP - General Internal Medicine 02/23/18 Adam Keller MD Specialist Cardiovascular Disease 04/25/23 10/17/23 Betsey Rey NP Nurse Practitioner Cardiology 04/25/23 Bhavin Fox MD Specialist Cardiology 06/01/23 Christina Vargas NP [address] [address] Cardiology 09/02/23 documented as of this encounter
== END 2025-03-28 14:23 | disposition home or self-care (01) ==
LOC: HO.HPS 13:52
PROVIDERS: PCP Internal Medicine; Visit Provider Internal Medicine Pulmonary Disease
DX: Z91.09 Other allergy status, other than to drugs and biological substances (principal); R06.09 Other forms of dyspnea
CPT/HCPCS: 99214

== ENCOUNTER → 2025-03-28 13:51 | Outpatient (BNVA) | payer OTHER, SELFPAY | PROVIDERS: PCP Internal Medicine; Visit Provider Internal Medicine Pulmonary Disease | DX: Z71.2 Person consulting for explanation of examination or test findings (principal); R91.1 Solitary pulmonary nodule; R06.09 Other forms of dyspnea; Z91.09 Other allergy status, other than to drugs and biological substances; I48.91 Unspecified atrial fibrillation; J06.9 Acute upper respiratory infection, unspecified | CPT/HCPCS: 99212 ==

== ENCOUNTER 2025-04-11 09:47 | Outpatient (AMB) | payer OTHER, SELFPAY ==
--- NOTE | 2025-04-11 09:43 | A.OFFPC_ITS ---
Intake Visit Reasons: medication management/change Allergies amoxicillin Allergy (Unknown, Verified 04/11/25 09:57) Unknown doxycycline Allergy (Unknown, Verified 04/11/25 09:57) Unknown clarithromycin (From Biaxin) Allergy (Verified 04/11/25 09:57) Unknown Medication List - Last Reconciled 04/11/25 by Maty Johnson MD apixaban (Eliquis) mg PO B complex-vitamin C-folic acid 400 mcg tabs PO cetirizine (All Day Allergy (cetirizine)) 10 mg PO DAILY PRN cholecalciferol (vitamin D3) 125 mcg PO DAILY dronedarone (Multaq) 400 mg PO BID omeprazole magnesium 20 mg PO DAILY sacubitril-valsartan 97-103 mg (Entresto) 1 tab PO BID spironolactone 12.5 mg PO DAILY Tobacco use date assessed: 04/11/25 Dental Screening Dental Screen Date: 04/11/25 Did you have a dental visit in the last 12 months?: Yes Did you have a dental problem in the last 6 months where you did not have access to dental care?: No Was dental information given to patient?: Patient has dentist HPI medication management/change HPI Details 59-year-old lady with history of paroxys mal atrial fibrillation, hypertension, and heart failure as well as obesity, here today for follow-up. She was using Wegovy for the last 2 months, for assistance with losing weight, but insurance has changed coverage and now is not covering her current medication. However her new insurance as approve her use of Zepbound to replace Wegovy. She has lost approximately 11 lb in the last 2 months . Denies any side effects encountered from taking previous medication. [facility] Medical History History of heart failure Morbid obesity Surgical History S/P cryoablation of arrhythmia No pertinent past surgical history Social History Housing: House Patient Tobacco Use Status: Never used Tobacco e-Cigarette/Vaping Use: Never Used service: No Current occupational status: employed Cognitive needs: No Hearing needs: No Vision needs: Yes Questionnaire Thrive Questionnaire Date Thrive assessed: 01/06/25 DAVID-7 AMB Questionnaire DAVID-7 Date DAVID - 7 assessed: 01/13/25 Source: Developed by Drs. Misbah Arevalo, Patricia Becerra, Lalito Strickland and colleagues, with an educational feroz from [employer]. Review of Systems Const Denies daytime sleepiness, Denies excessive sweating, Denies fatigue, Denies fever(s), Denies lethargy, Denies night sweats and Denies snoring Eyes Details: Positive myopia, goes to [facility], up-to-date ENT Denies nasal congestion, Denies post nasal drip and Denies sinus pain Card Denies chest pain, Denies pedal edema, Denies dyspnea and Denies orthopnea Resp Denies cough, Denies hemoptysis, Denies excessive phlegm production, Denies dyspnea, Denies snoring and Denies wheezing GI Reports no additional complaints Reports no additional complaints Musc Denies myalgias, Denies arthralgias and Denies joint swelling Skin/Breast Denies rash Neuro Reports no additional complaints Psych Denies abnormal sleep pattern and Denies anxiety Endo Denies excessive sweating, Denies fatigue and Denies heat intolerance Felix/Lymph Denies easy bruising Aller/Immun Denies seasonal rhinorrhea and Denies wheezing Physical exam (Primary Care) Tobacco/Smoking Status: Tobacco use Status Tobacco use date assessed 04/11/25 04/11/25 09:47 Patient Tobacco Use Status Never used Tobacco 04/11/25 09:47 e-Cigarette/Vaping Use Never Used 04/11/25 09:47 Thrive Assessment: Date of Thrive Assessment Date Thrive assessed 01/06/25 04/11/25 09:47 Telehealth Telehealth Telehealth Platform: [facility] Location of provider rendering services: practice address Location of patient: address on file Patient Identification confirmed using: Name, : Yes Telehealth method: video Patient verbally consented to treatment: Yes Patient verbally consented to billing insurance company: Yes Patient informed of any privacy concerns related to visit: Yes Minutes spent on Phone/Video with Pt.: 15 Coding Level of Care Code Tele Est Pt Level 4 (97674) Diagnoses Morbid obesity E66.01 History of heart failure Z86.79 Paroxysmal A-fib I48.0 Assessment & Plan Assessment & Plan (1) Morbid obesity: Code(s): E66.01 - Morbid (severe) obesity due to excess calories Category: Medical Plan: Wegovy has been discontinued, and prescription sent for Zepbound, will be started at 2.5 mg, injected subcutaneously once a week. Discussed possible adverse reactions on taking the medication, and proper way of administering it. Encouraged to continue adherence to healthy eating habits and getting regular exercise. Scheduled follow-up visit in early May 2025 (2) History of heart failure: Code(s): Z86.79 - Personal history of other diseases of the circulatory system Category: Medical Plan: Followed by cardiology, currently on spironolactone and Entresto (3) Paroxysmal A-fib: Code(s): I48.0 - Paroxysmal atrial fibrillation Category: Medical Plan: Currently on apixaban and Multaq Medications: New Zepbound (tirzepatide (weight loss)) for 4 weeks 2.5 mg (0.5 mL) subcut QWEEK 2 mL 2RF 30 days NS
--- OUTSIDE RECORDS SUMMARY | 2025-04-11 10:17 | XMS_ITS | Encounter Summary ---
Author Organization [facility] Address [address] [place] [address] Care Team Providers Care Distribution Technician Name Role Phone Santana Sanabria MD Primary Care Provider Adam Geiger MD Unavailable Unavailable Betsey Rey GASTROENTEROLOGY NURSE Unavailable [phone] Bhavin Fox MD Unavailable [phone] Christina Vargas GASTROENTEROLOGY NURSE Unavailable [phone] Reason for Visit * Reason Onset Date Comments Hospital Procedure 05/09/2023 Cardioversion 05.12.23 Encounter Details Date Type Department Care Team Description 05/09/2023 Telephone Cardio PVC POC [address] [facility] [address] [place] [address] Jen Quintanilla PA-C [address] [place], [place] [id number] Hospital Procedure (Cardioversion 05.12.23) Social History Tobacco [...] Scheduled on 05.12.[address] Hogan at [facility] at 1:30pm Arrival time 12:30pm Medication instructions [...] the procedure Patient is to report to [facility] to the 3rd floor Patient agreed to all inst and date, time and location above via phone while booking procedure. Booking confirmation is [phone] via phone by Krystal documented in this encounter Plan of Treatment Not on file documented as of this encounter Visit Diagnoses Not on filedocumented in this encounter Care Teams Distribution Technician Relationship Specialty Start Date End Date Santana Sanabria MD PCP - General Internal Medicine 02/23/18 Adam Keller MD Specialist Cardiovascular Disease 04/25/23 10/17/23 Betsey Rey NP Nurse Practitioner Cardiology 04/25/23 Bhavin Fox MD Specialist Cardiology 06/01/23 Christina Vargas NP [address] [address] Cardiology 09/02/23 documented as of this encounter
== END 2025-04-11 11:14 | disposition home or self-care (01) ==
LOC: HO.HMCC 09:47
PROVIDERS: PCP Internal Medicine; Visit Provider Internal Medicine
DX: I48.0 Paroxysmal atrial fibrillation (principal); E66.01 Morbid (severe) obesity due to excess calories; Z86.79 Personal history of other diseases of the circulatory system

== ENCOUNTER → 2025-04-11 09:47 | Outpatient (BNVA) | payer OTHER, SELFPAY | PROVIDERS: PCP Internal Medicine; Visit Provider Internal Medicine | DX: Z13.89 Encounter for screening for other disorder (principal) ==

== ENCOUNTER 2025-06-09 10:36 | Outpatient (AMB) | payer OTHER, SELFPAY ==
[2025-06-09 10:44] VITALS: BP 140/102; PULSE 88; TEMP 36.6; O2SAT 96; BMI 40.7
--- NOTE | 2025-06-09 10:44 | AM.OFFWIN_ITS ---
Intake Vital Signs 06/09/25 10:44 06/09/25 10:49 Height 5 ft 6 in Weight 252 lb BMI 40.7 BP 140/102 H 146/102 H Blood Pressure Location Lt brachial Rt brachial Position Sitting Sitting Pulse 88 Pulse Source Pulse Oximeter Temp 97.8 F Temp Source Oral Pulse Oximetry (%) 96 Oxygen Delivery Method Room Air Intake Visit Reasons: EP High BP? Headache/hot flashes, jaw pain rt Intake Note: pt presents with concerns for High Blood Pressure, c/o right neck, right jaw pain, headaches and hot flashes Patient Tobacco Use Status: Never used Tobacco Allergies amoxicillin Allergy (Unknown, Verified 06/09/25 10:51) Unknown doxycycline Allergy (Unknown, Verified 06/09/25 10:51) Unknown clarithromycin (From Biaxin) Allergy (Verified 06/09/25 10:51) Unknown Do you need a note to return to daycare/school/sports/work: Yes HPI HPI Comments History of Present Illness Details 59 y/o Female patient who presents to [facility] walk in clinic with c/o Elevated Blood pressure readings for few days. She woke up this morning feeling Pain on her right Neck, Jaw and feeling Hot Flushes. She does have Sharp electrical pain going through her chest. She has h/o Afib, and HR - currently managed by Cardiology (@ [facility]). She has not seen them for few months due to insurance changes. She does have h/o HTN but not taking any medications at this time. She was briefly on Amlodipine in the past which worked well. Due to her complicated Cardiac history - advised Pt to go to ED for further evaluation to r/o [place]. [facility] Medical History History of heart failure Morbid obesity Surgical History S/P cryoablation of arrhythmia No pertinent past surgical history Social History Housing: House Patient Tobacco Use Status: Never used Tobacco e-Cigarette/Vaping Use: Never Used service: No Current occupational status: employed Cognitive needs: No Hearing needs: No Vision needs: Yes Review of Systems Const All systems reviewed & are unremarkable except as noted in HPI and below Physical Exam Vital Signs: Last Vital Signs Temp 97.8 F 06/09/25 10:44 Pulse 88 06/09/25 10:44 BP 146/102 H 06/09/25 10:49 Pulse Ox 96 06/09/25 10:44 Oxygen Delivery Method Room Air 06/09/25 10:44 BMI result Body Mass Index 40.7 Const General: no acute distress Nutritional Appearance: obese morbidly obese Orientation/consciousness: patient oriented x3 Resp Effort & Inspection: normal respiratory effort Auscultation: clear to auscultation bilaterally Cardio Heart sounds: S1 normal heart sound present and S2 normal heart sound present Neuro General: patient oriented x3, gait normal and moves all extremities Psych Speech and movement: Normal speech and movement present Assessment & Plan Assessment & Plan (1) Hypertension: Code(s): I10 - Essential (primary) hypertension Qualifiers: Hypertension type: primary hypertension Qualified Code(s): I10 - Essential (primary) hypertension Plan: Advised to go to ED for further evaluation to r/o [place] Patient agreed and she will go to [facility]. Advised to call her cardiology for f/u appointment. Ordered Amlodipine 5 mg. Advised Lifestyle changes; weight loss, DASH Diet and exercise daily. Medications: New amlodipine 5 mg PO DAILY 30 tabs 0RF I10 - Essential (primary) hypertension Coding Level of Care Code Est Pt Level 4 (69598) Diagnoses Primary hypertension I10 Hypertension type: primary hypertension Time Spent (min) 20
[2025-06-09 10:49] VITALS: BP 146/102
--- OUTSIDE RECORDS SUMMARY | 2025-06-09 11:47 | XMS_ITS | Encounter Summary ---
Author Organization [facility] Address [address] [place] [address] Care Team Providers Care Level Vial Grinder Name Role Phone Maty Johnson MD Primary Care Provider Encounter Details Date Type Department Care Team (Late st Contact Info) Description 06/09/2025 Telephone [facility] [address] [facility] [address] [place] [address] Florin Silva MD [address] [place] [address] [address] [place] [address] Social History Tobacco Use Types Packs/Day Years [...] on filedocumented in this encounter Care Teams Level Vial Grinder Relationship Specialty Start Date End Date Maty Johnson MD [address] [place] [address] PCP - General Internal Medicine 01/21/25 documented as of this encounter
--- OUTSIDE RECORDS SUMMARY | 2025-06-09 11:47 | XMS_ITS | Patient Health Record ---
Author Organization [facility] Address [address] [place] [address] Care Team Providers Care Coding Team Lead Name Role Phone Elly VANEGAS, Santana Primary Care Provider Rubi Colin Unavailable [phone] Allergies Allergen (clinical drug ingredient) Drug/Non Drug [...] Orally Onc e a day Active Evening Laurel Oil 1000 MG as directed Orally Active Viorele 0.15-0.02/0.01 MG (05/03) 1 tablet Orally Once a day Not-Taking Entresto 49-51 MG 1 tablet Orally Twic e a day Active Feldene 20 MG 1 capsule with food Orally Once a day; Duration: 30 day(s) 07/19/2011 Not-Taking Digoxin 125 MCG 1 tablet Orally Not-Taking Metoprolol Succinate ER 50 MG 1 tablet Orally Once a day Not-Taking Multivitamin Active Vitamin C Active Biotin 5000 MCG 1 capsule Orally Onc e a day Active Work Note . . . Due to painful foot condition patient to be off of work until 01/03/18 12/20/2017 Not-Taking Vitamin D3 50 MCG (1999) 1 capsule Orally Once a day Active Physical Therapy 3-4x per week for 3- 4 weeks 06/12/2017 Not-Taking vitamin Not-Taking Aleve Not-Taking Metoprolol Succinate ER 200 MG 1 tablet Orally Once a day Active Gabapentin 300 MG 1 capsule before bedtime Orally Once a day; Duration: 30 day(s) 12/20/2017 Not-Taking Vitamin D Not-Taking Baby Aspirin Not-Madi ing Walking Boot/Pneumatic As directed Wear Daily; Duration: Until further notice 12/20/2017 Not-Taking Carvedilol 25 MG 1 tablet with food Orally Twice a day Active Betamethasone Dipropionate May Not-Taking Amiodarone HCl Activ e Physical Therapy . . . 2-3x/week; Duration: 3-4 weeks 01/02/2018 Not-Taking Work Note . . [...] Are you an other tobacco user? No Plan Of Treatment Pending Test Test Name Order Date X ray : Foot, left 2V 06/12/2017 X ray : Foot, right 2V 07/19/2011 X ray : Foot, left 3V 06/13/2018 X ray : Foot, left 3V 05/23/2018 X ray : Foot, right 3V 04/24/2023 X ray : Foot, right 3V 01/12/2012 [id number] Destruction, 10-2905/25/2015 [id number]-Nmem Destruction, 10-2904/29/2015 [id number]-Eszy Destruction, 10-2903/25/2015 [id number] TENDON SHEATH/LIGAMENT 0 01/29/2018 Insurance Providers Payer Name Payer Address Payer Phone Subscriber Number Group Number Insured Name Patient Relationship to Insured Coverage Start Date Coverage End Date [employer] [address] [place] [address] [id number] Jermaine Garg Spouse - patient is [...]
--- OUTSIDE RECORDS SUMMARY | 2025-06-09 11:47 | XMS_ITS | Clinical Summary ---
Author Organization [facility] Address [address] [place] [address] Care Team Providers Care Quotation Checker Name Role Phone Unavailable Primary Care Provider [...] 60-74 years 1-dose series) 2023 COVID-19 Vaccine (1 - 2023-2 5 season) 2024 Influenza Vaccine (#1) 2025 HIB Vaccines Aged Out No longer [...] patient's age to complete this topic [place] [address] [place] [address]
== END 2025-06-09 11:29 | disposition home or self-care (01) ==
PROVIDERS: PCP Internal Medicine; Visit Provider Nurse Practitioner Family
DX: I10 Essential (primary) hypertension (principal)

== ENCOUNTER → 2025-06-09 10:36 | Outpatient (BNVA) | payer OTHER, SELFPAY | PROVIDERS: PCP Internal Medicine; Visit Provider Nurse Practitioner Family | DX: I10 Essential (primary) hypertension (principal) | CPT/HCPCS: 99212 ==

== ENCOUNTER 2025-07-17 10:33 | Outpatient (AMB) | payer OTHER, SELFPAY ==
[2025-07-17 10:59] VITALS: BP 102/80; PULSE 87; RESP 16; TEMP 36.9; O2SAT 95; BMI 40.7
--- NOTE | 2025-07-17 10:59 | A.OFFPC_ITS ---
Vital Signs 07/17/25 10:59 Height 5 ft 6 in Weight 252 lb BMI 40.7 BP 102/80 Blood Pressure Location Rt brachial Position Sitting Respiration 16 Pulse 87 Pulse Source Pulse Oximeter Temp 98.4 F Temp Source Oral Pulse Oximetry (%) 95 Oxygen Delivery Method Room Air Intake Visit Reasons: 6 months f/up Intake Note: Pt is here today for her 6mo. f/u Allergies amoxicillin Allergy (Unknown, Verified 07/17/25 11:18) Unknown doxycycline Allergy (Unknown, Verified 07/17/25 11:18) Unknown clarithromycin (From Biaxin) Allergy (Verified 07/17/25 11:18) Unknown Medication List - Last Reconciled 07/17/25 by Maty Johnson MD amlodipine 5 mg PO DAILY apixaban (Eliquis) mg PO BID B complex-vitamin C-folic acid 400 mcg tabs PO biotin 5,000 mcg PO cetirizine (All Day Allergy (cetirizine)) 10 mg PO DAILY PRN cholecalciferol (vitamin D3) 2,000 units PO DAILY dronedarone (Multaq) 400 mg PO BID omeprazole magnesium 20 mg PO DAILY sacubitril-valsartan 97-103 mg (Entresto) 1 tab PO BID spironolactone 12.5 mg PO DAILY Zepbound (tirzepatide (weight loss)) 2.5 mg (0.5 mL) subcut QWEEK 30 days NS Tobacco use date assessed: 07/17/25 Dental Screening Dental Screen Date: 07/17/25 Did you have a dental visit in the last 12 months?: Yes Did you have a dental problem in the last 6 months where you did not have access to dental care?: Yes Was dental information given to patient?: Patient has dentist [facility] Medical History History of heart failure Morbid obesity Surgical History S/P cryoablation of arrhythmia No pertinent past surgical history Social History Housing: House Patient Tobacco Use Status: Never used Tobacco e-Cigarette/Vaping Use: Never Used service: No Current occupational status: employed Cognitive needs: No Hearing needs: No Vision needs: Yes Questionnaire PHQ-9 Over the last 2 weeks, how often have you been bothered by any of the following problems? 1. Little interest or pleasure in doing things: not at all 2. Feeling down, depressed, or hopeless: not at all 3. Trouble falling or staying asleep, or sleeping too much: several days 4. Feeling tired or having little energy: several days 5. Poor appetite or overeating: not at all 6. Feeling bad about yourself - or that you are a failure or have let yourself or your family down: not at all 7. Trouble concentrating on things, such as reading the newspaper or watching television: not at all 8. Moving or speaking so slowly that other people could have noticed. Or the opposite - being so fidgety or restless that you have been moving around a lot more than usual: not at all 9. Thoughts that you would be better off or of hurting yourself in some way: not at all Total score: 2 Depression Screening Interpretation: Negative Depression Screening Done: Yes Source: Developed by Drs. Misbah Arevalo, Patricia Becerra, Lalito Strickland and colleagues, with an educational feroz from [employer]. Thrive Questionnaire Date Thrive assessed: 01/06/25 I am a: Patient What is your living situation today?: I have a steady place to live Within the past 12 months, did the food you bought not last and you didn't have the money to get more?: I choose not to answer this question Within the past 12 months, did you worry whether your food would run out before you got money to buy more?: I choose not to answer this question Do you have trouble paying for medicines?: Yes Do you have trouble getting transportation to medical appointments?: No Do you have trouble paying your heating and electricity bill?: I choose not to answer this question Do you have trouble taking care of your child, family member or friend?: No Do you have trouble with day-to-day activities such as bathing, preparing meals, shopping, managing finances, etc.?: No Are you currently unemployed and looking for a job?: No Are you interested in more education?: No Currently or been in a relationship where the following occur: No concerns reported THRIVE Score: 0 AUDIT C Alcohol Use Questionnaire (AUDIT-C) 1. How often do you have a drink containing alcohol?: Monthly or less 2. How many drinks containing alcohol do you have on a typical day when you are drinking?: 1 or 2 3. How often do you have six or more drinks on one occasion?: Never Total Score: 1 DAVID-7 AMB Questionnaire DAVID-7 Date DAVID - 7 assessed: 01/13/25 Feeling nervous, anxious, or on edge: 0 = Not at all Not being able to stop or control worryin = Not at all Worrying too much about different things: 0 = Not at all Trouble relaxin = Not at all Being so restless that it is hard to sit still: 0 = Not at all Becoming easily annoyed or irritable: 0 = Not at all Feeling afraid as if something awful might happen: 0 = Not at all Total DAVID-7 score (0-4 normal; 5-9 mild; 10-14 moderate; 15-21 severe): 0 Source: Developed by Drs. Misbah Arevalo, Patricia Becerra, Lalito Strickland and colleagues, with an educational feroz from [employer]. Physical exam (Primary Care) Vital Signs: Last Vital Signs Temp 98.4 F 07/17/25 10:59 Pulse 87 07/17/25 10:59 Resp 16 07/17/25 10:59 BP 102/80 07/17/25 10:59 Pulse Ox 95 07/17/25 10:59 Oxygen Delivery Method Room Air 07/17/25 10:59 BMI result Body Mass Index 40.7 Tobacco/Smoking Status: Tobacco use Status Tobacco use date assessed 07/17/25 07/17/25 11:12 Patient Tobacco Use Status Never used Tobacco 07/17/25 11:00 e-Cigarette/Vaping Use Never Used 07/17/25 11:00 PHQ-9: PHQ-9 Score PHQ-9: Total score 2 07/17/25 11:12 Depression Screening Interpretation: Negative Thrive Assessment: Date of Thrive Assessment Date Thrive assessed 01/06/25 07/17/25 11:00 Currently or been in a relationship where the following occur: No concerns reported Office Procedures Flu Questionnaire Does the patient have a severe egg allergy?: No Does the patient have severe life threatening allergies?: No Does the patient have a fever or illness today?: No Has the patient ever had Guillain-[place] Syndrome?: No Has the patient ever had any past reaction to a flu shot?: No Immunizations Fluarix [id number] (PF) 45 mcg (15 mcg x 3)/0.5 mL IM syringe Performing Provider: Maty Johnson MD Performing Location: [facility] Administered by: Gisell Zamora CMA on 07/17/25 11:39 Dose Route Admin Location Dispensed Lot Number Expiration Date NDC Certified Bench Jeweler Technician 0.5 mL IM Right Deltoid 0.5 mL [id number] 04/14/26 [id number] [employer] VIS Given Date VIS Provided VIS Publication Date 07/17/25 Single Vaccine 24 Eligibility Eligibility Date Funding Source Not [facility] Eligible 07/17/25 Private Coding Level of Care Code Est Pt Level 4 (91135) Diagnoses Environmental allergies Z91.09 Primary hypertension I10 Hypertension type: primary hypertension Morbid obesity E66.01 Paroxysmal A-fib I48.0 Assessment & Plan Assessment & Plan (1) Environmental allergies: Code(s): Z91.09 - Other allergy status, other than to drugs and biological substances Category: Medical (2) Hypertension: Code(s): I10 - Essential (primary) hypertension Category: Medical Qualifiers: Hypertension type: primary hypertension Qualified Code(s): I10 - Essential (primary) hypertension (3) Morbid obesity: Code(s): E66.01 - Morbid (severe) obesity due to excess calories Category: Medical (4) Paroxysmal A-fib: Code(s): I48.0 - Paroxysmal atrial fibrillation Category: Medical Orders: Orders Vitamin D 25-OH Total Today E66.01 - Morbid (severe) obesity due to excess calories, I10 - Essential (primary) hypertension, Z91.09 - Other allergy status, other than to drugs and biological substances Alanine Aminotransferase Today E66.01 - Morbid (severe) obesity due to excess calories, I10 - Essential (primary) hypertension, Z91.09 - Other allergy status, other than to drugs and biological substances Aspartate Amino Transferase Today E66.01 - Morbid (severe) obesity due to excess calories, I10 - Essential (primary) hypertension, Z91.09 - Other allergy status, other than to drugs and biological substances Influenza [id number] Immunization Today Z23 - Encounter for immunization Basic Metabolic Panel Fasting Today E66.01 - Morbid (severe) obesity due to excess calories, I10 - Essential (primary) hypertension, Z91.09 - Other allergy status, other than to drugs and biological substances Lipid Panel Today E66.01 - Morbid (severe) obesity due to excess calories, I10 - Essential (primary) hypertension, Z91.09 - Other allergy status, other than to drugs and biological substances Medications: Changed From Zepbound (tirzepatide (weight loss)) for 4 weeks 2.5 mg (0.5 mL) subcut QWEEK 30 days 2 mL 2RF NS To tirzepatide (weight loss) for 4 weeks 2.5 mg (0.25 mL) subcut QWEEK 2 mL 2RF 30 days
--- OUTSIDE RECORDS SUMMARY | 2025-07-17 12:21 | XMS_ITS | Clinical Summary ---
Author Organization [facility] Address [address] [place] [address] [address] [place] [address] Care Team Providers Care Urologic Nurse Name Role Phone Unavailable Primary Care Provider [...] COVID-19 Vaccine (1 - 2023-2 5 season) 2025 Influenza Vaccine (#1) 2025 HIB Vaccines Aged [...] patient's age to complete this topic [place] [address]
--- OUTSIDE RECORDS SUMMARY | 2025-07-17 12:21 | XMS_ITS | Patient Health Record ---
[facility] Organization [facility] Address [address] [place] [address] Care Team Providers Care Process Architect Name Role Phone Elly VANEGAS, Santana Primary Care Provider Rubi Colin Unavailable [phone] Allergies Allergen (clinical drug ingredient) Drug/Non Drug [...] Orally Onc e a day Active Evening [place] Oil 1000 MG as directed Orally Active [...] X ray : Foot, right 3V 01/12/2012 00274-Lekw Destruction, 10-2903/25/2015 [id number]-Ncav Destruction, 10-2904/29/2015 [id number]-Gfqr Destruction, 10-2905/25/2015 [id number] TENDON SHEATH/LIGAMENT 0 01/29/2018 Insurance Providers Payer Name Payer Address Payer Phone Subscriber Number Group Number Insured Name Patient Relationship to Insured Coverage Start Date Coverage End Date BlueMelissa All Others [address] [place] [address] [phone] [id number] F [id number] Jermaine Garg Spouse - patient is [...]
--- OUTSIDE RECORDS SUMMARY | 2025-07-17 12:21 | XMS_ITS | Clinical Summary ---
Author Organization [facility] [employer] Address [address] [place] [address] Phone Care Team Providers Care Roofing Foreman Name Role Phone Maty Johnson MD Primary [...] unit) capsule Take by mouth daily. Active B complex-vitamin C-folic acid (ARAM-MADDIE) 1-60-300 mg-mg-mcg tablet Take 1 tablet by mouth 1 (one) time each day with breakfast. Active omeprazole OTC (PriLOSEC OTC) 20 mg EC tablet Take 1 tablet (20 mg total) by mouth 1 (one) time each day. Do not crush, chew, or split. Active semaglutide (WEGOVY SUBQ) Inject under the skin every 7 (seven) days. Active spironolactone (ALDACTONE) 25 mg tablet Take 0.5 tablets (12.5 mg total) by mouth 1 (one) time each day. 45 tablet 3 5 Active Eliquis 5 mg tablet TAKE 1 TABLET BY MOUTH TWICE DAILY 180 tablet 3 5 Active Multaq 400 mg tablet TAKE 1 TABLET BY MOUTH TWICE DAILY 180 tablet 3 5 Active Entresto 97-103 mg per tablet Take 1 tablet by mouth 2 (two) times a day. 10 tablet 5 Active Entresto 97-103 mg per tablet Take 1 tablet by mouth 2 (two) times a day. 180 tablet 3 5 06/26/20 25 Discontinu ed(Reorder ) Active Problems Problem Noted Date Diagnosed Date HFrEF (heart failure with re duced ejection fraction) (CMS/[facility] V24, CMS/HCC V28) 02/06/2023 Assessment & Plan (10/02/2024 8:59 [...] add back carvedilol. Atrial fibrillation (CMS/HCC V24, CMS/HCC V28) 0 01/20/2023 Overview (01/21/2025): Paroxysmal atrial fibrillation with an associated cardiomyopathy detected in 2019. She was on amiodarone briefly and ultimately had an ablation with cryoballoon ablation in August 2023. Recurrent atrial fibrillation in the fall 2023 with self termination and she was started on Multaq. Echo showed normalization of LVEF on Entresto and Multaq. Anticoagulated with Eliquis. WFC1RN4-KWAw score of 2 for age and female [...] stroke risk is fairly modest with her LBM2YQ4-TFTg score of 2 but she prefers not [...] be started back on Eliquis for anticoagulation HED2HI5- VASc score of 3 representing a 3.2% [...] ovary 02/19/2019 Overview (09/10/2024): Advised to see ASSOCIATE DEAN OF WOMEN, no further information in transferred notes Allergic rhinitis 02/19/2019 Ascending aorta dilation ([facility] V24) 9 Overview (10/02/2024): Chronic 3.9 cm [...] obesity with BMI of 4 0.0-44.9, adult ([facility] V24, [facility] V28) 04/03/2018 Resolved Problems Problem Noted Date [...] Her father in his 90s from an [place]. We will arrange for a stress echocardiogram [...] Encounters Date Type Department Care Team Description 06/26/2025 Telephone [facility] [address] [place] [address] Florin Silva MD 06/17/[address] [place] [address] Florin Silva MD 06/09/2025 Telephone [facility] [address] [place] [address] Florin Silva MD 05/20/[address] [place] [address] Florin Silva MD from Last 3 Months Surgical History Surgery Date Site/Laterality Comments COLONOSCOPY 05/2018 PROCEDURE: HISTORICAL COLONOSCOPY; COMMENT: Dr Adam, tubular adenoma, repeat one year SECTION PROCEDURE: HISTORICAL DELIVERY TUBAL LIGATION PROCEDURE: HISTORICAL TUBAL LIGATION CHOLECYSTECTOMY PROCEDURE: HISTORICAL CHOLECYSTECTOMY Medical History Medical History Date Comments Abnormal ultrasound of ovary 02/19/2019 DX: Abnormal ultrasound of ovary; COMMENT: Advised to see ASSOCIATE DEAN OF WOMEN, no further information in transferred notes Allergic [...] obesity wit h BMI of 40.0-44.9, adult ([facility]) Nummular eczematous dermatitis 02/19/2019 D X:Nummular [...] 2013 Zoster Vaccines (1 of 2) 2013 Colorectal Cancer Screening: Colonoscopy 05/16/2019 05/16/2018 Cholesterol Screening (Lipid Panel) 09/17/2022 HIV Screening 09/17/2022 Hepatitis C Screening 09/17/2022 Social Influencers of Health Screening 09/17/2022 RSV Immunization Adult Patients (1 - Risk 60-74 years 1-dose series) 2023 Depression Screening 10/16/2024 COVID-19 Vaccine ( - season) 2025 08/01/2022, 10/23/2021, 01/31/2021, Additional history exists Influenza Vaccine (#1) 2025 07/19/2022 Hypertension/CHF/CAD Annual BMP Blood Test [...] - 12/17/2024 1:06 AM EST Performed at: 01 - [facility] [address] [id number] Shearing Shed Hand: Bhakti House MD, Phone: [phone] Betsey Rey MAIL CLERK BILLS LAB BLOOD ORDERABLES Final R esult [facility] 1 * Colonoscopy (05/16/2018) Pathologist [facility] Colonoscopy No Interpretation , Abstracted Anatomical Region Laterality Modality Other Historical Provider HEALTH MAINTENANCE Final Result from Last 3 Months or Most Recently Relevant to Health Maintenance Insurance [facility] Care Teams Roofing Foreman Relationship Specialty Start Date End Date Maty Johnson MD [address] [facility] [place] [id number] PCP - General Internal Medicine 01/21/25
== END 2025-07-17 11:41 | disposition home or self-care (01) ==
LOC: HO.HMCC 10:34
PROVIDERS: PCP Internal Medicine; Visit Provider Internal Medicine
DX: Z23 Encounter for immunization (principal)

== ENCOUNTER → 2025-07-17 10:33 | Outpatient (BNVA) | payer OTHER, SELFPAY | PROVIDERS: PCP Internal Medicine; Visit Provider Internal Medicine | DX: I10 Essential (primary) hypertension (principal); E66.01 Morbid (severe) obesity due to excess calories; I48.0 Paroxysmal atrial fibrillation; Z23 Encounter for immunization; Z68.41 Body mass index [BMI] 40.0-44.9, adult; Z91.09 Other allergy status, other than to drugs and biological substances | CPT/HCPCS: 90471; 90656; 99212 ==

== ENCOUNTER 2025-07-18 08:42 | Outpatient (REF) | payer OTHER, SELFPAY ==
--- OUTSIDE RECORDS SUMMARY | 2025-07-18 09:05 | XMS_ITS | Clinical Summary ---
Author Organization [facility] [employer] Address [address] [place] [address] Phone Care Team Providers Care Quilt Stuffer Name Role Phone Maty Johnson MD Primary [...] (heart failure with re duced ejection fraction) (CMS/[facility] V24, CMS/HCC V28) 02/06/2023 Assessment & Plan [...] on Entresto and Multaq. Anticoagulated with Eliquis. [id number]-UQIo score of 2 for age and female [...] stroke risk is fairly modest with her ACL5WZ2-SFKl score of 2 but she prefers not [...] be started back on Eliquis for anticoagulation EWX3JF4- VASc score of 3 representing a 3.2% [...] ovary 02/19/2019 Overview (09/10/2024): Advised to see BARGEMAN, no further information in transferred notes Allergic rhinitis 02/19/2019 Ascending aorta dilation ([facility] V24) 9 Overview (10/02/2024): Chronic 3.9 cm [...] obesity with BMI of 4 0.0-44.9, adult ([facility] V24, [facility] V28) 04/03/2018 Resolved Problems Problem Noted Date [...] Her father in his 90s from an [place]. We will arrange for a stress echocardiogram [...] Type Department Care Team Description 06/26/2025 Telephone [facility] Cardiology [address] [place] [address] Florin Silva MD 06/17/[address] [place] [address] Florin Silva MD 06/09/2025 Telephone [facility] [address] [place] [address] Florin Silva MD 05/20/[address] [place] [address] Florin Silva MD from Last 3 Months Surgical History Surgery Date Site/Laterality Comments COLONOSCOPY 05/2018 PROCEDURE: HISTORICAL COLONOSCOPY; COMMENT: Dr Adam, tubular adenoma, repeat one year SECTION PROCEDURE: HISTORICAL DELIVERY TUBAL LIGATION PROCEDURE: HISTORICAL TUBAL LIGATION CHOLECYSTECTOMY PROCEDURE: HISTORICAL CHOLECYSTECTOMY Medical History Medical History Date Comments Abnormal ultrasound of ovary 02/19/2019 DX: Abnormal ultrasound of ovary; COMMENT: Advised to see BARGEMAN, no further information in transferred notes Allergic [...] obesity wit h BMI of 40.0-44.9, adult ([facility]) Nummular eczematous dermatitis 02/19/2019 D X:Nummular eczematous [...] AM EST Performed at: 01 - [facility] [address] [id number] Building Construction Estimator: Bhakti House MD, Phone: [phone] Betsey Rey CURTAIN CLEANER LAB BLOOD ORDERABLES Final R esult [facility] 1 * Colonoscopy (05/16/2018) Pathologist [facility] Colonoscopy No Interpretation , Abstracted Anatomical Region Laterality Modality Other Historical Provider HEALTH MAINTENANCE Final Result from Last 3 Months or Most Recently Relevant to Health Maintenance Insurance [facility] Care Teams Quilt Stuffer Relationship Specialty Start Date End Date Maty Johnson MD [address] [facility] [place] [phone] PCP - General Internal Medicine 01/21/25
--- OUTSIDE RECORDS SUMMARY | 2025-07-18 09:05 | XMS_ITS | Clinical Summary ---
Author Organization [employer] Address [address] [place] [address] [address] [place] [address] Care Team Providers Care Instant Print Operator Name Role Phone Unavailable Primary Care Provider [...] patient's age to complete this topic Insurance [place] [address]
--- OUTSIDE RECORDS SUMMARY | 2025-07-18 09:05 | XMS_ITS | Patient Health Record ---
Author Organization [facility] Address [address] [place] [address] Care Team Providers Care Facing Cutting Machine Operator Name Role Phone Elly VANEGAS, Santana Primary Care Provider Rubi Colin Unavailable [phone] Allergies Allergen (clinical drug ingredient) Drug/Non Drug [...] Orally Onc e a day Active Evening [place] Oil 1000 MG as directed Orally Active [...] X ray : Foot, right 3V 01/12/2012 [id number]-Kldk Destruction, 10-2903/25/2015 42470-Nrjh Destruction, 10-2904/29/2015 [id number]-Tocx Destruction, 10-2905/25/2015 [id number] TENDON SHEATH/LIGAMENT 0 01/29/2018 Insurance Providers Payer Name Payer Address Payer Phone Subscriber Number Group Number Insured Name Patient Relationship to Insured Coverage Start Date Coverage End Date BlueMelissa All Others [address] [place] [address] [phone] [id number] F [id number] Jermaine Garg Spouse - patient is [...]
[2025-07-18 10:50] LABS: Alanine Aminotransferase 18 U/L (0-31); Anion Gap 11 (12-20); Aspartate Amino Transferase 26 U/L (5-31); Blood Urea Nitrogen 15 mg/dL (9-16); Calcium 9.4 mg/dL (8.4-10.2); Carbon Dioxide 23 mmol/L (22-29); Chloride 110 mmol/L (96-108); Cholesterol 177 mg/dL (<200); Estimated Glomerular Filt Rate 38; HDL Cholesterol 43 mg/dL (>40); Potassium 4.1 mmol/L (3.3-5.1); Sodium 140 mmol/L (135-145); Triglycerides 83 mg/dL (<150)
== END 2025-07-18 08:43 | disposition home or self-care (01) ==
LOC: HO.HMGCLDS 08:42
PROVIDERS: PCP Internal Medicine; Visit Provider Internal Medicine
DX: I10 Essential (primary) hypertension (principal); E66.01 Morbid (severe) obesity due to excess calories; Z91.09 Other allergy status, other than to drugs and biological substances
CPT/HCPCS: 36415; 80048; 80061; 82306; 84450; 84460

== ENCOUNTER 2025-08-18 09:04 | Outpatient (AMB) | payer OTHER, SELFPAY ==
--- NOTE | 2025-08-18 09:18 | AM.OFFWIN_ITS ---
Intake Vital Signs 08/18/25 09:19 Height 5 ft 2 in Weight 247 lb BMI 45.2 BP 130/80 Blood Pressure Location Lt brachial Position Sitting Pulse 117 H Pulse Source Pulse Oximeter Temp 98.2 F Temp Source Oral Pulse Oximetry (%) 97 Oxygen Delivery Method Room Air Intake Visit Reasons: ep fever since monday body aches Intake Note: Patient presents with c/o fever, body aches x2 days. Patient mentions finding a tick on her about 3 weeks ago. Patient Tobacco Use Status: Never used Tobacco Allergies amoxicillin Allergy (Unknown, Verified 08/18/25 09:22) Unknown doxycycline Allergy (Unknown, Verified 08/18/25 09:22) Unknown clarithromycin (From Biaxin) Allergy (Verified 08/18/25 09:22) Unknown Do you need a note to return to daycare/school/sports/work: No HPI HPI Comments History of Present Illness Details History - The patient is a 60-year-old female pr esenting with fever and body aches following a recent tick bite. - Fever began on Monday, reaching up t o 101.9?F, and reduces to 98.9?F with Tylenol. - Body aches described as feeling like b eing hit with a baseball bat, affecting all joints. - Tick bite occurred three weeks ago on the back of the neck, with the tick attached for two days. - No bullseye rash observed, but a small red wai is present at the bite site. - No other symptoms such as cough, conge stion, earache, sore throat, vomiting, or dysuria reported. - Patient has a history of allergies to doxycycline and amoxicillin, with tolera nce to azithromycin. - She has no sick contacts, recent trave l, CP, SOB, abd pain, or n/v/d. Physical Exam General: Cooperative, healthy appearing, comfortable, no acute distress and well developed Orientation: Patient oriented x3 Limitations: No limitations Head: Normal to inspection Ears: Hearing grossly normal bilaterally Face and sinus: Normal facial exam Eyes: Appearance normal, both eyes and all related structures Neck: Normal visual inspection and Yes full ROM. Small red wai on the back of the neck. Respiratory: Normal respiratory effort and able to speak in complete sentences. No w/r/r noted. Skin: No bullseye rash observed Neuro: Patient oriented x3 Patient was informed and verbally consented to the use of an ambient scribe for clinic note documentation during this visit. [facility] Medical History History of heart failure Morbid obesity Surgical History S/P cryoablation of arrhythmia No pertinent past surgical history Social History Housing: House Patient Tobacco Use Status: Never used Tobacco e-Cigarette/Vaping Use: Never Used service: No Current occupational status: employed Cognitive needs: No Hearing needs: No Vision needs: Yes Review of Systems Const All systems reviewed & are unremarkable except as noted in HPI and below Physical Exam Vital Signs: Last Vital Signs Temp 98.2 F 08/18/25 09:19 Pulse 117 H 08/18/25 09:19 BP 130/80 08/18/25 09:19 Pulse Ox 97 08/18/25 09:19 Oxygen Delivery Method Room Air 08/18/25 09:19 BMI result Body Mass Index 45.2 Assessment & Plan Assessment & Plan (1) Fever: Code(s): R50.9 - Fever, unspecified (2) Body aches: Code(s): R52 - Pain, unspecified (3) Tick bite: Code(s): W57.XXXA - Bitten or stung by nonvenomous insect and other nonvenomous arthropods, initial encounter Plan Most likely viral illness vs Lyme Plan - Perform Lyme titer to confirm suspected Lyme disease. - Conduct COVID-19 test to rule out viral infection. - Prescribe antibiotics suitable for Lyme disease, considering patient's allergies. - Advise patient to maintain hydration and take Tylenol every four to six hours for fever management. - will call with the results - follow up with PCP Orders: Orders Tick-borne Disease Molecular Today S30.860A - Insect bite (nonvenomous) of lower back and pelvis, initial encounter, W57.XXXA - Bitten or stung by nonvenomous insect and other nonvenomous arthropods, initial encounter SARS-CoV2/FLU/RSV Today R09.89 - Other specified symptoms and signs involving the circulatory and respiratory systems Lyme IgG/IgM w/reflex to WB Today R50.9 - Fever, unspecified Medications: New azithromycin pt can take azithromycin with no reactions 500 mg PO DAILY 7 tabs 0RF 7 days Coding Level of Care Code Est Pt Level 4 (40075) Diagnoses Fever R50.9 Body aches R52 Tick bite W57.XXXA
[2025-08-18 09:19] VITALS: BP 130/80; PULSE 117; TEMP 36.8; O2SAT 97; BMI 45.2
--- OUTSIDE RECORDS SUMMARY | 2025-08-18 10:01 | XMS_ITS | Clinical Summary ---
Author Organization [employer] Address [address] [place] [address] [address] [place] [address] Care Team Providers Care Wire Frame Lamp Shade Maker Name Role Phone Unavailable Primary Care Provider [...] patient's age to complete this topic Insurance [address] [place] [address]
--- OUTSIDE RECORDS SUMMARY | 2025-08-18 10:01 | XMS_ITS | Patient Health Record ---
Author Organization [facility] Address [address] [place] [address] Care Team Providers Care Chrome Cleaner Name Role Phone Elly VANEGAS, Santana Primary Care Provider Rubi Colin Unavailable [phone] Allergies Allergen (clinical drug ingredient) Drug/Non Drug [...] Orally Onc e a day Active Evening [place] Oil 1000 MG as directed Orally Active [...] X ray : Foot, right 3V 01/12/2012 42551-Fniv Destruction, 10-2903/25/2015 25850-Zfwe Destruction, 10-2904/29/2015 52647-Iuhj Destruction, 10-2905/25/2015 [id number] TENDON SHEATH/LIGAMENT 0 01/29/2018 Insurance Providers Payer Name Payer Address Payer Phone Subscriber Number Group Number Insured Name Patient Relationship to Insured Coverage Start Date Coverage End Date BlueMelissa All Others [address] [place] [address] [id number] Jermaine Garg Spouse - patient is [...]
--- OUTSIDE RECORDS SUMMARY | 2025-08-18 10:01 | XMS_ITS | Clinical Summary ---
Author Organization [facility] [employer] Address [address] [facility] [place] [address] Phone Care Team Providers Care Property Officer Name Role Phone Maty Johnson MD Primary [...] (one) time each day. 45 tablet 3 02/11/2025 Active Eliquis 5 mg tablet TAKE 1 TABLET BY MOUTH TWICE DAILY 180 tablet 3 04/14/2025 Active Multaq 400 mg tablet TAKE 1 TABLET BY MOUTH TWICE DAILY 180 tablet 3 04/14/2025 Active Entresto 97-103 mg per tablet Take 1 tablet by mouth 2 (two) times a day. 10 tablet 06/26/2025 Active Active Problems Problem Noted Date Diagnosed Date HFrEF (heart failure with re duced ejection fraction) ([facility] V24, CMS/[facility] V28) 02/06/2023 Assessment & Plan (10/02/2024 [...] we may add back carvedilol. Atrial fibrillation (CMS/[facility] V24, CMS/[facility] V28) 0 01/20/2023 Overview (01/21/2025): Paroxysmal atrial fibrillation with an associated cardiomyopathy detected in 2019. She was on amiodarone briefly and ultimately had an ablation with cryoballoon ablation in August 2023. Recurrent atrial fibrillation in the fall 2023 with self termination and she was started on Multaq. Echo showed normalization of LVEF on Entresto and Multaq. Anticoagulated with Eliquis. SQA4NH3-GCPc score of 2 for age and female [...] stroke risk is fairly modest with her MOD2GK2-NLXz score of 2 but she prefers not [...] be started back on Eliquis for anticoagulation BOW8WO6- VASc score of 3 representing a 3.2% [...] ovary 02/19/2019 Overview (09/10/2024): Advised to see PROJ ENGINEER, no further information in transferred notes Allergic [...] obesity with BMI of 4 0.0-44.9, adult (CMS/[facility] V24, [facility] V28) 04/03/2018 Resolved Problems Problem Noted [...] Type Department Care Team Description 06/26/2025 Telephone [facility] [address] [place] [address] [place] [address] Florin Silva MD 06/17/2025 Telephone [facility] [address] [place] [address] [place] [address] Florin Silva MD 06/09/2025 Telephone [facility] [address] [place] [address] Florin Silva MD 05/20/[address] [place] [address] Florin Silva MD from Last 3 Months Surgical History Surgery Date Site/Laterality Comments COLONOSCOPY 05/2018 PROCEDURE: HISTORICAL COLONOSCOPY; COMMENT: Dr Adam, tubular adenoma, repeat one year SECTION PROCEDURE: HISTORICAL DELIVERY TUBAL LIGATION PROCEDURE: HISTORICAL TUBAL LIGATION CHOLECYSTECTOMY PROCEDURE: HISTORICAL CHOLECYSTECTOMY Medical History Medical History Date Comments Abnormal ultrasound of ovary 02/19/2019 DX: Abnormal ultrasound of ovary; COMMENT: Advised to see PROJ ENGINEER, no further information in transferred notes Allergic [...] obesity wit h BMI of 40.0-44.9, adult ([facility]) Nummular eczematous dermatitis 02/19/2019 D X:Nummular [...] Years (1 of 1 - PCV) 2013 RSV Immunization Adult Patients (1 - Risk 50-74 years 1-dose series) 2013 Zoster Vaccines (1 of 2) 2013 Colorectal Cancer Screening: Colonoscopy 05/16/2019 05/16/2018 Cholesterol Screening (Lipid Panel) 09/17/2022 HIV Screening 09/17/2022 Hepatitis C Screening 09/17/2022 Social Influencers of Health Screening 09/17/2022 Depression Screening 10/16/2024 COVID-19 Vaccine ( season) 2025 08/01/2022, 10/23/2021, 01/31/2021, Additional history [...] 12/17/2024 1:06 AM EST Performed at: [address] [facility] [address] [id number] Perinatal Specialist: Bhakti House MD, Phone: [phone] us Betsey Rey PROTECTIVE SIGNAL SUPERINTENDENT LAB BLOOD ORDERABLES Final R esult [facility] 1 * Colonoscopy (05/16/2018) Colonoscopy No Interpretation , Abstracted Anatomical Region Laterality Modality Other Historical Provider HEALTH MAINTENANCE Final Result from Last 3 Months or Most Recently Relevant to Health Maintenance Insurance [facility] Care Teams Property Officer Relationship Specialty Start Date End Date Maty Johnson MD [address] [facility] [place] [address] PCP - General Internal Medicine 01/21/25
== END 2025-08-18 10:29 | disposition home or self-care (01) ==
PROVIDERS: PCP Internal Medicine; Visit Provider Physician Assistant Medical
DX: R50.9 Fever, unspecified (principal); R52 Pain, unspecified; W57.XXXA Bitten or stung by nonvenomous insect and other nonvenomous arthropods, initial encounter

== ENCOUNTER 2025-08-18 09:04 | Outpatient (REF) | payer OTHER, SELFPAY ==
[2025-08-18 13:59] LABS: Resp Syncy Virus RNA Qual PCR NEGATIVE (Negative); SARS COV2 PCR INHOUSE NEGATIVE (Negative)
[2025-08-19 12:09] LABS: Lyme Abs Screen <0.90 index
[2025-08-19 20:23] LABS: A. Phagocytphilium DNA,RT-PCR DETECTED (NOT DETECTED); Babesia Microti DNA, RT-PCR NOT DETECTED (NOT DETECTED); Borrelia Miyamotoi,DNA RT-PCR NOT DETECTED (NOT DETECTED); E.Chaffeensis DNA RT-PCR NOT DETECTED (NOT DETECTED); Lyme(Borrelia ssp)DNA RT-PCR NOT DETECTED (NOT DETECTED)
== END 2025-08-18 09:05 | disposition home or self-care (01) ==
LOC: HO.HMGCLDS 09:04
PROVIDERS: PCP Internal Medicine; Visit Provider Physician Assistant Medical
DX: S30.860A Insect bite (nonvenomous) of lower back and pelvis, initial encounter (principal); R50.9 Fever, unspecified; R09.89 Other specified symptoms and signs involving the circulatory and respiratory systems; W57.XXXA Bitten or stung by nonvenomous insect and other nonvenomous arthropods, initial encounter; Z01.84 Encounter for antibody response examination; Z11.52 Encounter for screening for COVID-19
CPT/HCPCS: 36415; 86617; 86618; 87468; 87469; 87478; 87484; 87637; 87798; 99212

== ENCOUNTER 2025-09-22 15:29 | Outpatient (AMB) | payer OTHER, SELFPAY ==
[2025-09-22 15:36] VITALS: BP 128/80; PULSE 83; RESP 16; TEMP 36.4; O2SAT 99; BMI 44.8
--- NOTE | 2025-09-22 15:36 | MHC.PC.OV ---
Vital Signs 09/22/25 15:36 Height 5 ft 2 in Weight 245 lb BMI 44.8 BP 128/80 Blood Pressure Location Lt brachial Position Sitting Respiration 16 Pulse 83 Pulse Source Pulse Oximeter Temp 97.6 F Temp Source Oral Pulse Oximetry (%) 99 Oxygen Delivery Method Room Air Intake Visit Reasons: 2 mo medication adjustment Intake Note: Pt is here today for her 2mo. medication adjustment Hand Washer Required: No Allergies amoxicillin Allergy (Unknown, Verified 09/22/25 15:59) Unknown doxycycline Allergy (Unknown, Verified 09/22/25 15:59) Unknown clarithromycin (From Biaxin) Allergy (Verified 09/22/25 15:59) Unknown Medication List - Last Reconciled 09/22/25 by Maty Johnson MD amlodipine 5 mg PO DAILY apixaban (Eliquis) mg PO BID B complex-vitamin C-folic acid 400 mcg tabs PO biotin 5,000 mcg PO cetirizine (All Day Allergy (cetirizine)) 10 mg PO DAILY PRN cholecalciferol (vitamin D3) 2,000 units PO DAILY dronedarone (Multaq) 400 mg PO BID omeprazole magnesium 20 mg PO DAILY sacubitril-valsartan 97-103 mg (Entresto) 1 tab PO BID spironolactone 12.5 mg PO DAILY Zepbound (tirzepatide (weight loss)) 5 mg (0.5 mL) subcut QWEEK NS Tobacco use date assessed: 09/22/25 Dental Screening Dental Screen Date: 09/22/25 Did you have a dental visit in the last 12 months?: Yes Did you have a dental problem in the last 6 months where you did not have access to dental care?: Yes Was dental information given to patient?: Patient has dentist HPI HPI Comments History of Present Illness Details The patient is a 60-year-old female presenting for management of obesity and other chronic conditions. She has been using Zepbound for weight loss, and her weight has decreased from a high of approximately 268 lbs in December to her current weight of 425 lbs.. She has been taking the medication every 9 to 10 days and took her last dose on Monday. She notes a decreased appetite while on the medication. The patient has obstructive sleep apnea, but her insurance will no longer cover Zepbound for this indication starting in October. The patient has a history of paroxysmal atrial fibrillation, for which she underwent a cardioversion that was effective for only 3-4 days, followed by a cardiac ablation approximately two years ago around [facility]. Following a COVID-19 infection, she developed cardiomyopathy and was started on Entresto . She continues to take Multaq. Recent lab work from January showed normal blood sugar, but current kidney function is noted to be decreasing, with an eGFR below the desired level of 60, and creatinine is increasing despite adequate water intake. She has never seen a home health clinical supervisor. Past medical history is notable for shortness of breath, which was evaluated by a optimization engineer and attributed to her weight, with pulmonary function tests ruling out asthma and COPD. She has stable pulmonary nodules, possibly related to childhood pneumonia and growing up in a smoking household, although she has never smoked. [facility] Medical History (Updated 09/29/25 @ 00:11 by Maty Johnson MD) History of atrial fibrillation Cardiomyopathy History of heart failure Morbid obesity Surgical History (Updated 09/29/25 @ 00:03 by Maty Johnson MD) S/P cryoablation of arrhythmia No pertinent past surgical history Social History Housing: House Patient Tobacco Use Status: Never used Tobacco e-Cigarette/Vaping Use: Never Used service: No Current occupational status: employed Cognitive needs: No Hearing needs: No Vision needs: Yes Questionnaire PHQ-9 Over the last 2 weeks, how often have you been bothered by any of the following problems? 1. Little interest or pleasure in doing things: not at all 2. Feeling down, depressed, or hopeless: not at all 3. Trouble falling or staying asleep, or sleeping too much: several days 4. Feeling tired or having little energy: several days 5. Poor appetite or overeating: not at all 6. Feeling bad about yourself - or that you are a failure or have let yourself or your family down: not at all 7. Trouble concentrating on things, such as reading the newspaper or watching television: not at all 8. Moving or speaking so slowly that other people could have noticed. Or the opposite - being so fidgety or restless that you have been moving around a lot more than usual: not at all 9. Thoughts that you would be better off or of hurting yourself in some way: not at all Total score: 2 Depression Screening Interpretation: Negative Depression Screening Done: Yes Source: Developed by Drs. Misbah Arevalo, Patricia Becerra, Lalito Strickland and colleagues, with an educational feroz from [employer]. Thrive Questionnaire Date Thrive assessed: 01/06/25 I am a: Patient What is your living situation today?: I have a steady place to live Within the past 12 months, did the food you bought not last and you didn't have the money to get more?: I choose not to answer this question Within the past 12 months, did you worry whether your food would run out before you got money to buy more?: I choose not to answer this question Do you have trouble paying for medicines?: Yes Do you have trouble getting transportation to medical appointments?: No Do you have trouble paying your heating and electricity bill?: I choose not to answer this question Do you have trouble taking care of your child, family member or friend?: No Do you have trouble with day-to-day activities such as bathing, preparing meals, shopping, managing finances, etc.?: No Are you currently unemployed and looking for a job?: No Are you interested in more education?: No Currently or been in a relationship where the following occur: No concerns reported THRIVE Score: 0 DAVID-7 AMB Questionnaire DAVID-7 Date DAVID - 7 assessed: 01/13/25 Source: Developed by Drs. Misbah Arevalo, Patricia Becerra, Lalito Strickland and colleagues, with an educational feroz from [employer]. Review of Systems Narrative Review of Systems Constitution Reports no additional complaints Eyes no change in vision ENT Reports no additional complaints, Denies dysphagia and Denies odynophagia Cardiology Reports no additional complaints Respiratory Reports no additional complaints GI Denies abdominal pain, Denies belching, Denies melena, Denies bloating, Denies change in bowel habits, Denies dysphagia, Denies excessive flatus, Denies dyspepsia, Denies heartburn, Denies diarrhea, Denies loose stools, Denies nausea, Denies odynophagia and Denies vomiting Reports no additional complaints Muscular no additional complaints Skin/Breast Denies breast swelling, Denies breast pain, Denies breast mass and Denies rash Neurology Reports no additional complaints, Denies Abnormal speech present and Denies Sensory deficit (Neuro) Psychiatry Reports no additional complaints Endocrine Reports no additional complaints Felix/Lymph Reports no additional complaints Aller/Immun Reports no additional complaints Physical exam (Primary Care) Vital Signs: Last Vital Signs Temp 97.6 F 09/22/25 15:36 Pulse 83 09/22/25 15:36 Resp 16 09/22/25 15:36 BP 128/80 09/22/25 15:36 Pulse Ox 99 09/22/25 15:36 Oxygen Delivery Method Room Air 09/22/25 15:36 BMI result Body Mass Index 44.8 Tobacco/Smoking Status: Tobacco use Status Tobacco use date assessed 09/22/25 09/22/25 15:51 Patient Tobacco Use Status Never used Tobacco 09/22/25 15:38 e-Cigarette/Vaping Use Never Used 09/22/25 15:38 Depression Screening Interpretation: Negative Thrive Assessment: Date of Thrive Assessment Date Thrive assessed 01/06/25 09/22/25 15:38 Currently or been in a relationship where the following occur: No concerns reported Const General: no acute distress and alert Orientation/consciousness: patient oriented x3 HENMT Face and sinus: Yes face symmetric Mouth: moist mucous membranes Neck Neck: Yes full ROM, Yes no lymphadenopathy and Yes supple Thyroid: Thyroid normal Resp Effort & Inspection: normal respiratory effort and able to speak in complete sentences Auscultation: clear to auscultation bilaterally Cardio Rate: regular rate Rhythm: regular rhythm Heart sounds: S1 normal heart sound present and S2 normal heart sound present GI Palpation (GI): Soft to palpation, nontender, no guarding and no masses Auscultation: normal bowel sounds General: Yes no CVA tenderness Back/Spine/Pelvis Back: no CVA tenderness and No back tenderness Neuro General: patient oriented x3, gait normal, moves all extremities, Normal light touch and pain sensation and no focal motor deficits Cognition (Neuro): normal cognition Gait exam (Neuro): Normal gait present Motor exam (neuro): 5/5 motor strength present throughout Extrem General: Yes normal to inspection, Yes full ROM, Yes no joint enlargement, Yes no pedal edema and Yes normal gait Psych Appearance: grossly normal and well kempt Mental Status: mental status grossly normal Speech and movement: Normal speech and movement present Affect: normal affect Coding Level of Care Code Est Pt Level 4 (68980) Diagnoses Morbid obesity E66.01 Paroxysmal A-fib I48.0 High serum creatinine R79.89 History of heart failure Z86.79 Cardiomyopathy I42.9 Assessment & Plan Assessment & Plan (1) Morbid obesity: Code(s): E66.01 - Morbid (severe) obesity due to excess calories Category: Medical (2) Paroxysmal A-fib: Code(s): I48.0 - Paroxysmal atrial fibrillation Category: Medical (3) High serum creatinine: Code(s): R79.89 - Other specified abnormal findings of blood chemistry (4) History of heart failure: Comment: s/p PET stress test, showed no ischemia or infarct Cardiac MRI showed LVEF of 31% with mild thickening of the interventricular septum but no gadolinium uptake Last echocardiogram done August 2024 showed EF of 55-60% with a mildly dilated aorta at 4.2 cm now on Entresto and Multaq and spironolactone Code(s): Z86.79 - Personal history of other diseases of the circulatory system Category: Medical (5) Cardiomyopathy: Code(s): I42.9 - Cardiomyopathy, unspecified Category: Medical Plan Assessment and Plan 1. Morbid obesity The patient has had success with Zepbound, with significant weight loss from 268 lbs. She is concerned about insurance no longer covering the medication. The plan is for her to research alternative, lower-cost options such as Weight Watchers, [facility], or the weight loss clinic in [facility] run by Dr. Velazco. It was agreed that she can attempt to get a 3-month supply of Zepbound 2.5 mg through [facility], which would be a lower dose, and then wean off it. 2. Paroxysmal Atrial Fibrillation The patient is stable post-ablation and on Multaq. 3. Elevated serum creatinine The patient's creatinine has been increasing and eGFR has been decreasing. The plan is to recheck her kidney function with a fasting blood test. She is advised to increase her water intake before the test. If her kidney function remains low, a referral to a home health clinical supervisor will be made. . Patient was informed and verbally consented to the use of an ambient scribe for clinic note documentation during this visit. Orders: Orders Comprehensive [place]. Panel Fast 09/23/25 E66.01 - Morbid (severe) obesity due to excess calories, I10 - Essential (primary) hypertension, I48.0 - Paroxysmal atrial fibrillation, R79.89 - Other specified abnormal findings of blood chemistry, Z86.79 - Personal history of other diseases of the circulatory system Lipid Panel 09/23/25 E66.01 - Morbid (severe) obesity due to excess calories, I10 - Essential (primary) hypertension, I48.0 - Paroxysmal atrial fibrillation, R79.89 - Other specified abnormal findings of blood chemistry, Z86.79 - Personal history of other diseases of the circulatory system Vitamin D 25-OH Total 09/23/25 E66.01 - Morbid (severe) obesity due to excess calories, I10 - Essential (primary) hypertension, I48.0 - Paroxysmal atrial fibrillation, R79.89 - Other specified abnormal findings of blood chemistry, Z86.79 - Personal history of other diseases of the circulatory system
--- OUTSIDE RECORDS SUMMARY | 2025-09-23 01:03 | XMS_ITS | Clinical Summary ---
Author Organization [employer] Address [address] [place] [address] [address] [place] [address] Care Team Providers Care Street Light Servicer Name Role Phone Unavailable Primary Care Provider [...] ars (1 of 1 - PCV) 2013 RSV Patients and Pa tients Aged 60 years or older (1 - Risk 50-74 years 1-dose series) 2013 Zoster Vaccines (1 of 2) 2013 COVID-19 Vaccine ( - 2024-2 6 season) 2025 Influenza Vaccine (#1) 2025 HIB [...] patient's age to complete this topic [place] [address] [place] [address]
--- OUTSIDE RECORDS SUMMARY | 2025-09-23 01:03 | XMS_ITS | Encounter Summary ---
Author Organization [facility] Address [address] [place] [address] Care Team Providers Care Director Security Management Name Role Phone Maty Johnson MD Primary Care Provider [phone] Reason for Visit * Reason Onset Date Comments Med Refill 09/22/2025 Entresto Encounter Details Date Type Department Care Team ([facility] Contact Info) Description 09/22/2025 Telephone [facility] [place] [address] [place] [address] Florin Silva MD [address] [place] [address] [address] [place] [address] Social History Tobacco Use Types Packs/Day Years [...] on file documented as of this encounter Ordered Prescriptions Prescription Sig Dispense Quantity Refills Last Filled Start Date End Date Entresto 97-103 mg per tablet Take 1 tablet by mouth 2 (two) times a day. 180 tablet 1 09/22/2025 documented in this encounter Progress Notes * Janna Mueller RN - 09/22/2025 9:49 AM EST JENNY 01/21/25 Labs 12/16/24 Entresto refills sent * Fahad Brizuela - 09/22/2025 9:22 AM EST Patient is requesting refill on entresto 97-103mg, take one tab twice a day. [facility], 90 day supply. documented in this encounter Plan of Treatment Not on file documented as of this encounter Visit Diagnoses Not on filedocumented in this encounter Discontinued Medications Medication Sig Discontinue Reason Start Date End Da te Entresto 97-103 mg per tablet Take 1 tablet by mouth 2 (two) times a day. Reorder 06/26/2025 09/22/2025 documented as of this encounter Care Teams Director Security Management Relationship Specialty Start Date End Date Maty Johnson MD [address] [place] [address] PCP - General Internal Medicine 01/21/25 documented as of this encounter
--- OUTSIDE RECORDS SUMMARY | 2025-09-23 01:04 | XMS_ITS | Clinical Summary ---
Author Organization [facility] Address [address] [place] [address] Phone Care Team Providers Care Extruding Press Operator Name Role Phone Maty Johnson MD Primary Care Provider [phone] Allergies Active Allergy Reactions Criticality Noted Date [...] (two) times a day. 180 tablet 1 5 Active Entresto 97-103 mg per tablet Take 1 tablet by mouth 2 (two) times a day. 10 tablet 5 09/22/20 25 Discontinu ed(Reorder ) Active Problems Problem [...] add back carvedilol. Atrial fibrillation 01/20/2023 Overview (01/21/2025): Paroxysmal atrial fibrillation with an associated cardiomyopathy detected in 2019. She was on amiodarone briefly and ultimately had an ablation with cryoballoon ablation in August 2023. Recurrent atrial fibrillation in the fall 2023 with self termination and she was started on Multaq. Echo showed normalization of LVEF on Entresto and Multaq. Anticoagulated with Eliquis. [id number] score of 2 for age and female [...] stroke risk is fairly modest with her [id number] score of 2 but she prefers not [...] be started back on Eliquis for anticoagulation [id number] VASc score of 3 representing a 3.2% [...] ovary 02/19/2019 Overview (09/10/2024): Advised to see REHAB SPECIALIST, no further information in transferred notes Allergic [...] Her father in his 90s from an [place]. We will arrange for a stress echocardiogram [...] Encounters Date Type Department Care Team Description 09/22/2025 Telephone [facility] [address] [facility] [address] [place] [address] Florin Silva MD 06/26/2025 Telephone [facility] [address] [place] [address] Florin Silva MD from Last 3 Months Surgical History Surgery Date Site/Laterality Comments COLONOSCOPY 05/2018 PROCEDURE: HISTORICAL COLONOSCOPY; COMMENT: Dr Adam, tubular adenoma, repeat one year SECTION PROCEDURE: HISTORICAL DELIVERY TUBAL LIGATION PROCEDURE: HISTORICAL TUBAL LIGATION CHOLECYSTECTOMY PROCEDURE: HISTORICAL CHOLECYSTECTOMY Medical History Medical History Date Comments Abnormal ultrasound of ovary 02/19/2019 DX: Abnormal ultrasound of ovary; COMMENT: Advised to see REHAB SPECIALIST, no further information in transferred notes Allergic [...] on file Sexual Orientation Not on file Last Filed Vital Signs [...] 12/16/2024 9:51 AM EST Elevated serum creatinine COLONOSCOPY Routine 05/16/2018 from Last 3 Months [...] AM EST Performed at: 01 - [facility] [address] [id number] Watch Repair Person: Bhakti House MD, Phone: [phone] Betsey Rey ARCHITECTURE ANALYST LAB BLOOD ORDERABLES Final R esult [facility] 1 * Colonoscopy (05/16/2018) Colonoscopy No Interpretation , Abstracted Anatomical Region Laterality Modality Other us Historical Provider HEALTH MAINTENANCE Final Result from Last 3 Months or Most Recently Relevant to Health Maintenance Insurance [facility] Care Teams Extruding Press Operator Relationship Specialty Start Date End Date Maty Johnson MD [address] [facility] [place] [address] PCP - General Internal Medicine 01/21/25
== END 2025-09-22 16:34 | disposition home or self-care (01) ==
LOC: HO.HMCC 15:30
PROVIDERS: PCP Internal Medicine; Visit Provider Internal Medicine
DX: I48.0 Paroxysmal atrial fibrillation (principal); E66.01 Morbid (severe) obesity due to excess calories; I42.9 Cardiomyopathy, unspecified; Z68.41 Body mass index [BMI] 40.0-44.9, adult; R79.89 Other specified abnormal findings of blood chemistry; Z86.79 Personal history of other diseases of the circulatory system

== ENCOUNTER → 2025-09-22 15:29 | Outpatient (BNVA) | payer OTHER, SELFPAY | PROVIDERS: PCP Internal Medicine; Visit Provider Internal Medicine | DX: E66.01 Morbid (severe) obesity due to excess calories (principal); I48.0 Paroxysmal atrial fibrillation; I42.9 Cardiomyopathy, unspecified; R79.89 Other specified abnormal findings of blood chemistry; Z13.31 Encounter for screening for depression; Z79.01 Long term (current) use of anticoagulants; Z79.899 Other long term (current) drug therapy; Z86.79 Personal history of other diseases of the circulatory system | CPT/HCPCS: 96127; 99212 ==

== ENCOUNTER 2025-09-23 09:47 | Outpatient (REF) | payer OTHER, SELFPAY ==
[2025-09-23 14:57] LABS: Alanine Aminotransferase 21 U/L (0-31); Albumin Level 4.2 g/dL (3.5-5.0); Alkaline Phosphatase 83 U/L (39-117); Anion Gap 11 (12-20); Aspartate Amino Transferase 29 U/L (5-31); Blood Urea Nitrogen 18 mg/dL (9-16); Calcium 9.4 mg/dL (8.4-10.2); Carbon Dioxide 23 mmol/L (22-29); Chloride 111 mmol/L (96-108); Cholesterol 190 mg/dL (<200); Estimated Glomerular Filt Rate 32; HDL Cholesterol 48 mg/dL (>40); Potassium 4.3 mmol/L (3.3-5.1); Sodium 141 mmol/L (135-145); Total Protein 7.8 g/dL (6.5-8.0); Triglycerides 106 mg/dL (<150)
== END 2025-09-23 09:48 | disposition home or self-care (01) ==
LOC: HO.HMGCLDS 09:47
PROVIDERS: PCP Internal Medicine; Visit Provider Internal Medicine
DX: I10 Essential (primary) hypertension (principal); I48.0 Paroxysmal atrial fibrillation; E66.01 Morbid (severe) obesity due to excess calories; R79.89 Other specified abnormal findings of blood chemistry; Z86.79 Personal history of other diseases of the circulatory system
CPT/HCPCS: 36415; 80053; 80061; 82306

== ENCOUNTER 2025-10-13 10:57 | Outpatient (AMB) | payer OTHER, SELFPAY ==
[2025-10-13 11:00] VITALS: BP 158/79; PULSE 81; TEMP 36.5; O2SAT 95; BMI 45.4
--- NOTE | 2025-10-13 11:00 | AM.OFFWIN_ITS ---
Intake Vital Signs 10/13/25 11:00 10/13/25 11:17 Height 5 ft 2 in Weight 248 lb BMI 45.4 BP 158/79 H 142/83 H Blood Pressure Location Lt brachial Rt brachial Position Sitting Sitting Pulse 81 Pulse Source Pulse Oximeter Temp 97.7 F Temp Source Oral Pulse Oximetry (%) 95 Oxygen Delivery Method Room Air Intake Visit Reasons: EP - Itchy, Red,Growth on Head Intake Note: EP complains of having multiple itchy bumps growing on her head scalp she noticed since Oct 08. Patient Tobacco Use Status: Never used Tobacco Allergies amoxicillin Allergy (Unknown, Verified 10/13/25 11:11) Unknown doxycycline Allergy (Unknown, Verified 10/13/25 11:11) Unknown clarithromycin (From Biaxin) Allergy (Verified 10/13/25 11:11) Unknown Do you need a note to return to daycare/school/sports/work: No HPI HPI Comments History of Present Illness Details History of Present Illness The patient is a 60 year old female presenting for evaluation of a new growth on her scalp. - The patient presents with a new growth on her scalp, which she describes as it maxi and having a scab. - She states she noticed the lesion arou nd October 08 - She has fair skin and is worried about the possibility of melanoma, though she has no personal history of skin cancer. - She also reports a few other small, it maxi spots on her scalp - The patient used to have yearly dermat ological exams but has not had one for about two years due to a change in her insurance. - The patient reports a history of eczem a Review of Systems - Integumentary: Reports a new, itchy, a nd painful scabbed growth on the scalp Physical Exam General Appearance: Normal appearance, well developed. No acute distress Head: Normocephalic, atraumatic. Scaly brown lesion roughly 0.5 cm with an erythematous base present along the occiput. An additional white scaly lesion roughly 0.3 cm present along the right temporal region of the scalp. Pulmonary: No respiratory distress. Speaking in full sentences Musculoskeletal: Moving all extremities spontaneously and against gravity Mental Status: Alert and Oriented x 3 Psychiatric: Normal mood. Normal affect. [facility] Medical History (Updated 09/29/25 @ 00:11 by Maty Johnson MD) History of atrial fibrillation Cardiomyopathy History of heart failure Morbid obesity Surgical History (Updated 09/29/25 @ 00:03 by Maty Johnson MD) S/P cryoablation of arrhythmia No pertinent past surgical history Social History Housing: House Patient Tobacco Use Status: Never used Tobacco e-Cigarette/Vaping Use: Never Used service: No Current occupational status: employed Cognitive needs: No Hearing needs: No Vision needs: Yes Physical Exam Vital Signs: Last Vital Signs Temp 97.7 F 10/13/25 11:00 Pulse 81 10/13/25 11:00 BP 142/83 H 10/13/25 11:17 Pulse Ox 95 10/13/25 11:00 Oxygen Delivery Method Room Air 10/13/25 11:00 BMI result Body Mass Index 45.4 Assessment & Plan Assessment & Plan (1) Scalp lesion: Code(s): L98.9 - Disorder of the skin and subcutaneous tissue, unspecified Plan - The patient presents with new scaly itchy lesions on the scalp, with the largest roughly 0.5 cm with an erythematous base on the occiput. Patient would like to r/o skin cancer. - Patient reports that she needs a new referral to dermatology as her insurance has changed and she was previously getting yearly skin checks for skin cancer. - Referral to [facility] placed based on insurance coverage - Discussed other differentials such as eczema or scabbing from trauma. Discussed F/U with derm for further evaluation. - In the interim, advised to avoid itching or picking at the lesion. Patient was informed and verbally consented to the use of an ambient scribe for clinic note documentation during the visit. Orders: Referrals Dermatology Referral L98.9 - Disorder of the skin and subcutaneous tissue, unspecified Coding Level of Care Code Est Pt Level 3 (41144) Diagnoses Scalp lesion L98.9
[2025-10-13 11:17] VITALS: BP 142/83
--- OUTSIDE RECORDS SUMMARY | 2025-10-13 12:42 | XMS_ITS | Encounter Summary ---
Author Organization [facility] [employer] [facility] Prior to 08/16/2024 Address [address] [place] [address] Care Team Providers Care Registered Representative Name Role Phone Santana Sanabria MD Primary Care Provider Adam Geiger MD Unavailable Unavailable Betsey Rey RFID MANAGER Unavailable [phone] Bhavin Fox MD Unavailable [phone] Christina Vargas RFID MANAGER Unavailable [phone] Encounter Details Date Type Department Care Team Description 10/05/2023 SCAN Medical Records [address] [place] [id number] Aurelia Bowers PA Social History Tobacco Use [...] on filedocumented in this encounter Care Teams Registered Representative Relationship Specialty Start Date End Date Santana Sanabria MD PCP - General Internal Medicine 02/23/18 Adam Keller MD Specialist Cardiovascular Disease 04/25/23 10/17/23 Betsey Rey NP Nurse Practitioner Cardiology 04/25/23 Bhavin Fox MD Specialist Cardiology 06/01/23 Christina Vargas NP [address] [address] Cardiology 09/02/23 documented as of this encounter
--- OUTSIDE RECORDS SUMMARY | 2025-10-13 12:42 | XMS_ITS | Clinical Summary ---
Author Organization [employer] Address [address] [place] [address] [address] [place] [address] Care Team Providers Care Operating Room Technician Name Role Phone Unavailable Primary Care Provider [...] patient's age to complete this topic [place] [address] [address] [place] [address]
--- OUTSIDE RECORDS SUMMARY | 2025-10-13 12:42 | XMS_ITS | Encounter Summary ---
Author Organization [facility] Prior to 08/16/2024 Address [address] [place] [address] Care Team Providers Care Dimethylaniline Sulfator Operator Name Role Phone Santana Sanabria MD Primary Care Provider Adam Geiger MD Unavailable Unavailable Betsey Rey AGRONOMY INSTRUCTOR Unavailable Bhavin Fox MD Unavailable [phone] Christina Vargas AGRONOMY INSTRUCTOR Unavailable Encounter Details Date Type Department Care Team Description 05/25/2023 [facility] [address] [place] [address] Adam Keller MD Social History Tobacco Use [...] on filedocumented in this encounter Care Teams Dimethylaniline Sulfator Operator Relationship Specialty Start Date End Date Santana Sanabria MD PCP - General Internal Medicine 02/23/18 Adam Keller MD Specialist Cardiovascular Disease 04/25/23 10/17/23 Betsey Rey NP Nurse Practitioner Cardiology 04/25/23 Bhavin Fox MD Specialist Cardiology 06/01/23 Christina Vargas NP [address] [address] Cardiology 09/02/23 documented as of this encounter
--- OUTSIDE RECORDS SUMMARY | 2025-10-13 12:42 | XMS_ITS | Encounter Summary ---
Author Organization [facility] Prior to 08/16/2024 Address [address] [place] [address] Care Team Providers Care Belt Cutter Name Role Phone Santana Sanabria MD Primary Care Provider Adam Geiger MD Unavailable Unavailable Betsey Rey SUPPLY PERSON Unavailable [phone] Bhavin Fox MD Unavailable [phone] Christina Vargas SUPPLY PERSON Unavailable [phone] Reason for Visit * Reason Onset Date Comments Medication 07/21/2023 Side effects Encounter Details Date Type Department Care Team Description 07/21/2023 Telephone Cardio PVC POC [address] [place] [address] Bhavin Fox MD [address] [place] [address] [id number] Medication (Side effects ) Social History Tobacco [...] this AM. States she had gone to [facility] [place], records scanned into [employer] for review. Was having some increased chest [...] with Dr. Fox on Monday for additional area counselor. Hopefully with some time she will [...] Apple watch but it is on the medical transcription right now. Is not able to send [...] on filedocumented in this encounter Care Teams Belt Cutter Relationship Specialty Start Date End Date Santana Sanabria MD PCP - General Internal Medicine 02/23/18 Adam Keller MD Specialist Cardiovascular Disease 04/25/23 10/17/23 Betsey eRy NP Nurse Practitioner Cardiology 04/25/23 Bhavin Fox MD Specialist Cardiology 06/01/23 Christina Vargas NP [address] [place] [address] Cardiology 09/02/23 documented as of this encounter
--- OUTSIDE RECORDS SUMMARY | 2025-10-13 12:42 | XMS_ITS | Encounter Summary ---
Author Organization [employer] [facility] Prior to 08/16/2024 Address [address] [place] [address] Care Team Providers Care Packager Machine Name Role Phone Santana Sanabria MD Primary Care Provider Adam Geiger MD Unavailable Unavailable Betsey Rey NP Unavailable [phone] Bhavin Fox MD Unavailable [phone] Christina Vargas NP Unavailable [phone] Encounter Details Date Type Department Care Team Description 09/06/2023 Hospital Medical Records [address] [place], [place] [address] [place] [address] Social History Tobacco Use Types Packs/Day Years [...] on filedocumented in this encounter Care Teams Packager Machine Relationship Specialty Start Date End Date Santana Sanabria MD PCP - General Internal Medicine 02/23/18 Adam Keller MD Specialist Cardiovascular Disease 04/25/23 10/17/23 Betsey Rey NP Nurse Practitioner Cardiology 04/25/23 Bhavin Fox MD Specialist Cardiology 06/01/23 Christina Vargas NP [address] [address] Cardiology 09/02/23 documented as of this encounter
--- OUTSIDE RECORDS SUMMARY | 2025-10-13 12:42 | XMS_ITS | Encounter Summary ---
Author Organization [facility] Prior to 08/16/2024 Address [address] [place] [address] Care Team Providers Care Diagnostic Medical Sonographer Name Role Phone Santana Sanabria MD Primary Care Provider Adam Geiger MD Unavailable Unavailable Betsey Rey APPLICATION DEVELOPMENT LIAISON Unavailable [phone] Bhavin Fox MD Unavailable [phone] Christina Vargas NP Unavailable [phone] Encounter Details Date Type Department Care Team Description 05/08/2023 [facility] Cardio [facility] [address] [place] [address] Social History Tobacco Use Types Packs/Day Years [...] on filedocumented in this encounter Care Teams Diagnostic Medical Sonographer Relationship Specialty Start Date End Date Santana Sanabria MD PCP - General Internal Medicine 02/23/18 Adam Keller MD Specialist Cardiovascular Disease 04/25/23 10/17/23 Betsey Rey NP Nurse Practitioner Cardiology 04/25/23 hBavin Fox MD Specialist Cardiology 06/01/23 Christina Vargas NP [address] [place] [address] Cardiology 09/02/23 documented as of this encounter
--- OUTSIDE RECORDS SUMMARY | 2025-10-13 12:42 | XMS_ITS | Encounter Summary ---
Author Organization [facility] [facility] Prior to 08/16/2024 Address [address] [place] [address] Care Team Providers Care Professor Of Psychology Name Role Phone Santana Sanabria MD Primary Care Provider Adam Geiger MD Unavailable Unavailable Betsey Rey BLACK TOP SPREADER MACHINE OPERATOR Unavailable [phone] Bhavin Fox MD Unavailable [phone] Christina Vargas BLACK TOP SPREADER MACHINE OPERATOR Unavailable [phone] Encounter Details Date Type Department Care Team Description 06/26/2023 SCAN Medical Records [address] [place] [address] Abstract, Provider Social History Tobacco Use Types [...] on filedocumented in this encounter Care Teams Professor Of Psychology Relationship Specialty Start Date End Date Santana Sanabria MD PCP - General Internal Medicine 02/23/18 Adam Keller MD Specialist Cardiovascular Disease 04/25/23 10/17/23 Betsey Rey NP Nurse Practitioner Cardiology 04/25/23 Bhavin Fox MD Specialist Cardiology 06/01/23 Christina Vargas NP [address] [address] Cardiology 09/02/23 documented as of this encounter
--- OUTSIDE RECORDS SUMMARY | 2025-10-13 12:42 | XMS_ITS | Encounter Summary ---
Author Organization [facility] Prior to 08/16/2024 Address [address] [place] [address] Care Team Providers Care Air Cargo Specialist Name Role Phone Santana Sanabria MD Primary Care Provider Adam Geiger MD Unavailable Unavailable Betsey Rey NP Unavailable Bhavin Fox MD Unavailable [phone] Christina Vargas NP Unavailable [phone] Encounter Details Date Type Department Care Team Description 05/12/2023 Hospital Medical Records [address] [place], [place] [address] [place] [address] Social History Tobacco Use Types Packs/Day Years [...] on filedocumented in this encounter Care Teams Air Cargo Specialist Relationship Specialty Start Date End Date Santana Sanabria MD PCP - General Internal Medicine 02/23/18 Adam Keller MD Specialist Cardiovascular Disease 04/25/23 10/17/23 Betsey Rey NP Nurse Practitioner Cardiology 04/25/23 Bhavin Fox MD Specialist Cardiology 06/01/23 Christina Vargas NP [address] [address] Cardiology 09/02/23 documented as of this encounter
--- OUTSIDE RECORDS SUMMARY | 2025-10-13 12:42 | XMS_ITS | Encounter Summary ---
Author Organization [employer] [facility] Prior to 08/16/2024 Address [address] [place] [address] Care Team Providers Care Rubber Tubing Backer Name Role Phone Santana Sanabria MD Primary Care Provider Adam Geiger MD Unavailable Unavailable Betsey Rey EMERGENCY PLANNING AND RESPONSE MANAGER Unavailable [phone] Bhavin Fox MD Unavailable [phone] Christina Vargas EMERGENCY PLANNING AND RESPONSE MANAGER Unavailable [phone] Encounter Details Date Type Department Care Team Description 05/12/2023 Hospital Cardio [facility] [address] [place] [address] Drive [address] [place] [address] Mohamud Hogan MD [address] [place] [address] [place], [place] [id number] Social History Tobacco Use Types Packs/Day Years [...] on filedocumented in this encounter Care Teams Rubber Tubing Backer Relationship Specialty Start Date End Date Santana Sanabria MD PCP - General Internal Medicine 02/23/18 Adam Keller MD Specialist Cardiovascular Disease 04/25/23 10/17/23 Betsey Rey NP Nurse Practitioner Cardiology 04/25/23 Bhavin Fox MD Specialist Cardiology 06/01/23 Christina Vargas NP [address] [place] [address] Cardiology 09/02/23 documented as of this encounter
--- OUTSIDE RECORDS SUMMARY | 2025-10-13 12:42 | XMS_ITS | Encounter Summary ---
Author Organization [facility] Prior to 08/16/2024 Address [address] [place] [address] Care Team Providers Care Commercial Sheet Metal Foreman Name Role Phone Santana Sanabria MD Primary Care Provider Adam Geiger MD Unavailable Unavailable Betsey Rey COMPOSITOR APPRENTICE Unavailable [phone] Bhavin Fox MD Unavailable [phone] Christina Vargas COMPOSITOR APPRENTICE Unavailable [phone] Encounter Details Date Type Department Care Team Description 05/04/2023 Telephone Cardio PVCA Diag Testing 101 300 [facility] [address] [place] [address] Jen Quintanilla PA-C [address] [place] [address] [id number] Social History Tobacco Use Types Packs/Day Years [...] and then PET stress after attempt at sabianism of NSR to ruleout ischemia. Patient is [...] she is leaving for a trip to [place] next month. documented in this encounter Plan of Treatment Scheduled Orders Name Type Priority Associated Diagnoses Orde r Schedule ME CARDIOVERSION ELECTIVE ARRHYTHMIA EXTERNAL Cardiology Routine Persistent atrial fibrillation (HCC) Ordered: 05/04/2023 documented as of this encounter Visit Diagnoses Diagnosis Paroxysmal atrial fibrillation (HCC)- Primary Atrial fibrillation Persistent atrial fibrillation (HCC) Atrial fibrillation HFrEF (heart failure with reduced ejection fraction) (HCC) Dyspnea on exertion Other dyspnea and respiratory abnormality documented in this encounter Care Teams Commercial Sheet Metal Foreman Relationship Specialty Start Date End Date Santana Sanabria MD PCP - General Internal Medicine 02/23/18 Adam Keller MD Specialist Cardiovascular Disease 04/25/23 10/17/23 Betsey Rey NP Nurse Practitioner Cardiology 04/25/23 Bhavin Fox MD Specialist Cardiology 06/01/23 Christina Vargas NP [address] [address] Cardiology 09/02/23 documented as of this encounter
--- OUTSIDE RECORDS SUMMARY | 2025-10-13 12:42 | XMS_ITS | Encounter Summary ---
Author Organization [facility] Prior to 08/16/2024 Address [address] [place] [address] Care Team Providers Care Assembler Flexible Leads Name Role Phone Santana Sanabria MD Primary Care Provider Adam Geiger MD Unavailable Unavailable Betsey Rey INTERNET TECHNOLOGY MANAGER Unavailable [phone] Bhavin Fox MD Unavailable [phone] Christina Vargas INTERNET TECHNOLOGY MANAGER Unavailable [phone] Reason for Visit * Reason Onset Date Comments Holter Monitor 03/27/2023 Return of monito r Encounter Details Date Type Department Care Team Description 03/27/2023 Telephone Cardio P[facility] [address] [place] [address] Drive [address] [place] [id number] Adam Keller MD Holter Monitor (Return of [...] on filedocumented in this encounter Care Teams Assembler Flexible Leads Relationship Specialty Start Date End Date Santana Sanabria MD PCP - General Internal Medicine 02/23/18 Adam Keller MD Specialist Cardiovascular Disease 04/25/23 10/17/23 Betsey Rey NP Nurse Practitioner Cardiology 04/25/23 Bhavin Fox MD Specialist Cardiology 06/01/23 Christina Vargas NP [address] [place] [address] Cardiology 09/02/23 documented as of this encounter
--- OUTSIDE RECORDS SUMMARY | 2025-10-13 12:42 | XMS_ITS | Encounter Summary ---
Author Organization [facility] Prior to 08/16/2024 Address [address] [place] [address] Care Team Providers Care Window Shade Cutter Name Role Phone Santana Sanabria MD Primary Care Provider Adam Geiger MD Unavailable Unavailable Betsey Rey SECURITY LEAD Unavailable [phone] Bhavin Fox MD Unavailable [phone] Christina Vargas NP Unavailable [phone] Encounter Details Date Type Department Care Team Description 05/15/2023 Hospital Medical Records [address] [place] [address] Social History Tobacco Use Types Packs/Day Years [...] Date/Time Associated Diagnosis Comments OUTSIDE EKG Routine 05/14/2023 OUTSIDE LAB Routine 05/14/2023 documented in this encounter Results * OUTSIDE LAB (05/14/2023) Provider Abstract LAB * OUTSIDE EKG (05/14/2023) Provider Abstract CARDIOLOGY documented in this encounter Visit Diagnoses Not on filedocumented in this encounter Care Teams Window Shade Cutter Relationship Specialty Start Date End Date Santana Sanabria MD PCP - General Internal Medicine 02/23/18 Adam Keller MD Specialist Cardiovascular Disease 04/25/23 10/17/23 Betsey Rey NP Nurse Practitioner Cardiology 04/25/23 Bhavin Fox MD Specialist Cardiology 06/01/23 Christina Vargas NP [address] [place] [address] Cardiology 09/02/23 documented as of this encounter
--- OUTSIDE RECORDS SUMMARY | 2025-10-13 12:42 | XMS_ITS | Encounter Summary ---
Author Organization [employer] [facility] Prior to 08/16/2024 Address [address] [place] [address] Care Team Providers Care Java Oracle Developer Name Role Phone Santana Sanabria MD Primary Care Provider Betsey Claire NP Unavailable [phone] Bhavin Fox MD Unavailable Christina Vargas NP Unavailable [phone] Encounter Details Date Type Department Care Team Description 06/15/2024 SCAN Medical Records [address] [place] [address] Abstract, Provider Social History Tobacco Use Types [...] on filedocumented in this encounter Care Teams Java Oracle Developer Relationship Specialty Start Date End Date Santana Sanabria MD PCP - General Internal Medicine 02/23/18 Betsey Rey NP Nurse Practitioner Cardiology 04/25/23 Bhavin Fox MD Specialist Cardiology 06/01/23 Christina Vargas NP [address] [place] [address] Cardiology 09/02/23 documented as of this encounter
--- OUTSIDE RECORDS SUMMARY | 2025-10-13 12:42 | XMS_ITS | Encounter Summary ---
Author Organization [employer] [facility] Prior to 08/16/2024 Address [address] [place] [address] Care Team Providers Care Resource Specialist Teacher Name Role Phone Santana Sanabria MD Primary Care Provider Betsey Claire BIOLOGY RESEARCH ASSISTANT Unavailable [phone] Bhavin Fox MD Unavailable [phone] Christina Vargas NP Unavailable [phone] Encounter Details Date Type Department Care Team Description 04/10/2024 SCAN Medical Records [address] [place] [address] Aurelia Bowers PA Social History Tobacco Use [...] on filedocumented in this encounter Care Teams Resource Specialist Teacher Relationship Specialty Start Date End Date Santana Sanabria MD PCP - General Internal Medicine 02/23/18 Betsey Rey NP Nurse Practitioner Cardiology 04/25/23 Bhavin Fox MD Specialist Cardiology 06/01/23 Christina Vargas NP [address] [address] Cardiology 09/02/23 documented as of this encounter
--- OUTSIDE RECORDS SUMMARY | 2025-10-13 12:42 | XMS_ITS | Patient Health Record ---
Author Organization [facility] Address [address] [place] [address] Care Team Providers Care Engineering Analyst Name Role Phone Elly VANEGAS, Santana Primary Care Provider Rubi Colin Unavailable [phone] Allergies Allergen (clinical drug ingredient) Drug/Non Drug [...] Orally Onc e a day Active Evening Bunnell Oil 1000 MG as directed Orally Active [...] X ray : Foot, right 3V 01/12/2012 [id number] Destruction, 10-2903/25/2015 [id number] Destruction, 10-2904/29/2015 [id number] Destruction, 10-2905/25/2015 [id number] TENDON SHEATH/LIGAMENT 0 01/29/2018 Insurance Providers Payer Name Payer Address Payer Phone Subscriber Number Group Number Insured Name Patient Relationship to Insured Coverage Start Date Coverage End Date [employer] [address] [place] [address] [id number] Jermaine Garg Spouse - patient is [...]
--- OUTSIDE RECORDS SUMMARY | 2025-10-13 12:43 | XMS_ITS | Encounter Summary ---
Author Organization [employer] [facility] Prior to 08/16/2024 Address [address] [place] [address] Care Team Providers Care Cafeteria Assistant Name Role Phone Santana Sanabria MD Primary Care Provider Betsey Claire NP Unavailable [phone] Bhavin Fox MD Unavailable [phone] Christina Vargas NP Unavailable Encounter Details Date Type Department Care Team Description 10/30/2023 SCAN Medical Records [address] [place] [address] Abstract, Provider Social History Tobacco Use Types [...] on filedocumented in this encounter Care Teams Cafeteria Assistant Relationship Specialty Start Date End Date Santana Sanabria MD PCP - General Internal Medicine 02/23/18 Betsey Rey NP Nurse Practitioner Cardiology 04/25/23 Bhavin Fox MD Specialist Cardiology 06/01/23 Christina Vargas NP [address] [place] [address] Cardiology 09/02/23 documented as of this encounter
--- OUTSIDE RECORDS SUMMARY | 2025-10-13 12:43 | XMS_ITS | Encounter Summary ---
Author Organization [employer] [facility] Prior to 08/16/2024 Address [address] [place] [address] Care Team Providers Care Dial Painter Name Role Phone Santana Sanabria MD Primary Care Provider Adam Geiger MD Unavailable Unavailable Betsey Rey NP Unavailable [phone] Bhavin Fox MD Unavailable [phone] Christina Vargas NP Unavailable [phone] Encounter Details Date Type Department Care Team Description 12/24/2019 Release of Information Medical Records [address] [place] [address] Abstract, Provider Social History Tobacco Use Types [...] filedocumented in this encounter Care Teams Dial Painter Relationship Specialty Start Date End Date Santana Sanabria MD PCP - General Internal Medicine 02/23/18 Adam Keller MD Specialist Cardiovascular Disease 04/25/23 10/17/23 Betsey Rey NP Nurse Practitioner Cardiology 04/25/23 Bhavin Fox MD Specialist Cardiology 06/01/23 Christina Vargas NP [address] [address] Cardiology 09/02/23 documented as of this encounter
--- OUTSIDE RECORDS SUMMARY | 2025-10-13 12:43 | XMS_ITS | Encounter Summary ---
Author Organization [employer] [facility] Prior to 08/16/2024 Address [address] [place] [address] Care Team Providers Care Engineering Project Manager Name Role Phone Santana Sanabria MD Primary Care Provider Adam Geiger MD Unavailable Unavailable Betsey Rey FUR TRAPPER Unavailable [phone] Bhavin Fox MD Unavailable [phone] Christina Vargas FUR TRAPPER Unavailable [phone] Encounter Details Date Type Department Care Team Description 08/14/2023 SCAN Medical Records [address] [place] [address] Abstract, Provider Social History Tobacco Use Types [...] on filedocumented in this encounter Care Teams Engineering Project Manager Relationship Specialty Start Date End Date Santana Sanabria MD PCP - General Internal Medicine 02/23/18 Adam Keller MD Specialist Cardiovascular Disease 04/25/23 10/17/23 Betsey Rey NP Nurse Practitioner Cardiology 04/25/23 Bhavin Fox MD Specialist Cardiology 06/01/23 Christina Vargas NP [address] [place] [address] Cardiology 09/02/23 documented as of this encounter
--- OUTSIDE RECORDS SUMMARY | 2025-10-13 12:43 | XMS_ITS | Encounter Summary ---
Author Organization [facility] Prior to 08/16/2024 Address [address] [place] [address] Care Team Providers Care Chemical Detection Expert Name Role Phone Santana Sanabria MD Primary Care Provider Adam Geiger MD Unavailable Unavailable Betsey Rey CORE DRILLING SUPERVISOR Unavailable [phone] Bhavin Fox MD Unavailable Christina Vargas CORE DRILLING SUPERVISOR Unavailable [phone] Encounter Details Date Type Department Care Team Description 12/28/2021 [facility] Medical Records [address] [place] [address] Social History Tobacco Use Types Packs/Day Years [...] filedocumented in this encounter Care Teams Chemical Detection Expert Relationship Specialty Start Date End Date Santana Sanabria MD PCP - General Internal Medicine 02/23/18 Adam Keller MD Specialist Cardiovascular Disease 04/25/23 10/17/23 Betsey Rey NP Nurse Practitioner Cardiology 04/25/23 Bhavin Fox MD Specialist Cardiology 06/01/23 Christina Vargas NP [address] [place] [address] Cardiology 09/02/23 documented as of this encounter
--- OUTSIDE RECORDS SUMMARY | 2025-10-13 12:43 | XMS_ITS | Clinical Summary ---
Author Organization [facility] [employer] Address [address] [facility] [place] [address] Phone Care Team Providers Care Certified Histologic Technician Name Role Phone Maty Johnson MD Primary [...] on Entresto and Multaq. Anticoagulated with Eliquis. [id number] score of 2 for age and female [...] stroke risk is fairly modest with her [id number] score of 2 but she prefers not [...] be started back on Eliquis for anticoagulation [id number]- VASc score of 3 representing a 3.2% [...] ovary 02/19/2019 Overview (09/10/2024): Advised to see HOBBING PRESS OPERATOR, no further information in transferred notes Allergic [...] Her father in his 90s from an [place]. We will arrange for a stress echocardiogram [...] Type Department Care Team Description 09/22/2025 Telephone [facility] Cardiology [facility] [address] [place] [address] Florin Silva MD from Last 3 Months Surgical History Surgery Date Site/Laterality Comments COLONOSCOPY 05/2018 PROCEDURE: HISTORICAL COLONOSCOPY; COMMENT: Dr Adam, tubular adenoma, repeat one year SECTION PROCEDURE: HISTORICAL DELIVERY TUBAL LIGATION PROCEDURE: HISTORICAL TUBAL LIGATION CHOLECYSTECTOMY PROCEDURE: HISTORICAL CHOLECYSTECTOMY Medical History Medical History Date Comments Abnormal ultrasound of ovary 02/19/2019 DX: Abnormal ultrasound of ovary; COMMENT: Advised to see HOBBING PRESS OPERATOR, no further information in transferred notes Allergic [...] AM EST Performed at: 01 - [facility] [address] [id number] Chopper Gun Operator: Bhakti House MD, Phone: [phone] us Betsey Rey FRONT SIGHT ATTACHER LAB BLOOD ORDERABLES Final R esult [facility] 1 * Colonoscopy (05/16/2018) [facility] Signature Colonoscopy No Interpretation , Abstracted Anatomical Region Laterality Modality Other us Historical Provider HEALTH MAINTENANCE Final Result from Last 3 Months or Most Recently Relevant to Health Maintenance Insurance [facility] Care Teams Certified Histologic Technician Relationship Specialty Start Date End Date Maty Johnson MD [address] [facility] [place] [address] PCP - General Internal Medicine 01/21/25
--- OUTSIDE RECORDS SUMMARY | 2025-10-13 12:43 | XMS_ITS | Encounter Summary ---
Author Organization [employer] [facility] Prior to 08/16/2024 Address [address] [place] [address] Care Team Providers Care Branch Service Specialist Name Role Phone Santana Sanabria MD Primary Care Provider Adam Geiger MD Unavailable Unavailable Betsey Rey BEHAVIOR SPECIALIST Unavailable [phone] Bhavin Fox MD Unavailable [phone] Christina Vargas BEHAVIOR SPECIALIST Unavailable [phone] Encounter Details Date Type Department Care Team Description 07/21/2023 Hospital Medical Records [address] [place] [address] Social History Tobacco Use Types Packs/Day Years [...] on filedocumented in this encounter Care Teams Branch Service Specialist Relationship Specialty Start Date End Date Santana Sanabria MD PCP - General Internal Medicine 02/23/18 Adam Keller MD Specialist Cardiovascular Disease 04/25/23 10/17/23 Betsey Rey NP Nurse Practitioner Cardiology 04/25/23 Bhavin Fox MD Specialist Cardiology 06/01/23 Christina Vargas NP [address] [place] [phone] Cardiology 09/02/23 documented as of this encounter
--- OUTSIDE RECORDS SUMMARY | 2025-10-13 12:43 | XMS_ITS | Encounter Summary ---
Author Organization [employer] [facility] Prior to 08/16/2024 Address [address] [place] [address] Care Team Providers Care Excelsior Picker Name Role Phone Santana Sanabria MD Primary Care Provider Adam Geiger MD Unavailable Unavailable Betsey Rye DATA MANAGEMENT Unavailable [phone] Bhavin Fox MD Unavailable [phone] Christina Vargas DATA MANAGEMENT Unavailable [phone] Encounter Details Date Type Department Care Team Description 10/04/2023 [facility] Medical Records [address] [place] [address] Abstract, Provider Social History Tobacco Use Types [...] on filedocumented in this encounter Care Teams Excelsior Picker Relationship Specialty Start Date End Date Santana Sanabria MD PCP - General Internal Medicine 02/23/18 Adam Keller MD Specialist Cardiovascular Disease 04/25/23 10/17/23 Betsey Rey NP Nurse Practitioner Cardiology 04/25/23 Bhavin Fox MD Specialist Cardiology 06/01/23 Christina Vargas NP [address] [address] Cardiology 09/02/23 documented as of this encounter
--- OUTSIDE RECORDS SUMMARY | 2025-10-13 12:43 | XMS_ITS | Encounter Summary ---
Author Organization [facility] Prior to 08/16/2024 Address [address] [place] [address] Care Team Providers Care Bulb Sorter Name Role Phone Santana Sanabria MD Primary Care Provider Adam Geiger MD Unavailable Unavailable Betsey Rey REMOTE COMPUTER TERMINAL OPERATOR Unavailable [phone] Bhavin Fox MD Unavailable [phone] Christina Vargas REMOTE COMPUTER TERMINAL OPERATOR Unavailable [phone] Encounter Details Date Type Department Care Team Description 08/07/2023 Hospital Medical Records [address] [place] [address] Social History Tobacco Use Types Packs/Day Years [...] on filedocumented in this encounter Care Teams Bulb Sorter Relationship Specialty Start Date End Date Santana Sanabria MD PCP - General Internal Medicine 02/23/18 Adam Keller MD Specialist Cardiovascular Disease 04/25/23 10/17/23 Betsey Rey NP Nurse Practitioner Cardiology 04/25/23 Bhavin Fox MD Specialist Cardiology 06/01/23 Christina Vargas NP [address] [address] Cardiology 09/02/23 documented as of this encounter
--- OUTSIDE RECORDS SUMMARY | 2025-10-13 12:43 | XMS_ITS | Encounter Summary ---
Author Organization [facility] Prior to 08/16/2024 Address [address] [place] [address] Care Team Providers Care Template Inspector Name Role Phone Santana Sanabria MD Primary Care Provider Adam Geiger MD Unavailable Unavailable Betsey Rey NP Unavailable [phone] Bhavin Fox MD Unavailable [phone] Christina Vargas NP Unavailable [phone] Encounter Details Date Type Department Care Team Description 04/28/2020 [facility] Medical Records [address] [place] [address] Adam Keller MD Social History Tobacco Use [...] on filedocumented in this encounter Care Teams Template Inspector Relationship Specialty Start Date End Date Santana Sanabria MD PCP - General Internal Medicine 02/23/18 Adam Keller MD Specialist Cardiovascular Disease 04/25/23 10/17/23 Betsey Rey NP Nurse Practitioner Cardiology 04/25/23 Bhavin Fox MD Specialist Cardiology 06/01/23 Christina Varags NP [address] [place] [address] Cardiology 09/02/23 documented as of this encounter
--- OUTSIDE RECORDS SUMMARY | 2025-10-13 12:43 | XMS_ITS | Encounter Summary ---
Author Organization [employer] [facility] Prior to 08/16/2024 Address [address] [place] [address] Care Team Providers Care Oceanographic Meteorologist Name Role Phone Santana Sanabria MD Primary Care Provider Betsey Claire NP Unavailable [phone] Bhavin Fox MD Unavailable [phone] Christina Vargas NP Unavailable Reason for Visit * Reason Onset Date Comments Holter Monitor 02/13/2024 Monitor Roct Enrollment 02/13/2024 Enrolling munir ibrahim for 14 day ROCT Encounter Details Date Type Department Care Team Description 02/13/2024 Telephone Cardio PVC POC [address] [facility] [address] [place], [place] [id number] Christina Vargas NP [address] [place] [address] Holter Monitor (Monitor ); Roct [...] speak with spouse as well. Please attach [facility] triage to response as well as I told patient I would also follow up on this. Thank you. SL appt 02/20 needs to be rescheduled to after ROCT. * Telephone Encounter - Yris Becerra RN - 02/14/2024 2:53 PM EDT Is there any update as to when patient will be getting her ROCT? Please respond back to [facility] triage so we can reschedule her 02/20/appt [...] . She has not heard anything yet Gutierrez documented in this encounter Plan of Treatment Not on file documented as of this encounter Visit Diagnoses Not on filedocumented in this encounter Care Teams Oceanographic Meteorologist Relationship Specialty Start Date End Date Santana Sanabria MD PCP - General Internal Medicine 02/23/18 Betsey Rey NP Nurse Practitioner Cardiology 04/25/23 Bhavin Fox MD Specialist Cardiology 06/01/23 Christina Vargas NP [address] [address] Cardiology 09/02/23 documented as of this encounter
--- OUTSIDE RECORDS SUMMARY | 2025-10-13 12:43 | XMS_ITS | Encounter Summary ---
Author Organization [employer] [facility] Prior to 08/16/2024 Address [address] [place] [address] Care Team Providers Care Hotshot Superintendent Name Role Phone Santana Sanabria MD Primary Care Provider Adam Geiger MD Unavailable Unavailable Betsey Rey PAN WASHER Unavailable [phone] Bhavin Fox MD Unavailable [phone] Christina Vargas PAN WASHER Unavailable [phone] Encounter Details Date Type Department Care Team Description 08/11/2023 [facility] Medical Records [address] [place] [address] Abstract, Provider Social History Tobacco Use Types [...] on filedocumented in this encounter Care Teams Hotshot Superintendent Relationship Specialty Start Date End Date Santana Sanabria MD PCP - General Internal Medicine 02/23/18 Adam Keller MD Specialist Cardiovascular Disease 04/25/23 10/17/23 Betsey Rey NP Nurse Practitioner Cardiology 04/25/23 Bhavin Fox MD Specialist Cardiology 06/01/23 Christina Vargas NP [address] [place] [phone] Cardiology 09/02/23 documented as of this encounter
--- OUTSIDE RECORDS SUMMARY | 2025-10-13 12:43 | XMS_ITS | Encounter Summary ---
Author Organization [employer] [facility] Prior to 08/16/2024 Address [address] [place] [address] Care Team Providers Care Tiler'S Assistant Name Role Phone Santana Sanabria MD Primary Care Provider Adam Geiger MD Unavailable Unavailable Betsey Rey NP Unavailable [phone] Bhavin Fox MD Unavailable [phone] Christina Vargas NP Unavailable [phone] Encounter Details Date Type Department Care Team Description 09/01/2023 [facility] Medical Records [address] [place] [id number] [place] [address] Social History Tobacco Use Types Packs/Day Years [...] on filedocumented in this encounter Care Teams Tiler'S Assistant Relationship Specialty Start Date End Date Santana Sanabria MD PCP - General Internal Medicine 02/23/18 Adam Keller MD Specialist Cardiovascular Disease 04/25/23 10/17/23 Betsey Rey NP Nurse Practitioner Cardiology 04/25/23 Bhavin Fox MD Specialist Cardiology 06/01/23 Christina Vargas NP [address] [address] Cardiology 09/02/23 documented as of this encounter
--- OUTSIDE RECORDS SUMMARY | 2025-10-13 12:43 | XMS_ITS | Clinical Summary ---
Author Organization [facility] [facility] Prior to 08/16/2024 Address [address] [place] [address] Care Team Providers Care Cataloging Assistant Name Role Phone Santana Sanabria MD Primary Care Provider Betsey Claire OUTBOUND SUPERVISOR Unavailable [phone] Bhavin Fox MD Unavailable [phone] Christina Vargas NP Unavailable [phone] Allergies Active Allergy Reactions Severity Noted Date [...] on 10/05/2023 Overview: Done on 09/06/2023 at [facility] w JPM indications:Symptomatic drug refractory fibrillation History of cardioversion 05/29/2023 Overview: Done on 05/12/2023 at [facility] w AOP indications:Atrial Fibrillation SOB (shortness of [...] Her father in his 90s from an CT. We will arrange for a stress echocardiogram [...] by CT 02/19/2019 Overview: Advised to see OYSTER GRADER, no further information in transferred notes Benign [...] fibrillation 04/17/2024 Last Assessment & Plan: Patient's [id number] score is 2 representing a 2.2% risk [...] 8 (External Completion) BMI CHECK/ADVISE 10/16/2024 INFLUENZA (#1) 2025 PNEUMOCOCCAL VACCINE FOR HIG H RISK PATIENTS (#1) 2028 Care Teams Cataloging Assistant Relationship Specialty Start Date End Date Santana Sanabria MD PCP - General Internal Medicine 02/23/18 Betsey Rey NP Nurse Practitioner Cardiology 04/25/23 Bhavin Fxo MD Specialist Cardiology 06/01/23 Christina Vargas NP [address] [address] Cardiology 09/02/23
--- OUTSIDE RECORDS SUMMARY | 2025-10-13 12:43 | XMS_ITS | Encounter Summary ---
Author Organization [employer] [facility] Prior to 08/16/2024 Address [address] [place] [address] Care Team Providers Care Ortho Assistant Name Role Phone Santana Sanabria MD Primary Care Provider Adam Geiger MD Unavailable Unavailable Betsey Rey TENNIS PLAYER Unavailable [phone] Bhavin Fox MD Unavailable [phone] Christina Vargas TENNIS PLAYER Unavailable [phone] Encounter Details Date Type Department Care Team Description 01/24/2023 [facility] Medical Records [address] [place] [id number] Abstract, Provider Social History Tobacco Use Types [...] on filedocumented in this encounter Care Teams Ortho Assistant Relationship Specialty Start Date End Date Santana Sanabria MD PCP - General Internal Medicine 02/23/18 Adam Keller MD Specialist Cardiovascular Disease 04/25/23 10/17/23 Betsey Rey NP Nurse Practitioner Cardiology 04/25/23 Bhavin Fox MD Specialist Cardiology 06/01/23 Christina Vargas NP [address] [place] [phone] Cardiology 09/02/23 documented as of this encounter
--- OUTSIDE RECORDS SUMMARY | 2025-10-13 12:43 | XMS_ITS | Encounter Summary ---
Author Organization [facility] [facility] Prior to 08/16/2024 Address [address] [place] [address] Care Team Providers Care Community Educator Name Role Phone Santana Sanabria MD Primary Care Provider Adam Geiger MD Unavailable Unavailable Betsey Rey ROTARY KILN OPERATOR Unavailable Bhavin Fox MD Unavailable [phone] Christina Vargas ROTARY KILN OPERATOR Unavailable [phone] Reason for Visit * Reason Onset Date Comments Testing 12/19/2018 cat scan of ches t [id number] Encounter Details Date Type Department Care Team Description 12/19/2018 Telephone Pulmonology - [address] [place] [phone] Armani Whitman MD Testing (cat scan of chest [id number]) Social History Tobacco Use Types Packs/Day Years [...] BC No auth required 12/19/18 - 12/20/19 [id number] Order faxed to [facility] scheduling Notiifaction letter sent to patient. documented in this encounter Plan of Treatment Not on file documented as of this encounter Visit Diagnoses Not on filedocumented in this encounter Care Teams Community Educator Relationship Specialty Start Date End Date Santana Sanabria MD PCP - General Internal Medicine 02/23/18 Adam Keller MD Specialist Cardiovascular Disease 04/25/23 10/17/23 Betsey Rey NP Nurse Practitioner Cardiology 04/25/23 Bhavin Fox MD Specialist Cardiology 06/01/23 Christina Vargas NP [address] [place] [phone] Cardiology 09/02/23 documented as of this encounter
--- OUTSIDE RECORDS SUMMARY | 2025-10-13 12:43 | XMS_ITS | Encounter Summary ---
Author Organization [employer] [facility] Prior to 08/16/2024 Address [address] [place] [address] Care Team Providers Care Research Subject Name Role Phone Santana Sanabria MD Primary Care Provider Adam Geiger MD Unavailable Unavailable Betsey Rey INTAKE SPECIALIST Unavailable [phone] Bhavin Fox MD Unavailable [phone] Christina Vargas NP Unavailable [phone] Encounter Details Date Type Department Care Team Description 01/18/2023 Hospital Medical Records [address] [place] [address] Social History Tobacco Use Types Packs/Day Years [...] on filedocumented in this encounter Care Teams Research Subject Relationship Specialty Start Date End Date Santana Sanabria MD PCP - General Internal Medicine 02/23/18 Adam Keller MD Specialist Cardiovascular Disease 04/25/23 10/17/23 Betsey Rey NP Nurse Practitioner Cardiology 04/25/23 Bhavin Fox MD Specialist Cardiology 06/01/23 Christina Vargas NP [address] [place] [phone] Cardiology 09/02/23 documented as of this encounter
--- OUTSIDE RECORDS SUMMARY | 2025-10-13 12:43 | XMS_ITS | Encounter Summary ---
Author Organization [employer] [facility] Prior to 08/16/2024 Address [address] [place] [address] Care Team Providers Care Tire Curer Name Role Phone Santana Sanabria MD Primary Care Provider Adam Geiger MD Unavailable Unavailable Betsey Rey NP Unavailable Bhavin Fox MD Unavailable Christina Vargas NP Unavailable [phone] Encounter Details Date Type Department Care Team Description 10/04/2023 [facility] Medical Records [address] [place] [id number] Abstract, Provider Social History Tobacco Use Types [...] on filedocumented in this encounter Care Teams Tire Curer Relationship Specialty Start Date End Date Santana Sanabria MD PCP - General Internal Medicine 02/23/18 Adam Keller MD Specialist Cardiovascular Disease 04/25/23 10/17/23 Betsey Rey, ELEMENTARY SCHOOL MUSIC TEACHER Nurse Practitioner Cardiology 04/25/23 Bhavin Fox MD Specialist Cardiology 06/01/23 Christina Vargas NP [address] [address] Cardiology 09/02/23 documented as of this encounter
== END 2025-10-13 12:03 | disposition home or self-care (01) ==
PROVIDERS: PCP Internal Medicine; Visit Provider Family Medicine
DX: L98.9 Disorder of the skin and subcutaneous tissue, unspecified (principal)

== ENCOUNTER → 2025-10-13 10:57 | Outpatient (BNVA) | payer OTHER, SELFPAY | PROVIDERS: PCP Internal Medicine; Visit Provider Family Medicine | DX: L98.9 Disorder of the skin and subcutaneous tissue, unspecified (principal) | CPT/HCPCS: 99212 ==